=== PATIENT | male | born 1950 | race Caucasian/White ===

== ENCOUNTER 2021-10-12 12:24 | Emergency (ER) | payer OTHER ==
--- OUTSIDE RECORDS SUMMARY | 2021-10-12 12:36 | XMS REPORT | Continuity of Care Document ---
:1950 Author Organization [facility] t Address [address] [place] [address] Care Team Providers Name Role Phone FERGUSONRAFAEL Larson Primary Care Physician Unavailable SANG HASSAN Attending Clinician Unavailable CORETTA REDMAN Attending Clinician Unavailable JOSE BUTLER Attending Clinician Unavailable Bui_Q Attending Clinician Unavailable [email or web address] Attending Clinician Unavailable Nellie Enriquez MD Attending Clinician SANG HASSAN M.D. Attending Clinician Unavailable NAIMA NAPLOES M.D. Attending Clinician Unavailable PRAFUL BOWER Attending Clinician Unavailable MAIK REDDY Attending Clinician Unavailable BRITTANIE BARRERA Admitting Clinician Unavailable Bui_Q Admitting Clinician Unavailable [email or web address] Admitting Clinician Unavailable MARY TRAVIS Admitting Clinician Unavailable FRANSISCO GABRIEL Admitting Clinician Unavailable Payers Payer Name Policy Type Policy Number Effective Date Expiration Date Adri kaur WELLCARE/WELLCARE [id number] 2019 [employer] 00:00:00 [facility] [id number] 2019 00:00:00 [facility] NT [id number] 2021 00:00:00 WELLCARE [facility] [id number] 2019 [employer] (MEDICARE 00:00:00 REPLACEMENT/ADVANTA GE - HMO) TRANSACT RX (MOVED [id number]) WELLCARE [place] - [id number] 2019 [employer] 00:00:00 (MEDICARE REPLACEMENT HMO) Problems Condition Condition Condition Status Onset Resolution Last Treating Co mments Source Name Details Category Date Date Treatment Clinician Date Effusion Effusion Disease Active [facility] of knee of knee 6-22 Health joint, joint, 00:00: left left 00 Effusion Effusion Disease Active [facility] of knee of knee 6-22 Health joint joint 00:00: right right 00 Right hip Right hip Disease Active 2020-02 [facility] pain pain 2-10 Health 00:00: 00 Trochanter Trochanter Disease Active 2020-02 U T ic ic 2-10 Health bursitis bursitis 00:00: of right of right 00 hip hip Primary Primary Disease Active 2020-02 UT osteoarthr osteoarthr 2-10 He alth itis of itis of 00:00: right hip right hip 00 Class 1 Class 1 Disease Active 2020-02 UT obesity obesity 2-10 Health due to due to 00:00: excess excess 00 calories calories with with serious serious comorbidit comorbidit y and body y and body mass index mass index (BMI) of (BMI) of 34.0 to 34.0 to 34.9 in 34.9 in adult adult Primary Primary Disease Active 2020-02 UT osteoarthr osteoarthr 0-15 He alth itis of itis of 00:00: both knees both knees 00 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 0-15 Health deformity deformity 00:00: knee, knee, 00 right right 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 0-15 Health deformity deformity 00:00: knee, left knee, left 00 Limp Limp Disease Active 2020-02 UT 0-15 Health 00:00: 00 Acute pain Acute pain Disease Active 2020-02 U T of left of left 0-15 Health knee knee 00:00: 00 Dyslipidem Dyslipidem Problem Active [facility] 6-04 Family 00:00: Practic 00 e Morbid Morbid Problem Active [place] obesity Obesity 3-18 Family 00:00: Practic 00 e Diabetes Diabetes Problem Active 2021-0 [facility] mellitus Mellitus 3-03 Family 00:00: Practic 00 e Angina Angina Problem Active [facility] co-occurre Co-occurre 1-19 Fa bouchra nt and due nt and Due 00:00: Pr actic to to 00 e coronary Coronary arterioscl Arterioscl erosis erosis Chronic Chronic Problem Active [facility] kidney Kidney 9-12 Family disease Disease 00:00: Practic stage 3 Stage 3 00 e Acute Acute Disease Active [facility] 8 [facility] syndrome 00[facility] Medica l 00 Center 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 1-12 bouchra 00:00: Practic 00 e Peripheral Peripheral Problem Active 2018-02 [facility] vascular Vascular 1-12 Family disease Disease 00:00: Practic 00 e Type 2 Type 2 Problem Active 2018-02 [facility] diabetes Diabetes 1-01 Family mellitus Mellitus 00:00: Mackenzie hamilton with with 00 e peripheral Peripheral angiopathy Angiopathy Neuropathy Neuropathy Problem Active [facility] due to Due to 9-10 Family diabetes Diabetes 00:00: Pracavinash hamilton mellitus Mellitus 00 e Anemia Anemia Problem Active [facility] 9-10 Family 00:00: Practic 00 e Obstructiv Obstructiv Problem Active [facility] e sleep e Sleep 9-10 Family apnea Apnea 00:00: Practic syndrome Syndrome 00 e Hypertensi Hypertensi Problem Active [facility] ve ve 9-10 Family disorder Disorder 00:00: Pracavniash c 00 e Gastroesop Gastroesop Problem Active [facility] hageal hageal 9-10 Family reflux Reflux 00:00: Practic disease Disease 00 e without without esophagiti Esophagiti s s Lumbar Lumbar Problem Active [facility] radiculopa Radiculopa 9-10 bouchra thy thy 00:00: Practic 00 e History of History of Problem Active [facility] cerebrovas [facility]: Practic accident Accident 00 e Unstable Unstable Disease [facility] History of History of Problem Resolve [facility] hypertensi hypertensi d Ph ysici on on ans History of History of Problem Resolve UT diabetes diabetes d Physic i mellitus mellitus ans History of History of Problem Resolve UT heart heart d Physici attack attack ans Bilateral Bilateral Problem Active UT knee pain knee pain Phys ici ans Primary Primary Problem Active UT localized localized Phys ici osteoarthr osteoarthr an s itis of itis of knees, knees, bilateral bilateral Acquired 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 Ph ysici of both of both ans lower lower extremitie extremitie s s Acquired Acquired Problem Active UT genu genu Physici varum, varum, ans left left Abnormal Abnormal Problem Active UT accelerati accelerati Ph ysici ng of gait ng of gait an s Acute pain Acute pain Problem Active U T of left of left Physici knee knee ans Osteoarthr Osteoarthr Problem Active [facility] itis of itis of Family knee Knee Practic e Allergies, Adverse Reactions, Alerts Allergy Allergy Status Severity Reaction(s) Onset Inactive Treating Comm ents Source Name Type Date Date Clinician NO KNOWN Drug Active [facility] ALLERGIE Class [facility] NO KNOWN Allergy Active [facility] ALLERGIE S Family History Family Member Diagnosis Comments Start Date Stop Date Source Unknown Family Family history of Family History [facility] Member Heart trouble Unknown Family Family history of Family History [facility] Member diabetes mellitus Unknown Family Family history of Family History [facility] Member hypertension Social History Social Habit Start Date Stop Date Quantity Comments Source History [facility] Health Alcohol Std Drinks History [facility] Health Alcohol Binge History [facility] Health Alcohol Comment History of tobacco Cigarette Smoker [facility] use Exposure to 2021-08-04 2021-08-14 Not sure [place] [facility] SARS-CoV-2 (event) 00:00:00 09:55:00 Tobacco use and 2021-08-14 2021-08-14 Smokeless tobacco [facility] exposure 00:00:00 00:00:00 non-user Alcohol intake 2021-08-14 2021-08-14 Lifetime [facility] 00:00:00 00:00:00 non-drinker (finding) Cigarette 2021-08-14 2021-08-14 [facility] pack-years 00:00:00 00:00:00 History SDOH 2020-12-07 2020-12-07 1 [facility] Alcohol Frequency 00:00:00 00:00:00 Sex Ass[birth year] [place] [facility] 00:00:00 00:00:00 Smoking Status Start Date Stop Date Source Unknown if ever smoked [facility] Never smoked tobacco [place] [facility] Medications Ordered Filled Start Stop Current Ordering Indication Dosage Frequency Signature Comments Components Source Medication Medication Date Date Medication? Clinician (SIG) Name Name bupivacaine 2020-02- No [id number] 1mL [facility] (Marcaine) 04-04 Health 0.25 % 19:22: 19:22 injection 1 48 :00 mL lidocaine 2020-02- No [id number] 1mL UT (Xylocaine) 04-04 Health 1 % 19:22: 19:22 injection 1 48 :00 mL triamcinolo 2020-02- No [id number] 10mg UT ne 04-04 Health acetonide 19:22: 19:22 (Kenalog) 48 :00 10 MG/ML injection 10 mg triamcinolo 2020-02- No [id number] 10mg 10 mg, UT ne 04-04 [facility] acetonide 19:22: 19:22 cular, (Kenalog) 48 :00 Once PRN 10 MG/ML Procedure, injection Starting 10 mg on Thu02/01/21 at 1322, For 1 dose lidocaine 2020-02- No [id number] 1mL 1 mL, UT (Xylocaine) 04-04 Injection, H ealth 1 % 19:22: 19:22 Once PRN injection 1 48 :00 Procedure, mL Starting on Thu02/01/21 at 1322, For 1 dose bupivacaine 2020-02- No [id number] 1mL 1 mL, UT (Marcaine) 04-04 Injection, He alth 0.25 % 19:22: 19:22 Once PRN injection 1 48 :00 Procedure, mL Starting on Thu02/01/21 at 1322, For 1 dose Diclofenac 2020-02- No [id number] Apply UT Sodium 04-04 [id number] topically H ealth (Voltaren) 00:00: 05:59 3D 3 (three) 1 % 00 :00 times a external day if gel needed (pain). APPLY 4 GRAMS DONT EXCEED 16 QD Sodium 2020-02- No [id number] 20mg UT Hyaluronate 03-13 Health solution 15:38: 15:38 prefilled 48 :00 syringe 20 mg Sodium 2020-02- No [id number] 20mg UT Hyaluronate 03-13 Health solution 15:38: 15:38 prefilled 48 :00 syringe 20 mg Sodium 2020-02- No [id number] 20mg 20 mg, UT Hyaluronate 03-13 [facility] solution 15:38: 15:38 cular, prefilled 48 :00 Once PRN syringe 20 Procedure, mg Starting on Thu01/11/21 at 0938, For 1 dose Sodium 2020-02- No [id number] 20mg 20 mg, UT Hyaluronate 03-13 [facility] solution 15:38: 15:38 cular, prefilled 48 :00 Once PRN syringe 20 Procedure, mg Starting on Thu01/11/21 at 0938, For 1 dose Sodium 2020-02- No [id number] 20mg UT Hyaluronate 03-06 Health solution 15:15: 15:15 prefilled 27 :00 syringe 20 mg Sodium 2020-02- No [id number] 20mg UT Hyaluronate 03-06 Health solution 15:15: 15:15 prefilled 27 :00 syringe 20 mg Sodium 2020-02- No [id number] 20mg 20 mg, UT Hyaluronate 03-06 [facility] solution 15:15: 15:15 cular, prefilled 27 :00 Once PRN syringe 20 Procedure, mg Starting on Thu01/04/21 at 0915, For 1 dose Sodium 2020-02- No [id number] 20mg 20 mg, UT Hyaluronate 03-06 [facility] solution 15:15: 15:15 cular, prefilled 27 :00 Once PRN syringe 20 Procedure, mg Starting on Thu01/04/21 at 0915, For 1 dose Sodium 2020-02- No [id number] 20mg UT Hyaluronate 02-27 Health solution 14:39: 14:39 prefilled 41 :00 syringe 20 mg Sodium 2020-02- No [id number] 20mg UT Hyaluronate 02-27 Health solution 14:39: 14:39 prefilled 41 :00 syringe 20 mg Sodium 2020-02- No [id number] 20mg 20 mg, UT Hyaluronate 02-27 [facility] solution 14:39: 14:39 cular, prefilled 41 :00 Once PRN syringe 20 Procedure, mg Starting on Thu12/28/20 at 0939, For 1 dose Sodium 2020-02- No [id number] 20mg 20 mg, UT Hyaluronate 02-27 [facility] solution 14:39: 14:39 cular, prefilled 41 :00 Once PRN syringe 20 Procedure, mg Starting on Thu12/28/20 at 0939, For 1 dose pregabalin 2020-02 Yes pregabalin U T (Lyrica) 50 0-15 50 mg Health MG capsule 09:07: capsule TK 56 1 C PO QD. sAXagliptin 2020-02 Yes QD 1 (one) UT (Onglyza) 5 0-15 time each Hea lth MG tablet 09:07: day. 56 pregabalin 2020-02 Yes pregabalin U T (Lyrica) 50 0-15 50 mg Health MG capsule 09:07: capsule TK 56 1 C PO QD. sAXagliptin 2020-02 Yes QD 1 (one) UT (Onglyza) 5 0-15 time each Hea lth MG tablet 09:07: day. 56 pregabalin 2020-02 Yes pregabalin U T (Lyrica) 50 0-15 50 mg Health MG capsule 09:07: capsule TK 56 1 C PO QD. sAXagliptin 2020-02 Yes QD 1 (one) UT (Onglyza) 5 0-15 time each Hea lth MG tablet 09:07: day. 56 pregabalin 2020-02 Yes pregabalin U T (Lyrica) 50 0-15 50 mg Health MG capsule 09:07: capsule TK 56 1 C PO QD. sAXagliptin 2020-02 Yes QD 1 (one) UT (Onglyza) 5 0-15 time each Hea lth MG tablet 09:07: day. 56 pregabalin 2020-02 Yes pregabalin U T (Lyrica) 50 0-15 50 mg Health MG capsule 09:07: capsule TK 56 1 C PO QD. sAXagliptin 2020-02 Yes QD 1 (one) UT (Onglyza) 5 0-15 time each Hea lth MG tablet 09:07: day. 56 pregabalin 2020-02 Yes pregabalin U T (Lyrica) 50 0-15 50 mg Health MG capsule 09:07: capsule TK 56 1 C PO QD. sAXagliptin 2020-02 Yes QD 1 (one) UT (Onglyza) 5 0-15 time each Hea lth MG tablet 09:07: day. 56 pregabalin 2020-02 Yes pregabalin U T (Lyrica) 50 0-15 50 mg Health MG capsule 09:07: capsule TK 56 1 C PO QD. sAXagliptin 2020-02 Yes QD 1 (one) UT (Onglyza) 5 0-15 time each Hea lth MG tablet 09:07: day. 56 empaglifloz 2020-02 Yes QD 1 (one) UT in 0-15 time each Health (Jardiance) 09:07: day. 25 MG 55 glipiZIDE 2020-02 Yes glipizide UT XL 0-15 ER 10 mg Health (Glucotrol 09:07: tablet, XL) 10 MG 55 extended 24 hr release 24 tablet hr Take 1 tablet every day by oral route. insulin 2020-02 Yes Lantus UT glargine 0-15 [facility] (Lantus 09:07: U-100 SoloStar) 55 Insulin 100 UNIT/ML 100 injection unit/mL (3 mL) subcutaneo us pen per endo 50 units twice a day isosorbide 2020-02 Yes isosorbide U T mononitrate 0-15 mononitrat He alth ER (Imdur) 09:07: e ER 30 mg 30 MG 24 hr 55 tablet,ext tablet ended release 24 hr metFORMIN 2020-02 Yes metformin UT (Glucophage 0-15 1,000 mg th ) 1000 MG 09:07: tablet tablet 55 empaglifloz 2020-02 Yes QD 1 (one) UT in 0-15 time each Health (Jardiance) 09:07: day. 25 MG 55 glipiZIDE 2020-02 Yes glipizide UT XL 0-15 ER 10 mg Health (Glucotrol 09:07: tablet, XL) 10 MG 55 extended 24 hr release 24 tablet hr Take 1 tablet every day by oral route. insulin 2020-02 Yes Lantus [facility] glargine 0-15 [facility] (Lantus 09:07: U-100 SoloStar) 55 Insulin 100 UNIT/ML 100 injection unit/mL (3 mL) subcutaneo us pen per endo 50 units twice a day isosorbide 2020-02 Yes isosorbide U T mononitrate 0-15 mononitrat He alth ER (Imdur) 09:07: e ER 30 mg 30 MG 24 hr 55 tablet,ext tablet ended release 24 hr metFORMIN 2020-02 Yes metformin UT (Glucophage 0-15 1,000 mg th ) 1000 MG 09:07: tablet tablet 55 empaglifloz 2020-02 Yes QD 1 (one) UT in 0-15 time each Health (Jardiance) 09:07: day. 25 MG 55 glipiZIDE 2020-02 Yes glipizide UT XL 0-15 ER 10 mg Health (Glucotrol 09:07: tablet, XL) 10 MG 55 extended 24 hr release 24 tablet hr Take 1 tablet every day by oral route. insulin 2020-02 Yes Lantus [facility] glargine 0-15 [facility] (Lantus 09:07: U-100 SoloStar) 55 Insulin 100 UNIT/ML 100 injection unit/mL (3 mL) subcutaneo us pen per endo 50 units twice a day isosorbide 2020-02 Yes isosorbide U T mononitrate 0-15 mononitrat He alth ER (Imdur) 09:07: e ER 30 mg 30 MG 24 hr 55 tablet,ext tablet ended release 24 hr metFORMIN 2020-02 Yes metformin UT (Glucophage 0-15 1,000 mg th ) 1000 MG 09:07: tablet tablet 55 empaglifloz 2020-02 Yes QD 1 (one) UT in 0-15 time each Health (Jardiance) 09:07: day. 25 MG 55 glipiZIDE 2020-02 Yes glipizide UT XL 0-15 ER 10 mg Health (Glucotrol 09:07: tablet, XL) 10 MG 55 extended 24 hr release 24 tablet hr Take 1 tablet every day by oral route. insulin 2020-02 Yes Lantus UT glargine 0-15 [facility] (Lantus 09:07: U-100 SoloStar) 55 Insulin 100 UNIT/ML 100 injection unit/mL (3 mL) subcutaneo us pen per endo 50 units twice a day isosorbide 2020-02 Yes isosorbide U T mononitrate 0-15 mononitrat He alth ER (Imdur) 09:07: e ER 30 mg 30 MG 24 hr 55 tablet,ext tablet ended release 24 hr metFORMIN 2020-02 Yes metformin UT (Glucophage 0-15 1,000 mg Heal th ) 1000 MG 09:07: tablet tablet 55 empaglifloz 2020-02 Yes QD 1 (one) UT in 0-15 time each Health (Jardiance) 09:07: day. 25 MG 55 glipiZIDE 2020-02 Yes glipizide UT XL 0-15 ER 10 mg Health (Glucotrol 09:07: tablet, XL) 10 MG 55 extended 24 hr release 24 tablet hr Take 1 tablet every day by oral route. insulin 2020-02 Yes Lantus UT glargine 0-15 [facility] (Lantus 09:07: U-100 SoloStar) 55 Insulin 100 UNIT/ML 100 injection unit/mL (3 mL) subcutaneo us pen per endo 50 units twice a day isosorbide 2020-02 Yes isosorbide U T mononitrate 0-15 mononitrat He alth ER (Imdur) 09:07: e ER 30 mg 30 MG 24 hr 55 tablet,ext tablet ended release 24 hr metFORMIN 2020-02 Yes metformin UT (Glucophage 0-15 1,000 mg ) 1000 MG 09:07: tablet tablet 55 empaglifloz 2020-02 Yes QD 1 (one) UT in 0-15 time each Health (Jardiance) 09:07: day. 25 MG 55 glipiZIDE 2020-02 Yes glipizide UT XL 0-15 ER 10 mg Health (Glucotrol 09:07: tablet, XL) 10 MG 55 extended 24 hr release 24 tablet hr Take 1 tablet every day by oral route. insulin 2020-02 Yes Lantus UT glargine 0-15 [facility] (Lantus 09:07: U-100 SoloStar) 55 Insulin 100 UNIT/ML 100 injection unit/mL (3 mL) subcutaneo us pen per endo 50 units twice a day isosorbide 2020-02 Yes isosorbide U T mononitrate 0-15 mononitrat He alth ER (Imdur) 09:07: e ER 30 mg 30 MG 24 hr 55 tablet,ext tablet ended release 24 hr metFORMIN 2020-02 Yes metformin UT (Glucophage 0-15 1,000 mg Heal th ) 1000 MG 09:07: tablet tablet 55 empaglifloz 2020-02 Yes QD 1 (one) UT in 0-15 time each Health (Jardiance) 09:07: day. 25 MG 55 glipiZIDE 2020-02 Yes glipizide UT XL 0-15 ER 10 mg Health (Glucotrol 09:07: tablet, XL) 10 MG 55 extended 24 hr release 24 tablet hr Take 1 tablet every day by oral route. insulin 2020-02 Yes Lantus UT glargine 0-15 [facility] (Lantus 09:07: U-100 SoloStar) 55 Insulin 100 UNIT/ML 100 injection unit/mL (3 mL) subcutaneo us pen per endo 50 units twice a day isosorbide 2020-02 Yes isosorbide U T mononitrate 0-15 mononitrat He alth ER (Imdur) 09:07: e ER 30 mg 30 MG 24 hr 55 tablet,ext tablet ended release 24 hr metFORMIN 2020-02 Yes metformin UT (Glucophage 0-15 1,000 mg Heal th ) 1000 MG 09:07: tablet tablet 55 allopurinol 2020-02 Yes 1 (one) UT (Zyloprim) 0-15 time each Heal th 100 MG 09:07: day at the tablet 54 same time. atorvastati 2020-02 Yes atorvastat UT n (Lipitor) 0-15 in 80 mg Heal th 80 MG 09:07: tablet tablet 54 allopurinol 2020-02 Yes 1 (one) UT (Zyloprim) 0-15 time each Heal th 100 MG 09:07: day at the tablet 54 same time. atorvastati 2020-02 Yes atorvastat UT n (Lipitor) 0-15 in 80 mg Heal th 80 MG 09:07: tablet tablet 54 allopurinol 2020-02 Yes 1 (one) UT (Zyloprim) 0-15 time each Heal th 100 MG 09:07: day at the tablet 54 same time. atorvastati 2020-02 Yes atorvastat UT n (Lipitor) 0-15 in 80 mg Heal th 80 MG 09:07: tablet tablet 54 allopurinol 2020-02 Yes 1 (one) UT (Zyloprim) 0-15 time each Heal th 100 MG 09:07: day at the tablet 54 same time. atorvastati 2020-02 Yes atorvastat UT n (Lipitor) 0-15 in 80 mg Heal th 80 MG 09:07: tablet tablet 54 allopurinol 2020-02 Yes 1 (one) UT (Zyloprim) 0-15 time each Heal th 100 MG 09:07: day at the tablet 54 same time. atorvastati 2020-02 Yes atorvastat UT n (Lipitor) 0-15 in 80 mg Heal th 80 MG 09:07: tablet tablet 54 allopurinol 2020-02 Yes 1 (one) UT (Zyloprim) 0-15 time each Heal th 100 MG 09:07: day at the tablet 54 same time. atorvastati 2020-02 Yes atorvastat UT n (Lipitor) 0-15 in 80 mg Heal th 80 MG 09:07: tablet tablet 54 allopurinol 2020-02 Yes 1 (one) UT (Zyloprim) 0-15 time each Heal th 100 MG 09:07: day at the tablet 54 same time. atorvastati 2020-02 Yes atorvastat UT n (Lipitor) 0-15 in 80 mg Heal th 80 MG 09:07: tablet tablet 54 Diclofenac 2020-02- No [id number] Q.[id number] Apply UT Sodium 0-15 11-15 [id number] topically H ealth (Voltaren) 00:00: 05:59 3D 3 (three) 1 % 00 :00 times a external day if gel needed (pain). APPLY 4 GRAMS TO AFFECTED AREA NOT TO EXCEED 16 GRAMS QS Diclofenac 2020-02- No [id number] Q.[id number] Apply UT Sodium 0-15 11-15 [id number] topically H ealth (Voltaren) 00:00: 05:59 3D 3 (three) 1 % 00 :00 times a external day if gel needed (pain). APPLY 4 GRAMS TO AFFECTED AREA NOT TO EXCEED 16 GRAMS QS Diclofenac 2020-02- No [id number] Q.[id number] Apply UT Sodium 0-15 11-15 [id number] topically H ealth (Voltaren) 00:00: 05:59 3D 3 (three) 1 % 00 :00 times a external day if gel needed (pain). APPLY 4 GRAMS TO AFFECTED AREA NOT TO EXCEED 16 GRAMS QS hydrocortis 2020- No [id number] 4[drp] Place 4 [facility] one-acetic 4-08 14 [id number] Drops in it y of acid 1-2 % 00:00: 04:59 left ear 3 [place] otic drops 00 :00 (three) Medica l times Branch daily for 5 days. Diclofenac Diclofenac Yes SANG APPLY 4 UT Sodium 1 % Sodium 1 % 3-05 HASSAN M.D. GRAMS TO [facility] External External 00:00: AFFECTED a ns Gel Gel 00 AREA (LOWER EXTREMITIE S) FOUR TIMES A DAY. DO NOT APPLY MORE THAN 16 GRAMS DAILY cyclobenzap 2020-1 Yes UT rine 2-08 Health (Flexeril) 00:00: 10 MG 00 tablet cyclobenzap 2020-1 Yes UT rine 2-08 Health (Flexeril) 00:00: 10 MG 00 tablet cyclobenzap 2020-1 Yes UT rine 2-08 Health (Flexeril) 00:00: 10 MG 00 tablet cyclobenzap 2020-1 Yes UT rine 2-08 Health (Flexeril) 00:00: 10 MG 00 tablet cyclobenzap 2020-1 Yes UT rine 2-08 Health (Flexeril) 00:00: 10 MG 00 tablet cyclobenzap 2020-1 Yes UT rine 2-08 Health (Flexeril) 00:00: 10 MG 00 tablet cyclobenzap 2020-1 Yes UT rine 2-08 Health (Flexeril) 00:00: 10 MG 00 tablet aspirin 81 2019-0 Yes 81mg QD Take [address] [facility] EC 8-24 by mouth [facility] tablet 13:34: daily. [address] atorvastati 2019-0 Yes 80mg QD Take [address] [facility] n calcium 8-24 by mouth [facility] (ATORVASTAT 13:34: daily . Med ical IN ORAL) 11 Center CARVEDILOL 2020-0 Yes 25mg QD Take [address] ORAL 8-24 by mouth [facility] 13:34: daily . Medical 11 Center losartan 2020-0 Yes 100mg Take [address] [facility] potassium 8-24 mg by [facility] (LOSARTAN 13:34: mouth . Medic al ORAL) 11 Center pantoprazol 2020-0 Yes 40mg QD Take [address] [facility] e 8-24 by mouth [facility] (PROTONIX) 13:34: daily. Medic al 40 MG 11 Center tablet traMADol 2020-0 Yes 50mg Take [address] (ULTRAM) 50 8-24 by mouth [facility] mg tablet 13:34: every 6 Medic al 11 (six) Center hours as needed for Pain. duloxetine 2020-0 Yes 30mg QD Take [address] HCl 8-24 by mouth [facility] (DULOXETINE 13:34: daily . Med ical ORAL) 11 Center spironolact 2020-0 Yes 25mg QD Take [address] [address] one 8-24 by mouth [facility] (ALDACTONE) 13:34: daily. Medi yasir 25 MG 11 Center tablet omega-3 2020-0 Yes 2g Q.5D Take [address] [facility] fatty 8-24 by mouth 2 [facility] acids-fish 13:34: (two) Medica l oil 11 times Center 340-1,000 daily. mg Cap per capsule folic acid 2020-0 Yes 1mg QD Take [address] (FOLVITE) 1 8-24 by mouth [facility] MG tablet 13:34: daily. Medica l 11 Center nitroglycer 2020-[address] in 8-24 mg under [facility] (NITROSTAT) 13:34: the tongue Medical 0.4 MG SL 11 every 5 Center tablet (five) minutes as needed for Chest pain Put 1 pill under tongue every 5min as needed for chest pain.No more than 3 doses in 15min.Call 911 if pain is unrelieved 5min after 1st dose . ranolazine 2020-0 Yes 500mg Q.5D Take [address] (RANEXA) 8-24 mg by [facility] 500 MG 12 13:34: mouth 2 Medic al hr tablet 11 (two) Center times daily. ticagrelor 2020-0 Yes 90mg Q.5D Take [address] (BRILINTA) 8-24 by mouth 2 Anila es 90 mg Tab 13:34: (two) Medical tablet 11 times Center daily. traMADol 2020-0 Yes 50mg Take 50 mg UT (Ultram) 50 8-24 by mouth. Hea lth MG tablet 00:00: 00 carvedilol 2020-0 Yes 25mg QD Take 25 mg U T (Coreg) 1 8-24 by mouth 1 Heal th mg/mL 00:00: (one) time solution 00 each day. aspirin 81 2020-0 Yes QD 1 (one) UT MG EC 8-24 time each Health tablet 00:00: day. 00 insulin 2020-0 Yes 30U Q12H Inject 30 UT glargine 8-24 Units Health (Lantus) 00:00: under the 100 UNIT/ML 00 skin every injection 12 (twelve) hours. pantoprazol 2020-0 Yes 40mg QD Take 40 mg UT e 8-24 by mouth 1 Health (ProtoNix) 00:00: (one) time 40 MG EC 00 each day. tablet ticagrelor 2020-0 Yes 90mg Q12H Take 90 mg U T (Brilinta) 8-24 by mouth Healt h 90 MG 00:00: every 12 tablet 00 (twelve) hours. traMADol 2020-0 Yes 50mg Take 50 mg UT (Ultram) 50 8-24 by mouth. Hea lth MG tablet 00:00: 00 carvedilol 2020-0 Yes 25mg QD Take 25 mg U T (Coreg) 1 8-24 by mouth 1 Heal th mg/mL 00:00: (one) time solution 00 each day. aspirin 81 2020-0 Yes QD 1 (one) UT MG EC 8-24 time each Health tablet 00:00: day. 00 insulin 2020-0 Yes 30U Q12H Inject 30 UT glargine 8-24 Units Health (Lantus) 00:00: under the 100 UNIT/ML 00 skin every injection 12 (twelve) hours. pantoprazol 2020-0 Yes 40mg QD Take 40 mg UT e 8-24 by mouth 1 Health (ProtoNix) 00:00: (one) time 40 MG EC 00 each day. tablet ticagrelor 2020-0 Yes 90mg Q12H Take 90 mg U T (Brilinta) 8-24 by mouth Healt h 90 MG 00:00: every 12 tablet 00 (twelve) hours. traMADol 2020-0 Yes 50mg Take 50 mg UT (Ultram) 50 8-24 by mouth. Hea lth MG tablet 00:00: 00 carvedilol 2020-0 Yes 25mg QD Take 25 mg U T (Coreg) 1 8-24 by mouth 1 Heal th mg/mL 00:00: (one) time solution 00 each day. aspirin 81 2020-0 Yes QD 1 (one) UT MG EC 8-24 time each Health tablet 00:00: day. 00 insulin 2020-0 Yes 30U Q12H Inject 30 UT glargine 8-24 Units Health (Lantus) 00:00: under the 100 UNIT/ML 00 skin every injection 12 (twelve) hours. pantoprazol 2020-0 Yes 40mg QD Take 40 mg UT e 8-24 by mouth 1 Health (ProtoNix) 00:00: (one) time 40 MG EC 00 each day. tablet ticagrelor 2020-0 Yes 90mg Q12H Take 90 mg U T (Brilinta) 8-24 by mouth Healt h 90 MG 00:00: every 12 tablet 00 (twelve) hours. traMADol 2020-0 Yes 50mg Take 50 mg UT (Ultram) 50 8-24 by mouth. Hea lth MG tablet 00:00: 00 carvedilol 2020-0 Yes 25mg QD Take 25 mg U T (Coreg) 1 8-24 by mouth 1 Heal th mg/mL 00:00: (one) time solution 00 each day. aspirin 81 2020-0 Yes QD 1 (one) UT MG EC 8-24 time each Health tablet 00:00: day. 00 insulin 2020-0 Yes 30U Q12H Inject 30 UT glargine 8-24 Units Health (Lantus) 00:00: under the 100 UNIT/ML 00 skin every injection 12 (twelve) hours. pantoprazol 2020-0 Yes 40mg QD Take 40 mg UT e 8-24 by mouth 1 Health (ProtoNix) 00:00: (one) time 40 MG EC 00 each day. tablet ticagrelor 2020-0 Yes 90mg Q12H Take 90 mg U T (Brilinta) 8-24 by mouth Healt h 90 MG 00:00: every 12 tablet 00 (twelve) hours. traMADol 2020-0 Yes 50mg Take 50 mg UT (Ultram) 50 8-24 by mouth. Hea lth MG tablet 00:00: 00 carvedilol 2020-0 Yes 25mg QD Take 25 mg U T (Coreg) 1 8-24 by mouth 1 Heal th mg/mL 00:00: (one) time solution 00 each day. aspirin 81 2020-0 Yes QD 1 (one) UT MG EC 8-24 time each Health tablet 00:00: day. 00 insulin 2020-0 Yes 30U Q12H Inject 30 UT glargine 8-24 Units Health (Lantus) 00:00: under the 100 UNIT/ML 00 skin every injection 12 (twelve) hours. pantoprazol 2020-0 Yes 40mg QD Take 40 mg UT e 8-24 by mouth 1 Health (ProtoNix) 00:00: (one) time 40 MG EC 00 each day. tablet ticagrelor 2020-0 Yes 90mg Q12H Take 90 mg U T (Brilinta) 8-24 by mouth Healt h 90 MG 00:00: every 12 tablet 00 (twelve) hours. traMADol 2020-0 Yes 50mg Take 50 mg UT (Ultram) 50 8-24 by mouth. Hea lth MG tablet 00:00: 00 carvedilol 2020-0 Yes 25mg QD Take 25 mg U T (Coreg) 1 8-24 by mouth 1 Heal th mg/mL 00:00: (one) time solution 00 each day. aspirin 81 2020-0 Yes QD 1 (one) UT MG EC 8-24 time each Health tablet 00:00: day. 00 insulin 2020-0 Yes 30U Q12H Inject 30 UT glargine 8-24 Units Health (Lantus) 00:00: under the 100 UNIT/ML 00 skin every injection 12 (twelve) hours. pantoprazol 2020-0 Yes 40mg QD Take 40 mg UT e 8-24 by mouth 1 Health (ProtoNix) 00:00: (one) time 40 MG EC 00 each day. tablet ticagrelor 2020-0 Yes 90mg Q12H Take 90 mg U T (Brilinta) 8-24 by mouth Healt h 90 MG 00:00: every 12 tablet 00 (twelve) hours. traMADol 2020-0 Yes 50mg Take 50 mg UT (Ultram) 50 8-24 by mouth. Hea lth MG tablet 00:00: 00 carvedilol 2020-0 Yes 25mg QD Take 25 mg U T (Coreg) 1 8-24 by mouth 1 Heal th mg/mL 00:00: (one) time solution 00 each day. aspirin 81 2020-0 Yes QD 1 (one) UT MG EC 8-24 time each Health tablet 00:00: day. 00 insulin 2020-0 Yes 30U Q12H Inject 30 UT glargine 8-24 Units Health (Lantus) 00:00: under the 100 UNIT/ML 00 skin every injection 12 (twelve) hours. pantoprazol 2020-0 Yes 40mg QD Take 40 mg UT e 8-24 by mouth 1 Health (ProtoNix) 00:00: (one) time 40 MG EC 00 each day. tablet ticagrelor 2020-0 Yes 90mg Q12H Take 90 mg U T (Brilinta) 8-24 by mouth Healt h 90 MG 00:00: every 12 tablet 00 (twelve) hours. insulin 2020-0 Yes 30U Q.5D [facility] (LANTUS) 00:00: subcutaneo Med ical 100 unit/mL 00 usly 2 Center injection (two) times daily Use as directed . isosorbide 2020-0 Yes 60mg QD Take 1 [facility] mononitrate 1-23 tablet (60 Tamar kes (IMDUR) 60 00:00: mg total) Me dical MG 24 hr 00 by mouth Center tablet daily. metFORMIN 2019-0 2020- No 1000mg Q.5D Take [address] [facility] [address] (GLUCOPHAGE 1-23 -22 tablets Luke s ) 500 MG 00:00: 23:59 (1,000 mg Med ical tablet 00 :00 total) by Center mouth 2 (two) times daily Resume on 03/19. aspirin 81 aspirin 81 No 1 Q1D aspirin 81 [facility] mg mg mg Family tablet,roseann tablet,roseann tablet,del Practic yed release yed release ayed e Take 1 Take 1 release tablet tablet Take 1 every day every day tablet by oral by oral every day route. route. by oral route. atorvastati atorvastati No atorvastat [facility] n 80 mg n 80 mg in 80 mg Famil y tablet Take tablet Take tablet Practic 1 tablet 1 tablet Take 1 e every day every day tablet by oral by oral every day route. route. by oral route. carvedilol carvedilol No carvedilol [facility] 25 mg 25 mg 25 mg Family tablet Take tablet Take tablet Practic 1 tablet 1 tablet Take 1 e twice a day twice a day tablet by oral by oral twice a route. route. day by oral route. cyclobenzap cyclobenzap No cyclobenza [facility] rine 10 mg rine 10 mg sakshi 10 Family tablet 1 tablet 1 mg tablet Pr actic TABLET TABLET 1 TABLET e NEEDED FOR NEEDED FOR NEEDED PAIN EVERY PAIN EVERY FOR PAIN 8 HRS 8 HRS EVERY 8 ORALLY 30 ORALLY 30 HRS ORALLY DAY(S) DAY(S) 30 DAY(S) duloxetine duloxetine No duloxetine [facility] 30 mg 30 mg 30 mg Family capsule,del capsule,del capsule,de Practic ayed ayed layed e release release release Take 1 Take 1 Take 1 capsule capsule capsule every day every day every day by oral by oral by oral route. route. route. folic acid folic acid No 1 Q1D folic acid [facility] 1 mg tablet 1 mg tablet 1 mg F amily Take 1 Take 1 tablet Practic tablet tablet Take 1 e every day every day tablet by oral by oral every day route. route. by oral route. FreeStyle FreeStyle No FreeStyle [facility] Lite Strips Lite Strips Lite F amily Take 1 Take 1 Strips Practic strip 3 strip 3 Take 1 e times a day times a day strip 3 by miscell. by miscell. times a route. route. day by miscell. route. isosorbide isosorbide No isosorbide [facility] mononitrate mononitrate mononitrat Family ER 30 mg ER 30 mg e ER 30 mg P ractic tablet,exte tablet,exte tablet,ext e nded nded ended release 24 release 24 release 24 hr Take 1 hr Take 1 hr Take 1 tablet tablet tablet every day every day every day by oral by oral by oral route. route. route. Lantus Lantus No Lantus [facility] Solostar Solostar Solostar Fam bolivar U-100 U-100 U-100 Practic Insulin 100 Insulin 100 Insulin e unit/mL (3 unit/mL (3 100 mL) mL) unit/mL (3 subcutaneou subcutaneou mL) s pen per s pen per subcutaneo endo 50 endo 50 us pen per units twice units twice endo 50 a day a day units twice a day losartan losartan No losartan Daniel brittany 100 mg 100 mg 100 mg Family tablet Take tablet Take tablet Practic 1 tablet 1 tablet Take 1 e every day every day tablet by oral by oral every day route. route. by oral route. metformin metformin No metformin [facility] 1,000 mg 1,000 mg 1,000 mg Fam bolivar tablet Take tablet Take tablet Practic 1 tablet 1 tablet Take 1 e twice a day twice a day tablet by oral by oral twice a route. route. day by oral route. Novolog Novolog No Novolog [facility] Flexpen Flexpen Flexpen Family U-100 U-100 U-100 Practic Insulin per Insulin per Insulin e Endo 15 Endo 15 per Endo units units 15 units before before before meals meals meals pantoprazol pantoprazol No pantoprazo [facility] e 40 mg e 40 mg le 40 mg Famil y tablet,roseann tablet,roseann tablet,del Practic yed release yed release ayed e Take 1 Take 1 release tablet tablet Take 1 every day every day tablet by oral by oral every day route as route as by oral needed. needed. route as needed. ranolazine ranolazine No ranolazine [facility] ER 500 mg ER 500 mg ER 500 mg Family tablet,exte tablet,exte tablet,ext Practic nded nded ended e release,12 release,12 release,12 hr Take 1 hr Take 1 hr Take 1 tablet tablet tablet twice a day twice a day twice a by oral by oral day by route. route. oral route. sacubitril sacubitril No 1 BID sacubitril [facility] 97 97 97 Family mg-valsarta mg-valsarta mg-valsart Practic n 103 mg n 103 mg an 103 mg e tablet Take tablet Take tablet 1 tablet 1 tablet Take 1 twice a day twice a day tablet by oral by oral twice a route. route. day by oral route. spironolact spironolact No spironolac [facility] one 25 mg one 25 mg tone 25 mg Family tablet TAKE tablet TAKE tablet Practic 1 TABLET 1 TABLET TAKE 1 e DAILY DAILY TABLET DAILY ticagrelor ticagrelor No ticagrelor [facility] Per Card Per Card Per Card Fam bolivar Practic e tramadol 50 tramadol 50 No tramadol [facility] mg tablet mg tablet 50 mg Fami ly TAKE 1 TAKE 1 tablet Practic TABLET BY TABLET BY TAKE 1 e MOUTH EVERY MOUTH EVERY TABLET BY 6 HOURS 6 HOURS MOUTH NEEDED NEEDED EVERY 6 HOURS NEEDED Trulicity Trulicity No Trulicity [facility] Per [facility] Per [facility] Per [facility] Family Practic e Immunizations Ordered Immunization Filled Immunization Date Status Commen ts Source Name Name zoster recombinant zoster recombinant 2020-07-27 Completed [facility] 09:48:00 Practice SARS-COV-2 (COVID-19) SARS-COV-2 (COVID-19) 2020-04-16 Completed [facility] vaccine, UNSPECIFIED vaccine, UNSPECIFIED 00:00:00 Practice SARS-COV-2 (COVID-19) SARS-COV-2 (COVID-19) 2020-03-26 Completed [facility] vaccine, UNSPECIFIED vaccine, UNSPECIFIED 00:00:00 Practice zoster recombinant zoster recombinant 2020-01-31 Completed [facility] 10:45:00 Practice influenza, high-dose, influenza, high-dose, 2019-10-25 Completed [facility] quadrivalent quadrivalent 11:13:00 Practice influenza, high dose influenza, high dose 2018-11-02 Completed [facility] seasonal seasonal 10:00:00 Practice influenza, high dose influenza, high dose 2018-01-04 Completed [facility] seasonal seasonal 11:52:00 Practice pneumococcal pneumococcal 2018-01-[address] [facility] polysaccharide PPV23 polysaccharide PPV23 11:52:00 Practice pneumococcal pneumococcal 2016-10-24 [facility] conjugate PCV 13 conjugate PCV 13 00:00:00 Pr actice influenza, influenza, 2016-10-24 [facility] unspecified unspecified 00:00:00 Practice formulation formulation Tdap Tdap 2014-02-23 Completed [facility] 00:00:00 Practice Vital Signs Vital Name Observation Time Observation Value Comments Source WEIGHT 2021-10-08 06:00:00 104.418 kg WEIGHT 2021-10-07 05:36:00 103.148 kg WEIGHT 2021-10-06 06:00:00 103.148 kg WEIGHT 2021-10-05 06:00:00 102.876 kg WEIGHT 2021-10-04 06:00:00 101.969 kg WEIGHT 2021-10-03 06:00:00 102.649 kg WEIGHT 2021-10-02 06:00:00 102.83 kg WEIGHT 2021-10-01 06:00:00 102.558 kg WEIGHT 2021-09-30 06:00:00 99.791 kg WEIGHT 2021-09-29 06:00:00 99.791 kg WEIGHT 2021-09-28 06:00:00 100.744 kg HEIGHT 2021-09-23 23:38:00 182.9 cm WEIGHT 2021-09-23 23:38:00 99.882 kg HEIGHT 2021-09-23 18:23:00 182.9 cm WEIGHT 2021-09-23 18:23:00 102.513 kg WEIGHT 2021-10-08 06:00:00 104.418 kg WEIGHT 2021-10-07 05:36:00 103.148 kg WEIGHT 2021-10-06 06:00:00 103.148 kg WEIGHT 2021-10-05 06:00:00 102.876 kg WEIGHT 2021-10-04 06:00:00 101.969 kg WEIGHT 2021-10-03 06:00:00 102.649 kg WEIGHT 2021-10-02 06:00:00 102.83 kg WEIGHT 2021-10-01 06:00:00 102.558 kg WEIGHT 2021-09-30 06:00:00 99.791 kg WEIGHT 2021-09-29 06:00:00 99.791 kg WEIGHT 2021-09-28 06:00:00 100.744 kg HEIGHT 2021-09-23 23:38:00 182.9 cm WEIGHT 2021-09-23 23:38:00 99.882 kg HEIGHT 2021-09-23 18:23:00 182.9 cm WEIGHT 2021-09-23 18:23:00 102.513 kg Body height 2021-08-14 15:25:00 [facility]6 [facility] 2021-08-14 15:25:00 112.492 [facility] BMI 2021-08-14 15:25:00 34.11 kg/m2 [facility] Body height 2021-05-03 15:25:00 181.6 cm [facility] Body weight 2021-05-03 15:25:00 112.492 kg [facility] BMI 2021-05-03 15:25:00 34.11 kg/m2 [facility] Body height 2021-02-01 15:40:00 181.6 cm [facility] Body weight 2021-02-01 15:40:00 112.492 kg [facility] BMI 2021-02-01 15:40:00 34.11 kg/m2 [facility] Body height 2021-01-11 15:03:00 181.6 cm [facility] Body weight 2021-01-11 15:03:00 112.492 kg [facility] BMI 2021-01-11 15:03:00 34.11 kg/m2 [facility] Body height 2021-01-04 15:08:00 181.6 cm [facility] Body weight 2021-01-04 15:08:00 112.492 kg [facility] BMI 2021-01-04 15:08:00 34.11 kg/m2 [facility] Body height 2020-12-28 14:43:00 181.6 cm [facility] Body weight 2020-12-28 14:43:00 112.492 kg [facility] BMI 2020-12-28 14:43:00 34.11 kg/m2 [facility] Body height 2020-12-07 14:03:00 181.6 cm [facility] Body weight 2020-12-07 14:03:00 112.492 kg [facility] BMI 2020-12-07 14:03:00 34.11 kg/m2 [facility] BP Diastolic 2020-07-27 00:00:00 71 mm[Hg] [facility] Height 2020-07-27 00:00:00 70 [in_i] [facility] BMI (Body Mass 2020-07-27 00:00:00 36.6 kg/m2 [facility] Index) Practice BP Systolic 2020-07-27 00:00:00 123 mm[Hg] [facility] Body Weight 2020-07-27 00:00:00 255.2 [lb_av] [facility] Practice Systolic blood 2020-05-31 08:20:00 130 mm[Hg] Univer sity of pressure [facility] Diastolic blood 2020-05-31 08:20:00 65 mm[Hg] Unive rsity of pressure [facility] Heart rate 2020-05-31 08:20:00 80 /min [facility]i ty of [facility] Body temperature 2020-05-31 08:20:00 37.06 Xin [facility] Respiratory rate 2020-05-31 08:20:00 17 /min [facility] Body height 2020-05-31 08:20:00 182.9 cm Universi ty [facility] Body weight 2020-05-31 08:20:00 111.131 kg Universi ty [facility] BMI 2020-05-31 08:20:00 33.23 kg/m2 Universi [facility] Oxygen saturation in 2020-05-31 08:20:00 98 /min [facility] Arterial blood by [facility] Pulse oximetry Branch BP Diastolic 2020-04-25 00:00:00 68 mm[Hg] [facility] Height 2020-04-25 00:00:00 70 [in_i] [facility] BMI (Body Mass 2020-04-25 00:00:00 35.9 kg/m2 [facility] Practice BP Systolic 2020-04-25 00:00:00 149 mm[Hg] [facility] Body Weight 2020-04-25 00:00:00 250.4 [lb_av] [facility] BP Diastolic 2020-01-31 00:00:00 78 mm[Hg] [facility] Height 2020-01-31 00:00:00 70 [in_i] [facility] BMI (Body Mass 2020-01-31 00:00:00 33.4 kg/m2 [facility] BP Systolic 2020-01-31 00:00:00 120 mm[Hg] [facility] Body Weight 2020-01-31 00:00:00 232.8 [lb_av] [facility] BP Diastolic 2019-10-25 00:00:00 73 mm[Hg] [facility] Height 2019-10-25 00:00:00 70 [in_i] [facility] BMI (Body Mass 2019-10-25 00:00:00 35 kg/m2 [facility] BP Systolic 2019-10-25 00:00:00 123 mm[Hg] [facility] Body Weight 2019-10-25 00:00:00 244 [lb_av] [facility] HEIGHT 2019-10-13 00:00:00 182.9 cm WEIGHT 2019-10-13 00:00:00 105.9 kg HEIGHT 2019-10-13 00:00:00 182.9 cm WEIGHT 2019-10-13 00:00:00 105.9 kg BP Diastolic 2019-03-31 00:00:00 73 mm[Hg] [facility] Height 2019-03-31 00:00:00 70 [in_i] [facility] BMI (Body Mass 2019-03-31 00:00:00 34.8 kg/m2 [facility] BP Systolic 2019-03-31 00:00:00 153 mm[Hg] [facility] Body Weight 2019-03-31 00:00:00 242.6 [lb_av] [facility] BP Diastolic 2019-01-04 00:00:00 80 mm[Hg] [facility] Height 2019-01-04 00:00:00 70 [in_i] [facility] BMI (Body Mass 2019-01-04 00:00:00 35.2 kg/m2 [facility] BP Systolic 2019-01-04 00:00:00 128 mm[Hg] [facility] Body Weight 2019-01-04 00:00:00 245 [lb_av] [facility] BP Diastolic 2018-11-02 00:00:00 80 mm[Hg] [facility] Height 2018-11-02 00:00:00 70 [in_i] [facility] BMI (Body Mass 2018-11-02 00:00:00 35.1 kg/m2 [facility] BP Systolic 2018-11-02 00:00:00 140 mm[Hg] [facility] Body Weight 2018-11-02 00:00:00 244.4 [lb_av] [facility] BP Diastolic 2018-07-08 00:00:00 84 mm[Hg] [facility] Height 2018-07-08 00:00:00 70 [in_i] [facility] BMI (Body Mass 2018-07-08 00:00:00 34.9 kg/m2 [facility] Practice BP Systolic 2018-07-08 00:00:00 132 mm[Hg] [facility] Body Weight 2018-07-08 00:00:00 243.4 [lb_av] [facility] Practice BP Diastolic 2018-05-05 00:00:00 82 mm[Hg] [facility] Family Practice Height 2018-05-05 00:00:00 70 [in_i] [facility] Practice BMI (Body Mass 2018-05-05 00:00:00 33.9 kg/m2 [facility] Family Index) Practice BP Systolic 2018-05-05 00:00:00 142 mm[Hg] [facility] Practice Body Weight 2018-05-05 00:00:00 236.6 [lb_av] [facility] Practice BP Diastolic 2018-03-11 00:00:00 68 mm[Hg] [facility] Practice Height 2018-03-11 00:00:00 72 [in_i] [facility] Practice BMI (Body Mass 2018-03-11 00:00:00 32.1 kg/m2 [facility] Family Index) Practice BP Systolic 2018-03-11 00:00:00 122 mm[Hg] [facility] Practice Body Weight 2018-03-11 00:00:00 236.4 [lb_av] [facility] Practice Body mass index 2020-04-27 08:37:00 34.13 kg/m2 [place] [facility] (BMI) [Ratio] Body height 2020-04-27 08:37:00 71.5 [in_us] [facility] Weight 2020-04-27 08:37:00 248.2 [lb_av] [facility] Procedures Procedure Date / Time Performing Clinician Source Performed [place] ARTHROCENTESIS 2021-02-01 19:22:48 Sang [facility] [place] [facility] ASPIR&/INJ MAJOR JT/BURSA W/O US XR HIP 2 OR 3 VW RIGHT 2021-02-01 15:56:01 Sang Hassan [place] [facility] [place] ARTHROCENTESIS ASPIR&/INJ 2021-01-11 15:38:48 [place] [facility] MAJOR JT/BURSA W/O US BILATERAL ARTHROCENTESIS ASPIR&/INJ 2021-01-04 15:15:27 Sang Hassan [place] [facility] MAJOR JT/BURSA W/O US BILATERAL ARTHROCENTESIS ASPIR&/INJ 2020-12-28 14:39:41 Sang Hassan [place] [facility] MAJOR JT/BURSA W/O US BILATERAL [place] REMV EXT CANAL FOREIGN 2020-05-31 09:17:00 Zoe Leticiajohn Adri Stoddard [facility] BODY Medical Branch NOTICE OF PRIVACY 2020-05-31 08:24:18 Doctor Unassigned, [facility] PRACTICES [facility] CONSENT/REFUSAL FOR 2020-05-31 08:23:53 Doctor Unassigned, Yadira [facility] DIAGNOSIS AND TREATMENT [facility] Cardiac Catheterization 2019-10-14 00:00:00 [facility] Cardiac Catheterization 2019-03-15 00:00:00 [facility] Cardiac Catheterization 2018-09-30 00:00:00 [facility] X-RAY OF CHEST 2 VIEW 2018-05-05 00:00:00 [facility] Angioplasty 2017-09-04 00:00:00 [facility] Carmen jones [facility] Cardiac Catheterization 2017-08-29 00:00:00 [facility] Vascular Surgery 2017-02-23 00:00:00 [facility] Neurosurgery (Brain) 2011-02-23 00:00:00 [facility] Cardiac Surgery 2007-02-23 00:00:00 [facility] V[facility] Tooth Root Removal [facility] Famil y Practice Tonsilectomy/adenoids [facility] Spine [facility] Plan of Care Planned Activity Planned Date Details Comments Source Future Scheduled Test 2024-02-24 DTAP/TDAP/TD [facility] 00:00:00 VACCINES (2 - Td or Medical Center Tdap) [code = DTAP/TDAP/TD VACCINES (2 - Td or Tdap)] Future Scheduled Test 2020-10-[address] [facility] 00:00:00 (#1) [code = Medical Center INFLUENZA VACCINE (#1)] Diagnostic Test 2020-07-27 hemoglobin A1C, [facility] am[facility] Pending 00:00:00 fingerstick [code = Practice hemoglobin A1C, fingerstick] Future Scheduled Test 2020-02-[address] [facility] 00:00:00 (12+) [code = Medical Center DEPRESSION SCREENING (12+)] Future Scheduled Test 2020-02-24 FALLS RISK SCREENING [facility] 00:00:00 [code = FALLS RISK Medical C enter SCREENING] Future Scheduled Test 2018-08-[address] [facility] 00:00:00 WELLNESS (YEAR 2 or Medical Center FIRST YEAR if no IPPE) [code = MEDICARE ANNUAL WELLNESS (YEAR 2 or FIRST YEAR if no IPPE)] Future Scheduled Test 2002 SHINGLES VACCINES ([address] [facility] 00:00:00 of 2) [code = Medical Center SHINGLES VACCINES (1 of 2)] Future Scheduled Test [address] [facility] 00:00:00 SCREENING [code = Medical nter HEPATITIS C SCREENING] Future Scheduled Test 1964 COVID-19 VACCINE (1) [facility] 00:00:00 [code = COVID-[address] VACCINE (1)] Future Scheduled Test 1952 [facility] malignant neoplasm Medical C enter of colon (procedure) [code = 914713846] Instructions [facility] Encounters Start End Encounter Admission Attending Care Care Encounter Source Date/Time Date/Time Type Type Clinicians Facility Department ID 2021-08-27 Outpatient [facility] [id number] [place] 13:38:17 [id number] [facility] 2021-08-14 Outpatient [facility] [place] [id number] [place] 09:56:30 SANG [id number] [facility] 2021-08-07 Outpatient [facility] [place] [id number] [place] 14:42:50 SANG [id number] [facility] 2021-05-03 Outpatient [facility] [place] [id number] [place] [facility] Out[facility] [id number] [place] 09:46:01 [facility] 2021-01-11 [place]patient [facility] [place] [id number] [place] [facility] 2021-10-08 Inpatient ER ЮЛИЯ, SLE Emergency [id number] [facility] 18:13:00 13:23:00 [place] 2021-09-23 2021-09-23 Outpatient B[facility] BCYakov [id number] [address] [place] [address] 00:00:00 23:59:00 Justin 2021-08-14 2021-08-14 [facility] [id number] [place] 10:15:00 11:11:16 Visit Sang BLOOD [id number] [facility] MEDICAL [id number] [id number] 2021-05-03 2021-05-[address] [facility] [id number] [place] 09:45:00 10:01:58 Visit Sang BLOOD [id number] [facility] MEDICAL [id number] [id number] 2021-02-12 2021-02-12 Outpatient Bui_Q VFP VFP [id number] [facility] 03:46:00 03:46:00 [id number] Family Practic e 2021-02-12 2021-02-12 Outpatient Bui_Q VFP VFP [id number] [facility] 03:46:00 03:46:00 [id number] Family Practic e 2021-02-12 2021-02-12 Outpatient Bui_Q VFP VFP [id number] [facility] 03:46:00 03:46:00 [id number] Family Practic e 2021-02-01 2021-02-[address] [facility] [id number] [place] 09:45:00 10:51:22 Visit Sang BLOOD [id number] [facility] MEDICAL [id number] [id number] 2021-01-21 2021-01-21 Outpatient Bui_Q VFP VFP [id number] [facility] 11:28:00 11:28:00 [id number] Family Practic e 2021-01-21 2021-01-21 Outpatient Bui_Q_WAGDN VFP VFP [phone] [facility] 11:28:00 11:28:00 U [id number] Family Practic e 2021-01-21 2021-01-21 Outpatient Bui_Q_WAGDN VFP VFP [phone] [facility] 11:28:00 11:28:00 U [id number] Family Practic e 2021-01-21 2021-01-21 Outpatient Bui_Q_WAGDN VFP VFP [phone] [facility] 11:28:00 11:28:00 U [id number] Family Practic e 2021-01-11 2021-01-11 Office DANUTA Hassan [facility] [id number] [place] 08:47:07 09:23:11 Visit [place] BLOOD [id number] H ealt MEDICAL [id number] [id number] 2021-01-04 2021-01-04 Procedure [address] [facility] [id number] [place] 09:02:14 09:17:14 Visit [place] BLOOD [id number] H ealt MEDICAL [id number] [id number] 2020-12-28 2020-12-28 Office DANUTA Hassan [facility] [id number] [place] 09:35:28 10:11:06 Visit Sang BLOOD [id number] [facility] MEDICAL [id number] [id number] 2020-12-20 2020-12-20 Outpatient Bui_Q VFP VFP [id number] [facility] 12:52:00 12:52:00 [id number] Family Practic e 2020-12-20 2020-12-20 Outpatient Bui_Q_WAGDN VFP VFP [id number] [facility] 12:52:00 12:52:00 U [address] Family Practic e 2020-12-07 2020-12-[address] [facility] [id number] [place] 08:40:45 09:48:37 Visit Sang BLOOD [id number] H ealt MEDICAL [id number] PLAZA [id number] 2020-07-31 2020-07-31 Outpatient Bui_Q VFP VFP [id number] [place] 06:32:00 06:32:00 [id number] Family Practic e 2020-07-27 2020-07-27 Outpatient Bui_Q VFP VFP [id number] [facility] 09:47:00 09:47:00 [id number] Family Practic e 2020-07-27 2020-07-27 Rafael Cat VFP [place] - [id number] [place] 00:00:00 00:00:00 MD Jewel: [facility] Famil y 90416 Medical - Practi c Shadow VM_HOU_Shad e [facility], [address], [place] [address] , Ph. 2020-07-26 2020-07-26 Outpatient Bui_Q VFP VFP [id number] [facility] 10:50:00 10:50:00 [id number] Family Practic e 2020-05-31 2020-05-31 Emergency Yariny, [facility] [id number] Univers 03:34:00 04:24:00 Nellie [id number] [facility] [id number] [facility] [id number] [address] 2020-05-31 2020-05-[address] [facility] ERT [id number] Univers 03:21:00 03:21:00 ity [facility] 2020-05-15 2020-05-15 Outpatient Bui_Q_WAG VFP VFP [id number] [facility] 01:44:00 01:44:00 [id number] Family Practic e 2020-04-27 2020-04-27 Trinidad HASSAN [facility] Orthopedics [id number] [place] 09:00:00 09:00:00 t; SANG HASSAN M.D. [facility] Calixto roman HATFIELD M.D. 2020-04-27 2020-04-27 Outpatient Bui_Q VFP VFP [id number] [facility] 04:44:00 04:44:00 [id number] Family Practic e 2020-04-25 2020-04-25 Outpatient Bui_Q VFP VFP [id number] [facility] 05:54:00 05:54:00 [id number] Family Practic e 2020-04-25 2020-04-25 Rafael Cat P [place] - [id number] 3 [facility] 00:00:00 00:00:00 MD Jewel: [facility] Famil y 12053 Medical - Practi c Shadow VM_HOU_Shad e [facility], [address] [address] , Ph. 2020-02-22 2020-02-22 Outpatient Bui_Q_WAG VFP VFP [id number] [facility] 03:16:00 03:16:00 50343 Family Practic e 2020-02-22 2020-02-22 Outpatient Bui_Q_WAG VFP VFP [id number] [facility] 03:16:00 03:16:00 75719 Family Practic e 2020-02-08 2020-02-08 Outpatient Bui_Q VFP VFP [id number] [facility] 11:20:00 11:20:00 [id number] Family Practic e 2020-02-08 2020-02-08 Outpatient Bui_Q VFP VFP [id number] [facility] 11:20:00 11:20:00 13802 Family Practic e 2020-02-08 2020-02-08 Outpatient Bui_Q VFP VFP [id number] [facility] 11:20:00 11:20:00 [id number] Family Practic e 2020-02-08 2020-02-08 Outpatient Bui_Q_WAG VFP VFP [id number] [facility] 11:20:00 11:20:00 16978 Family Practic e 2020-02-02 2020-02-02 Outpatient Bui_Q_WAG VFP VFP [id number] [facility] 02:28:00 02:28:00 53170 Family Practic e 2020-01-31 2020-01-31 Outpatient Bui_Q_WAG VFP VFP [id number] [facility] 11:36:00 11:36:00 67958 Family Practic e 2020-01-31 2020-01-31 Rafael Cat VFP [place] - [id number] [place] [address] 00:00:00 00:00:00 MD Jewel: [facility] Famil y 6122 Medical [facility] [address], ([facility]) [place] [address] , Ph. 2020-01-30 2020-01-30 Outpatient Bui_Q_WAG VFP VFP [id number] [facility] 01:23:00 01:23:00 [id number] Family Practic e 2020-01-26 2020-01-26 Outpatient Bui_Q_WAG VFP VFP [id number] [facility] 10:19:00 10:19:00 33769 Family Practic e 2020-01-26 2020-01-26 Outpatient Bui_Q VFP VFP [id number] [facility] 10:19:00 10:19:00 [id number] Family Practic e 2020-01-15 2020-01-15 Outpatient Bui_Q VFP VFP [id number] [facility] 06:26:00 06:26:00 [id number] Family Practic e 2020-01-12 2020-01-12 Appointmen [facility] Orthopedics [id number] [place] 08:00:00 08:00:00 t; BETHANY DUGAN, - [facility] NAIMA DUGAN, KINSEY MCNAMARA M.D. M.D. 2020-01-09 2020-01-09 Outpatient Bui_Q_WAG VFP VFP [id number] [facility] 11:21:00 11:21:00 [id number] Family Practic e 2020-01-09 2020-01-09 Outpatient Bui_Q VFP VFP [id number] [facility] 11:21:00 11:21:00 [id number] Family Practic e 2019-11-10 2019-11-10 Outpatient Bui_Q_WAG VFP VFP [id number] [facility] 02:34:00 02:34:00 [id number] Family Practic e 2019-10-27 2019-10-27 Outpatient Bui_Q_WAG VFP VFP [id number] [facility] 06:48:00 06:48:00 [id number] Family Practic e 2019-10-25 2019-10-25 Outpatient Bui_Q VFP VFP [id number] [facility] 10:18:00 10:18:00 49982 Family Practic e 2019-10-25 2019-10-25 Rafael Cat VFP [place] - [id number] Village 00:00:00 00:00:00 MD Jewel: [facility] Famil y 6122 Medical [facility], [place] [address], ([facility]) [place] [address] , Ph. 2019-10-18 2019-10-18 [facility] UTP [id number] [place] 09:45:00 09:45:00 t; Marlen NAPOLES ANDREW, ans ANDREW, M.D. M.D. 2019-10-13 2019-10-13 Emergency ER SLE Emergency [id number] [facility] 21:37:00 21:37:00 2019-10-12 2019-10-12 Appointmen [facility]ANY [facility] [id number] [place] 09:45:00 09:45:00 t; Marlen NAPOLES ANDREW, ans ANDREW, M.D. M.D. 2019-10-04 2019-10-04 Outpatient Bui_Q VFP VFP [id number] [facility] 03:42:00 03:42:00 [id number] Family Practic e 2019-07-19 2019-07-19 Appointmen BETHANY [facility] Orthopedics [id number] [place] 09:45:00 09:45:00 t; BETHANY DUGAN, Belen [place] Barkley II ans ANDREW, M.D. M.D. 2019-07-11 2019-07-11 Appointmen [facility] Orthopedics [id number] [place] 09:45:00 09:45:00 t; Belen NAPOLES ANDREW, II ans ANDREW, M.D. M.D. 2019-07-04 2019-07-04 Appointmen [facility] Orthopedics [id number] [place] 09:45:00 09:45:00 t; BETHANY DUGAN, Belen [place] Barkley II ans ANDREW, M.D. M.D. 2019-06-08 2019-06-08 Outpatient Bui_Q_WAG VFP VFP [id number] [facility] 04:44:00 04:44:00 [id number] Family Practic e 2019-06-08 2019-06-08 Outpatient Bui_Q VFP VFP [id number] [facility] 04:44:00 04:44:00 [id number] Family Practic e 2019-06-08 2019-06-08 Outpatient Bui_Q VFP VFP [id number] [facility] 04:44:00 04:44:00 [id number] Family Practic e 2019-06-06 2019-06-06 Outpatient Bui_Q_WAG VFP VFP [id number] [facility] 02:00:00 02:00:00 [id number] Family Practic e 2019-06-06 2019-06-06 Rafael Cat VFP [place] - [id number] [facility] 00:00:00 00:00:00 MD Jewel: [facility] Famil y [address] ([place] [address] , Ph. 2019-06-01 2019-06-01 Outpatient Bui_Q_WAG VFP VFP [id number] [facility] 11:39:00 11:39:00 [id number] Family Practic e 2019-06-01 2019-06-01 Outpatient Bui_Q VFP VFP [id number] [facility] 11:39:00 11:39:00 [id number] Family Practic e 2019-04-21 2019-04-21 Outpatient Bui_Q VFP VFP [id number]- [id number] [facility] 10:59:00 10:59:00 [id number] Family Practic e 2019-04-06 2019-04-06 Outpatient Bui_Q VFP VFP [id number] [facility] 02:24:00 02:24:00 [id number] Family Practic e 2019-04-04 2019-04-04 Outpatient Bui_Q_WAG VFP VFP [id number] [facility] 10:21:00 10:21:00 [id number] Family Practic e 2019-03-31 2019-03-31 Outpatient Bui_Q_WAG VFP VFP [id number] [facility] 12:23:00 12:23:00 [id number] Family Practic e 2019-03-31 2019-03-31 Rafael Cat VFP [place] - [address] [place] [address] 00:00:00 00:00:00 MD Jewel: [facility] Famil y [address] ([place] [address] , Ph. 2019-03-29 2019-03-29 [facility] Orthopedics [id number] [place] 07:15:00 07:15:00 t; BETHANY DUGAN, - [place] NAIMA Zavala II ans ANDREW, M.D. M.D. 2019-03-24 2019-03-24 Outpatient Bui_Q VFP VFP [id number] [facility] 02:00:00 02:00:00 [id number] Family Practic e 2019-03-24 2019-03-24 Outpatient Bui_Q VFP VFP [id number] [facility] 02:00:00 02:00:00 [id number] Family Practic e 2019-03-22 2019-03-22 Outpatient Bui_Q_WAG VFP VFP [id number] 202 [facility] 03:19:00 03:19:00 [id number] Family Practic e 2019-03-17 2019-03-17 Outpatient Bui_Q VFP VFP [id number] [facility] 09:06:00 09:06:00 11078 Family Practic e 2019-03-15 2019-03-15 Outpatient Bui_Q_WAG VFP VFP [id number] [facility] 09:13:00 09:13:00 [id number] Family Practic e 2019-03-15 2019-03-15 Appointmen [facility]oped[facility] [id number] [place] 07:15:00 07:15:00 t; BETHANY DUGAN, - [place] NAIMA Zavala II ans ANDREW, M.D. M.D. 2019-03-09 2019-03-09 Appointmen [facility] [id number] [place] 07:00:00 07:00:00 t; BETHANY DUGAN, - [place] NAIMA Zavala II ans ANDREW, M.D. M.D. 2019-01-04 2019-01-04 Rafael Cat [facility] [place] - [id number] 2 [facility] 00:00:00 00:00:00 MD Jewel: [facility] y 9430 Medical - Practi alfonso Randle, _DELIAU_Pear e [address], [place] [address] , Ph. 2018-12-08 2018-12-08 Appointmen BETHANY TIPOTN UTP [id number] [place] 07:30:00 07:30:00 t; Marlen NAPOLES ANDREW, ans ANDREW, M.D. M.D. 2018-12-02 2018-12-02 [facility] [id number] [place] 15:00:00 15:00:00 t; Marlen NAPOLES ANDREW, ans ANDREW, M.D. M.D. 2018-11-23 2018-11-23 [facility] Orthopedics [id number] [place] 07:15:00 07:15:00 t; BETHANY DUGAN, [facility] NAIMA Zavala ans ANDREW, M.D. M.D. 2018-11-02 2018-11-02 Rafael Stephania [facility] [place] - [id number] 0 [place] 00:00:00 00:00:00 MD Jewel: [place] Famil y [address] [facility], Practice - e [address], [facility] [place] [address] , Ph. 2018-07-08 2018-07-08 Rafael Cat [facility] [place] - [id number] 6 Village 00:00:00 00:00:00 MD Jewel: [place] F[place] y [address] [facility], Practice - e [address], [facility] [address] , Ph. 2018-07-06 2018-07-06 [facility] Orth[facility]ics [id number] [place] 07:00:00 07:00:00 t; BETHANY DUGAN, at [place] NAIMA Zavala ans ANDREW, M.D. M.D. 2018-05-05 2018-05-05 [facility] [place] - [id number] [facility] 00:00:00 00:00:00 [facility] Family Adejumo, Family Practic MD: 9430 Practice - e [place], [facility] [address], [place] [address] , Ph. 2018-04-14 2018-04-14 [facility] [id number] [place] 07:00:00 07:00:00 t; Marlen NAPOLES ANDREW, ans ANDREW, M.D. M.D. 2018-04-12 2018-04-12 Appointmen [facility] [id number] [place] 07:00:00 07:00:00 t; Marlen NAPOLES ANDREW, ans ANDREW, M.D. M.D. 2018-04-06 2018-04-06 Appointmen [facility] Orthopedics [id number] [place] 07:15:00 07:15:00 t; [facility] ANDREW, M.D. M.D. 2018-03-11 2018-03-11 [facility] [place] - [id number] [address] [place] [address] 00:00:00 00:00:00 MD Jewel: [facility] y [address] [facility], [facility] - e [address], [facility] [place] [address] , Ph. 2018-01-06 2018-01-06 Appointmen [facility] [id number] [place] 07:00:00 07:00:00 t; Marlen NAPOLES ANDREW, ans ANDREW, M.D. M.D. 2017-12-30 2017-12-30 Appointmen [facility] [id number] [place] 07:45:00 07:45:00 t; Marlen NAPOLES ANDREW, ans ANDREW, M.D. M.D. 2017-12-23 2017-12-23 Appointmen [facility] Orth[facility] [id number] [place] 07:00:00 07:00:00 t; [facility] ANDREW, M.D. M.D. 2017-11-11 2017-11-11 Appointmen [facility] Orth[facility] [id number] [place] 08:45:00 08:45:00 t; [facility] ans ANDREW, M.D. M.D. 2017-10-14 2017-10-14 Appointmen B[facility]ANY [facility] [id number] [place] 08:45:00 08:45:00 t; [facility] NAMIA Sawyer, Orthopedics roman MCNAMARA M.D. M.D. Results Test Description Test Time Test Comments Results Result [facility] e Comments TISSUE EXAM 2021-10-11 Surgical Pathology Report 13:52:21 Case: [id number] Authorizing Provider: Brittanie Barrera MD Collected: 10/04/2021 04:39 PM Ordering Location: [address] Received: 10/04/2021 05:15 PM Service Pathologist: Missy Pozo MD Specimen: Retroperitoneum, CT Guided Retroperitoneal Mass Biopsy SOFT TISSUE, RETROPERITONEUM, BIOPSY:- DENSE FIBROSIS WITH FOCAL ATYPICAL LYMPHOID AGGREGATES (SEE COMMENT) Signing Pathologist Direct Phone Line: [phone] y signed by Missy Pozo MD on 10/11/2021 at 1:52 PMPreliminary result electronically signed by Chrissy Chandler MD on 10/05/2021 at 11:41 AMSections show dense fibrous tissue with focal areas containing a lymphoid infiltrate comprised of small mature lymphoid cells. Immunohistochemical studies highlight admixed T and B lymphoid cells. There is crush artifact and diminished tissue in deeper stained sections. No definitive feature of a hematolymphoid neoplasm is identified; however, the tissue is limited. Clinical correlation and close follow up are recommended. Further tissue sampling is recommended, if clinically indicated and if there is high suspicion for involvement by a hematolymphoid neoplasm, including tissue submission for flow cytometry and cytogenetics for complete assessment.The results of this case were discussed with Dr. Pisano on 10/11/2021 at 12:06 PM.71214; 83295; 84078 x 16; 96361; 49563Zjyjvoppdhdidry massRetroperitoneumA. Retroperitoneum.Received in formalin labeled with the patient's name, medical record number and "retroperitoneal mass" are multiple hernandez, threadlike soft tissue cores measuring up to 1.1 cm in greatest length, which are submitted in toto in A1.BALDO Orozco, HT (ASCP)Sections of the retroperitoneal biopsies show cores of tissue with marked dense fibrosis, with focal areas with an infiltrate of small mature lymphoid cells with scant cytoplasm and condensed nuclear chromatin. There is crush artifact in focal areas. Immunohistochemical and in situ hybridization studies are performed with appropriate controls. CD3 and CD20 highlight admixed T and B lymphocytes. CD10 appears focally positive in lymphoid cells. A subset of lymphoid cells stains positive for BCL2. PAX5 is weakly positive in focal B cells. MUM1, CD138, CD21, CD23, and Cyclin D1 stains are negative. Ki-67, kappa-CHRISTOPHER, and lambda-CHRISTOPHER are non-contributory. Cytokeratin Ae1/Ae3 is negative. CD34 highlights background vascular channels. Desmin and smooth muscle actin are positive in focal muscular tissue.The interpretation of this case included the use of immunohistochemistry or special stains.A1: CD3, CD20, PAX5, CD5, CD10, BCL6, BCL2, MUM1, CD138, CD21, CD23, Cyclin D1, Ki-67, [place]-CHRISTOPHER, Lambda-CHRISTOPHER, CD34, SMA, Desmin, Ae1/Cq4Bfeeqmy Slides Examined: In-house known positive controls were evaluated along with the test tissue. These control slides run alongside of the patients sample show appropriate staining. Internal positive and negative controls when available are evaluated Immunohistochemistry technical testing was performed at [facility], Pathology Laboratory where it was developed and its performance characteristics were determined. It has not been cleared or approved by the U.S. Food and Drug Administration. The FDA has determined that such clearance or approval is not necessary. The test is used for clinical purposes. It should not be regarded as investigational or for research. This laboratory is certified under the Clinical Laboratory Improvement Amendments of 1988 (CLIA-88) as qualified to perform high complexity clinical laboratory testing.[facility], Department of Pathology, [address] [place] [address], [facility], Department of Pathology, [address] [place] [address], [facility], Department of Pathology, [address] [place] [address] 265[address], POCT-GLUCOSE METER 2021-10-08 12:28:15 Test Item Value Reference Range Interpretation Comme nts POC-GLUCOSE METER (BEAKER) 247 mg/dL 70-110 H : TESTED AT [facility] 6720 DANGELO (test code = 1538) [facility] X, [address]: Display Designer Outside/Techni funmilayo ID = [id number] for Choco Morrow POCT-GLUCOSE [id number] 08:39:59 Test Item Value Reference Range Interpretation Comments POC-GLUCOSE METER 163 mg/dL 70-110 H : TESTED A T [facility] 6720 (BEAKER) (test code = [place], 1538) [address]: Display Designer Outside/Techni funmilayo ID = [id number] for Hilda Woods BASIC METABOLIC [id number] 04:47:06 Test Item Value Reference Range Interpretation Comments SODIUM (BEAKER) 138 meq/L 136-145 (test code = 381) POTASSIUM 5.2 meq/L 3.5-5.1 H (BEAKER) (test code = 379) CHLORIDE (BEAKER) 106 meq/L 98-107 (test code = 382) CO2 (BEAKER) 23 meq/L 22-29 (test code = 355) BLOOD UREA 39 mg/dL 7-21 H NITROGEN (BEAKER) (test code = 354) CREATININE 2.37 mg/dL 0.57-1.25 H (BEAKER) (test code = 358) GLUCOSE RANDOM 175 mg/dL 70-105 H (BEAKER) (test code = 652) CALCIUM (BEAKER) 8.3 mg/dL 8.4-10.2 L (test code = 697) EGFR (BEAKER) 29 Interpretatio n of eGFR (test code = mL/min/1.73 values Stage De scription 1092) sq m Result G1 Lexie l or high >=90 G2 Mildly decreased 60-89 G3a Mildl y to moderately 45-5 9 G3b Moderately to s everely 30-44 G4 Severl y decreased 15-29 G5 Kidney failure <15Reported eGF R is based on the CKD-EPI 2020 equation that d oes not use a race coefficientEsti mated GFR is not as accur ate as Creatinine Kaitlyn julien in predicting glom erular filtration rate . Estimated GFR is not appl icable for dialysis patien ts Display Designer Outside ID - JAIME YOUSIFBC (HEMOGRAM ONLY)2021-10-08 04:17:48 Test Item Value Reference Range Interpretation Comments WHITE BLOOD CELL COUNT (BEAKER) 15.4 K/ L 3.5-10.5 H (test code = 775) RED BLOOD CELL COUNT (BEAKER) 3.27 M/ L 4.63-6.08 L (test code = 761) HEMOGLOBIN (BEAKER) (test code = 8.7 GM/DL 13.7-17.5 L 410) HEMATOCRIT (BEAKER) (test code = 27.6 % 40.1-51.0 L 411) MEAN CORPUSCULAR VOLUME (BEAKER) 84.4 fL 79.0-92.2 (test code = 753) MEAN CORPUSCULAR HEMOGLOBIN 26.6 pg 25.7-32.2 (BEAKER) (test code = 751) MEAN CORPUSCULAR HEMOGLOBIN CONC 31.5 GM/DL 32.3-36.5 L (BEAKER) (test code = 752) RED CELL DISTRIBUTION WIDTH 14.5 % 11.6-14.4 H (BEAKER) (test code = 412) PLATELET COUNT (BEAKER) (test 230 K/CU MM 150-450 code = 756) MEAN PLATELET VOLUME (BEAKER) 9.8 fL 9.4-12.4 (test code = 754) NUCLEATED RED BLOOD CELLS 0 /100 WBC 0-0 (BEAKER) (test code = 413) POCT-GLUCOSE [id number] 21:15:36 Test Item Value Reference Range Interpretation Comments POC-GLUCOSE METER 365 mg/dL 70-110 H : TESTED A T [facility] 67 (IVAZELDA) (test code = [facility], 153) [address]: Display Designer Outside/Techni funmilayo ID = [id number] for YONNY BRANCH POCT-GLUCOSE [id number] 17:34:55 Test Item Value Reference Range Interpretation Comments POC-GLUCOSE METER 431 mg/dL 70-110 HH : Notified RN/MD: (EMILIE) (test code = TESTED AT [facility] 6720 1538) [facility], [address]: Display Designer Outside/Techni funmilayo ID = [id number] for KADE HERNANDEZ CT, BIOPSY, [id number] 16:04:00Reason for exam:->bilateral nephro ureteral tube placement - please discuss with urology Dr. herrera with any questions. Brilinta held starting 8/7 PM Reason for exam:->biopsy of retroperitoneal mass/lymphadenopathy/fibrosis [facility] CENTERName: AMELIA ALATORRE : 1950 Sex: MFINAL REPORT CT guided soft tissue mass biopsy History: bilateral nephro ureteral tube placement - please discuss with urology Dr. herrera with any questions. Brilinta held starting 8 PMbiopsy of retroperitoneal mass/lymphadenopathy/fibrosis Modality: CT, CT fluoroscopy Anesthesia: 1% lidocaine software database architect: Dr. Haseeb Pisano Approach: Right retroperitoneal percutaneous Consent: The risks, benefits, and alternatives to the procedure were discussed with the patient. The patient expressed understanding and informed written consent was obtained. Time out: A pre-procedure time out was p erformed in order to confirm the appropriate site of the procedure. Sedation: Moderate sedation was administered. 1 mg of Versed and 50 mcg of fentanyl IV was used for moderate sedation monitored undermy direction. Total intra-service time of sedation was 1 minutes. The patient's vital signs were monitored throughout the procedure and recorded in the patient's medical record by the nurse. Technique:Dose modulation, iterative reconstruction, and/or weight-based adjustment of the mA/kV was utilized to reduce the radiation dose to as low as reasonably achievable.The patient was placed prone in the CT scanner. Retroperitoneal mass was localized using CT and CT fluoroscopy. After the usual sterile preparation and application of local anesthesia, a 17-gauge coaxial guide needle was advanced into right retroperitoneum using CT guidance. Using an 18-gauge Temno needle via the coaxial guide needle a total of 4 core biopsy specimens were obtained and sent to pathology. The needle was removed and a sterile dressing was applied. Disposition: The patient tolerated the procedure well, without immediate complications. The patient left CT in stable condition. Impression: 1. Technically successful CT guidedretroperitoneal mass biopsy with conscious sedation. Signed: Haseeb Pisano Verified Date/Time: 10/07/2021 16:04:22 Reading Location: [facility] Radiology Reading Room POCT-GLUCOSE [id number] 12:12:30 Test Item Value Reference Range Interpretation Comments POC-GLUCOSE METER 212 mg/dL 70-110 H : TESTED A T [facility] 6720 (BEAKER) (test code = [facility] e[employer]elleron [facility], 1538) [address]: Display Designer Outside/Techni funmilayo ID = [id number] for FA KADE ACOSTA POCT-GLUCOSE [id number] 08:57:21 Test Item Value Reference Range Interpretation Comments POC-GLUCOSE METER 177 mg/dL 70-110 H : TESTED A T [facility] 6720 (BEAKER) (test code = indidebtME [employer] [facility], 1538) [address]: Display Designer Outside/Techni funmilayo ID = [id number] for FA DAVE KADE BASIC METABOLIC [id number] 06:46:29 Test Item Value Reference Range Interpretation Comments SODIUM (BEAKER) 136 meq/L 136-145 (test code = 381) POTASSIUM 4.6 meq/L 3.5-5.1 (BEAKER) (test code = 379) CHLORIDE (BEAKER) 105 meq/L 98-107 (test code = 382) CO2 (BEAKER) 23 meq/L 22-29 (test code = 355) BLOOD UREA 34 mg/dL 7-21 H NITROGEN (BEAKER) (test code = 354) CREATININE 2.20 mg/dL 0.57-1.25 H (BEAKER) (test code = 358) GLUCOSE RANDOM 215 mg/dL 70-105 H (BEAKER) (test code = 652) CALCIUM (BEAKER) 8.4 mg/dL 8.4-10.2 (test code = 697) EGFR (BEAKER) 32 Interpretatio n of eGFR (test code = mL/min/1.73 values Stage De scription 1092) sq m Result G1 Lexie l or high >=90 G2 Mildly decreased 60-89 G3a Mildl y to moderately 45-5 9 G3b Moderately to s everely 30-44 G4 Severl y decreased 15-29 G5 Kidney failure <15Reported eGF R is based on the CKD-EPI 2020 equation that d oes not use a race coefficientEsti mated GFR is not as accur ate as Creatinine Kaitlyn victoria in predicting glom erular filtration rate . Estimated GFR is not appl icable for dialysis patien ts Display Designer Outside ID - PIAYA LCBC (HEMOGRAM ONLY)2021-10-07 04:16:05 Test Item Value Reference Range Interpretation Comments WHITE BLOOD CELL COUNT (BEAKER) 14.2 K/ L 3.5-10.5 H (test code = 775) RED BLOOD CELL COUNT (BEAKER) 3.42 M/ L 4.63-6.08 L (test code = 761) HEMOGLOBIN (BEAKER) (test code = 9.4 GM/DL 13.7-17.5 L 410) HEMATOCRIT (BEAKER) (test code = 28.9 % 40.1-51.0 L 411) MEAN CORPUSCULAR VOLUME (BEAKER) 84.5 fL 79.0-92.2 (test code = 753) MEAN CORPUSCULAR HEMOGLOBIN 27.5 pg 25.7-32.2 (BEAKER) (test code = 751) MEAN CORPUSCULAR HEMOGLOBIN CONC 32.5 GM/DL 32.3-36.5 (BEAKER) (test code = 752) RED CELL DISTRIBUTION WIDTH 14.4 % 11.6-14.4 (BEAKER) (test code = 412) PLATELET COUNT (BEAKER) (test 230 K/CU MM 150-450 code = 756) MEAN PLATELET VOLUME (BEAKER) 10.1 fL 9.4-12.4 (test code = 754) NUCLEATED RED BLOOD CELLS 0 /100 WBC 0-0 (BEAKER) (test code = 413) POCT-GLUCOSE [id number] 21:25:45 Test Item Value Reference Range Interpretation Comments POC-GLUCOSE METER 358 mg/dL 70-110 H : [facility] (BEAKER) (test code = [place], 1538) [id number]: Display Designer Outside/Techni funmilayo ID = [id number] for JESSICA BOBBY POCT-GLUCOSE [id number] 17:24:21 Test Item Value Reference Range Interpretation Comments POC-GLUCOSE METER 334 mg/dL 70-110 H : Will Rep eat Test: (BEAKER) (test code = Notifi micah RN/MD: TESTED 1537) AT [facility] 67[address] [facility], 770 30: Display Designer Outside/Techni funmilayo ID = [id number] for KUSHAL DAS POCT-GLUCOSE [id number] 13:44:03 Test Item Value Reference Range Interpretation Comments POC-GLUCOSE METER 206 mg/dL 70-110 H : TESTED A T [facility] 6720 (BEAKER) (test code = [facility], 153) [id number]: Display Designer Outside/Techni funmilayo ID = [id number] for KUSHAL DAS POCT-GLUCOSE [id number] 13:43:23 Test Item Value Reference Range Interpretation Comments POC-GLUCOSE METER 176 mg/dL 70-110 H : TESTED A T [facility] 6720 (BEAKER) (test code = [facility], 153) [id number]: Display Designer Outside/Techni funmilayo ID = [id number] for KUSHAL DAS BASIC METABOLIC [id number] 08:57:05 Test Item Value Reference Range Interpretation Comments SODIUM (BEAKER) 139 meq/L 136-145 (test code = 381) POTASSIUM 4.3 meq/L 3.5-5.1 (BEAKER) (test code = 379) CHLORIDE (BEAKER) 108 meq/L 98-107 H (test code = 382) CO2 (BEAKER) 22 meq/L 22-29 (test code = 355) BLOOD UREA 33 mg/dL 7-21 H NITROGEN (BEAKER) (test code = 354) CREATININE 1.99 mg/dL 0.57-1.25 H (BEAKER) (test code = 358) GLUCOSE RANDOM 149 mg/dL 70-105 H (BEAKER) (test code = 652) CALCIUM (BEAKER) 8.3 mg/dL 8.4-10.2 L (test code = 697) EGFR (BEAKER) 36 Interpretatio n of eGFR (test code = mL/min/1.73 values Stage De scription 1092) sq m Result G1 Lexie l or high >=90 G2 Mildly decreased 60-89 G3a Mildl y to moderately 45-5 9 G3b Moderately to s everely 30-44 G4 Severl y decreased 15-29 G5 Kidney failure <15Reported eGF R is based on the CKD-EPI 2020 equation that d oes not use a race coefficientEsti mated GFR is not as accur ate as Creatinine Kaitlyn julien in predicting glom erular filtration rate . Estimated GFR is not appl icable for dialysis patien ts Display Designer Outside ID - PIAYA LCBC (HEMOGRAM ONLY)2021-10-06 06:21:41 Test Item Value Reference Range Interpretation Comments WHITE BLOOD CELL COUNT (BEAKER) 11.8 K/ L 3.5-10.5 H (test code = 775) RED BLOOD CELL COUNT (BEAKER) 3.28 M/ L 4.63-6.08 L (test code = 761) HEMOGLOBIN (BEAKER) (test code = 8.9 GM/DL 13.7-17.5 L 410) HEMATOCRIT (BEAKER) (test code = 26.5 % 40.1-51.0 L 411) MEAN CORPUSCULAR VOLUME (BEAKER) 80.8 fL 79.0-92.2 (test code = 753) MEAN CORPUSCULAR HEMOGLOBIN 27.1 pg 25.7-32.2 (BEAKER) (test code = 751) MEAN CORPUSCULAR HEMOGLOBIN CONC 33.6 GM/DL 32.3-36.5 (BEAKER) (test code = 752) RED CELL DISTRIBUTION WIDTH 14.3 % 11.6-14.4 (BEAKER) (test code = 412) PLATELET COUNT (BEAKER) (test 217 K/CU MM 150-450 code = 756) MEAN PLATELET VOLUME (BEAKER) 10.1 fL 9.4-12.4 (test code = 754) NUCLEATED RED BLOOD CELLS 0 /100 WBC 0-0 (BEAKER) (test code = 413) POCT-GLUCOSE [id number] 04:26:31 Test Item Value Reference Range Interpretation Comments POC-GLUCOSE METER 292 mg/dL 70-110 H : TESTED A T [facility] 6720 (BEAKER) (test code = [place], 1538) [address]: Display Designer Outside/Techni funmilayo ID = [id number] for SHAUNA JESSICA CT, [id number] 21:44:00Unlisted Reason for Exam - Click Yes and Enter Reason Below->YesUnlisted Reason for Exam->F.U size of RP mass s/p steroids. R PCN with minimal UOPIs this for enterography?->NoPlease specify:->RenalWill this procedure require oral contrast?->No [facility] WINTER : 1950 Sex: MFINAL REPORT CT, ABDOMEN \\T\\ PELVIS, WITHOUT IV CONTRAST CLINICAL STATEMENT: Right-sided nephrostomy. COMPARISON: CT abdomen pelvis dated 09/26/2021. Dose modulation, iterative reconstruction, and/or weight-based adjustment of the mA/kV was utilized to reduce the radiation dose to as low as reasonably achievable. FINDINGS: Visualized lung bases are within normal limits. Liver, spleen, pancreas, gallbladder, adrenal glands are within normal limits. No biliary dilatation. No significanthydronephrosis. Bilateral nephrostomy is in place. They are in appropriate position. No dilated loops of bowel to suggest obstruction. Mild amount of stool in the colon. The appendix is normal. No free fluid or free air. Moderate retroperitoneal and pelvic lymphadenopathy, similar to prior study. No free fluid or free air. Bladder is unremarkable. IMPRESSION: Bilateral nephrostomy in place with resolution of previously seen hydronephrosis. No ascites. Moderate retroperitoneal lymphadenopathy is stable in appearance. Signed: Kim Richardseport Verified Date/Time: 10/05/2021 21:44:26 Electronicallysigned by: KIM RICHARDS on 10/05/2021 09:44 PMPOCT- GLUCOSE [id number] 17:49:22 Test Item Value Reference Range Interpretation Comments POC-GLUCOSE METER 302 mg/dL 70-110 H : TESTED A T [facility] 6720 (BEAKER) (test code = [facility], 1538) 34876: Display Designer Outside/Techni funmilayo ID = [id number] for KUSHAL DAS POCT-GLUCOSE [id number] 15:09:04 Test Item Value Reference Range Interpretation Comments POC-GLUCOSE METER 224 mg/dL 70-110 H : TESTED A T [facility] 6720 (BEAKER) (test code = [facility], 1538) [id number]: Display Designer Outside/Techni funmilayo ID = [id number] for KUSHAL DAS POCT-GLUCOSE [id number] 08:54:24 Test Item Value Reference Range Interpretation Comments POC-GLUCOSE METER 187 mg/dL 70-110 H : TESTED A T [facility] 6720 (BEAKER) (test code = [facility], 1538) 56429: Display Designer Outside/Techni funmilayo ID = [id number] for KUSHAL DAS BASIC METABOLIC [id number] 06:18:58 Test Item Value Reference Range Interpretation Comments SODIUM (BEAKER) 134 meq/L 136-145 L (test code = 381) POTASSIUM 3.8 meq/L 3.5-5.1 (BEAKER) (test code = 379) CHLORIDE (BEAKER) 103 meq/L 98-107 (test code = 382) CO2 (BEAKER) 23 meq/L 22-29 (test code = 355) BLOOD UREA 37 mg/dL 7-21 H NITROGEN (BEAKER) (test code = 354) CREATININE 2.11 mg/dL 0.57-1.25 H (BEAKER) (test code = 358) GLUCOSE RANDOM 244 mg/dL 70-105 H (BEAKER) (test code = 652) CALCIUM (BEAKER) 8.0 mg/dL 8.4-10.2 L (test code = 697) EGFR (BEAKER) 34 Interpretatio n of eGFR (test code = mL/min/1.73 values Stage De scription 1092) sq m Result G1 Lexie l or high >=90 G2 Mildly decreased 60-89 G3a Mildl y to moderately 45-5 9 G3b Moderately to s everely 30-44 G4 Severl y decreased 15-29 G5 Kidney failure <15Reported eGF R is based on the CKD-EPI 2020 equation that d oes not use a race coefficientEsti mated GFR is not as accur ate as Creatinine Kaitlyn victoria in predicting glom erular filtration rate . Estimated GFR is not appl icable for dialysis patien ts Display Designer Outside ID - [facility] [place] [place] (HEMOGRAM ONLY)2021-10-05 05:35:16 Test Item Value Reference Range Interpretation Comments WHITE BLOOD CELL COUNT (BEAKER) 10.5 K/ L 3.5-10.5 (test code = 775) RED BLOOD CELL COUNT (BEAKER) 3.24 M/ L 4.63-6.08 L (test code = 761) HEMOGLOBIN (BEAKER) (test code = 8.7 GM/DL 13.7-17.5 L 410) HEMATOCRIT (BEAKER) (test code = 27.2 % 40.1-51.0 L 411) MEAN CORPUSCULAR VOLUME (BEAKER) 84.0 fL 79.0-92.2 (test code = 753) MEAN CORPUSCULAR HEMOGLOBIN 26.9 pg 25.7-32.2 (BEAKER) (test code = 751) MEAN CORPUSCULAR HEMOGLOBIN CONC 32.0 GM/DL 32.3-36.5 L (BEAKER) (test code = 752) RED CELL DISTRIBUTION WIDTH 14.6 % 11.6-14.4 H (BEAKER) (test code = 412) PLATELET COUNT (BEAKER) (test 186 K/CU MM 150-450 code = 756) MEAN PLATELET VOLUME (BEAKER) 10.0 fL 9.4-12.4 (test code = 754) NUCLEATED RED BLOOD CELLS 0 /100 WBC 0-0 (BEAKER) (test code = 413) POCT-GLUCOSE [id number] 21:15:58 Test Item Value Reference Range Interpretation Comments POC-GLUCOSE METER 352 mg/dL 70-110 H : TESTED A T [facility] 6720 (BEAKER) (test code = [place], 1538) 00468: Display Designer Outside/Techni funmilayo ID = [id number] for JESSICA BOBBY POCT-GLUCOSE [id number] 17:48:20 Test Item Value Reference Range Interpretation Comments POC-GLUCOSE METER 246 mg/dL 70-110 H : TESTED A T [facility] 6720 (BEAKER) (test code = CR[place], 1538) [address]: Display Designer Outside/Techni funmilayo ID = [id number] for KUSHAL DAS, NEPHROSTOGRAM, STENT, NEW [id number] 14:29:00Reason for exam:- >bilateral nephro ureteral tube placement - please discuss with urology Dr. herrera with any questions. Brilinta held starting 8/7 PM Reason for exam:- >biopsy of retroperitoneal mass/lymphadenopathy/fibrosis [facility] : 1950 Sex: MFINAL REPORT Bilateral percutaneous nephrostomy catheter placement Clinical History: Bilateral hydronephrosis. Modality: Sonography and fluoroscopy Plywood Scarfer Tender: Yoshi Dietz MD. Acid Purification Equipment Operator: None. Sedation: Moderate sedation was administered. 2 mg of Versed and 100 mcg of fentanylIV was used for moderate sedation monitored under my direction. Total intra-service time of sedationwas 60 minutes. The patient's vital signs were monitored throughout the procedure and recorded in the patient's medical record by the nurse. Estimated Blood Loss: Less than 5 cc. Specimen: None. Fluoroscopy Time: 1.4 min.Reference Air Kerma (Ka, r): 4.2 mGy. Technique: Informed written consent was obtained. Discussion of risks, benefits, and alternatives were made with the patient. The patient expressed understanding and agreed to proceed. A universal timeout was performed prior to starting the procedure. All elements maximal sterile barrier technique was utilized for this procedure, including utilization of sterile scrub solution for skin prep, a large sterile sheet to cover the areas of the patient that were not prepped, and hand hygiene, mask, head covering, and sterile gown for performing radiologist and scrub technologist. Initial ultrasound images demonstrate mild to moderate right-sided hydronephrosis. 2% lidocaine was used for local anesthesia. Using ultrasound guidance, a 21-gauge Chiba needle was advanced into an inferior pole calyx. Injection of contrast return of urine confirmed intraluminal positioning. A 0.018 inch wire was advanced through the needle a curled within the pelvis.The Accustick sheath was advanced over the wire and an Amplatz wire was advanced down the proximal ureter. After a small skin incision was made, the soft tissue tract was dilated and a 8.5 American drainage catheter was advanced over wire with pigtail formed within the right renal pelvis. Contrast injection confirmed appropriate positioning. The catheter was fixed to the skin with silk suture and attached to gravity drainage. A sterile dressing was applied. Initial ultrasound images demonstrate mild to moderate left-sided hydronephrosis. 2% lidocaine was used for local anesthesia. Using ultrasound guidance, a 21-gauge Chiba needle was advanced into an inferior pole calyx. Injection of contrast return of urine confirmed intraluminal positioning. A 0.018 inch wire was advanced through the needle a curled within the pelvis. The Accustick sheath was advanced over the wire and an Amplatz wire was advanced down the proximal ureter. After a small skin incision was made, the soft tissue tract was dilatedand a 8.5 American drainage catheter was advanced over wire with pigtail formed within the left renal pelvis. Contrast injection confirmed appropriate positioning. The catheter was fixed to the skin withsilk suture and attached to gravity drainage. A sterile dressing was applied. The patient tolerated the procedure well without immediate complication. Please note initial percutaneous nephrostomy catheter placement are requested. However, given recent anticoagulation will defer conversion to nephroureterostomy catheters after output from nephrostomy catheters are noted to be clear. This can be performed as an outpatient. Impression: Successful and uncomplicated ultrasound/fluoroscopic guided bilateral percutaneous nephrostomy catheter placement as above. Signed: Yoshi Dietzort Verified Date/Time: 10/04/2021 14:29:34 Reading Location: [facility] P048 Angio Body Reading Room POCT-GLUCOSE [id number] 12:41:19 Test Item Value Reference Range Interpretation Comments POC-GLUCOSE METER 152 mg/dL 70-110 H : TESTED A T [facility] 6720 (BEAKER) (test code = [place], 1538) 93158: Display Designer Outside/Techni funmilayo ID = [id number] for KUSHAL DAS POCT-GLUCOSE [id number] 07:40:19 Test Item Value Reference Range Interpretation Comments POC-GLUCOSE METER 149 mg/dL 70-110 H : TESTED A T [facility] 6720 (BEAKER) (test code = CRU[place], 1538) 36959: Display Designer Outside/Techni funmilayo ID = [id number] for KUSHAL DAS BASIC METABOLIC [id number] 04:18:36 Test Item Value Reference Range Interpretation Comments SODIUM (BEAKER) 137 meq/L 136-145 (test code = 381) POTASSIUM 4.3 meq/L 3.5-5.1 (BEAKER) (test code = 379) CHLORIDE (BEAKER) 106 meq/L 98-107 (test code = 382) CO2 (BEAKER) 24 meq/L 22-29 (test code = 355) BLOOD UREA 33 mg/dL 7-21 H NITROGEN (BEAKER) (test code = 354) CREATININE 2.18 mg/dL 0.57-1.25 H (BEAKER) (test code = 358) GLUCOSE RANDOM 241 mg/dL 70-105 H (BEAKER) (test code = 652) CALCIUM (BEAKER) 8.4 mg/dL 8.4-10.2 (test code = 697) EGFR (BEAKER) 32 Interpretatio n of eGFR (test code = mL/min/1.73 values Stage De scription 1092) sq m Result G1 Lexie l or high >=90 G2 Mildly decreased 60-89 G3a Mildl y to moderately 45-5 9 G3b Moderately to s everely 30-44 G4 Severl y decreased 15-29 G5 Kidne y failure <15Reported eGF R is based on the CKD-EPI 2021 equation that d oes not use a race coefficientEsti mated GFR is not as accur ate as Creatinine Kaitlyn victoria in predicting glom erular filtration rate . Estimated GFR is not appl icable for dialysis patien ts Display Designer Outside ID - [place] [id number] 04:05:10 Test Item Value Reference Range Interpretation Comments PARTIAL THROMBOPLASTIN TIME 29.6 seconds 22.5-36.0 (BEAKER) (test code = 760) CBC (HEMOGRAM ONLY)2021-10-04 03:54:48 Test Item Value Reference Range Interpretation Comments WHITE BLOOD CELL COUNT (BEAKER) 14.4 K/ L 3.5-10.5 H (test code = 775) RED BLOOD CELL COUNT (BEAKER) 3.55 M/ L 4.63-6.08 L (test code = 761) HEMOGLOBIN (BEAKER) (test code = 9.8 GM/DL 13.7-17.5 L 410) HEMATOCRIT (BEAKER) (test code = 29.1 % 40.1-51.0 L 411) MEAN CORPUSCULAR VOLUME (BEAKER) 82.0 fL 79.0-92.2 (test code = 753) MEAN CORPUSCULAR HEMOGLOBIN 27.6 pg 25.7-32.2 (BEAKER) (test code = 751) MEAN CORPUSCULAR HEMOGLOBIN CONC 33.7 GM/DL 32.3-36.5 (BEAKER) (test code = 752) RED CELL DISTRIBUTION WIDTH 14.6 % 11.6-14.4 H (BEAKER) (test code = 412) PLATELET COUNT (BEAKER) (test 232 K/CU MM 150-450 code = 756) MEAN PLATELET VOLUME (BEAKER) 10.5 fL 9.4-12.4 (test code = 754) NUCLEATED RED BLOOD CELLS 0 /100 WBC 0-0 (BEAKER) (test code = 413) POCT-GLUCOSE [id number] 21:29:41 Test Item Value Reference Range Interpretation Comments POC-GLUCOSE METER 315 mg/dL 70-110 H : TESTED A T [facility] 6720 (BEAKER) (test code = [facility] [employer] [facility], 1538) [address]38: Display Designer Outside/Techni funmilayo ID = [id number] for YONNY BRANCH POCT-GLUCOSE [id number] 17:17:55 Test Item Value Reference Range Interpretation Comments POC-GLUCOSE METER 277 mg/dL 70-110 H : TESTED A T [facility] 6720 (BEAKER) (test code = [facility] [employer] [facility], 1538) 50500: Display Designer Outside/Techni funmilayo ID = [id number] for Hilda Woods POCT-GLUCOSE [id number] 08:32:22 Test Item Value Reference Range Interpretation Comments POC-GLUCOSE METER 123 mg/dL 70-110 H : TESTED A T [facility] 6720 (BEAKER) (test code = [place], 1538) 19[address]: Display Designer Outside/Techni funmilayo ID = [id number] for Ch Jamia gudinoylynn BASIC METABOLIC [id number] 07:07:13 Test Item Value Reference Range Interpretation Comments SODIUM (BEAKER) 137 meq/L 136-145 (test code = 381) POTASSIUM 3.9 meq/L 3.5-5.1 (BEAKER) (test code = 379) CHLORIDE (BEAKER) 107 meq/L 98-107 (test code = 382) CO2 (BEAKER) 23 meq/L 22-29 (test code = 355) BLOOD UREA 34 mg/dL 7-21 H NITROGEN (BEAKER) (test code = 354) CREATININE 2.15 mg/dL 0.57-1.25 H (BEAKER) (test code = 358) GLUCOSE RANDOM 153 mg/dL 70-105 H (BEAKER) (test code = 652) CALCIUM (BEAKER) 8.6 mg/dL 8.4-10.2 (test code = 697) EGFR (BEAKER) 33 Interpretatio n of eGFR (test code = mL/min/1.73 values Stage De scription 1092) sq m Result G1 Lexie l or high >=90 G2 Mildly decreased 60-89 G3a Mildl y to moderately 45-5 9 G3b Moderately to s everely 30-44 G4 Severl y decreased 15-29 G5 Kidney failure <15Reported eGF R is based on the CKD-EPI 2020 equation that d oes not use a race coefficientEsti mated GFR is not as accur ate as Creatinine Kaitlyn victoria in predicting glom erular filtration rate . Estimated GFR is not appl icable for dialysis patien ts Display Designer Outside ID - JAIME [id number] 06:59:12 Test Item Value Reference Range Interpretation Comments PARTIAL THROMBOPLASTIN TIME 29.7 seconds 22.5-36.0 (BEAKER) (test code = 760) CBC (HEMOGRAM ONLY)2021-10-03 06:39:28 Test Item Value Reference Range Interpretation Comments WHITE BLOOD CELL COUNT (BEAKER) 12.3 K/ L 3.5-10.5 H (test code = 775) RED BLOOD CELL COUNT (BEAKER) 3.59 M/ L 4.63-6.08 L (test code = 761) HEMOGLOBIN (BEAKER) (test code = 9.6 GM/DL 13.7-17.5 L 410) HEMATOCRIT (BEAKER) (test code = 29.6 % 40.1-51.0 L 411) MEAN CORPUSCULAR VOLUME (BEAKER) 82.5 fL 79.0-92.2 (test code = 753) MEAN CORPUSCULAR HEMOGLOBIN 26.7 pg 25.7-32.2 (BEAKER) (test code = 751) MEAN CORPUSCULAR HEMOGLOBIN CONC 32.4 GM/DL 32.3-36.5 (BEAKER) (test code = 752) RED CELL DISTRIBUTION WIDTH 14.5 % 11.6-14.4 H (BEAKER) (test code = 412) PLATELET COUNT (BEAKER) (test 213 K/CU MM 150-450 code = 756) MEAN PLATELET VOLUME (BEAKER) 10.2 fL 9.4-12.4 (test code = 754) NUCLEATED RED BLOOD CELLS 0 /100 WBC 0-0 (BEAKER) (test code = 413) POCT-GLUCOSE [id number] 21:49:30 Test Item Value Reference Range Interpretation Comments POC-GLUCOSE METER 269 mg/dL 70-110 H : TESTED A T [facility] 6720 (BEAKER) (test code = [facility], 153) 78923: Display Designer Outside/Techni funmilayo ID = [id number] for UL LATTIL, YONNY POCT-GLUCOSE [id number] 17:30:11 Test Item Value Reference Range Interpretation Comments POC-GLUCOSE METER 288 mg/dL 70-110 H : TESTED A T [facility] 6720 (BEAKER) (test code = [facility], 153) 97181: Display Designer Outside/Techni funmilayo ID = [id number] for Jamia Woodsylynn RAD, CHEST, 1 VIEW, NON [id number] 16:43:00Reason for exam:->coughShould this be performed at the bedside?->Yes [facility] : 1950 Sex: MFINAL REPORT Exam: RAD, CHEST, 1 VIEW, NON DEPTDate: 10/02/2021 4:42 PM Indication: Cough Comparison: CXR of 09/23/2021 FINDINGS: Lines/Tubes:EKG leads overlie the chest. Lungs:The lungs are well inflated. No focal consolidation or pulmonary edema. Pleura:No pleural effusion. No pneumothorax. Heart/Mediastinum:The cardiomediastinal silhouette is normal in size and contour. Stable postoperative findings. Bones/Soft Tissues: No acute osseous injury. Unchanged sternotomy wires. Abdomen: No free air below the diaphragm. IMPRESSION:No focal pneumonia or pulmonary edema. Signed: Catrachita De LeonMDReport Verified Date/Time: 10/02/2021 16:43:43 POCT-GLUCOSE [id number] 12:27:27 Test Item Value Reference Range Interpretation Comments POC-GLUCOSE METER 292 mg/dL 70-110 H : [facility]) (test code = [facility], 1538) 51028: Display Designer Outside/Techni funmilayo ID = [id number] for Hilda Woods POCT-GLUCOSE [id number] 08:36:14 Test Item Value Reference Range Interpretation Comments POC-GLUCOSE METER 133 mg/dL 70-110 H : TESTED A T [facility] 6720 ([employer]) (test code = [facility], 1538) 34822: Display Designer Outside/Techni funmilayo ID = [id number] for Ch Hilda gudino BASIC METABOLIC [id number] 05:09:19 Test Item Value Reference Range Interpretation Comments SODIUM (BEAKER) 138 meq/L 136-145 (test code = 381) POTASSIUM 4.1 meq/L 3.5-5.1 (BEAKER) (test code = 379) CHLORIDE (BEAKER) 110 meq/L 98-107 H (test code = 382) CO2 (BEAKER) 21 meq/L 22-29 L (test code = 355) BLOOD UREA 36 mg/dL 7-21 H NITROGEN (BEAKER) (test code = 354) CREATININE 2.27 mg/dL 0.57-1.25 H (BEAKER) (test code = 358) GLUCOSE RANDOM 174 mg/dL 70-105 H (BEAKER) (test code = 652) CALCIUM (BEAKER) 8.4 mg/dL 8.4-10.2 (test code = 697) EGFR (BEAKER) 31 Interpretatio n of eGFR (test code = mL/min/1.73 values Stage De scription 1092) sq m Result G1 Lexie l or high >=90 G2 Mildly decreased 60-89 G3a Mildl y to moderately 45-5 9 G3b Moderately to s everely 30-44 G4 Severl y decreased 15-29 G5 Kidney failure <15Reported eGF R is based on the CKD-EPI 2020 equation that d oes not use a race coefficientEsti mated GFR is not as accur ate as Creatinine Kaitlyn julien in predicting glom erular filtration rate . Estimated GFR is not appl icable for dialysis patien ts Display Designer Outside ID - [facility] [place] [place] (HEMOGRAM ONLY)2021-10-02 04:48:05 Test Item Value Reference Range Interpretation Comments WHITE BLOOD CELL COUNT (BEAKER) 11.2 K/ L 3.5-10.5 H (test code = 775) RED BLOOD CELL COUNT (BEAKER) 3.43 M/ L 4.63-6.08 L (test code = 761) HEMOGLOBIN (BEAKER) (test code = 9.1 GM/DL 13.7-17.5 L 410) HEMATOCRIT (BEAKER) (test code = 28.4 % 40.1-51.0 L 411) MEAN CORPUSCULAR VOLUME (BEAKER) 82.8 fL 79.0-92.2 (test code = 753) MEAN CORPUSCULAR HEMOGLOBIN 26.5 pg 25.7-32.2 (BEAKER) (test code = 751) MEAN CORPUSCULAR HEMOGLOBIN CONC 32.0 GM/DL 32.3-36.5 L (AKER) (test code = 752) RED CELL DISTRIBUTION WIDTH 14.6 % 11.6-14.4 H (AKER) (test code = 412) PLATELET COUNT ([facility]) (test 204 K/CU MM 150-450 code = 756) MEAN PLATELET VOLUME (AKER) 10.6 fL 9.4-12.4 (test code = 754) NUCLEATED RED BLOOD CELLS 0 /100 WBC 0-0 (AKER) (test code = 413) POCT-GLUCOSE [id number] 21:34:49 Test Item Value Reference Range Interpretation Comments POC-GLUCOSE METER 311 mg/dL 70-110 H : [place]ED [place] [address] ([facility]) (test code = [facility], 1538) [address]: Display Designer Outside/Techni funmilayo ID = [id number] for SA JESSICA VILLATORO POCT-GLUCOSE [id number] 17:05:26 Test Item Value Reference Range Interpretation Comments POC-GLUCOSE METER 327 mg/dL 70-110 H : Notified RN/MD: ([facility]) (test code = TESTED AT [place] [address]) [facility] [place], [address]: Display Designer Outside/Techni funmilayo ID = [id number] for Sh Isatu vásquez POCT-GLUCOSE [id number] 12:53:23 Test Item Value Reference Range Interpretation Comments POC-GLUCOSE METER 177 mg/dL 70-110 H : Notified RN/MD: ([facility]) (test code = TESTED AT [place] [address] 153) [facility] [place], [id number]: Display Designer Outside/Techni funmilayo ID = [id number] for SA KUSHAL LOREDO SARS-COV2/RT-PCR ([facility])2021-10-01 10:00:17 Test Item Value Reference Range Interpretation Comments SARS-COV2/RT-PCR (test Negative Not Detected, Negative, code = 4565560) See external report for linked test SARS-COV-2 PERFORMING LAB [facility] (test code = 4700419) Negative result for this test determines that SARS-CoV-2 RNA was not present in the specimen above the Limit of Detection (LOD). However, Negative results do not preclude SARS-CoV-2 infection and should not be used as the sole basis for treatment or patient management decisions. Negative results must be combined with clinical observations, patient history, and epidemiological information. A false negative result may occur if a specimen is improperly collected, transported or handled. A false negative result should be considered if patient's recent exposures or clinical presentation indicate that COVID-19 (SARS-CoV-2) is likely and diagnostic tests for other causes of illness are negative. Re-testing should be considered in cases of suspected false negatives.The limit of detection for this assay is 800 copies/mL.This SARS CoV-2 test is a real-time RT-PCR test intended for the qualitative detection of nucleic acid from SARS-CoV-2 in a nasopharyngeal swab specimen collected from individuals suspected of COVID-19 by their healthcare provider.This test has not been Food and Drug Administration (FDA) cleared or approved. This is a modified version of an approved Emergency Use Authorization (EUA) and is in the process of review by the FDA. Once authorized by the FDA, the issued EUA will be effective until the declaration that circumstances exist justifying the authorization of the emergency use ofin vitro diagnostic tests for detection and/or diagnosis of COVID-19 is terminated under Section 564(b)(2) of the Act or the EUA is revoked under Section 564(g) of the Act.Fact Sheet for Healthcare Prov iders:https://www.[employer]/sites/default/files/product/documents/Fact_Sheet_HC _Sbwacjtaa_Fsnm_WZSX-CtJ-8.pdfFact Sheet for Healthcare Patients:https://www.[employer]/sites/default/files/product/docume nts/Gumk_Wtaex_Fgbmuwii_Erzn_UALF-VjG-6.pdfPerforming Laboratory:[facility], [place] [address]CRIX-VIUAKVY METER 2021-10-01 07:55:43 Test Item Value Reference Range Interpretation Comments POC-GLUCOSE METER 152 mg/dL 70-110 H : TESTED A T [facility] ([place]IL[place]) (test code = [place], 1538) [address]: Display Designer Outside/Techni funmilayo ID = [id number] for KUSHAL DAS [id number] 07:01:21 Test Item Value Reference Range Interpretation Comments PARTIAL THROMBOPLASTIN TIME 29.9 seconds 22.5-36.0 (BEAKER) (test code = 760) PROTHROMBIN [id number] 07:01:02 Test Item Value Reference Range Interpretation Comments PROTIME (BEAKER) 13.9 seconds 11.9-14.2 (test code = 759) INR (BEAKER) (test 1.14 See_Comment [Automat ed message] code = 370) The system inDplay generated this result transmitted ref erence range: <=5.90. The reference range was not used to int erpret this result as normal/abnormal . RECOMMENDED COUMADIN/WARFARIN INR THERAPY RANGESSTANDARD DOSE: 2.0 - 3.0 Includes: PROPHYLAXIS for venous thrombosis, systemic embolization; TREATMENT for venous thrombosis and/or pulmonary embolus.HIGH RISK: Target INR is 2.5-3.5 for patients with mechanical heart valves.BASIC METABOLIC [id number] 05:24:04 Test Item Value Reference Range Interpretation Comments SODIUM (BEAKER) 138 meq/L 136-145 (test code = 381) POTASSIUM 4.2 meq/L 3.5-5.1 (BEAKER) (test code = 379) CHLORIDE (BEAKER) 110 meq/L 98-107 H (test code = 382) CO2 (BEAKER) 19 meq/L 22-29 L (test code = 355) BLOOD UREA 40 mg/dL 7-21 H NITROGEN (BEAKER) (test code = 354) CREATININE 2.74 mg/dL 0.57-1.25 H (BEAKER) (test code = 358) GLUCOSE RANDOM 176 mg/dL 70-105 H (BEAKER) (test code = 652) CALCIUM (BEAKER) 8.8 mg/dL 8.4-10.2 (test code = 697) EGFR (BEAKER) 25 Interpretatio n of eGFR (test code = mL/min/1.73 values Stage De scription 1092) sq m Result G1 Lexie l or high >=90 G2 Mildly decreased 60-89 G3a Mildl y to moderately 45-5 9 G3b Moderately to s everely 30-44 G4 Severl y decreased 15-29 G5 Kidney failure <15Reported eGF R is based on the CKD-EPI 2020 equation that d oes not use a race coefficientEsti mated GFR is not as accur ate as Creatinine Kaitlyn julien in predicting glom erular filtration rate . Estimated GFR is not appl icable for dialysis patien filipe Display Designer Outside ID - PIAYA LCBC (HEMOGRAM ONLY)2021-10-01 04:29:49 Test Item Value Reference Range Interpretation Comments WHITE BLOOD CELL COUNT (BEAKER) 13.6 K/ L 3.5-10.5 H (test code = 775) RED BLOOD CELL COUNT (BEAKER) 3.42 M/ L 4.63-6.08 L (test code = 761) HEMOGLOBIN (BEAKER) (test code = 9.2 GM/DL 13.7-17.5 L 410) HEMATOCRIT (BEAKER) (test code = 27.9 % 40.1-51.0 L 411) MEAN CORPUSCULAR VOLUME (BEAKER) 81.6 fL 79.0-92.2 (test code = 753) MEAN CORPUSCULAR HEMOGLOBIN 26.9 pg 25.7-32.2 (BEAKER) (test code = 751) MEAN CORPUSCULAR HEMOGLOBIN CONC 33.0 GM/DL 32.3-36.5 (BEAKER) (test code = 752) RED CELL DISTRIBUTION WIDTH 14.6 % 11.6-14.4 H (BEAKER) (test code = 412) PLATELET COUNT (BEAKER) (test 200 K/CU MM 150-450 code = 756) MEAN PLATELET VOLUME (BEAKER) 10.2 fL 9.4-12.4 (test code = 754) NUCLEATED RED BLOOD CELLS 0 /100 WBC 0-0 (BEAKER) (test code = 413) POCT-GLUCOSE [id number] 21:33:46 Test Item Value Reference Range Interpretation Comments POC-GLUCOSE METER 272 mg/dL 70-110 H : TESTED A T [facility] 6720 (BEAKER) (test code = [place], 1538) [address]: Display Designer Outside/Techni funmilayo ID = [id number] for JESSICA BOBBY POCT-GLUCOSE [id number] 18:07:26 Test Item Value Reference Range Interpretation Comments POC-GLUCOSE METER 204 mg/dL 70-110 H : TESTED A T [facility] 6720 (BEAKER) (test code = [place] [facility], 1538) [address]: Display Designer Outside/Techni funmilayo ID = [id number] for SA KUSHAL LOREDO POCT-GLUCOSE [id number] 12:57:22 Test Item Value Reference Range Interpretation Comments POC-GLUCOSE METER 201 mg/dL 70-110 H : TESTED A T [facility] 6720 ([facility]) (test code = CRU[place] [facility], 1538) [address]: Display Designer Outside/Techni funmilayo ID = [id number] for SA LOREDO, KUSHAL PROTEIN ELECTROPHORESIS, SERUM WITH REFLEX TO [id number] 11:13:21 Test Item Value Reference Range Interpretation Comments ALBUMIN FRACTION 3.5 gm/dL 3.5-5.5 (AKER) (test code = 405) ALPHA 1 FRACTION 0.4 gm/dL 0.2-0.4 (BEAKER) (test code = 389) ALPHA 2 FRACTION 0.8 gm/dL 0.4-1.0 (BEAKER) (test code = 390) BETA FRACTION 0.7 gm/dL 0.5-1.1 (BEAKER) (test code = 392) GAMMA GLOBULIN 0.8 gm/dL 0.7-1.6 FRACTION (BEAKER) (test code = 391) INTERPRETATION-119 Normal electrophoretic ([facility]) (test code pattern. No abnormal peak = 2615) detected. [id number] Abigail Titus M.D 9 ([facility]) (test (electronic signature) code = 2616) PROTEIN TOTAL 6.1 gm/dL 6.0-8.3 SERUM, SPEP ([facility]) (test code = 2660) Display Designer Outside ID - MILTON M-Display Designer Outside ID - ADMOperator ID - ADMHEMOGLOBIN [id number] 10:39:25 Test Item Value Reference Range Interpretation Comments HEMOGLOBIN A1C 5.9 % See_Comment H [Automated m essage] ELECTROPHORESIS ([facility]) The system which (test code = 3811) generated this result transmitted ref erence range: <=5.6%. The reference range was not used to int erpret this result as normal/abnormal . "The A1c is measured using a [facility]-certified method. HbA1c value equal to or greater than 6.5% as thediagnosis cutoff for diabetes. An HbA1c value of 5.7- 6.4% indicates increased risk for diabetes (prediabetes)."Display Designer Outside ID - ADMBASIC METABOLIC [id number] 08:17:58 Test Item Value Reference Range Interpretation Comments SODIUM (BEAKER) 139 meq/L 136-145 (test code = 381) POTASSIUM 3.8 meq/L 3.5-5.1 (BEAKER) (test code = 379) CHLORIDE (BEAKER) 109 meq/L 98-107 H (test code = 382) CO2 (BEAKER) 22 meq/L 22-29 (test code = 355) BLOOD UREA 38 mg/dL 7-21 H NITROGEN (BEAKER) (test code = 354) CREATININE 2.98 mg/dL 0.57-1.25 H (BEAKER) (test code = 358) GLUCOSE RANDOM 154 mg/dL 70-105 H (BEAKER) (test code = 652) CALCIUM (BEAKER) 8.8 mg/dL 8.4-10.2 (test code = 697) EGFR (BEAKER) 22 Interpretatio n of eGFR (test code = mL/min/1.73 values Stage De scription 1092) sq m Result G1 Lexie l or high >=90 G2 Mildly decreased 60-89 G3a Mildl y to moderately 45-5 9 G3b Moderately to s everely 30-44 G4 Sever ly decreased 15-29 G5 Kidney failure <15Repo rted eGFR is based on the CKD-EPI 2020 equation t hat does not use a race coefficientEsti mated GFR is not as accur ate as Creatinine Kaitlyn victoria in predicting glom erular filtration rate . Estimated GFR is not appl icable for dialysis patien ts Display Designer Outside ID - MOPOCT-GLUCOSE [id number] 08:06:49 Test Item Value Reference Range Interpretation Comments POC-GLUCOSE METER 150 mg/dL 70-110 H : TESTED A T [facility] 6720 (BEAKER) (test code = [place], 1538) [address]: Display Designer Outside/Techni funmilayo ID = [id number] for KUSHAL DAS [id number] 08:04:57 Test Item Value Reference Range Interpretation Comments MAGNESIUM (BEAKER) (test code = 1.7 mg/dL 1.6-2.6 627) Display Designer Outside ID - MOCBC W/PLT COUNT & AUTO [id number] 07:46:01 Test Item Value Reference Range Interpretation Comments WHITE BLOOD CELL COUNT (BEAKER) 14.1 K/ L 3.5-10.5 H (test code = 775) RED BLOOD CELL COUNT (BEAKER) 3.23 M/ L 4.63-6.08 L (test code = 761) HEMOGLOBIN (BEAKER) (test code = 8.8 GM/DL 13.7-17.5 L 410) HEMATOCRIT (BEAKER) (test code = 27.1 % 40.1-51.0 L 411) MEAN CORPUSCULAR VOLUME (BEAKER) 83.9 fL 79.0-92.2 (test code = 753) MEAN CORPUSCULAR HEMOGLOBIN 27.2 pg 25.7-32.2 (BEAKER) (test code = 751) MEAN CORPUSCULAR HEMOGLOBIN CONC 32.5 GM/DL 32.3-36.5 (BEAKER) (test code = 752) RED CELL DISTRIBUTION WIDTH 14.5 % 11.6-14.4 H (BEAKER) (test code = 412) PLATELET COUNT (BEAKER) (test 193 K/CU MM 150-450 code = 756) MEAN PLATELET VOLUME (BEAKER) 10.2 fL 9.4-12.4 (test code = 754) NUCLEATED RED BLOOD CELLS 0 /100 WBC 0-0 (BEAKER) (test code = 413) NEUTROPHILS RELATIVE PERCENT 81 % (BEAKER) (test code = 429) LYMPHOCYTES RELATIVE PERCENT 8 % (BEAKER) (test code = 430) MONOCYTES RELATIVE PERCENT 10 % (BEAKER) (test code = 431) EOSINOPHILS RELATIVE PERCENT 0 % (BEAKER) (test code = 432) BASOPHILS RELATIVE PERCENT 0 % (BEAKER) (test code = 437) NEUTROPHILS ABSOLUTE COUNT 11.44 K/ L 1.78-5.38 H (BEAKER) (test code = 670) LYMPHOCYTES ABSOLUTE COUNT 1.14 K/ L 1.32-3.57 L (BEAKER) (test code = 414) MONOCYTES ABSOLUTE COUNT (BEAKER) 1.37 K/ L 0.30-0.82 H (test code = 415) EOSINOPHILS ABSOLUTE COUNT 0.06 K/ L 0.04-0.54 (BEAKER) (test code = 416) BASOPHILS ABSOLUTE COUNT (BEAKER) 0.03 K/ L 0.01-0.08 (test code = 417) IMMATURE GRANULOCYTES-RELATIVE 1 % 0-1 PERCENT (BEAKER) (test code = 2801) POCT-GLUCOSE [id number] 20:54:59 Test Item Value Reference Range Interpretation Comments POC-GLUCOSE METER 334 mg/dL 70-110 H : TESTED A T [facility] 6720 (BEAKER) (test code = [facility], [facility]8) [address]: Display Designer Outside/Techni funmilayo ID = [id number] for Isatu Barboza POCT-GLUCOSE [id number] 17:14:24 Test Item Value Reference Range Interpretation Comments POC-GLUCOSE METER 294 mg/dL 70-110 H : TESTED A T [facility] 6720 (BEAKER) (test code = [facility], 1538) [address]: Display Designer Outside/Techni funmilayo ID = [id number] for Hilda Woods POCT-GLUCOSE [id number] 12:35:15 Test Item Value Reference Range Interpretation Comments POC-GLUCOSE METER 284 mg/dL 70-110 H : TESTED A T [facility] 6720 (BEAKER) (test code = [facility], 1538) [address]: Display Designer Outside/Techni funmilayo ID = [id number] for Hilda Woods POCT-GLUCOSE [id number] 08:14:41 Test Item Value Reference Range Interpretation Comments POC-GLUCOSE METER 182 mg/dL 70-110 H : TESTED A T [facility] 6720 (BEAKER) (test code = [facility], [facility]8) [address]: Display Designer Outside/Techni funmilayo ID = [id number] for Hilda Woods CALCIUM, [id number] 08:08:36 Test Item Value Reference Range Interpretation Comments CALCIUM IONIZED (BEAKER) (test 1.18 mmol/L 1.12-1.27 code = 698) PH, BLOOD (BEAKER) (test code = 7.35 1810) BASIC METABOLIC [id number] 05:44:25 Test Item Value Reference Range Interpretation Comments SODIUM (BEAKER) 136 meq/L 136-145 (test code = 381) POTASSIUM 4.0 meq/L 3.5-5.1 (BEAKER) (test code = 379) CHLORIDE (BEAKER) 107 meq/L 98-107 (test code = 382) CO2 (BEAKER) 20 meq/L 22-29 L (test code = 355) BLOOD UREA 34 mg/dL 7-21 H NITROGEN (BEAKER) (test code = 354) CREATININE 3.37 mg/dL 0.57-1.25 H (BEAKER) (test code = 358) GLUCOSE RANDOM 190 mg/dL 70-105 H (BEAKER) (test code = 652) CALCIUM (BEAKER) 9.2 mg/dL 8.4-10.2 (test code = 697) EGFR (BEAKER) 19 Interpretati on of eGFR (test code = mL/min/1.73 values Stage De scription 1092) sq m Result G1 Lexie l or high >=90 G2 Mildly decreased 60-89 G3a Mildl y to moderately 45-5 9 G3b Moderately to s everely 30-44 G4 Severl y decreased 15-29 G5 Kidney failure <15Reported eGF R is based on the CKD-EPI 2020 equation that d oes not use a race coefficientEsti mated GFR is not as accur ate as Creatinine Kaitlyn julien in predicting glom erular filtration rate . Estimated GFR is not appl icable for dialysis patien ts Display Designer Outside ID - MILTON [id number] 05:37:49 Test Item Value Reference Range Interpretation Comments MAGNESIUM (BEAKER) (test code = 1.6 mg/dL 1.6-2.6 627) Display Designer Outside ID - MILTON MCBC W/PLT COUNT & AUTO [id number] 05:37:28 Test Item Value Reference Range Interpretation Comments WHITE BLOOD CELL COUNT (BEAKER) 9.4 K/ L 3.5-10.5 (test code = 775) RED BLOOD CELL COUNT (BEAKER) 3.38 M/ L 4.63-6.08 L (test code = 761) HEMOGLOBIN (BEAKER) (test code = 9.0 GM/DL 13.7-17.5 L 410) HEMATOCRIT (BEAKER) (test code = 28.1 % 40.1-51.0 L 411) MEAN CORPUSCULAR VOLUME (BEAKER) 83.1 fL 79.0-92.2 (test code = 753) MEAN CORPUSCULAR HEMOGLOBIN 26.6 pg 25.7-32.2 (BEAKER) (test code = 751) MEAN CORPUSCULAR HEMOGLOBIN CONC 32.0 GM/DL 32.3-36.5 L (BEAKER) (test code = 752) RED CELL DISTRIBUTION WIDTH 14.3 % 11.6-14.4 (BEAKER) (test code = 412) PLATELET COUNT (BEAKER) (test 160 K/CU MM 150-450 code = 756) MEAN PLATELET VOLUME (BEAKER) 10.0 fL 9.4-12.4 (test code = 754) NUCLEATED RED BLOOD CELLS 0 /100 WBC 0-0 (BEAKER) (test code = 413) NEUTROPHILS RELATIVE PERCENT 90 % (BEAKER) (test code = 429) LYMPHOCYTES RELATIVE PERCENT 6 % (BEAKER) (test code = 430) MONOCYTES RELATIVE PERCENT 3 % (BEAKER) (test code = 431) EOSINOPHILS RELATIVE PERCENT 1 % (BEAKER) (test code = 432) BASOPHILS RELATIVE PERCENT 0 % (BEAKER) (test code = 437) NEUTROPHILS ABSOLUTE COUNT 8.47 K/ L 1.78-5.38 H (BEAKER) (test code = 670) LYMPHOCYTES ABSOLUTE COUNT 0.56 K/ L 1.32-3.57 L (BEAKER) (test code = 414) MONOCYTES ABSOLUTE COUNT (BEAKER) 0.25 K/ L 0.30-0.82 L (test code = 415) EOSINOPHILS ABSOLUTE COUNT 0.05 K/ L 0.04-0.54 (BEAKER) (test code = 416) BASOPHILS ABSOLUTE COUNT (BEAKER) 0.01 K/ L 0.01-0.08 (test code = 417) IMMATURE GRANULOCYTES-RELATIVE 1 % 0-1 PERCENT (BEAKER) (test code = 2801) POCT-GLUCOSE [id number] 21:26:35 Test Item Value Reference Range Interpretation Comments POC-GLUCOSE METER 147 mg/dL 70-110 H : TESTED A T [facility] 6720 (BEAKER) (test code = [place], 1538) [address]: Display Designer Outside/Techni funmilayo ID = [id number] for VIRGINIE JAYDONANICETO PUJA POCT-GLUCOSE [id number] 17:14:12 Test Item Value Reference Range Interpretation Comments POC-GLUCOSE METER 137 mg/dL 70-110 H : TESTED A T [facility] 6720 (BEAKER) (test code = [facility], 1538) [address]: Display Designer Outside/Techni funmilayo ID = [id number] for Adri PICKENS POCT-GLUCOSE [id number] 12:22:48 Test Item Value Reference Range Interpretation Comments POC-GLUCOSE METER 150 mg/dL 70-110 H : TESTED A T [facility] 6720 (BEAKER) (test code = [facility], 1538) [address]: Display Designer Outside/Techni funmilayo ID = [id number] for Adri PICKENS POCT-GLUCOSE [id number] 08:05:57 Test Item Value Reference Range Interpretation Comments POC-GLUCOSE METER 135 mg/dL 70-110 H : TESTED A T [facility] 6720 (BEAKER) (test code = [facility], 1538) [address]: Display Designer Outside/Techni funmilayo ID = [id number] for Adri PICKENS BASIC METABOLIC [id number] 05:41:11 Test Item Value Reference Range Interpretation Comments SODIUM (BEAKER) 138 meq/L 136-145 (test code = 381) POTASSIUM 3.9 meq/L 3.5-5.1 (BEAKER) (test code = 379) CHLORIDE (BEAKER) 109 meq/L 98-107 H (test code = 382) CO2 (BEAKER) 19 meq/L 22-29 L (test code = 355) BLOOD UREA 36 mg/dL 7-21 H NITROGEN (BEAKER) (test code = 354) CREATININE 3.51 mg/dL 0.57-1.25 H (BEAKER) (test code = 358) GLUCOSE RANDOM 185 mg/dL 70-105 H (BEAKER) (test code = 652) CALCIUM (BEAKER) 9.3 mg/dL 8.4-10.2 (test code = 697) EGFR (BEAKER) 18 Interpretatio n of eGFR (test code = mL/min/1.73 values Stage De scription 1092) sq m Result G1 Lexie l or high >=90 G2 Mildly decreased 60-89 G3a Mildl y to moderately 45-5 9 G3b Moderately to s everely 30-44 G4 Sever ly decreased 15-29 G5 Kidney failure <15Repo rted eGFR is based on the CKD-EPI 2020 equation t hat does not use a race coefficientEsti mated GFR is not as accur ate as Creatinine Kaitlyn julien in predicting glom erular filtration rate . Estimated GFR is not appl icable for dialysis patien ts Display Designer Outside ID - MILTON MCBC (HEMOGRAM ONLY)2021-09-28 04:50:11 Test Item Value Reference Range Interpretation Comments WHITE BLOOD CELL COUNT (BEAKER) 7.8 K/ L 3.5-10.5 (test code = 775) RED BLOOD CELL COUNT (BEAKER) 3.30 M/ L 4.63-6.08 L (test code = 761) HEMOGLOBIN (BEAKER) (test code = 8.9 GM/DL 13.7-17.5 L 410) HEMATOCRIT (BEAKER) (test code = 27.1 % 40.1-51.0 L 411) MEAN CORPUSCULAR VOLUME (BEAKER) 82.1 fL 79.0-92.2 (test code = 753) MEAN CORPUSCULAR HEMOGLOBIN 27.0 pg 25.7-32.2 (BEAKER) (test code = 751) MEAN CORPUSCULAR HEMOGLOBIN CONC 32.8 GM/DL 32.3-36.5 (BEAKER) (test code = 752) RED CELL DISTRIBUTION WIDTH 14.5 % 11.6-14.4 H (BEAKER) (test code = 412) PLATELET COUNT (BEAKER) (test 165 K/CU MM 150-450 code = 756) MEAN PLATELET VOLUME (BEAKER) 10.0 fL 9.4-12.4 (test code = 754) NUCLEATED RED BLOOD CELLS 0 /100 WBC 0-0 (BEAKER) (test code = 413) U/S, RENAL, [id number] 01:52:00Reason for exam:->B hydronephrosis [facility], HOMER WINTER : 1950 Sex: MFINAL REPORT Renal ultrasound dated 09/27/2021 CLINICAL HISTORY: B hydronephrosis COMPARISON: 09/25/2021 Comment: Real-time transabdominal renal ultrasound was performed. Right kidney measures 11.5 x 6.5 x 4.9 cm. Left kidney measures 12.4 x 7.0 x 5.3 cm. Right renal cortex measures 2.2 cm. Left renal cortex measures 1.8 cm. Renal parenchymal echogenicity: Normal There is mild to moderate bilateral hydronephrosis, right greater than left. There is no nephrolithiasis identified on the images provided. No cyst is identified on either kidney. Doppler ultrasound demonstrates a patent main renal artery and vein bilaterally. A Khoury catheter decompresses the urinary bladder. Impression: Persistent but slightly improved bilateral hydronephrosis when compared to recent previous. Findings probably relate to ureteral obstruction from a retroperitoneal lesion described on CT abdomen pelvis dated 09/26/2021. Please refer to that report. Signed: Brad Saavedra MDReport Verified Date/Time: 09/28/2021 01:52:26 POCT-GLUCOSE [id number] 21:28:14 Test Item Value Reference Range Interpretation Comments POC-GLUCOSE METER 226 mg/dL 70-110 H : [facility] (test code = [facility], 1538) [address]: Display Designer Outside/Techni funmilayo ID = [id number] for YONNY BRANCH POCT-GLUCOSE [id number] 18:11:09 Test Item Value Reference Range Interpretation Comments POC-GLUCOSE METER 109 mg/dL 70-110 : TESTED A T [facility] 6720 ([employer]) (test code = [facility], 1538) [address]: Display Designer Outside/Techni funmilayo ID = [id number] for Justine Sheriff ANTI-NUCLEAR ANTIBODY (WILLIAN)2021-09-27 12:36:55 Test Item Value Reference Range Interpretation Comments ANTI-NUCLEAR ANTIBODY (WILLIAN) ([facility]) Negative Negative (test code = 418) Test performed by IFA method.POCT-GLUCOSE [id number] 12:17:08 Test Item Value Reference Range Interpretation Comments POC-GLUCOSE METER 137 mg/dL 70-110 H : TESTED A T [facility] 6720 (BEAKER) (test code = [facility], 1538) [address]: Display Designer Outside/Techni funmilayo ID = [id number] for Hilda Woods [id number] 09:55:04 Test Item Value Reference Range Interpretation Comments PARTIAL THROMBOPLASTIN TIME 117.3 seconds 22.5-36.0 H (BEAKER) (test code = 760) POCT-GLUCOSE [id number] 08:08:34 Test Item Value Reference Range Interpretation Comments POC-GLUCOSE METER 126 mg/dL 70-110 H : TESTED A T [facility] 6720 ([facility]) (test code = [facility], 1538) [address]: Display Designer Outside/Techni funmilayo ID = [id number] for Hilda Woods [id number] 05:29:45 Test Item Value Reference Range Interpretation Comments FERRITIN (BEAKER) (test code = 112.21 ng/mL 5.00-275.00 361) Display Designer Outside ID - MILTON Nagy-IRON, TIBC, % SAT. (WITHOUT FERRITIN)2021-09-27 05:23:21 Test Item Value Reference Range Interpretation Comments IRON (BEAKER) (test code = 547) 97.0 ug/dL 40.0-160.0 TOTAL IRON BINDING CAPACITY 263 ug/dL 250-450 (BEAKER) (test code = 769) IRON % SATURATION (2) (BEAKER) 37 % 20-55 (test code = 2590) Display Designer Outside ID - MILTON Nagy-BASIC METABOLIC [id number] 05:08:42 Test Item Value Reference Range Interpretation Comments SODIUM (BEAKER) 142 meq/L 136-145 (test code = 381) POTASSIUM 3.9 meq/L 3.5-5.1 (BEAKER) (test code = 379) CHLORIDE (BEAKER) 111 meq/L 98-107 H (test code = 382) CO2 (BEAKER) 22 meq/L 22-29 (test code = 355) BLOOD UREA 37 mg/dL 7-21 H NITROGEN (BEAKER) (test code = 354) CREATININE 3.57 mg/dL 0.57-1.25 H (BEAKER) (test code = 358) GLUCOSE RANDOM 127 mg/dL 70-105 H (BEAKER) (test code = 652) CALCIUM (BEAKER) 10.0 mg/dL 8.4-10.2 (test code = 697) EGFR (BEAKER) 18 Interpretatio n of eGFR (test code = mL/min/1.73 values Stage De scription 1092) sq m Result G1 Lexie l or high >=90 G2 Mildly decreased 60-89 G3a Mildl y to moderately 45-5 9 G3b Moderately to s everely 30-44 G4 Severl y decreased 15-29 G5 Kidney failure <15Reported eGF R is based on the CKD-EPI 2020 equation that d oes not use a race coefficientEsti mated GFR is not as accur ate as Creatinine Kaitlyn julien in predicting glom erular filtration rate . Estimated GFR is not appl icable for dialysis patien ts Display Designer Outside ID - MILTON [id number] 05:07:14 Test Item Value Reference Range Interpretation Comments MAGNESIUM ([email or web address]) (test code = 1.8 mg/dL 1.6-2.6 627) Display Designer Outside ID - MILTON [id number] 05:07:14 Test Item Value Reference Range Interpretation Comments C-REACTIVE PROTEIN (BEAKER) (test 0.54 mg/dL 0.00-0.50 H code = 676) Display Designer Outside ID - MILTON [id number] 22:39:06 Test Item Value Reference Range Interpretation Comments PARTIAL THROMBOPLASTIN TIME 34.0 seconds 22.5-36.0 ([employer]) (test code = 760) POCT-GLUCOSE [id number] 21:35:07 Test Item Value Reference Range Interpretation Comments POC-GLUCOSE METER 124 mg/dL 70-110 H : TESTED A T [facility] 6720 ([employer]) (test code = CRUZ Marino [facility], 1538) 968[address]: Display Designer Outside/Techni funmilayo ID = [id number] for PUJA SULLIVAN POCT-GLUCOSE [id number] 16:56:36 Test Item Value Reference Range Interpretation Comments POC-GLUCOSE METER 121 mg/dL 70-110 H : TESTED A T [facility] 6720 ([employer]) (test code = [place], 1538) 39525: Display Designer Outside/Techni funmilayo ID = [id number] for KUSHAL DAS [id number] 15:21:45 Test Item Value Reference Range Interpretation Comments PARTIAL THROMBOPLASTIN TIME 64.9 seconds 22.5-36.0 H (EMILIE) (test code = 760) POCT-GLUCOSE [id number] 12:38:30 Test Item Value Reference Range Interpretation Comments POC-GLUCOSE METER 135 mg/dL 70-110 H : TESTED A T [facility] 6720 (EMILIE) (test code = CRUZ Marino [facility], 1538) 19049: Display Designer Outside/Techni funmilayo ID = [id number] for KUSHAL DAS CT, [id number] 10:35:00Unlisted Reason for Exam - Click Yes and Enter Reason Below->NoIs this for enterography?->NoWill this procedure require oral contrast?->No [facility] : 1950 Sex: MFINAL REPORT ABDOMINAL AND PELVIS CT DATED 09/26/2021 CLINICAL INFORMATION: Hydronephrosis TECHNIQUE: Axial images of the abdomen and pelvis were obtained from diaphragm to the pubic symphysis without GI or intravenous contrast. This exam was performed according to our departmental dose- optimization program, which includes automated exposure control, adjustment of the mA and/or kV according to patient size and/or use of interactive reconstruction technique. COMMENT: Liver and spleen are normal in size without focal abnormality. Gallbladder is contracted. No gallstone or biliary dilatation is noted. Pancreas and adrenals are unremarkable. Both kidneys are normal in size. Bilateral hydronephrosis and proximal hydroureter are seen. No urolithiasis is seen. The small and large bowel are suboptimally evaluated secondary to lack of GI and intravenous contrast. No small large dilatation or wall thickening is apparent. Appendix is normal in caliber. Contiguous soft tissue mass/adenopathyis seen in the periaortic, aortocaval retroperitoneum extend to the bilateral common and right internal iliac iliac lymphatic chain. Prostate is normal in size. The urinary bladder is contracted. Vascular opacification is seen in the abdominal aorta, superior mesenteric, and bilateral iliac arteries. IMPRESSION: 1. Contiguous mass/adenopathy in the retroperitoneum extending to the pelvis suggestive of adenopathy or retroperitoneal fibrosis.2. Bilateral hydronephrosis and proximal hydroureter. Signed: Joe Sorenseneport Verified Date/Time: 09/26/2021 10:35:02 POCT-GLUCOSE [id number] 08:46:22 Test Item Value Reference Range Interpretation Comments POC-GLUCOSE METER 116 mg/dL 70-110 H : TESTED A T [facility] 6720 (BEAKER) (test code = CRUZ Marino [facility], 1538) 83004: Display Designer Outside/Techni funmilayo ID = [id number] for KUSHAL DAS [id number] 08:12:03 Test Item Value Reference Range Interpretation Comments PROTIME (BEAKER) (test 13.8 seconds 11.9-14.2 code = 759) INR (BEAKER) (test 1.13 See_Comment [Automat ed code = 370) message] The sy stem which generated this result transmitted reference range : <=5.90. The reference range was not used to interpret this result as normal/abnormal . PARTIAL THROMBOPLASTIN 88.8 seconds 22.5-36.0 H TIME (BEAKER) (test code = 760) RECOMMENDED COUMADIN/WARFARIN INR THERAPY RANGESSTANDARD DOSE: 2.0 - 3.0 Includes: PROPHYLAXIS for venous thrombosis, systemic embolization; TREATMENT for venous thrombosis and/or pulmonary embolus.HIGH RISK: Target INR is 2.5-3.5 for patients with mechanical heart valves.[id number] 07:15:37 Test Item Value Reference Range Interpretation Comments PARTIAL THROMBOPLASTIN TIME > seconds 22.5-36.0 HH (BEAKER) (test code = 760) BASIC METABOLIC [id number] 03:17:31 Test Item Value Reference Range Interpretation Comments SODIUM (BEAKER) 139 meq/L 136-145 (test code = 381) POTASSIUM 3.6 meq/L 3.5-5.1 (BEAKER) (test code = 379) CHLORIDE (BEAKER) 109 meq/L 98-107 H (test code = 382) CO2 (BEAKER) 20 meq/L 22-29 L (test code = 355) BLOOD UREA 39 mg/dL 7-21 H NITROGEN (BEAKER) (test code = 354) CREATININE 3.67 mg/dL 0.57-1.25 H (BEAKER) (test code = 358) GLUCOSE RANDOM 76 mg/dL 70-105 (BEAKER) (test code = 652) CALCIUM (BEAKER) 9.9 mg/dL 8.4-10.2 (test code = 697) EGFR (BEAKER) 17 Interpretatio n of eGFR (test code = mL/min/1.73 values Stage De scription 1092) sq m Result G1 Lexie l or high >=90 G2 Mildly decreased 60-89 G3a Mildl y to moderately 45-5 9 G3b Moderately to s everely 30-44 G4 Severl y decreased 15-29 G5 Kidney failure <15Reported eGF R is based on the CKD-EPI 2020 equation that d oes not use a race coefficientEsti mated GFR is not as accur ate as Creatinine Kaitlyn julien in predicting glom erular filtration rate . Estimated GFR is not appl icable for dialysis patien ts Display Designer Outside ID - JAIME [id number] 02:48:05 Test Item Value Reference Range Interpretation Comments MAGNESIUM (BEAKER) (test code = 1.9 mg/dL 1.6-2.6 627) Display Designer Outside ID - JAIME LHIGH SENSITIVITY TROPONIN [id number] 02:46:23 Test Item Value Reference Range Interpretation Comments HIGH SENSITIVITY 337 pg/ml See_Comment H [Automated message] TROPONIN I (test code The sy stem which = [id number]) generated this result transmitted ref erence range: <=35. Th e reference range was not used to int erpret this result as normal/abnormal . Display Designer Outside ID Belen Solitario RETENTION SPECIALIST STAT High Sensitivity Troponin-I results should be used in conjunction with other diagnostic information such as ECG, clinical observations and information, and patient symptoms to aid in the diagnosis of TX.POCT-GLUCOSE [id number] 22:04:13 Test Item Value Reference Range Interpretation Comments POC-GLUCOSE METER 139 mg/dL 70-110 H : [facility] T [facility] (test code = CRUZ Marino [facility], 1538) 26463: Display Designer Outside/Techni funmilayo ID = [id number] for JESSICA BOBBY [id number] 18:59:14 Test Item Value Reference Range Interpretation Comments PARTIAL THROMBOPLASTIN TIME 42.8 seconds 22.5-36.0 H ([facility]) (test code = 760) POCT-GLUCOSE [id number] 17:22:21 Test Item Value Reference Range Interpretation Comments POC-GLUCOSE METER 113 mg/dL 70-110 H : [facility] (test code = CRUZ Marino [facility], 1538) 83691: Display Designer Outside/Techni funmilayo ID = [id number] for KUSHAL DAS U/S, RENAL, [id number] 14:34:00Reason for exam:->JASON on CKD [facility] : 1950 Sex: MFINAL REPORT U/S, RENAL, COMPLETE CLINICAL HISTORY: JASON on CKD COMPARISON: None. TECHNIQUE: Real time grayscale and color Doppler imaging of the kidneys and pre and post void urinary bladder was performed. FINDINGS: Right kidney:Length = 10.8 cmCortical thickness: NormalEchogenicity: NormalCollecting system: Moderate hydronephrosisOther findings: None Left kidney:Length = 11.2 cmCortical thickness: NormalEchogenicity: NormalCollecting system: Mild to moderate hydronephrosisOther findings: None Urinary bladder: Normally distended prevoid with a volume of 491 mL. Post void residual urinary bladder volume 33 mL. Bilateral hydronephrosis persists post void. IMPRESSION: Moderate right and mild to moderate left hydronephrosis. Signed: Thony Marie Verified Date/Time: 09/25/2021 14:34:08 POCT-GLUCOSE [id number] 12:15:59 Test Item Value Reference Range Interpretation Comments POC-GLUCOSE METER 123 mg/dL 70-110 H : TESTED A T [facility] 6720 (BEAKER) (test code = [facility], 1538) 37899: Display Designer Outside/Techni funmilayo ID = [id number] for KUSHAL DAS [id number] 10:04:57 Test Item Value Reference Range Interpretation Comments PARTIAL THROMBOPLASTIN TIME 46.9 seconds 22.5-36.0 H (BEAKER) (test code = 760) POCT-GLUCOSE [id number] 08:39:00 Test Item Value Reference Range Interpretation Comments POC-GLUCOSE METER 116 mg/dL 70-110 H : TESTED A T [facility] 6720 (BEAKER) (test code = [facility], 1538) 29892: Display Designer Outside/Techni funmilayo ID = [id number] for KUSHAL DAS PROTEIN, RANDOM [id number] 07:06:23 Test Item Value Reference Range Interpretation Comments PROTEIN, URINE (BEAKER) (test code = < mg/dL 0-14 1569) Display Designer Outside ID - BSCREATININE, RANDOM [id number] 07:05:15 Test Item Value Reference Range Interpretation Comments CREATININE URINE (BEAKER) (test 43.5 mg/dL code = 375) Reference Range: No NormalsOperator ID - BSBASIC METABOLIC [id number] 04:19:40 Test Item Value Reference Range Interpretation Comments SODIUM (BEAKER) 140 meq/L 136-145 (test code = 381) POTASSIUM 3.9 meq/L 3.5-5.1 (BEAKER) (test code = 379) CHLORIDE (BEAKER) 109 meq/L 98-107 H (test code = 382) CO2 (BEAKER) 22 meq/L 22-29 (test code = 355) BLOOD UREA 44 mg/dL 7-21 H NITROGEN (BEAKER) (test code = 354) CREATININE 4.03 mg/dL 0.57-1.25 H (BEAKER) (test code = 358) GLUCOSE RANDOM 125 mg/dL 70-105 H (BEAKER) (test code = 652) CALCIUM (BEAKER) 10.5 mg/dL 8.4-10.2 H (test code = 697) EGFR (BEAKER) 15 Interpretatio n of eGFR (test code = mL/min/1.73 values Stage De scription 1092) sq m Result G1 Lexie l or high >=90 G2 Mildly decreased 60-89 G3a Mildl y to moderately 45-5 9 G3b Moderately to s everely 30-44 G4 Severl y decreased 15-29 G5 Kidney failure <15Reported eGF R is based on the CKD-EPI 2020 equation that d oes not use a race coefficientEsti mated GFR is not as accur ate as Creatinine Kaitlyn julien in predicting glom erular filtration rate . Estimated GFR is not appl icable for dialysis patien ts Display Designer Outside ID - PETERSON GLIPID [id number] 04:19:26 Test Item Value Reference Range Interpretation Comments TRIGLYCERIDES (BEAKER) (test code = 153 mg/dL 540) CHOLESTEROL (BEAKER) (test code = 115 mg/dL 631) HDL CHOLESTEROL (BEAKER) (test code 26 mg/dL = 976) LDL CHOLESTEROL CALCULATED (BEAKER) 58 mg/dL (test code = 633) Triglyceride Reference Range: Low Risk <150 Borderline 150-199 High Risk 200-499 Very High Risk >=500Cholesterol Reference Range: Low Risk <200 Borderline 200-239 High Risk >240HDL Cholesterol Reference Range: Low Risk >=60 High Risk <40LDL Cholesterol Reference Range: Optimal <100 Near Optimal 100-129 Borderline 130-159 High 160-189 Very High >=190 Display Designer Outside EMA WINKLER [id number] 04:19:25 Test Item Value Reference Range Interpretation Comments MAGNESIUM (BEAKER) (test code = 2.1 mg/dL 1.6-2.6 627) Display Designer Outside ID - PETERSON [id number] 04:19:25 Test Item Value Reference Range Interpretation Comments PHOSPHORUS (BEAKER) (test code = 4.8 mg/dL 2.3-4.7 H 604) Display Designer Outside ID - PETERSON [id number] 04:10:58 Test Item Value Reference Range Interpretation Comments PARTIAL THROMBOPLASTIN TIME 52.7 seconds 22.5-36.0 H (BEAKER) (test code = 760) HIGH SENSITIVITY TROPONIN [id number] 00:03:34 Test Item Value Reference Range Interpretation Comments HIGH SENSITIVITY 717 pg/ml See_Comment HH [Automated message] TROPONIN I (test code The sy stem which = [id number]) generated this result transmitted ref erence range: <=35. Th e reference range was not used to int erpret this result as normal/abnormal . Display Designer Outside ID - BSThe RETENTION SPECIALIST STAT High Sensitivity Troponin-I results should be used in conjunctionwith other diagnostic information such as ECG, clinical observations and information, and patient symptoms to aid in the diagnosis of TX.[id number] 23:10:05 Test Item Value Reference Range Interpretation Comments PARTIAL THROMBOPLASTIN TIME 48.3 seconds 22.5-36.0 H (BEAKER) (test code = 760) POCT-GLUCOSE [id number] 21:09:03 Test Item Value Reference Range Interpretation Comments POC-GLUCOSE METER 159 mg/dL 70-110 H : TESTED A T [facility] 6720 (BEAKER) (test code = [place], 1538) 57368: Display Designer Outside/Techni funmilayo ID = [id number] for ROBE LATTIL, YONNY CREATININE, RANDOM [id number] 18:38:16 Test Item Value Reference Range Interpretation Comments CREATININE URINE (BEAKER) (test 87.9 mg/dL code = 375) Reference Range: No NormalsOperator ID - BSSODIUM, RANDOM [id number] 18:38:16 Test Item Value Reference Range Interpretation Comments SODIUM URINE (BEAKER) (test code = 33 meq/L 243) Reference Range: No NormalsOperator ID - BSPOCT-GLUCOSE [id number] 17:19:46 Test Item Value Reference Range Interpretation Comments POC-GLUCOSE METER 110 mg/dL 70-110 : TESTED A T [facility] 6720 ([facility]) (test code = [facility] Ned [facility], 1538) 92836: Display Designer Outside/Techni funmilayo ID = [id number] for Hilda Woods HIGH SENSITIVITY TROPONIN [id number] 17:17:34 Test Item Value Reference Range Interpretation Comments HIGH SENSITIVITY 1265 pg/ml See_Comment HH [Automated message] TROPONIN I (test code The sy stem which = [id number]) generated this result transmitted ref erence range: <=35. Th e reference range was not used to int erpret this result as normal/abnormal . Display Designer Outside ID - BSThe RETENTION SPECIALIST STAT High Sensitivity Troponin-I results should be used in conjunctionwith other diagnostic information such as ECG, clinical observations and information, and patient symptoms to aid in the diagnosis of TX.[id number] 12:47:42 Test Item Value Reference Range Interpretation Comments PARTIAL THROMBOPLASTIN TIME 26.1 seconds 22.5-36.0 ([employer]) (test code = 760) POCT-GLUCOSE [id number] 12:17:30 Test Item Value Reference Range Interpretation Comments POC-GLUCOSE METER 155 mg/dL 70-110 H : TESTED A T [facility] 6720 ([facility]) (test code = [facility] Ned [facility], 1538) 72144: Display Designer Outside/Techni funmilayo ID = [id number] for Hilda Woods HIGH SENSITIVITY TROPONIN [id number] 08:48:28 Test Item Value Reference Range Interpretation Comments HIGH SENSITIVITY 778 pg/ml See_Comment HH [Automated message] TROPONIN I (test code The sy stem which = [id number]) generated this result transmitted ref erence range: <=35. Th e reference range was not used to int erpret this result as normal/abnormal . Display Designer Outside ID - PIAYA LThe RETENTION SPECIALIST STAT High Sensitivity Troponin-I results should be used in conjunction with other diagnostic information such as ECG, clinical observations and information, and patient symptoms to aid in the diagnosis of TX.HEMOGLOBIN [id number] 08:45:42 Test Item Value Reference Range Interpretation Comments HEMOGLOBIN A1C 5.8 % See_Comment H [Automated m essage] ELECTROPHORESIS ([employer]) The system which (test code = 3811) generated this result transmitted ref erence range: <=5.6%. The reference range was not used to int erpret this result as normal/abnormal . "The A1c is measured using a [facility]-certified method. HbA1c value equal to or greater than 6.5% as thediagnosis cutoff for diabetes. An HbA1c value of 5.7- 6.4% indicates increased risk for diabetes (prediabetes)."Display Designer Outside ID - ADMPOCT- GLUCOSE [id number] 08:25:32 Test Item Value Reference Range Interpretation Comments POC-GLUCOSE METER 105 mg/dL 70-110 : TESTED A T [facility] 6720 (BEAKER) (test code = [place], 1538) 68043: Display Designer Outside/Techni funmilayo ID = [id number] for Hilda Woods BASIC METABOLIC [id number] 06:24:38 Test Item Value Reference Range Interpretation Comments SODIUM (BEAKER) 141 meq/L 136-145 (test code = 381) POTASSIUM 3.8 meq/L 3.5-5.1 (BEAKER) (test code = 379) CHLORIDE (BEAKER) 110 meq/L 98-107 H (test code = 382) CO2 (BEAKER) 21 meq/L 22-29 L (test code = 355) BLOOD UREA 42 mg/dL 7-21 H NITROGEN (BEAKER) (test code = 354) CREATININE 4.20 mg/dL 0.57-1.25 H (BEAKER) (test code = 358) GLUCOSE RANDOM 96 mg/dL 70-105 (BEAKER) (test code = 652) CALCIUM (BEAKER) 10.0 mg/dL 8.4-10.2 (test code = 697) EGFR (BEAKER) 15 Interpretatio n of eGFR (test code = mL/min/1.73 values Stage De scription 1092) sq m Result G1 Lexie l or high >=90 G2 Mildly decreased 60-89 G3a Mildl y to moderately 45-5 9 G3b Moderately to s everely 30-44 G4 Severl y decreased 15-29 G5 Kidney failure <15Reported eGF R is based on the CKD-EPI 2020 equation that d oes not use a race coefficientEsti mated GFR is not as accur ate as Creatinine Kaitlyn victoria in predicting glom erular filtration rate . Estimated GFR is not appl icable for dialysis patien ts Display Designer Outside ID - JAIME LHEPATIC FUNCTION [id number] 06:18:53 Test Item Value Reference Range Interpretation Comments TOTAL PROTEIN (BEAKER) (test code = 6.6 gm/dL 6.0-8.3 770) ALBUMIN (BEAKER) (test code = 1145) 3.9 g/dL 3.5-5.0 BILIRUBIN TOTAL (BEAKER) (test code 0.3 mg/dL 0.2-1.2 = 377) BILIRUBIN DIRECT (BEAKER) (test 0.1 mg/dL 0.1-0.5 code = 706) ALKALINE PHOSPHATASE (BEAKER) (test 82 U/L 40-150 code = 346) AST (SGOT) (BEAKER) (test code = 14 U/L 5-34 353) ALT (SGPT) (BEAKER) (test code = 9 U/L 6-55 347) Display Designer Outside ID - CHAIBRITTNY [id number] 06:18:52 Test Item Value Reference Range Interpretation Comments MAGNESIUM (BEAKER) (test code = 1.5 mg/dL 1.6-2.6 L 627) Display Designer Outside ID - CHAIBRITTNY [id number] 06:18:52 Test Item Value Reference Range Interpretation Comments PHOSPHORUS (BEAKER) (test code = 4.7 mg/dL 2.3-4.7 604) Display Designer Outside ID - CHAIBRITTNY LHIGH SENSITIVITY TROPONIN [id number] 05:47:38 Test Item Value Reference Range Interpretation Comments HIGH SENSITIVITY 356 pg/ml See_Comment H [Automated message] TROPONIN I (test code The sy stem which = [id number]) generated this result transmitted ref erence range: <=35. Th e reference range was not used to int erpret this result as normal/abnormal . Display Designer Outside ID - JAIME LThe RETENTION SPECIALIST STAT High Sensitivity Troponin-I results should be used in conjunction with other diagnostic information such as ECG, clinical observations and information, and patient symptoms to aid in the diagnosis of TX.PROTHROMBIN [id number] 05:39:34 Test Item Value Reference Range Interpretation Comments PROTIME (BEAKER) 14.2 seconds 11.9-14.2 (test code = 759) INR (BEAKER) (test 1.17 See_Comment [Automat ed message] code = 370) The system [employer] generated this result transmitted ref erence range: <=5.90. The reference range was not used to int erpret this result as normal/abnormal . RECOMMENDED COUMADIN/WARFARIN INR THERAPY RANGESSTANDARD DOSE: 2.0 - 3.0 Includes: PROPHYLAXIS for venous thrombosis, systemic embolization; TREATMENT for venous thrombosis and/or pulmonary embolus.HIGH RISK: Target INR is 2.5-3.5 for patients with mechanical heart valves.CBC W/PLT COUNT & AUTO [id number] 05:21:01 Test Item Value Reference Range Interpretation Comments WHITE BLOOD CELL COUNT (BEAKER) 8.6 K/ L 3.5-10.5 (test code = 775) RED BLOOD CELL COUNT (BEAKER) 3.82 M/ L 4.63-6.08 L (test code = 761) HEMOGLOBIN (BEAKER) (test code = 10.4 GM/DL 13.7-17.5 L 410) HEMATOCRIT (BEAKER) (test code = 31.9 % 40.1-51.0 L 411) MEAN CORPUSCULAR VOLUME (BEAKER) 83.5 fL 79.0-92.2 (test code = 753) MEAN CORPUSCULAR HEMOGLOBIN 27.2 pg 25.7-32.2 (BEAKER) (test code = 751) MEAN CORPUSCULAR HEMOGLOBIN CONC 32.6 GM/DL 32.3-36.5 (BEAKER) (test code = 752) RED CELL DISTRIBUTION WIDTH 14.1 % 11.6-14.4 (BEAKER) (test code = 412) PLATELET COUNT (BEAKER) (test 187 K/CU MM 150-450 code = 756) MEAN PLATELET VOLUME (BEAKER) 10.1 fL 9.4-12.4 (test code = 754) NUCLEATED RED BLOOD CELLS 0 /100 WBC 0-0 (BEAKER) (test code = 413) NEUTROPHILS RELATIVE PERCENT 72 % (BEAKER) (test code = 429) LYMPHOCYTES RELATIVE PERCENT 14 % (BEAKER) (test code = 430) MONOCYTES RELATIVE PERCENT 9 % (BEAKER) (test code = 431) EOSINOPHILS RELATIVE PERCENT 4 % (BEAKER) (test code = 432) BASOPHILS RELATIVE PERCENT 1 % (BEAKER) (test code = 437) NEUTROPHILS ABSOLUTE COUNT 6.16 K/ L 1.78-5.38 H (BEAKER) (test code = 670) LYMPHOCYTES ABSOLUTE COUNT 1.22 K/ L 1.32-3.57 L (BEAKER) (test code = 414) MONOCYTES ABSOLUTE COUNT (BEAKER) 0.80 K/ L 0.30-0.82 (test code = 415) EOSINOPHILS ABSOLUTE COUNT 0.36 K/ L 0.04-0.54 (BEAKER) (test code = 416) BASOPHILS ABSOLUTE COUNT (BEAKER) 0.05 K/ L 0.01-0.08 (test code = 417) IMMATURE GRANULOCYTES-RELATIVE 0 % 0-1 PERCENT (BEAKER) (test code = 2801) POCT-GLUCOSE [id number] 00:06:35 Test Item Value Reference Range Interpretation Comments POC-GLUCOSE METER 138 mg/dL 70-110 H : TESTED A T [facility] (BEAKER) (test code = CRUZ Marino [facility], 1538) 80060: Display Designer Outside/Techni funmilayo ID = [id number] for YONNY BRANCH SARS-COV2/RT-PCR ([facility])2021-09-23 22:57:17 Test Item Value Reference Range Interpretation Comments SARS-COV2/RT-PCR Negative Negative The SARS-Co V-2 target (test code = nucleic acids a re not [id number]) detected in thi s specimen. Negative result s do not preclude SARS-C oV-2 infection and s hould not be used as the kaleigh e basis for patient managem ent decisions. Nega tive results must be combine d with clinical observ ations, patient history , and epidemiological information. A false negativ e result may occur if a spec imen is improperly marcellus ected, transported or handled. This SARS CoV-2 test is a rapid, real-time RT-PC R test intended for th e qualitative detection of nu cleic acid from SARS-CoV-2 in a nasopharyngeal swab specimen collected from individuals suspected of CO VID-19 by their healthcar e provider. This test has been authorized by FDA under an EUA for use by authorized laboratories. This test is only authorized for the duration of the declaration that circumstances exist justifying the authorization of emergency use of in vitro diagnostic tests for detection and/or diagnosis of COVID-19 under Section 564(b)(1) of the Federal Food, Drug and Cosmetic Act, 21 U.S.C. 360bbb-3(b)(1), unless the authorization is terminated or revoked sooner. Fact Sheet for Healthcare Providers: https://[employer]/Documents/Xpert%20Xpress%20SARS%20CoV-2/Fact%20Sheets/302-3802%91AVTX-JWO-3%20 HEALTHCARE%20PROVIDERS%20FACT%20SHEET.pdf Fact Sheet for Healthcare Patients: https://www.[employer]/Documents/Xpert%20Xp ress%20SARS%20CoV-2/Fact%20Sheets/302-3801%45XPMM-OWV-3%20PATIENT%20FACT%20SHEET .pdfURINALYSIS W/ REFLEX URINE [id number] 20:40:35 Test Item Value Reference Range Interpretation Comments COLOR (BEAKER) (test code = 470) Yellow CLARITY (BEAKER) (test code = 469) Clear SPECIFIC GRAVITY UA (BEAKER) (test 1.010 1.001-1.035 code = 468) PH UA (BEAKER) (test code = 467) 5.5 5.0-8.0 PROTEIN UA (BEAKER) (test code = Negative Negative 464) GLUCOSE UA (BEAKER) (test code = Negative Negative 365) KETONES UA (BEAKER) (test code = Negative Negative 371) BILIRUBIN UA (BEAKER) (test code = Negative Negative 462) BLOOD UA (BEAKER) (test code = 461) Negative Negative NITRITE UA (BEAKER) (test code = Negative Negative 465) LEUKOCYTE ESTERASE UA (BEAKER) Negative Negative (test code = 466) UROBILINOGEN UA (BEAKER) (test code 0.2 mg/dL 0.2-1.0 = 463) BACTERIA (BEAKER) (test code = 517) Few RBC UA-MANUAL (BEAKER) (test code = <5 /HPF 1659) WBC UA-MANUAL (BEAKER) (test code = <5 /HPF 1661) SQUAMOUS EPITHELIAL MANUAL (BEAKER) <5 /HPF (test code = 1663) SOURCE(BEAKER) (test code = 2795) RAD, CHEST, 2 [id number] 20:22:00Reason for exam:->HYPERTENSIONReason for exam:->DIZZINESSShould this be performed at the bedside?->No [facility] : 1950 Sex: MFINAL REPORT CLINICAL HISTORY: HYPERTENSIONDIZZINESS 3 upright images of the chest are submitted. COMPARISON:10/13/2019 The cardiac silhouette is within normal limits for size. The patient has undergone previous CABG. There is no focal consolidation, pleural effusion, pneumothorax or evidence of overt pulmonary edema. There is no acute bony abnormality. IMPRESSION: No acute abnormality. Signed: Brad Saavedra Verified Date/Time: 09/23/2021 20:22:26 D TROPONIN [id number] 19:05:22 Test Item Value Reference Range Interpretation Comments RAPID TROPONIN I (BEAKER) (test code < ng/mL <0.05 = 1483) BASIC METABOLIC [id number] 19:02:06 Test Item Value Reference Range Interpretation Comments SODIUM (BEAKER) 138 meq/L 135-148 (test code = 381) POTASSIUM 4.0 meq/L 3.6-5.5 (BEAKER) (test code = 379) CHLORIDE (BEAKER) 103 meq/L 98-106 (test code = 382) CO2 (BEAKER) 21 meq/L 24-32 L (test code = 355) BLOOD UREA 40 mg/dL 10-26 H NITROGEN (BEAKER) (test code = 354) CREATININE 4.26 mg/dL 0.50-1.20 H (BEAKER) (test code = 358) GLUCOSE RANDOM 89 mg/dL 70-110 (BEAKER) (test code = 652) CALCIUM (BEAKER) 9.7 mg/dL 8.5-10.5 (test code = 697) EGFR (BEAKER) 14 Interpretatio n of eGFR (test code = mL/min/1.73 values Stage De scription 1092) sq m Result G1 Lexie l or high >=90 G2 Mildly decreased 60-89 G3a Mildl y to moderately 45-5 9 G3b Moderately to s everely 30-44 G4 Severl y decreased 15-29 G5 Kidney failure <15Reported eGF R is based on the CKD-EPI 2020 equation that d oes not use a race coefficientEsti mated GFR is not as accur ate as Creatinine Kaitlyn julien in predicting glom erular filtration rate . Estimated GFR is not appl icable for dialysis patien ts CBC W/PLT COUNT & AUTO [id number] 18:53:52 Test Item Value Reference Range Interpretation Comments WHITE BLOOD CELL COUNT (BEAKER) 7.7 K/ L 4.0-10.0 (test code = 775) RED BLOOD CELL COUNT (BEAKER) 3.89 M/ L 4.20-5.80 L (test code = 761) HEMOGLOBIN (BEAKER) (test code = 10.4 GM/DL 13.0-16.8 L 410) HEMATOCRIT (BEAKER) (test code = 32.1 % 40.0-50.0 L 411) MEAN CORPUSCULAR VOLUME (BEAKER) 82.4 fL 82.0-98.0 (test code = 753) MEAN CORPUSCULAR HEMOGLOBIN 26.8 pg 27.0-33.0 L (BEAKER) (test code = 751) MEAN CORPUSCULAR HEMOGLOBIN CONC 32.5 GM/DL 32.0-36.0 (BEAKER) (test code = 752) RED CELL DISTRIBUTION WIDTH 14.3 % 10.3-14.2 H (BEAKER) (test code = 412) PLATELET COUNT (BEAKER) (test 195 K/CU MM 150-430 code = 756) MEAN PLATELET VOLUME (BEAKER) 8.1 fL 6.5-10.5 (test code = 754) NEUTROPHILS RELATIVE PERCENT 66 % (BEAKER) (test code = 429) LYMPHOCYTES RELATIVE PERCENT 17 % (BEAKER) (test code = 430) MONOCYTES RELATIVE PERCENT 10 % (BEAKER) (test code = 431) EOSINOPHILS RELATIVE PERCENT 6 % (BEAKER) (test code = 432) BASOPHILS RELATIVE PERCENT 1 % (BEAKER) (test code = 437) NEUTROPHILS ABSOLUTE COUNT 5.12 K/ L 1.80-8.00 (BEAKER) (test code = 670) LYMPHOCYTES ABSOLUTE COUNT 1.33 K/ L 1.48-4.50 L (BEAKER) (test code = 414) MONOCYTES ABSOLUTE COUNT (BEAKER) 0.80 K/ L 0.00-1.30 (test code = 415) EOSINOPHILS ABSOLUTE COUNT 0.45 K/ L 0.00-0.50 (BEAKER) (test code = 416) BASOPHILS ABSOLUTE COUNT (BEAKER) 0.04 K/ L 0.00-0.20 (test code = 417) FB Removal- [id number] 09:17:00Nellie Enriquez MD ? ? 05/31/2020 ?4:17 AMFB Removal- OrificePerformed by: Nellie Enriquez MDAuthorized by: Nellie Enriquez MD Consent: ?Consent obtained: ?Verbal ?Consent given by: ?Patient ?Risksdiscussed: ?Bleeding, damage to surrounding structures, incomplete removal, infection, need for surgical removal, pain, TM perforation and worsening of condition ?Alternatives discussed: ?No treatmentLocation: ?Location: ?Ear ?Ear location: ?L earPre-procedure details: ?Imaging: ?NoneAnesthesia (see MAR for exact dosages): ?Topical anesthetic: ?Lidocaine gelProcedure details: ?Localization method: ?Direct visualization ?Removal mechanism: ?Alligator forceps, suction and irrigation ?Procedure complexity: ?Complex ?Foreign bodies recovered: ?1 ?Description: ?[place] [facility] cover ?Intact foreign body removal: yes ?Post-procedure details: ?Confirmation: ?No additional foreign bodies on visualization ?Patient tolerance of procedure: ?Tolerated well, no immediate complicationsUnCuero Regional Hospital[U] XRAY KNEE 4 OR MORE VWS BILATERAL [id number] 08:23:00Images acquired, not reported on this accession number.FL PhysiciansPOCT-GLUCOSE [id number] 12:11:00 Test Item Value Reference Range Interpretation Comments POC-GLUCOSE METER 253 mg/dL 70-110 H : TESTED A T [facility] 6720 (BEAKER) (test code = [facility], 1538) [id number]: Display Designer Outside/Techni funmilayo ID = [id number] for MINOO NTER, GRACEWITHA POCT-GLUCOSE [id number] 07:40:00 Test Item Value Reference Range Interpretation Comments POC-GLUCOSE METER 160 mg/dL 70-110 H : TESTED A T [facility] 6720 (BEAKER) (test code = [facility], 1538) [id number]: Display Designer Outside/Techni funmilayo ID = [id number] for HU NTER, HIWITHA BASIC METABOLIC [id number] 06:13:00 Test Item Value Reference Range Interpretation Comments SODIUM (BEAKER) 139 meq/L 136-145 (test code = 381) POTASSIUM (BEAKER) 3.9 meq/L 3.5-5.1 (test code = 379) CHLORIDE (BEAKER) 109 meq/L 98-107 H (test code = 382) CO2 (BEAKER) (test 17 meq/L 22-29 L code = 355) BLOOD UREA NITROGEN 19 mg/dL 7-21 (BEAKER) (test code = 354) CREATININE (BEAKER) 1.57 mg/dL 0.57-1.25 H (test code = 358) GLUCOSE RANDOM 154 mg/dL 70-105 H (BEAKER) (test code = 652) CALCIUM (BEAKER) 8.9 mg/dL 8.4-10.2 (test code = 697) EGFR (BEAKER) (test 44 mL/min/1.73 ESTIMA ALANA GFR IS code = 1092) sq m NOT ACCURATE CREATININE CLEARANCE IN PREDICTING GLOMERULAR FILTRATION RATE . ESTIMATED GFR I S NOT APPLICABLE FOR DIALYSIS PATIEN TS. Display Designer Outside ID - MILTON [facility] (HEMOGRAM ONLY)2019-10-17 05:34:00 Test Item Value Reference Range Interpretation Comments WHITE BLOOD CELL COUNT (BEAKER) 10.0 K/ L 3.5-10.5 (test code = 775) RED BLOOD CELL COUNT (BEAKER) 4.43 M/ L 4.63-6.08 L (test code = 761) HEMOGLOBIN (BEAKER) (test code = 12.2 GM/DL 13.7-17.5 L 410) HEMATOCRIT (BEAKER) (test code = 38.8 % 40.1-51.0 L 411) MEAN CORPUSCULAR VOLUME (BEAKER) 87.6 fL 79.0-92.2 (test code = 753) MEAN CORPUSCULAR HEMOGLOBIN 27.5 pg 25.7-32.2 (BEAKER) (test code = 751) MEAN CORPUSCULAR HEMOGLOBIN CONC 31.4 GM/DL 32.3-36.5 L (BEAKER) (test code = 752) RED CELL DISTRIBUTION WIDTH 13.2 % 11.6-14.4 (BEAKER) (test code = 412) PLATELET COUNT (BEAKER) (test 172 K/CU MM 150-450 code = 756) MEAN PLATELET VOLUME (BEAKER) 10.4 fL 9.4-12.4 (test code = 754) NUCLEATED RED BLOOD CELLS 0 /100 WBC 0-0 (BEAKER) (test code = 413) POCT-GLUCOSE [id number] 21:23:00 Test Item Value Reference Range Interpretation Comments POC-GLUCOSE METER 227 mg/dL 70-110 H : TESTED A T [facility] 6720 (BEAKER) (test code = [facility], 153) [id number]: Display Designer Outside/Techni funmilayo ID = [id number] for COOPER BULL POCT-GLUCOSE [id number] 16:26:00 Test Item Value Reference Range Interpretation Comments POC-GLUCOSE METER 188 mg/dL 70-110 H : TESTED A T [facility] 6720 (BEAKER) (test code = [facility], 153) 60347: Display Designer Outside/Techni funmilayo ID = [id number] for [place] LLIAMS, TYNEKA POCT-GLUCOSE [id number] 11:59:00 Test Item Value Reference Range Interpretation Comments POC-GLUCOSE METER 172 mg/dL 70-110 H : TESTED A T [facility] 6720 (BEAKER) (test code = [facility], 153) 65688: Display Designer Outside/Techni funmilayo ID = [id number] for [place] LLIAMS, TYNEKA POCT-GLUCOSE [id number] 08:11:00 Test Item Value Reference Range Interpretation Comments POC-GLUCOSE METER 147 mg/dL 70-110 H : TESTED A T [facility] 6720 (BEAKER) (test code = [facility] [place], 1538) 47116: Display Designer Outside/Techni funmilayo ID = [id number] for NILE LOPEZ [id number] 04:10:00 Test Item Value Reference Range Interpretation Comments MAGNESIUM (BEAKER) (test code = 1.9 mg/dL 1.6-2.6 627) Display Designer Outside ID - MILTON MBASIC METABOLIC [id number] 04:10:00 Test Item Value Reference Range Interpretation Comments SODIUM (BEAKER) 139 meq/L 136-145 (test code = 381) POTASSIUM (BEAKER) 4.0 meq/L 3.5-5.1 (test code = 379) CHLORIDE (BEAKER) 108 meq/L 98-107 H (test code = 382) CO2 (BEAKER) (test 22 meq/L 22-29 code = 355) BLOOD UREA NITROGEN 18 mg/dL 7-21 (BEAKER) (test code = 354) CREATININE (BEAKER) 1.36 mg/dL 0.57-1.25 H (test code = 358) GLUCOSE RANDOM 126 mg/dL 70-105 H (BEAKER) (test code = 652) CALCIUM (BEAKER) 9.1 mg/dL 8.4-10.2 (test code = 697) EGFR (BEAKER) (test 52 mL/min/1.73 ESTIMA ALANA GFR IS code = 1092) sq m NOT ACCURATE CREATININE CLEARANCE IN PREDICTING GLOMERULAR FILTRATION RATE . ESTIMATED GFR I S NOT APPLICABLE FOR DIALYSIS PATIEN TS. Display Designer Outside ID - [facility] (HEMOGRAM ONLY)2019-10-16 03:46:00 Test Item Value Reference Range Interpretation Comments WHITE BLOOD CELL COUNT (BEAKER) 10.3 K/ L 3.5-10.5 (test code = 775) RED BLOOD CELL COUNT (BEAKER) 4.45 M/ L 4.63-6.08 L (test code = 761) HEMOGLOBIN (BEAKER) (test code = 12.3 GM/DL 13.7-17.5 L 410) HEMATOCRIT (BEAKER) (test code = 39.3 % 40.1-51.0 L 411) MEAN CORPUSCULAR VOLUME (BEAKER) 88.3 fL 79.0-92.2 (test code = 753) MEAN CORPUSCULAR HEMOGLOBIN 27.6 pg 25.7-32.2 (BEAKER) (test code = 751) MEAN CORPUSCULAR HEMOGLOBIN CONC 31.3 GM/DL 32.3-36.5 L (BEAKER) (test code = 752) RED CELL DISTRIBUTION WIDTH 13.2 % 11.6-14.4 (BEAKER) (test code = 412) PLATELET COUNT (BEAKER) (test 167 K/CU MM 150-450 code = 756) MEAN PLATELET VOLUME (BEAKER) 10.2 fL 9.4-12.4 (test code = 754) NUCLEATED RED BLOOD CELLS 0 /100 WBC 0-0 (BEAKER) (test code = 413) POCT-GLUCOSE [id number] 21:53:00 Test Item Value Reference Range Interpretation Comments POC-GLUCOSE METER 167 mg/dL 70-110 H : TESTED A T [facility] 6720 (BEAKER) (test code = [facility], [facility]8) 37367: Display Designer Outside/Techni funmilayo ID = [id number] for KE BE, SAUDATU POCT-GLUCOSE [id number] 16:06:00 Test Item Value Reference Range Interpretation Comments POC-GLUCOSE METER 135 mg/dL 70-110 H : TESTED A T [facility] 6720 (BEAKER) (test code = [facility], [facility]8) 77785: Display Designer Outside/Techni funmilayo ID = [id number] for BE RNABE, OSCAR POCT-GLUCOSE [id number] 12:15:00 Test Item Value Reference Range Interpretation Comments POC-GLUCOSE METER 211 mg/dL 70-110 H : TESTED A T [facility] 6720 (BEAKER) (test code = [facility], 1538) 77250: Display Designer Outside/Techni funmilayo ID = [id number] for BE RNABE, OSCAR POCT-GLUCOSE [id number] 08:25:00 Test Item Value Reference Range Interpretation Comments POC-GLUCOSE METER 102 mg/dL 70-110 : TESTED A T [facility] 6720 (BEAKER) (test code = [facility], 1538) 32179: Display Designer Outside/Techni funmilayo ID = [id number] for BE RNABE, OSCAR [id number] 06:07:00 Test Item Value Reference Range Interpretation Comments MAGNESIUM (BEAKER) (test code = 2.0 mg/dL 1.6-2.6 627) Display Designer Outside ID - MILTON MBASIC METABOLIC [id number] 06:07:00 Test Item Value Reference Range Interpretation Comments SODIUM (BEAKER) 140 meq/L 136-145 (test code = 381) POTASSIUM (BEAKER) 4.2 meq/L 3.5-5.1 (test code = 379) CHLORIDE (BEAKER) 111 meq/L 98-107 H (test code = 382) CO2 (BEAKER) (test 21 meq/L 22-29 L code = 355) BLOOD UREA NITROGEN 17 mg/dL 7-21 (BEAKER) (test code = 354) CREATININE (BEAKER) 1.20 mg/dL 0.57-1.25 (test code = 358) GLUCOSE RANDOM 98 mg/dL 70-105 (BEAKER) (test code = 652) CALCIUM (BEAKER) 9.1 mg/dL 8.4-10.2 (test code = 697) EGFR (BEAKER) (test 60 mL/min/1.73 ESTIMA ALANA GFR IS code = 1092) sq m NOT ACCURATE CREATININE CLEARANCE IN PREDICTING GLOMERULAR FILTRATION RATE . ESTIMATED GFR I S NOT APPLICABLE FOR DIALYSIS PATIEN TS. Display Designer Outside ID - MILTON [facility]BC W/PLT COUNT & AUTO [id number] 05:38:00 Test Item Value Reference Range Interpretation Comments WHITE BLOOD CELL COUNT (BEAKER) 10.1 K/ L 3.5-10.5 (test code = 775) RED BLOOD CELL COUNT (BEAKER) 4.39 M/ L 4.63-6.08 L (test code = 761) HEMOGLOBIN (BEAKER) (test code = 12.2 GM/DL 13.7-17.5 L 410) HEMATOCRIT (BEAKER) (test code = 38.8 % 40.1-51.0 L 411) MEAN CORPUSCULAR VOLUME (BEAKER) 88.4 fL 79.0-92.2 (test code = 753) MEAN CORPUSCULAR HEMOGLOBIN 27.8 pg 25.7-32.2 (BEAKER) (test code = 751) MEAN CORPUSCULAR HEMOGLOBIN CONC 31.4 GM/DL 32.3-36.5 L (BEAKER) (test code = 752) RED CELL DISTRIBUTION WIDTH 13.2 % 11.6-14.4 (BEAKER) (test code = 412) PLATELET COUNT (BEAKER) (test 177 K/CU MM 150-450 code = 756) MEAN PLATELET VOLUME (BEAKER) 10.5 fL 9.4-12.4 (test code = 754) NUCLEATED RED BLOOD CELLS 0 /100 WBC 0-0 (BEAKER) (test code = 413) NEUTROPHILS RELATIVE PERCENT 71 % (BEAKER) (test code = 429) LYMPHOCYTES RELATIVE PERCENT 15 % (BEAKER) (test code = 430) MONOCYTES RELATIVE PERCENT 8 % (BEAKER) (test code = 431) EOSINOPHILS RELATIVE PERCENT 5 % (BEAKER) (test code = 432) BASOPHILS RELATIVE PERCENT 1 % (BEAKER) (test code = 437) NEUTROPHILS ABSOLUTE COUNT 7.17 K/ L 1.78-5.38 H (BEAKER) (test code = 670) LYMPHOCYTES ABSOLUTE COUNT 1.51 K/ L 1.32-3.57 (BEAKER) (test code = 414) MONOCYTES ABSOLUTE COUNT (BEAKER) 0.85 K/ L 0.30-0.82 H (test code = 415) EOSINOPHILS ABSOLUTE COUNT 0.45 K/ L 0.04-0.54 (BEAKER) (test code = 416) BASOPHILS ABSOLUTE COUNT (BEAKER) 0.06 K/ L 0.01-0.08 (test code = 417) IMMATURE GRANULOCYTES-RELATIVE 0 % 0-1 PERCENT (BEAKER) (test code = 2801) [id number] 00:24:00 Test Item Value Reference Range Interpretation Comments ACTIVATED CLOTTING TIME 109 sec : 74 -137 seconds, (BEAKER) (test code = Baseli ne: TESTED AT 441) [facility] 67[address] [facility], 770 30: Display Designer Outside/Techni funmilayo ID = [id number] for MILADIS LEMA [place] POCT-GLUCOSE [id number] 20:30:00 Test Item Value Reference Range Interpretation Comments POC-GLUCOSE METER 187 mg/dL 70-110 H : TESTED A T [facility] 6720 (BEAKER) (test code = [facility], 1538) 15828: Display Designer Outside/Techni funmilayo ID = [id number] for SUSANNAH LARKINI [id number] 20:27:00 Test Item Value Reference Range Interpretation Comments ACTIVATED CLOTTING TIME 153 sec : 74 -137 seconds, (BEAKER) (test code = Baseli ne: TESTED AT 441) [address], [facility] 30: Display Designer Outside/Techni funmilayo ID = [id number] for MILADIS LEMA [id number] 19:10:00 Test Item Value Reference Range Interpretation Comments ACTIVATED CLOTTING TIME 175 sec : 74 -137 seconds, (BEAKER) (test code = Baseli ne: TESTED AT [facility]) [address], [facility] 30: Display Designer Outside/Techni funmilayo ID = [id number] for STEPHENIE ZUNIGA POCT-GLUCOSE [id number] 17:38:00 Test Item Value Reference Range Interpretation Comments POC-GLUCOSE METER 105 mg/dL 70-110 : TESTED A T [place] [address] (BEAKER) (test code = [facility], 1538) 658[address]: Display Designer Outside/Techni funmilayo ID = [id number] for BE RNABE, OSCAR [id number] 17:03:00 Test Item Value Reference Range Interpretation Comments ACTIVATED CLOTTING TIME 224 sec : 74 -137 seconds, (BEAKER) (test code = Baseli ne: TESTED AT [facility]) [address], [facility] 30: Display Designer Outside/Techni funmilayo ID = [id number] for DE NNIS, CONNOR [id number] 16:48:00 Test Item Value Reference Range Interpretation Comments ACTIVATED CLOTTING TIME 263 sec : 74 -137 seconds, (BEAKER) (test code = Baseli ne: TESTED AT [facility]) [address], [facility] 30: Display Designer Outside/Techni funmilayo ID = [id number] for At [place]ison, Rukhsana [id number] 16:06:00 Test Item Value Reference Range Interpretation Comments ACTIVATED CLOTTING TIME 230 sec : 74 -137 seconds, (BEAKER) (test code = Baseli ne: TESTED AT [facility]) [address], [facility] 30: Display Designer Outside/Techni funmilayo ID = [id number] for At chison, Rukhsana [id number] 15:54:00 Test Item Value Reference Range Interpretation Comments ACTIVATED CLOTTING TIME 219 sec : 74 -137 seconds, (BEAKER) (test code = Baseli ne: TESTED AT 441) [facility] [address] [facility], 770 30: Display Designer Outside/Techni funmilayo ID = [id number] for At Rukhsana collins POCT-GLUCOSE [id number] 14:00:00 Test Item Value Reference Range Interpretation Comments POC-GLUCOSE METER 127 mg/dL 70-110 H : TESTED A T [facility] 6720 (EMILIE) (test code = [facility] [place] [facility], 1538) [address]: Display Designer Outside/Techni funmilayo ID = [id number] for OSCAR COLVIN SARS-COV2/RT-PCR ([facility])2019-10-14 11:00:00 Test Item Value Reference Range Interpretation Comments SARS-COV2/RT-PCR (test Negative Not Detected, Negative, code = 0350159) See external report for linked test SARS-COV-2 PERFORMING LAB [facility] (test code = 0513592) Negative result for this test determines that SARS-CoV-2 RNA was not present in the specimen above the Limit of Detection (LOD). However, Negative results do not preclude SARS-CoV-2 infection and should not be used as the sole basis for treatment or patient management decisions. Negative results must be combined with clinical observations, patient history, and epidemiological information. A false negative result may occur if a specimen is improperly collected, transported or handled. A false negative result should be considered if patient's recent exposures or clinical presentation indicate that COVID-19 (SARS-CoV-2) is likely and diagnostic tests for other causes of illness are negative. Re-testing should be considered in cases of suspected false negatives.The limit of detection for this assay is 800 copies/mL.This SARS CoV-2 test is a real-time RT-PCR test intended for the qualitative detection of nucleic acid from SARS-CoV-2 in a nasopharyngeal swab specimen collected from individuals suspected of COVID-19 by their healthcare provider.This test has not been Food and Drug Administration (FDA) cleared or approved. This is a modified version of an approved Emergency Use Authorization (EUA) and is in the process of review by the FDA. Once authorized by the FDA, the issued EUA will be effective until the declaration that circumstances exist justifying the authorization of the emergency use ofin vitro diagnostic tests for detection and/or diagnosis of COVID-19 is terminated under Section 564(b)(2) of the Act or the EUA is revoked under Section 564(g) of the Act.Fact Sheet for Healthcare Prov iders:https://www.[employer]/sites/default/files/product/documents/Fact_Sheet_HC _Sazpmdfxz_Muxu_MJQO-IzD-2.pdfFact Sheet for Healthcare Patients:https://www.[employer]/sites/default/files/product/docume nts/Sdvk_Xrdyf_Wlphclht_Dsii_VJBR-BoE-5.pdfPerforming Laboratory:[facility] [place], [place] [id number] 07:22:00 Test Item Value Reference Range Interpretation Comments PARTIAL THROMBOPLASTIN TIME 49.7 seconds 22.5-36.0 H (BEAKER) (test code = 760) 6 hours after starting heparin infusion and as indicated per sliding scale TROPONIN [id number] 03:08:00 Test Item Value Reference Range Interpretation Comments TROPONIN I (BEAKER) (test code = 0.11 ng/mL 0.00-0.03 H 397) Troponin I (TnI) levels must be interpreted in the context of the presenting symptoms and the clinical findings. Elevated TnI levels indicate myocardial damage, but are not specific for ischemic heart disease. Elevated TnI levels are seen in patients with other cardiac conditions (including myocarditis and congestive heart failure), and slight TnI elevations occur in patients with other conditions, including sepsis, renal failure, acidosis, acute neurological disease, and persistent tachyarrhythmia.Display Designer Outside ID - JAIME LB-TYPE NATRIURETIC FACTOR (BNP)2019-10-14 03:03:00 Test Item Value Reference Range Interpretation Comments B-TYPE NATRIURETIC PEPTIDE (BEAKER) 114 pg/mL 0-100 H (test code = 700) Display Designer Outside ID - JAIME [id number] 03:00:00 Test Item Value Reference Range Interpretation Comments MAGNESIUM (BEAKER) (test code = 1.7 mg/dL 1.6-2.6 627) Display Designer Outside ID - JAIME LBASIC METABOLIC [id number] 03:00:00 Test Item Value Reference Range Interpretation Comments SODIUM (BEAKER) 137 meq/L 136-145 (test code = 381) POTASSIUM (BEAKER) 4.3 meq/L 3.5-5.1 (test code = 379) CHLORIDE (BEAKER) 109 meq/L 98-107 H (test code = 382) CO2 (BEAKER) (test 21 meq/L 22-29 L code = 355) BLOOD UREA NITROGEN 19 mg/dL 7-21 (BEAKER) (test code = 354) CREATININE (BEAKER) 1.62 mg/dL 0.57-1.25 H (test code = 358) GLUCOSE RANDOM 131 mg/dL 70-105 H (BEAKER) (test code = 652) CALCIUM (BEAKER) 9.0 mg/dL 8.4-10.2 (test code = 697) EGFR (BEAKER) (test 43 mL/min/1.73 ESTIMA ALANA GFR IS code = 1092) sq m NOT ACCURATE CREATININE CLEARANCE IN PREDICTING GLOMERULAR FILTRATION RATE . ESTIMATED GFR I S NOT APPLICABLE FOR DIALYSIS PATIEN TS. Display Designer Outside ID - PIAYA LCBC W/PLT COUNT & AUTO [id number] 02:34:00 Test Item Value Reference Range Interpretation Comments WHITE BLOOD CELL COUNT (BEAKER) 9.9 K/ L 3.5-10.5 (test code = 775) RED BLOOD CELL COUNT (BEAKER) 4.17 M/ L 4.63-6.08 L (test code = 761) HEMOGLOBIN (BEAKER) (test code = 11.6 GM/DL 13.7-17.5 L 410) HEMATOCRIT (BEAKER) (test code = 37.1 % 40.1-51.0 L 411) MEAN CORPUSCULAR VOLUME (BEAKER) 89.0 fL 79.0-92.2 (test code = 753) MEAN CORPUSCULAR HEMOGLOBIN 27.8 pg 25.7-32.2 (BEAKER) (test code = 751) MEAN CORPUSCULAR HEMOGLOBIN CONC 31.3 GM/DL 32.3-36.5 L (BEAKER) (test code = 752) RED CELL DISTRIBUTION WIDTH 13.2 % 11.6-14.4 (BEAKER) (test code = 412) PLATELET COUNT (BEAKER) (test 184 K/CU MM 150-450 code = 756) MEAN PLATELET VOLUME (BEAKER) 10.5 fL 9.4-12.4 (test code = 754) NUCLEATED RED BLOOD CELLS 0 /100 WBC 0-0 (BEAKER) (test code = 413) NEUTROPHILS RELATIVE PERCENT 65 % (BEAKER) (test code = 429) LYMPHOCYTES RELATIVE PERCENT 21 % (BEAKER) (test code = 430) MONOCYTES RELATIVE PERCENT 9 % (BEAKER) (test code = 431) EOSINOPHILS RELATIVE PERCENT 4 % (BEAKER) (test code = 432) BASOPHILS RELATIVE PERCENT 0 % (BEAKER) (test code = 437) NEUTROPHILS ABSOLUTE COUNT 6.37 K/ L 1.78-5.38 H (BEAKER) (test code = 670) LYMPHOCYTES ABSOLUTE COUNT 2.10 K/ L 1.32-3.57 (BEAKER) (test code = 414) MONOCYTES ABSOLUTE COUNT (BEAKER) 0.87 K/ L 0.30-0.82 H (test code = 415) EOSINOPHILS ABSOLUTE COUNT 0.42 K/ L 0.04-0.54 (BEAKER) (test code = 416) BASOPHILS ABSOLUTE COUNT (BEAKER) 0.04 K/ L 0.01-0.08 (test code = 417) IMMATURE GRANULOCYTES-RELATIVE 1 % 0-1 PERCENT (BEAKER) (test code = 2801) RAD, CHEST, 1 VIEW, NON [id number] 22:17:00Reason for exam:->CHEST PAINShould this be performed at the bedside?->YesFINAL REPORT Chest, 1 view. History: Chest pain Comparison: Plain radiograph the chest dated 03/15/2019.. IMPRESSION: Postsurgical changes of median sternotomy with fracture of the second most superior sternotomy wire, unchanged. Coronary artery stents.The cardiomediastinal silhouette and pulmonary vasculature are within normal limits for a portable exam. The lungs are clear without evidence of consolidation or effusion. No pneumothorax. No acute osseous abnormality. Signed: [facility] Verified Date/Time: 10/13/2019 22:17:33 CBC W/PLT COUNT & AUTO [id number] 22:12:00 Test Item Value Reference Range Interpretation Comments WHITE BLOOD CELL COUNT (BEAKER) 9.7 K/ L 4.0-10.0 (test code = 775) RED BLOOD CELL COUNT (BEAKER) 4.45 M/ L 4.20-5.80 (test code = 761) HEMOGLOBIN (BEAKER) (test code = 12.8 GM/DL 13.0-16.8 L 410) HEMATOCRIT (BEAKER) (test code = 38.1 % 40.0-50.0 L 411) MEAN CORPUSCULAR VOLUME (BEAKER) 85.6 fL 82.0-98.0 (test code = 753) MEAN CORPUSCULAR HEMOGLOBIN 28.8 pg 27.0-33.0 (BEAKER) (test code = 751) MEAN CORPUSCULAR HEMOGLOBIN CONC 33.6 GM/DL 32.0-36.0 (BEAKER) (test code = 752) RED CELL DISTRIBUTION WIDTH 14.2 % 10.3-14.2 (BEAKER) (test code = 412) PLATELET COUNT (BEAKER) (test 182 K/CU MM 150-430 code = 756) MEAN PLATELET VOLUME (BEAKER) 8.2 fL 6.5-10.5 (test code = 754) NEUTROPHILS RELATIVE PERCENT 68 % (BEAKER) (test code = 429) LYMPHOCYTES RELATIVE PERCENT 19 % (BEAKER) (test code = 430) MONOCYTES RELATIVE PERCENT 8 % (BEAKER) (test code = 431) EOSINOPHILS RELATIVE PERCENT 5 % (BEAKER) (test code = 432) BASOPHILS RELATIVE PERCENT 1 % (BEAKER) (test code = 437) NEUTROPHILS ABSOLUTE COUNT 6.64 K/ L 1.80-8.00 (BEAKER) (test code = 670) LYMPHOCYTES ABSOLUTE COUNT 1.81 K/ L 1.48-4.50 (BEAKER) (test code = 414) MONOCYTES ABSOLUTE COUNT (BEAKER) 0.73 K/ L 0.00-1.30 (test code = 415) EOSINOPHILS ABSOLUTE COUNT 0.51 K/ L 0.00-0.50 H (BEAKER) (test code = 416) BASOPHILS ABSOLUTE COUNT (BEAKER) 0.05 K/ L 0.00-0.20 (test code = 417) B-TYPE NATRIURETIC FACTOR (BNP)2019-10-13 22:11:00 Test Item Value Reference Range Interpretation Comments B-TYPE NATRIURETIC PEPTIDE (BEAKER) 78 pg/mL 0-100 (test code = 700) RAPID TROPONIN [id number] 22:09:00 Test Item Value Reference Range Interpretation Comments RAPID TROPONIN I (BEAKER) (test code < ng/mL <0.05 = 1483) [id number] 22:08:00 Test Item Value Reference Range Interpretation Comments PROTIME (BEAKER) (test code = 759) 10.0 sec 9.8-12.0 INR (BEAKER) (test code = 370) 0.95 - <=5.90 PARTIAL THROMBOPLASTIN TIME 22.2 sec 25.8-34.5 L (BEAKER) (test code = 760) RECOMMENDED COUMADIN/WARFARIN INR THERAPY RANGESSTANDARD DOSE: 2.0 - 3.0 Includes: PROPHYLAXIS for venous thrombosis, systemic embolization; TREATMENT for venous thrombosis and/or pulmonary embolus.HIGH RISK: Target INR is 2.5-3.5 for patients with mechanical heart valves.BASIC METABOLIC [id number] 22:07:00 Test Item Value Reference Range Interpretation Comments SODIUM (BEAKER) 139 meq/L 135-148 (test code = 381) POTASSIUM (BEAKER) 4.3 meq/L 3.6-5.5 (test code = 379) CHLORIDE (BEAKER) 105 meq/L 98-106 (test code = 382) CO2 (BEAKER) (test 26 meq/L 24-32 code = 355) BLOOD UREA NITROGEN 18 mg/dL 10-26 (BEAKER) (test code = 354) CREATININE (BEAKER) 1.69 mg/dL 0.50-1.20 H (test code = 358) GLUCOSE RANDOM 215 mg/dL 70-110 H (BEAKER) (test code = 652) CALCIUM (BEAKER) 8.8 mg/dL 8.5-10.5 (test code = 697) EGFR (BEAKER) (test 41 mL/min/1.73 ESTIMA ALANA GFR IS code = 1092) sq m NOT ACCURATE CREATININE CLEARANCE IN PREDICTING GLOMERULAR FILTRATION RATE . ESTIMATED GFR I S NOT APPLICABLE FOR DIALYSIS PATIEN TS. HEPATIC FUNCTION [id number] 22:07:00 Test Item Value Reference Range Interpretation Comments TOTAL PROTEIN (BEAKER) (test code = 7.0 gm/dL 6.0-8.5 770) ALBUMIN (BEAKER) (test code = 1145) 4.2 g/dL 3.5-5.0 BILIRUBIN TOTAL (BEAKER) (test code 0.2 mg/dL 0.1-1.2 = 377) BILIRUBIN DIRECT (BEAKER) (test 0.1 mg/dL 0.0-0.4 code = 706) ALKALINE PHOSPHATASE (BEAKER) (test 87 U/L 30-115 code = 346) AST (SGOT) (BEAKER) (test code = 24 U/L 5-40 353) ALT (SGPT) (BEAKER) (test code = 28 U/L 5-50 347) POCT-GLUCOSE [id number] 17:17:00 Test Item Value Reference Range Interpretation Comments POC-GLUCOSE METER 225 mg/dL 70-110 H : TESTED A T [facility] 6720 (BEAKER) (test code [facility], = 1538) [id number]: Display Designer Outside/Techni funmilayo ID = [id number] for LALA APONTE POCT-GLUCOSE [id number] 11:09:00 Test Item Value Reference Range Interpretation Comments POC-GLUCOSE METER 352 mg/dL 70-110 H : TESTED A T [facility] 6720 (BEAKER) (test code [facility], = 1538) [id number]: Display Designer Outside/Techni funmilayo ID = [id number] for LALA APONTE BASIC METABOLIC [id number] 10:21:00 Test Item Value Reference Range Interpretation Comments SODIUM (BEAKER) 132 meq/L 136-145 L (test code = 381) POTASSIUM (BEAKER) 4.4 meq/L 3.5-5.1 (test code = 379) CHLORIDE (BEAKER) 103 meq/L 98-107 (test code = 382) CO2 (BEAKER) (test 20 meq/L 22-29 L code = 355) BLOOD UREA NITROGEN 15 mg/dL 7-21 (BEAKER) (test code = 354) CREATININE (BEAKER) 1.24 mg/dL 0.57-1.25 (test code = 358) GLUCOSE RANDOM 322 mg/dL 70-105 H (BEAKER) (test code = 652) CALCIUM (BEAKER) 8.7 mg/dL 8.4-10.2 (test code = 697) EGFR (BEAKER) (test 58 mL/min/1.73 ESTIMA ALANA GFR IS code = 1092) sq m NOT ACCURATE CREATININE CLEARANCE IN PREDICTING GLOMERULAR FILTRATION RATE . ESTIMATED GFR I S NOT APPLICABLE FOR DIALYSIS PATIEN TS. Display Designer Outside ID - [id number] (HEMOGRAM ONLY)2019-03-17 05:04:00 Test Item Value Reference Range Interpretation Comments WHITE BLOOD CELL COUNT (BEAKER) 9.6 K/ L 3.5-10.5 (test code = 775) RED BLOOD CELL COUNT (BEAKER) 3.65 M/ L 4.63-6.08 L (test code = 761) HEMOGLOBIN (BEAKER) (test code = 10.4 GM/DL 13.7-17.5 L 410) HEMATOCRIT (BEAKER) (test code = 32.0 % 40.1-51.0 L 411) MEAN CORPUSCULAR VOLUME (BEAKER) 87.7 fL 79.0-92.2 (test code = 753) MEAN CORPUSCULAR HEMOGLOBIN 28.5 pg 25.7-32.2 (BEAKER) (test code = 751) MEAN CORPUSCULAR HEMOGLOBIN CONC 32.5 GM/DL 32.3-36.5 (BEAKER) (test code = 752) RED CELL DISTRIBUTION WIDTH 13.0 % 11.6-14.4 (BEAKER) (test code = 412) PLATELET COUNT (BEAKER) (test 168 K/CU MM 150-450 code = 756) MEAN PLATELET VOLUME (BEAKER) 10.4 fL 9.4-12.4 (test code = 754) NUCLEATED RED BLOOD CELLS 0 /100 WBC 0-0 (BEAKER) (test code = 413) POCT-GLUCOSE [id number] 22:08:00 Test Item Value Reference Range Interpretation Comments POC-GLUCOSE METER 295 mg/dL 70-110 H : TESTED A T [facility] 6720 (BEAKER) (test code = [place], 1538) [id number]: Display Designer Outside/Techni funmilayo ID = [id number] for TRUMAN BURRIS [id number] 17:12:00 Test Item Value Reference Range Interpretation Comments MAGNESIUM (BEAKER) (test code = 1.4 mg/dL 1.6-2.6 L 627) Display Designer Outside ID - [id number] 15:51:00 Test Item Value Reference Range Interpretation Comments ACTIVATED CLOTTING TIME 263 sec Refe rence Range: 74-137 (BEAKER) (test code = second s, 441) Baseline/TESTED AT [facility] [address] [facility] 7703 [id number] 15:39:00 Test Item Value Reference Range Interpretation Comments ACTIVATED CLOTTING TIME 246 sec Refe rence Range: 74-137 (BEAKER) (test code = second s, 441) Baseline/TESTED AT [facility] [address] [facility] [address]703 0 [id number] 15:16:00 Test Item Value Reference Range Interpretation Comments ACTIVATED CLOTTING TIME 213 sec Refe rence Range: 74-137 (BEAKER) (test code = second s, 441) Baseline/TESTED AT [facility] [address] [facility] 7703 0 PLATELET AGGREGATION: DRUG [id number] 14:48:00 Test Item Value Reference Range Interpretation Comments ARACHADONIC ACID 13 % 63-89 L RESULT(BEAKER) (test code = 2138) PLATELET AGG DRUG Decreased response to INTERPRETATION (BEAKER) arachidonic acid (test code = 2408) suggests aspirin-like effect. PLATELET AGG DRUG Decreased aggregation INTERPRETATION (BEAKER) with ADP which (test code = 689976) indicates platelet dysfunction that may be due to medication effect, uremia, or other platelet function disorders. Clinical correlation is required. [id number] Mary Miranda MD (BEAKER) (test code = (electronic 2621) signature) PLATELET COUNT AGG 174 K/CU MM 150-450 (BEAKER) (test code = 2656) PLATELET RICH 276 k/cu mm 200-300 PLASMA(BEAKER) (test code = 2134) Platelet function studies by aggregation methodology on samples with platelet count <75,000/CU MMare unreliable; platelet function assessment should not be based on a single test.Display Designer Outside ID - [id number] [id number] 14:47:00 Test Item Value Reference Range Interpretation Comments HEMOGLOBIN A1C (BEAKER) (test code = 9.1 % 4.3-6.1 H 368) LIPID [id number] 14:44:00 Test Item Value Reference Range Interpretation Comments TRIGLYCERIDES (BEAKER) (test code = 152 mg/dL 540) CHOLESTEROL (BEAKER) (test code = 115 mg/dL 631) HDL CHOLESTEROL (BEAKER) (test code 26 mg/dL = 976) LDL CHOLESTEROL CALCULATED (BEAKER) 59 mg/dL (test code = 633) Triglyceride Reference Range: Low Risk <150 Borderline 150-199 High Risk 200- 499 Very High Risk >=500Cholesterol Reference Range: Low Risk <200 Borderline 200-239 High Risk >240HDL Cholesterol Reference Range: Low Risk >=60 High Risk <40LDL Cholesterol Reference Range: Optimal <100 Near Optimal 100-129 Borderline 130-159 High 160-189 Very High >=190 Display Designer Outside ID - BSTROPONIN [id number] 10:57:00 Test Item Value Reference Range Interpretation Comments TROPONIN I (BEAKER) (test code = 0.07 ng/mL 0.00-0.03 H 397) Troponin I (TnI) levels must be interpreted in the context of the presenting symptoms and the clinical findings. Elevated TnI levels indicate myocardial damage, but are not specific for ischemic heart disease. Elevated TnI levels are seen in patients with other cardiac conditions (including myocarditis and congestive heart failure), and slight TnI elevations occur in patients with other conditions, including sepsis, renal failure, acidosis, acute neurological disease, and persistent tachyarrhythmia.Display Designer Outside ID - [place] CB-TYPE NATRIURETIC FACTOR (BNP)2019-03-16 10:56:00 Test Item Value Reference Range Interpretation Comments B-TYPE NATRIURETIC PEPTIDE (BEAKER) 73 pg/mL 0-100 (test code = 700) Display Designer Outside ID - [place] CCOMPREHENSIVE METABOLIC [id number] 10:50:00 Test Item Value Reference Range Interpretation Comments TOTAL PROTEIN 6.4 gm/dL 6.0-8.3 (BEAKER) (test code = 770) ALBUMIN (BEAKER) 4.0 g/dL 3.5-5.0 (test code = 1145) ALKALINE PHOSPHATASE 80 U/L 40-150 (BEAKER) (test code = 346) BILIRUBIN TOTAL 0.3 mg/dL 0.2-1.2 (BEAKER) (test code = 377) SODIUM (BEAKER) (test 139 meq/L 136-145 code = 381) POTASSIUM (BEAKER) 4.2 meq/L 3.5-5.1 (test code = 379) CHLORIDE (BEAKER) 108 meq/L 98-107 H (test code = 382) CO2 (BEAKER) (test 24 meq/L - code = 355) BLOOD UREA NITROGEN 19 mg/dL 7-21 (BEAKER) (test code = 354) CREATININE (BEAKER) 1.23 mg/dL 0.57-1.25 (test code = 358) GLUCOSE RANDOM 158 mg/dL 70-105 H (BEAKER) (test code = 652) CALCIUM (BEAKER) 8.9 mg/dL 8.4-10.2 (test code = 697) AST (SGOT) (BEAKER) 17 U/L 5-34 (test code = 353) ALT (SGPT) (BEAKER) 20 U/L 6-55 (test code = 347) EGFR (BEAKER) (test 59 mL/min/1.73 ESTIMA ALANA GFR IS code = 1092) sq m NOT ACCURATE CREATININE CLEARANCE IN PREDICTING GLOMERULAR FILTRATION RATE . ESTIMATED GFR I S NOT APPLICABLE FOR DIALYSIS PATIEN TS. Display Designer Outside ID - [place] [id number] 10:46:00 Test Item Value Reference Range Interpretation Comments PROTIME (BEAKER) (test code = 13.4 seconds 11.9-14.2 759) INR (BEAKER) (test code = 370) 1.1 <=5.9 PARTIAL THROMBOPLASTIN TIME 36.1 seconds 22.5-36.0 H (BEAKER) (test code = 760) Effective 07/21/2018: PT Reference Range ChangeNew: 11.9-14.2 Previous: 11.7- 14.7RECOMMENDED COUMADIN/WARFARIN INR THERAPY RANGESSTANDARD DOSE: 2.0-3.0 Includes: PROPHYLAXIS for venous thrombosis, systemic embolization; TREATMENT for venous thrombosis and/or pulmonary embolus.HIGH RISK: Target INR is 2.5-3.5 for patients wiht mechanical heart valves.PROTHROMBIN [id number] 10:45:00 Test Item Value Reference Range Interpretation Comments PROTIME (BEAKER) (test code = 13.4 seconds 11.9-14.2 759) INR (BEAKER) (test code = 370) 1.1 <=5.9 Effective 07/21/2018: PT Reference Range ChangeNew: 11.9-14.2 Previous: 11.7- 14.7RECOMMENDED COUMADIN/WARFARIN INR THERAPY RANGESSTANDARD DOSE: 2.0-3.0 Includes: PROPHYLAXIS for venous thrombosis, systemic embolization; TREATMENT for venous thrombosis and/or pulmonary embolus.HIGH RISK: Target INR is 2.5-3.5 for patients wiht mechanical heart valves.CBC W/PLT COUNT & AUTO [id number] 10:31:00 Test Item Value Reference Range Interpretation Comments WHITE BLOOD CELL COUNT (BEAKER) 8.9 K/ L 3.5-10.5 (test code = 775) RED BLOOD CELL COUNT (BEAKER) 3.95 M/ L 4.63-6.08 L (test code = 761) HEMOGLOBIN (BEAKER) (test code = 11.3 GM/DL 13.7-17.5 L 410) HEMATOCRIT (BEAKER) (test code = 34.4 % 40.1-51.0 L 411) MEAN CORPUSCULAR VOLUME (BEAKER) 87.1 fL 79.0-92.2 (test code = 753) MEAN CORPUSCULAR HEMOGLOBIN 28.6 pg 25.7-32.2 (BEAKER) (test code = 751) MEAN CORPUSCULAR HEMOGLOBIN CONC 32.8 GM/DL 32.3-36.5 (BEAKER) (test code = 752) RED CELL DISTRIBUTION WIDTH 13.2 % 11.6-14.4 (BEAKER) (test code = 412) PLATELET COUNT (BEAKER) (test 183 K/CU MM 150-450 code = 756) MEAN PLATELET VOLUME (BEAKER) 10.0 fL 9.4-12.4 (test code = 754) NUCLEATED RED BLOOD CELLS 0 /100 WBC 0-0 (BEAKER) (test code = 413) NEUTROPHILS RELATIVE PERCENT 67 % (BEAKER) (test code = 429) LYMPHOCYTES RELATIVE PERCENT 19 % (BEAKER) (test code = 430) MONOCYTES RELATIVE PERCENT 9 % (BEAKER) (test code = 431) EOSINOPHILS RELATIVE PERCENT 5 % (BEAKER) (test code = 432) BASOPHILS RELATIVE PERCENT 1 % (BEAKER) (test code = 437) NEUTROPHILS ABSOLUTE COUNT 5.97 K/ L 1.78-5.38 H (BEAKER) (test code = 670) LYMPHOCYTES ABSOLUTE COUNT 1.69 K/ L 1.32-3.57 (BEAKER) (test code = 414) MONOCYTES ABSOLUTE COUNT (BEAKER) 0.76 K/ L 0.30-0.82 (test code = 415) EOSINOPHILS ABSOLUTE COUNT 0.40 K/ L 0.04-0.54 (BEAKER) (test code = 416) BASOPHILS ABSOLUTE COUNT (BEAKER) 0.05 K/ L 0.01-0.08 (test code = 417) IMMATURE GRANULOCYTES-RELATIVE 1 % 0-1 PERCENT (BEAKER) (test code = 2801) RAPID TROPONIN [id number] 05:50:00 Test Item Value Reference Range Interpretation Comments RAPID TROPONIN I (BEAKER) (test code < ng/mL <0.05 = 1483) RAD, CHEST, 1 VIEW, NON [id number] 22:32:00Reason for exam:->CHEST PAINShould this be performed at the bedside?->NoFINAL REPORT Chest, 1 view. History: Chest pain Comparison: Plain radiograph the chest dated 08/28/2017.. 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 The Cardiomediastinal silhouette and pulmonary vasculature are within normal limits for a portable exam. The lungs are clear without evidence of consolidation or effusion. The soft tissues and osseous structures are intact. IMPRESSION: No acute cardiopulmonary abnormality. Signed: Erin Womack [facility] Verified Date/Time: 03/15/2019 22:32:48 RAPID TROPONIN [id number] 22:18:00 Test Item Value Reference Range Interpretation Comments RAPID TROPONIN I (BEAKER) (test code < ng/mL <0.05 = 1483) COMPREHENSIVE METABOLIC [id number] 22:17:00 Test Item Value Reference Range Interpretation Comments TOTAL PROTEIN 6.5 gm/dL 6.0-8.5 (BEAKER) (test code = 770) ALBUMIN (BEAKER) 4.0 g/dL 3.5-5.0 (test code = 1145) ALKALINE PHOSPHATASE 115 U/L 30-115 (BEAKER) (test code = 346) BILIRUBIN TOTAL 0.3 mg/dL 0.1-1.2 (BEAKER) (test code = 377) SODIUM (BEAKER) (test 137 meq/L 135-148 code = 381) POTASSIUM (BEAKER) 4.4 meq/L 3.6-5.5 (test code = 379) CHLORIDE (BEAKER) 104 meq/L 98-106 (test code = 382) CO2 (BEAKER) (test 24 meq/L 24-32 code = 355) BLOOD UREA NITROGEN 21 mg/dL 10-26 (BEAKER) (test code = 354) CREATININE (BEAKER) 1.29 mg/dL 0.50-1.20 H (test code = 358) GLUCOSE RANDOM 365 mg/dL 70-110 H (BEAKER) (test code = 652) CALCIUM (BEAKER) 8.8 mg/dL 8.5-10.5 (test code = 697) AST (SGOT) (BEAKER) 23 U/L 5-40 (test code = 353) ALT (SGPT) (BEAKER) 32 U/L 5-50 (test code = 347) EGFR (BEAKER) (test 56 mL/min/1.73 ESTIMA ALANA GFR IS code = 1092) sq m NOT ACCURATE CREATININE CLEARANCE IN PREDICTING GLOMERULAR FILTRATION RATE . ESTIMATED GFR I S NOT APPLICABLE FOR DIALYSIS PATIEN TS. CBC W/PLT COUNT & AUTO [id number] 21:59:00 Test Item Value Reference Range Interpretation Comments WHITE BLOOD CELL COUNT (BEAKER) 8.6 K/ L 4.0-10.0 (test code = 775) RED BLOOD CELL COUNT (BEAKER) 4.09 M/ L 4.20-5.80 L (test code = 761) HEMOGLOBIN (BEAKER) (test code = 11.8 GM/DL 13.0-16.8 L 410) HEMATOCRIT (BEAKER) (test code = 35.3 % 40.0-50.0 L 411) MEAN CORPUSCULAR VOLUME (BEAKER) 86.2 fL 82.0-98.0 (test code = 753) MEAN CORPUSCULAR HEMOGLOBIN 28.9 pg 27.0-33.0 (BEAKER) (test code = 751) MEAN CORPUSCULAR HEMOGLOBIN CONC 33.5 GM/DL 32.0-36.0 (BEAKER) (test code = 752) RED CELL DISTRIBUTION WIDTH 14.3 % 10.3-14.2 H (BEAKER) (test code = 412) PLATELET COUNT (BEAKER) (test 201 K/CU MM 150-430 code = 756) MEAN PLATELET VOLUME (BEAKER) 8.3 fL 6.5-10.5 (test code = 754) NEUTROPHILS RELATIVE PERCENT 67 % (BEAKER) (test code = 429) LYMPHOCYTES RELATIVE PERCENT 20 % (BEAKER) (test code = 430) MONOCYTES RELATIVE PERCENT 8 % (BEAKER) (test code = 431) EOSINOPHILS RELATIVE PERCENT 5 % (BEAKER) (test code = 432) BASOPHILS RELATIVE PERCENT 1 % (BEAKER) (test code = 437) NEUTROPHILS ABSOLUTE COUNT 5.74 K/ L 1.80-8.00 (BEAKER) (test code = 670) LYMPHOCYTES ABSOLUTE COUNT 1.69 K/ L 1.48-4.50 (BEAKER) (test code = 414) MONOCYTES ABSOLUTE COUNT (BEAKER) 0.68 K/ L 0.00-1.30 (test code = 415) EOSINOPHILS ABSOLUTE COUNT 0.42 K/ L 0.00-0.50 (BEAKER) (test code = 416) BASOPHILS ABSOLUTE COUNT (BEAKER) 0.05 K/ L 0.00-0.20 (test code = 417) Microalbumin/Creatinine [Mass Ratio] in [id number] 16:34:00 Test Item Value Reference Range Interpretation Comments microalbumin random urine 32 ug/mL (test code = microalbumin random urine) creatinine random urine (test 177.9 mg/dL 20.0-370.0 code = creatinine random urine) microalbumin/creatinine 18 mcg/mg creat (random urine) ratio calculated (test code = microalbumin/creatinine (random urine) ratio calculated) [facility] W Auto Differential panel - [id number] 02:11:00 Test Item Value Reference Range Interpretation Comments white blood cell count (test 8.0 thousand/uL 3.8-10.8 code = white blood cell count) red blood cell count (test 4.45 million/uL 4.20-5.80 code = red blood cell count) hemoglobin (test code = 12.4 g/dL 13.2-17.1 L hemoglobin) hematocrit (test code = 39.7 % 38.5-50.0 hematocrit) MCV (test code = MCV) 89.2 fL 80.0-100.0 MCH (test code = MCH) 27.9 pg 27.0-33.0 MCHC (test code = MCHC) 31.2 g/dL 32.0-36.0 L RDW (test code = RDW) 11.9 % 11.0-15.0 platelet count (test code = 265 thousand/uL 140-400 platelet count) MPV (test code = MPV) 11.0 fL 7.5-12.5 absolute neutrophils (test 4696 cells/uL 8704-0255 code = absolute neutrophils) absolute lymphocytes (test 1752 cells/uL 850-3900 code = absolute lymphocytes) absolute monocytes (test code 880 cells/uL 200-950 = absolute monocytes) absolute eosinophils (test 592 cells/uL 15-500 H code = absolute eosinophils) absolute basophils (test code 80 cells/uL 0-200 = absolute basophils) neutrophils (test code = 58.7 % neutrophils) lymphocytes (test code = 21.9 % lymphocytes) monocytes (test code = 11.0 % monocytes) eosinophils (test code = 7.4 % eosinophils) basophils (test code = 1.0 % basophils) [facility] 2000 [facility] - Serum or Plasma 2019-01-05 14:42:00 Test Item Value Reference Range Interpretation Comments ALT (test code = ALT) 22 U/L 0-55 AST (test code = AST) 18 U/L 5-34 BUN (test code = BUN) 20.3 mg/dL 8.4-25.0 alk phos (test code = alk 116 unit/L 40-150 phos) glucose (test code = 424 mg/dL 70-99 H glucose) albumin (test code = 3.8 g/dL 3.4-5.1 albumin) creatinine (test code = 1.75 mg/dL 0.72-1.25 H creatinine) eGFR non- 39 mL/min/1.73m2 A (test code = eGFR non-) total bilirubin (test code = 0.3 mg/dL 0.2-1.2 total bilirubin) eGFR - 47 mL/min/1.73m2 A (test code = eGFR - ) sodium (test code = sodium) 134 mEq/L 135-145 L potassium (test code = 5.4 mEq/L 3.5-5.1 H potassium) chloride (test code = 101 mmol/L 98-110 chloride) total protein (test code = 6.6 g/dL 6.1-8.2 total protein) calcium (test code = 9.5 mg/dL 9.0-10.2 calcium) CO2 (test code = CO2) 23.4 mmol/L 20.0-32.0 anion gap (test code = anion 10 calc gap) [facility] 1996 [facility] - Serum or [id number] 13:28:00 Test Item Value Reference Range Interpretation Comments HDL (test code = HDL) 25 mg/dL L triglyceride (test code = 455 mg/dL 0-150 H triglyceride) VLDL (calculated) (test code = 91 mg/dL VLDL (calculated)) cholesterol/HDL ratio (test code 5.3 mg/dL = cholesterol/HDL ratio) non-HDL cholesterol (calculated) 108 mg/dL 0-160 (test code = non-HDL cholesterol (calculated)) cholesterol (test code = 133 mg/dL 0-200 cholesterol) Cholesterol in LDL [Mass/volume] see comment 0-130 L in Serum or Plasma (test code = 2089-1) [facility] CenterThyrotropin [Units/volume] in Serum or [id number] 13:28:00 Test Item Value Reference Range Interpretation Comments TSH (test code = TSH) 3.019 uIU/mL 0.350-4.940 [facility] CenterPS[facility], serum or [id number] 13:28:00 Test Item Value Reference Range Interpretation Comments PSA, total (test code = PSA, 0.29 NG/mL 0.00-4.00 total) [facility] CenterHemoglobin A1c/Hemoglobin.total in [id number] 12:43:00 Test Item Value Reference Range Interpretation Comments Hemoglobin A1c/Hemoglobin.total in 8.6 % 1.0-5.7 H Blood (test code = 4548-4) average blood glucose (test code = 200 mg/dL average blood glucose) [facility][U] XRAY KNEE 3 VWS RIGHT [id number] 08:24:00Images acquired, not reported on this accession number.UT PhysiciansPLATELET AGGREGATION: FUNCTION [id number] 16:37:00 Test Item Value Reference Range Interpretation Comments WEAK ADP 54 % 60-91 L RESULT(BEAKER) (test code = 8827) PLATELET FUNCTION 50-59% indicates mild SCREEN INTERP platelet dysfunction (BEAKER) (test code = 2173) [id number] Virgilio Rodriguez MD (BEAKER) (test code = (electronic signature) 0817) PLATELET COUNT AGG 176 K/CU MM 150-450 (BEAKER) (test code = 5804) [id number] 05:57:00 Test Item Value Reference Range Interpretation Comments MAGNESIUM (BEAKER) (test code = 1.6 mg/dL 1.6-2.6 627) BASIC METABOLIC [id number] 05:57:00 Test Item Value Reference Range Interpretation Comments SODIUM (BEAKER) 137 meq/L 136-145 (test code = 381) POTASSIUM (BEAKER) 4.3 meq/L 3.5-5.1 (test code = 379) CHLORIDE (BEAKER) 107 meq/L 98-107 (test code = 382) CO2 (BEAKER) (test 21 meq/L 22-29 L code = 355) BLOOD UREA NITROGEN 13 mg/dL 7-21 (BEAKER) (test code = 354) CREATININE (BEAKER) 0.92 mg/dL 0.57-1.25 (test code = 358) GLUCOSE RANDOM 183 mg/dL 70-105 H (BEAKER) (test code = 652) CALCIUM (BEAKER) 9.3 mg/dL 8.4-10.2 (test code = 697) EGFR (BEAKER) (test 83 mL/min/1.73 ESTIMA ALANA GFR IS code = 1092) sq m NOT ACCURATE CREATININE CLEARANCE IN PREDICTING GLOMERULAR FILTRATION RATE . ESTIMATED GFR I S NOT APPLICABLE FOR DIALYSIS PATIEN TS. CBC W/PLT COUNT & AUTO [id number] 05:43:00 Test Item Value Reference Range Interpretation Comments WHITE BLOOD CELL COUNT (BEAKER) 9.9 K/ L 3.5-10.5 (test code = 775) RED BLOOD CELL COUNT (BEAKER) 4.18 M/ L 4.63-6.08 L (test code = 761) HEMOGLOBIN (BEAKER) (test code = 11.5 GM/DL 13.7-17.5 L 410) HEMATOCRIT (BEAKER) (test code = 34.9 % 40.1-51.0 L 411) MEAN CORPUSCULAR VOLUME (BEAKER) 83.5 fL 79.0-92.2 (test code = 753) MEAN CORPUSCULAR HEMOGLOBIN 27.5 pg 25.7-32.2 (BEAKER) (test code = 751) MEAN CORPUSCULAR HEMOGLOBIN CONC 33.0 GM/DL 32.3-36.5 (BEAKER) (test code = 752) RED CELL DISTRIBUTION WIDTH 12.6 % 11.6-14.4 (BEAKER) (test code = 412) PLATELET COUNT (BEAKER) (test 169 K/CU MM 150-450 code = 756) MEAN PLATELET VOLUME (BEAKER) 10.7 fL 9.4-12.4 (test code = 754) NUCLEATED RED BLOOD CELLS 0 /100 WBC 0-0 (BEAKER) (test code = 413) NEUTROPHILS RELATIVE PERCENT 74 % (BEAKER) (test code = 429) LYMPHOCYTES RELATIVE PERCENT 14 % (BEAKER) (test code = 430) MONOCYTES RELATIVE PERCENT 8 % (BEAKER) (test code = 431) EOSINOPHILS RELATIVE PERCENT 4 % (BEAKER) (test code = 432) BASOPHILS RELATIVE PERCENT 1 % (BEAKER) (test code = 437) NEUTROPHILS ABSOLUTE COUNT 7.25 K/ L 1.78-5.38 H (BEAKER) (test code = 670) LYMPHOCYTES ABSOLUTE COUNT 1.35 K/ L 1.32-3.57 (BEAKER) (test code = 414) MONOCYTES ABSOLUTE COUNT (BEAKER) 0.74 K/ L 0.30-0.82 (test code = 415) EOSINOPHILS ABSOLUTE COUNT 0.39 K/ L 0.04-0.54 (BEAKER) (test code = 416) BASOPHILS ABSOLUTE COUNT (BEAKER) 0.07 K/ L 0.01-0.08 (test code = 417) IMMATURE GRANULOCYTES-RELATIVE 1 % 0-1 PERCENT (BEAKER) (test code = 2801) POCT-GLUCOSE [id number] 23:00:00 Test Item Value Reference Range Interpretation Comments POC-GLUCOSE METER 159 mg/dL 70-110 H TESTED AT [facility] (test code = CRUZ ORTEZ 1538) [id number] POCT-GLUCOSE [id number] 14:18:00 Test Item Value Reference Range Interpretation Comments POC-GLUCOSE METER 178 mg/dL 70-110 H TESTED AT [place] [id number] ([facility]) (test code = CRUZ Marino [facility] 1538) [id number] 12:13:00 Test Item Value Reference Range Interpretation Comments ACTIVATED CLOTTING TIME 235 sec TEST ED AT [place] [address] ([facility]) (test code = CRUZ Marino [facility] 441) [id number] 12:02:00 Test Item Value Reference Range Interpretation Comments ACTIVATED CLOTTING TIME 186 sec TEST ED AT [place] [address] ([facility]) (test code = CRUZ Marino [facility] 441) [id number] TROPONIN [id number] 09:02:00 Test Item Value Reference Range Interpretation Comments TROPONIN I ([facility]) (test code = 0.01 ng/mL 0.00-0.03 397) Troponin I (TnI) levels must be interpreted in the context of the presenting symptoms and the clinical findings. Elevated TnI levels indicate myocardial damage, but are not specific for ischemic heart disease. Elevated TnI levels are seen in patients with other cardiac conditions (including myocarditis and congestive heart failure), and slight TnI elevations occur in patients with other conditions, including sepsis, renal failure, acidosis, acute neurological disease, and persistent tachyarrhythmia.POCT-GLUCOSE [id number] 08:30:00 Test Item Value Reference Range Interpretation Comments POC-GLUCOSE METER 186 mg/dL 70-110 H TESTED AT [place] [address] ([facility]) (test code = MARIBELLME Ned [facility] 1538) [id number] TROPONIN [id number] 05:06:00 Test Item Value Reference Range Interpretation Comments TROPONIN I ([facility]) (test code = 0.01 ng/mL 0.00-0.03 397) Troponin I (TnI) levels must be interpreted in the context of the presenting symptoms and the clinical findings. Elevated TnI levels indicate myocardial damage, but are not specific for ischemic heart disease. Elevated TnI levels are seen in patients with other cardiac conditions (including myocarditis and congestive heart failure), and slight TnI elevations occur in patients with other conditions, including sepsis, renal failure, acidosis, acute neurological disease, and persistent tachyarrhythmia.[id number] 05:03:00 Test Item Value Reference Range Interpretation Comments MAGNESIUM ([facility]) (test code = 1.7 mg/dL 1.6-2.6 627) BASIC METABOLIC [id number] 05:03:00 Test Item Value Reference Range Interpretation Comments SODIUM (BEAKER) 137 meq/L 136-145 (test code = 381) POTASSIUM (BEAKER) 3.8 meq/L 3.5-5.1 (test code = 379) CHLORIDE (BEAKER) 107 meq/L 98-107 (test code = 382) CO2 (BEAKER) (test 21 meq/L 22-29 L code = 355) BLOOD UREA NITROGEN 21 mg/dL 7-21 (BEAKER) (test code = 354) CREATININE (BEAKER) 0.99 mg/dL 0.57-1.25 (test code = 358) GLUCOSE RANDOM 124 mg/dL 70-105 H (BEAKER) (test code = 652) CALCIUM (BEAKER) 9.0 mg/dL 8.4-10.2 (test code = 697) EGFR (BEAKER) (test 76 mL/min/1.73 ESTIMA ALANA GFR IS code = 1092) sq m NOT ACCURATE CREATININE CLEARANCE IN PREDICTING GLOMERULAR FILTRATION RATE . ESTIMATED GFR I S NOT APPLICABLE FOR DIALYSIS PATIEN TS. [id number] 04:17:00 Test Item Value Reference Range Interpretation Comments PARTIAL THROMBOPLASTIN TIME 41.7 seconds 22.5-36.0 H (BEAKER) (test code = 760) PROTHROMBIN [id number] 04:16:00 Test Item Value Reference Range Interpretation Comments PROTIME (BEAKER) (test code = 14.7 seconds 11.7-14.7 759) INR (BEAKER) (test code = 370) 1.1 <=5.9 RECOMMENDED COUMADIN/WARFARIN INR THERAPY RANGESSTANDARD DOSE: 2.0 - 3.0 Includes: PROPHYLAXIS for venous thrombosis, systemic embolization; TREATMENT for venous thrombosis and/or pulmonary embolus.HIGH RISK: Target INR is 2.5-3.5 for patients with mechanical heart valves.CBC W/PLT COUNT & AUTO [id number] 04:11:00 Test Item Value Reference Range Interpretation Comments WHITE BLOOD CELL COUNT 9.1 K/ L 3.5-10.5 (BEAKER) (test code = 775) RED BLOOD CELL COUNT 3.62 M/ L 4.63-6.08 L (BEAKER) (test code = 761) HEMOGLOBIN (BEAKER) 9.9 GM/DL 13.7-17.5 L (test code = 410) HEMATOCRIT (BEAKER) 30.6 % 40.1-51.0 L (test code = 411) MEAN CORPUSCULAR 84.5 fL 79.0-92.2 VOLUME (BEAKER) (test code = 753) MEAN CORPUSCULAR 27.3 pg 25.7-32.2 HEMOGLOBIN (BEAKER) (test code = 751) MEAN CORPUSCULAR 32.4 GM/DL 32.3-36.5 HEMOGLOBIN CONC (BEAKER) (test code = 752) RED CELL DISTRIBUTION 12.6 % 11.6-14.4 WIDTH (BEAKER) (test code = 412) PLATELET COUNT 159 K/CU MM 150-[address] T (BEAKER) (test code = result s compared to 756) previous result s; clinical correl ation required. MEAN PLATELET VOLUME 10.6 fL 9.4-12.4 (BEAKER) (test code = 754) NUCLEATED RED BLOOD 0 /100 WBC 0-0 CELLS (BEAKER) (test code = 413) NEUTROPHILS RELATIVE 61 % PERCENT (BEAKER) (test code = 429) LYMPHOCYTES RELATIVE 26 % PERCENT (BEAKER) (test code = 430) MONOCYTES RELATIVE 8 % PERCENT (BEAKER) (test code = 431) EOSINOPHILS RELATIVE 5 % PERCENT (BEAKER) (test code = 432) BASOPHILS RELATIVE 1 % PERCENT (BEAKER) (test code = 437) NEUTROPHILS ABSOLUTE 5.50 K/ L 1.78-5.38 H COUNT (BEAKER) (test code = 670) LYMPHOCYTES ABSOLUTE 2.33 K/ L 1.32-3.57 COUNT (BEAKER) (test code = 414) MONOCYTES ABSOLUTE 0.68 K/ L 0.30-0.82 COUNT (BEAKER) (test code = 415) EOSINOPHILS ABSOLUTE 0.43 K/ L 0.04-0.54 COUNT (BEAKER) (test code = 416) BASOPHILS ABSOLUTE 0.06 K/ L 0.01-0.08 COUNT (BEAKER) (test code = 417) IMMATURE 1 % 0-1 GRANULOCYTES-RELATIVE PERCENT (BEAKER) (test code = 2801) RAD, CHEST, 2 [id number] 20:28:00Reason for exam:->CHEST PAINFINAL REPORT History: Chest pain. FINDINGS: Chest, two views: PA and lateral views of the chest show a normal appearing heart and mediastinum. Multiple sternal wires, some of whichare broken, are present and indicate prior median sternotomy. Lungs are clear, free of edema, focal consolidation or visible effusions. No pneumothorax. Bones are unremarkable. IMPRESSION: 1. Negative for acute cardiopulmonary disease. Signed: Jacey Butt Verified Date/Time: 08/28/2017 20:28:31 Reading Location: [facility] Diagnostic Imaging Reading Room - [place] [address] [id number] 20:23:00 Test Item Value Reference Range Interpretation Comments MAGNESIUM (BEAKER) (test code = 1.0 mg/dL 1.5-3.0 LL 627) RAPID [id number] 20:18:00 Test Item Value Reference Range Interpretation Comments RAPID CKMB (BEAKER) (test code = 1.5 ng/mL 0.0-4.3 1482) RAPID [id number] 20:18:00 Test Item Value Reference Range Interpretation Comments RAPID MYOGLOBIN (BEAKER) (test code 94 ng/mL <107 = 2237) RAPID TROPONIN [id number] 20:17:00 Test Item Value Reference Range Interpretation Comments RAPID TROPONIN I (BEAKER) (test code < ng/mL <0.05 = 1483) B-TYPE NATRIURETIC FACTOR (BNP)[id number] 20:16:00 Test Item Value Reference Range Interpretation Comments B-TYPE NATRIURETIC PEPTIDE (BEAKER) 48 pg/mL 0-100 (test code = 700) PROTHROMBIN [id number] 20:12:00 Test Item Value Reference Range Interpretation Comments PROTIME (BEAKER) (test code = 10.5 seconds 9.8-12.0 759) INR (BEAKER) (test code = 370) 1.0 <=5.9 RECOMMENDED COUMADIN/WARFARIN INR THERAPY RANGESSTANDARD DOSE: 2.0 - 3.0 Includes: PROPHYLAXIS for venous thrombosis, systemic embolization; TREATMENT for venous thrombosis and/or pulmonary embolus.HIGH RISK: Target INR is 2.5-3.5 for patients with mechanical heart valves.BASIC METABOLIC [id number] 20:12:00 Test Item Value Reference Range Interpretation Comments SODIUM (BEAKER) 142 meq/L 135-148 (test code = 381) POTASSIUM (BEAKER) 4.6 meq/L 3.6-5.5 (test code = 379) CHLORIDE (BEAKER) 106 meq/L 98-106 (test code = 382) CO2 (BEAKER) (test 22 meq/L 24-32 L code = 355) BLOOD UREA NITROGEN 22 mg/dL 10-26 (BEAKER) (test code = 354) CREATININE (BEAKER) 1.19 mg/dL 0.50-1.20 (test code = 358) GLUCOSE RANDOM 194 mg/dL 70-110 H (BEAKER) (test code = 652) CALCIUM (BEAKER) 9.6 mg/dL 8.5-10.5 (test code = 697) EGFR (BEAKER) (test mL/min/1.73 INSUFFIC IENT CLINICAL code = 1092) sq m DATA TO CALCULA TE ESTIMATED GFR. CBC W/PLT COUNT & AUTO [id number] 20:04:00 Test Item Value Reference Range Interpretation Comments WHITE BLOOD CELL COUNT 11.3 10e3/i? L 4.0-10.0 H (BEAKER) (test code = 775) RED BLOOD CELL COUNT (BEAKER) 4.14 10e6/i? L 4.20-5.80 L (test code = 761) HEMOGLOBIN (BEAKER) (test code 11.6 g/dL 13.0-16.8 L = 410) HEMATOCRIT (BEAKER) (test code 35.1 % 40.0-50.0 L = 411) MEAN CORPUSCULAR VOLUME 84.9 fL 82.0-98.0 (BEAKER) (test code = 753) MEAN CORPUSCULAR HEMOGLOBIN 27.9 pg 27.0-33.0 (BEAKER) (test code = 751) MEAN CORPUSCULAR HEMOGLOBIN 32.9 g/dL 32.0-36.0 CONC (BEAKER) (test code = 752) RED CELL DISTRIBUTION WIDTH 12.3 % 10.3-14.2 (BEAKER) (test code = 412) PLATELET COUNT (BEAKER) (test 216 10e3/i? L 150-430 code = 756) MEAN PLATELET VOLUME (BEAKER) 8.1 fL 6.5-10.5 (test code = 754) NEUTROPHILS RELATIVE PERCENT 67 % (BEAKER) (test code = 429) LYMPHOCYTES RELATIVE PERCENT 19 % (BEAKER) (test code = 430) MONOCYTES RELATIVE PERCENT 9 % (BEAKER) (test code = 431) EOSINOPHILS RELATIVE PERCENT 5 % (BEAKER) (test code = 432) BASOPHILS RELATIVE PERCENT 1 % (BEAKER) (test code = 437) NEUTROPHILS ABSOLUTE COUNT 7.54 10e3/i? L 1.80-8.00 (BEAKER) (test code = 670) LYMPHOCYTES ABSOLUTE COUNT 2.16 10e3/i? L 1.48-4.50 (BEAKER) (test code = 414) MONOCYTES ABSOLUTE COUNT 0.96 10e3/i? L 0.00-1.30 (BEAKER) (test code = 415) EOSINOPHILS ABSOLUTE COUNT 0.57 10e3/i? L 0.00-0.50 H (BEAKER) (test code = 416) BASOPHILS ABSOLUTE COUNT 0.08 10e3/i? L 0.00-0.20 (BEAKER) (test code = 417)
[2021-10-12 13:24] LABS: Urine Blood 3+ (Negative); Urine Glucose Negative (Negative); Urine Protein 2+ (Negative)
[2021-10-12 13:43] LABS: Absolute Lymphocytes (CBC) 0.8 K/uL (0.7-4.9); Lymphocytes % 5.4 % (15.3-44.8); MCV 83.4 fL (80-100); MPV 7.6 fL (7.6-11.3); RBC Red Blood Cell Count 2.99 M/uL (4.33-5.43)
--- NOTE | 2021-10-12 13:44 | RAD REPORT ---
EXAM DESCRIPTION: RAD - Chest Single View - 10/12/2021 1:29 pm CLINICAL HISTORY: syncope, hypotension COMPARISON: None TECHNIQUE: AP portable chest image was obtained 10/12/2021 1:29 pm . FINDINGS: Lungs are clear. Heart and vasculature are normal. CABG surgical changes are noted. Severa l coronary artery stents are visible. No measurable pleural effusion and no pneumothorax. No acute [place] abnormality seen. No acute aortic findings suspected. IMPRESSION: No acute cardiopulmonary process.
[2021-10-12 13:49] LABS: Protime INR 1.09
[2021-10-12 14:28] LABS: Albumin 2.4 g/dL (3.4-5.0); Bilirubin Direct 0.1 mg/dL (0-0.2); Bilirubin Total 0.4 mg/dL (0.2-1.0); Potassium 5.4 mmol/L (3.5-5.1); Protein, Total 5.6 g/dL (6.4-8.2); Troponin High Sensitivity 11.6 pg/mL (<58.9)
[2021-10-12 14:31] LABS: Urine Bacteria <20 /HPF (<20); Urine RBC >50 /HPF (None Seen)
--- NOTE | 2021-10-12 17:50 | EDPHYS ---
Physician Documentation [facility] Torres Name: Nine[place] Allyn Age: 71 yrs Sex: Male : 1950 Arrival Date: 10/12/2021 Time: 12:33 Bed 8 Private MD: ED Physician Eula Chapman HPI: 10/12 12:56 This 71 yrs old Male presents to ER via EMS with complaints of Blood Pressure Problem. sd2 12:56 71-year-old male with extensive past medical history including CAD, diabetes, sd2 hypertension and recent abdominal mass with placement of bilateral nephrostomy tubes presents via EMS with chief complaint of hypotension and near syncopal episode. Patient reports that he had an episode of feeling as if he was going to pass out and that normally when this happens, he can lean over and take some deep breaths and will past but this time it did not. They report his blood pressure was in the 70s upon their initial arrival and he was given 800 mL of fluids prior to arrival with improvement of his blood pressure. The patient reports he was recently discharged from [facility] approximately 2 weeks ago when they discovered the abdominal mass with kidney failure and he had placement of the nephrostomy tubes. He reports his blood pressure was significantly elevated when he first went into the hospital which they treated and did adjust some of his blood pressure medications at that time. He has taken all of his blood pressure medications today and does not check his blood pressure at home regularly. He reports his symptoms worsen when he stands up. EMS also reports his blood pressure worsened when he stood up at home.. Historical: - Allergies: 12:42 No Known Allergies; jl7 - PMHx: 12:42 Myocardial infarction; CABG; Cardic stent x19; Diabetes mellitus; GERD; Gout; jl7 - PSHx: 12:42 Nephrostomy tube; jl7 - Immunization history:: Adult Immunizations up to date. - Social history:: Smoking status: Patient denies any tobacco usage or history of. ROS: 12:57 Constitutional: Negative for fever, chills, and weight loss, Eyes: Negative for injury, sd2 pain, redness, and discharge, Cardiovascular: Negative for chest pain, palpitations, and edema. Positive for near syncope and hypotension. Respiratory: Negative for shortness of breath, cough, wheezing. Abdomen/GI: Negative for abdominal pain, nausea, vomiting, diarrhea. MS/Extremity: Negative for injury and deformity, Skin: Negative for injury, rash, and discoloration, Neuro: Negative for headache, numbness and tingling. Exam: 12:57 Constitutional: This is a well developed, well nourished patient who is awake, alert, sd2 and in no acute distress. Head/Face: Normocephalic, atraumatic. Eyes: EOMI, normal conjunctiva bilaterally Chest/axilla: Normal chest wall appearance and motion. Nontender with no deformity. Cardiovascular: Regular rate and rhythm with a normal S1 and S2. No gallops, murmurs, or rubs. 2+ distal pulses. Respiratory: Lungs have equal breath sounds bilaterally, clear to auscultation and percussion. No rales, rhonchi or wheezes noted. No increased work of breathing, no retractions or nasal flaring. Abdomen/GI: Soft, non-tender, with normal bowel sounds. No guarding or rebound. No evidence of tenderness throughout. Bilateral nephrostomy tubes in place. Skin: Warm, dry with normal turgor. Normal color with no rashes, no lesions, and no evidence of cellulitis. MS/ Extremity: Pulses equal, no cyanosis. Neurovascular intact. Full, normal range of motion. Ambulatory without difficulty. 12:57 ECG was reviewed by the Attending Physician. NSR, rate 64, no STEMI criteria, T wave inversions noted in I and aVL Vital Signs: 12:39 BP 98 / 58; Pulse 67; Resp 15; Temp 97.1; Pulse Ox 97% ; jl7 13:00 BP 100 / 53; Pulse 63; Resp 15; Pulse Ox 98% ; jl7 14:00 BP 110 / 55; Pulse 60; Resp 15; Pulse Ox 99% ; jl7 14:30 BP 109 / 55 Supine; Pulse 61; jl7 14:31 BP 108 / 52 Sitting; Pulse 60; jl7 14:32 BP 102 / 53 Standing; Pulse 63; jl7 15:31 BP 121 / 59; Pulse 59; Resp 15; Pulse Ox 97% ; jl7 17:00 BP 118 / 54; Pulse 64; Resp 15; Pulse Ox 99% ; hb MDM: 12:45 Patient medically screened. sd2 12:57 Differential Diagnosis Differential diagnosis includes but is not limited to: sd2 Vasovagal, cardiogenic, arrhythmia, anemia, electrolyte abnormality, ACS, orthostasis, dehydration among others. Data reviewed: vital signs, nurses notes, EKG. 17:43 Data reviewed: lab test result(s), radiologic studies. Counseling: I had a detailed sd2 discussion with the patient and/or guardian regarding: the historical points, exam findings, and any diagnostic results supporting the discharge/admit diagnosis, lab results, radiology results, the need for outpatient follow up, to return to the emergency department if symptoms worsen or persist or if there are any questions or concerns that arise at home. Medical screen evaluation completed. [facility] emergency medical condition absent. ED course: Labs and imaging reviewed. Labs with elevation of creatinine but improving from prior levels by patient's report. BNP is elevated but with recent hypotension and no SOB, I do not see an indication to treat this further at this time. Delta trop is neg. EKG with no new ischemic changes. CXR with no acute process. UA not consistent with infection. Doubt sepsis or bacterial infection as procal is not consistent with this. Pt feeling much improved. Orthostatics negative. Pt comfortable with plan for discharge and outpatient follow up with his PCP and specialists this upcoming week as scheduled. Verbalizes understanding of discharge plan and strict return precautions and will monitor blood pressure closely at home daily prior to taking his BP medications and discuss his medications with his doctors.. 10/12 13:07 Order name: Basic Metabolic Panel; Complete Time: 14:45 sd2 10/12 13:07 Order name: CBC with Diff; Complete Time: 13:56 sd2 10/12 13:07 Order name: LFT's; Complete Time: 14:45 sd2 10/12 13:07 Order name: Magnesium; Complete Time: 14:45 sd2 10/12 13:07 Order name: NT PRO-BNP; Complete Time: 14:45 sd2 10/12 13:07 Order name: PT-INR; Complete Time: 13:56 sd2 10/12 13:07 Order name: Troponin HS; Complete Time: 14:45 sd2 10/12 13:07 Order name: XRAY Chest (1 view); Complete Time: 13:56 sd2 10/12 13:07 Order name: EKG; Complete Time: 13:08 sd2 10/12 13:07 Order name: Procalcitonin; Complete Time: 15:16 sd2 10/12 13:07 Order name: Lactate; Complete Time: 13:56 sd2 10/12 13:07 Order name: Urine Microscopic Only; Complete Time: 14:45 sd2 10/12 13:25 Order name: Urine Dipstick-Ancillary; Complete Time: 13:56 EDMS 10/12 15:25 Order name: Troponin High Sensitivity: Repeat to be sent at 1636; Complete Time: 17:38 sd2 10/12 13:07 Order name: Cardiac monitoring; Complete Time: 13:38 sd2 10/12 13:07 Order name: EKG - Nurse/Tech; Complete Time: 13:38 sd2 10/12 13:07 Order name: IV Saline Lock; Complete Time: 13:38 sd2 10/12 13:07 Order name: Labs collected and sent; Complete Time: 13:38 sd2 10/12 13:07 Order name: O2 Per Protocol; Complete Time: 13:38 sd2 10/12 13:07 Order name: O2 Sat Monitoring; Complete Time: 15:28 sd2 10/12 13:07 Order name: Orthostatics; Complete Time: 14:41 sd2 10/12 13:07 Order name: Urine Dipstick-Ancillary (obtain specimen); Complete Time: 13:38 sd2 Administered Medications: No medications were administered Disposition Summary: 10/12/21 17:49 Discharge Ordered Location: Home sd2 Problem: an acute exacerbation sd2 Symptoms: have improved sd2 Condition: Stable sd2 Diagnosis - Transient hypotension sd2 - Elevated creatinine sd2 - Mild hyperkalemia sd2 - Near Syncope sd2 Followup: sd2 - With: Private Physician - When: 2 - 3 days - Reason: Recheck today's complaints, Continuance of care, Re-evaluation by your physician Followup: sd2 - With: Emergency Department - When: As needed - Reason: Discharge Instructions: - Discharge Summary Sheet sd2 - Hyperkalemia sd2 - Hypotension sd2 - Near-Syncope sd2 Forms: - Medication Reconciliation Form sd2 - Thank You Letter sd2 - Antibiotic Education sd2 - Prescription Opioid Use sd2 Signatures: Dispatcher [employer] EDMS Stella Richmond RN RN hb Leal, Jahala, RN RN jl7 Eula Chapman MD MD sd2 Corrections: (The following items were deleted from the chart) 12:44 12:42 PMHx: Hypertensive disorder; jl7 jl7
--- NOTE | 2021-10-12 17:50 | ER ---
Nurse's Notes [facility] Torres Name: [place] Allyn Age: 71 yrs Sex: Male : 1950 Arrival Date: 10/12/2021 Time: 12:33 Bed 8 Private MD: Diagnosis: Transient hypotension;Elevated creatinine;Mild hyperkalemia;Near Syncope Presentation: 10/12 12:39 Chief complaint: EMS states: Toned out for low blood pressure, 72/40 on EMS arrival, jl7 800 mL NS given in route to ED. Pt recently discharged from [facility], has abdominal mass and bilateral nephrostomy tunes. Coronavirus screen: At this time, the client does not indicate any symptoms associated with coronavirus-19. Ebola Screen: No symptoms or risks identified at this time. Initial Sepsis Screen: Does the patient meet any 2 criteria? No. Patient's initial sepsis screen is negative. Does the patient have a suspected source of infection? No. Patient's initial sepsis screen is negative. Risk Assessment: Do you want to hurt yourself or someone else? Patient reports no desire to harm self or others. Onset of symptoms was October 12, 2021. Care prior to arrival: Medication(s) given: Normal saline infusion, 800 mL IV initiated. 18 GA, in the right antecubital area. 12:39 Method Of Arrival: EMS[facility] jl7 12:39 Acuity: KERI 2 jl7 Triage Assessment: 12:42 General: Appears in no apparent distress. uncomfortable, Behavior is calm, cooperative, jl7 appropriate for age. Pain: Denies pain. Neuro: Level of Consciousness is awake, alert, obeys commands, Oriented to person, place, time, situation. Cardiovascular: Patient's skin is warm and dry. Respiratory: Airway is patent Respiratory effort is even, unlabored, Respiratory pattern is regular, symmetrical. Derm: Skin is pink, warm \T\ dry. Historical: - Allergies: 12:42 No Known Allergies; jl7 - PMHx: 12:42 Myocardial infarction; CABG; Cardic stent x19; Diabetes mellitus; GERD; Gout; jl7 - PSHx: 12:42 Nephrostomy tube; jl7 - Immunization history:: Adult Immunizations up to date. - Social history:: Smoking status: Patient denies any tobacco usage or history of. Screenin:39 Abuse screen: Denies threats or abuse. Denies injuries from another. Nutritional hb screening: No deficits noted. Tuberculosis screening: No symptoms or risk factors identified. Fall Risk Total Carranza Fall Scale indicates Low Risk Score (25-44 pts). Fall prevention measures have been instituted. Side Rails Up X 2 Frequent Obs/Assesments occuring Family Present and informed to notify staff if they need to leave bedside As available Patient and Family Educated on Fall Prevention Program and strategies. Assessment: 14:44 Reassessment: Patient appears in no apparent distress at this time. Patient and/or hb family updated on plan of care and expected duration. Pain level reassessed. Patient is alert, oriented x 3, equal unlabored respirations, skin warm/dry/pink. 15:46 Reassessment: Patient appears in no apparent distress at this time. Patient and/or hb family updated on plan of care and expected duration. Pain level reassessed. Patient is alert, oriented x 3, equal unlabored respirations, skin warm/dry/pink. 17:00 Reassessment: Patient appears in no apparent distress at this time. Patient and/or jl7 family updated on plan of care and expected duration. Pain level reassessed. Patient is alert, oriented x 3, equal unlabored respirations, skin warm/dry/pink. Patient states feeling better. Patient states symptoms have improved. Vital Signs: 12:39 BP 98 / 58; Pulse 67; Resp 15; Temp 97.1; Pulse Ox 97% ; jl7 13:00 BP 100 / 53; Pulse 63; Resp 15; Pulse Ox 98% ; jl7 14:00 BP 110 / 55; Pulse 60; Resp 15; Pulse Ox 99% ; jl7 14:30 BP 109 / 55 Supine; Pulse 61; jl7 14:31 BP 108 / 52 Sitting; Pulse 60; jl7 14:32 BP 102 / 53 Standing; Pulse 63; jl7 15:31 BP 121 / 59; Pulse 59; Resp 15; Pulse Ox 97% ; jl7 17:00 BP 118 / 54; Pulse 64; Resp 15; Pulse Ox 99% ; hb ED Course: 12:30 Client placed on continuous cardiac and pulse oximetry monitoring. NIBP monitoring jl7 applied. 12:30 Maintain EMS IV. Dressing intact. Good blood return noted. Site clean \T\ dry. Gauge \T\ jl 7 site: 18 right AC. 12:33 Patient arrived in ED. hb 12:39 Magui Escalona, RN is Primary Nurse. jl7 12:39 Patient has correct armband on for positive identification. hb 12:42 Triage completed. jl7 12:42 Arm band placed on right wrist. jl7 12:45 Eula Chapman MD is Attending Physician. sd2 12:45 EKG done, by ED staff, reviewed by Eula Chapman MD. jl7 13:31 XRAY Chest (1 view) In Process Unspecified. EDMS 18:21 No provider procedures requiring assistance completed. IV discontinued, intact, jl7 bleeding controlled, No redness/swelling at site. Pressure dressing applied. Administered Medications: No medications were administered Medication: 12:39 VIS not applicable for this client. hb Outcome: 17:49 Discharge ordered by . sd2 18:22 Discharged to home ambulatory. jl7 18:22 Condition: stable 18:22 Discharge instructions given to patient, Instructed on discharge instructions, follow up and referral plans. Demonstrated understanding of instructions, follow-up care. 18:22 Patient left the ED. jl7 Signatures: Dispatcher [employer] EDNY Stella Richmond RN RN Magui Escalona, KAREN RN jl7 Eula Chapman MD MD sd2 Corrections: (The following items were deleted from the chart) 12:44 12:42 PMHx: Hypertensive disorder; jl7 jl7
[2021-10-12 19:27] VITALS: TEMP 97.1
[2021-10-12 19:43] VITALS: BP 118/54; O2SAT 99
--- NOTE | 2021-10-14 08:13 | EKG ---
Test Date: 2021-10-12 Test Time: 12:32:02 Caterers Helper: PHUONG MEASUREMENT RESULTS: Intervals: Rate: 64 CT: 206 QRSD: 96 QT: 394 QTc: 406 [place]: P: 69 CT: 206 QRS: -10 T: 102 INTERPRETIVE STATEMENTS: Sinus rhythm with premature atrial complexes ST & T wave abnormality, consider lateral ischemia Abnormal ECG No previous ECG available for comparison Electronically Signed On 10-14-21 08:06:55 CDT by Braydon Dempsey
== END 2021-10-12 18:22 | disposition home or self-care (01) ==
LOC: ER 12:24
DX: I95.89 Other hypotension (principal); E87.5 Hyperkalemia; R79.89 Other specified abnormal findings of blood chemistry; R55 Syncope and collapse; E11.9 Type 2 diabetes mellitus without complications; I10 Essential (primary) hypertension; Z95.1 Presence of aortocoronary bypass graft; Z95.5 Presence of coronary angioplasty implant and graft; Z98.890 Other specified postprocedural states
CPT/HCPCS: 36415; 71045; 80048; 80076; 81003; 81015; 83605; 83735; 83880; 84145; 84484; 85025; 85610; 93005; 99284

== ENCOUNTER 2021-10-17 15:18 | Emergency (ER) | payer OTHER ==
--- OUTSIDE RECORDS SUMMARY | 2021-10-17 15:27 | XMS REPORT | Continuity of Care Document ---
:1950 [facility] t Address [address] [place] [address] Care Team Providers Name Role Phone FERGUSONRAFAEL LarsonG Primary Care Physician Unavailable SANG HASSAN Attending Clinician Unavailable CORETTA REDMAN Attending Clinician Unavailable JOSE BUTLER Attending Clinician Unavailable Bui_Q Attending Clinician Unavailable Bui_Q_WAMICHAU Attending Clinician Unavailable Nellie Enriquez MD Attending Clinician SANG HASSAN M.D. Attending Clinician Unavailable NAIMA NAPOLES M.D. Attending Clinician Unavailable PRAFUL BOWER Attending Clinician Unavailable MAIK REDDY Attending Clinician Unavailable BRITTANIE BARRERA Admitting Clinician Unavailable Bui_Q Admitting Clinician Unavailable Bui_Q_WAGDNU Admitting Clinician Unavailable MARY TRAVIS Admitting Clinician Unavailable FRANSISCO GABRIEL Admitting Clinician Unavailable Payers Payer Name Policy Type Policy Number Effective Date Expiration Date Adri kaur WELLCARE/WELLCARE [id number] 2019 [employer] 00:00:00 WELLCARE [facility] [id number] 2019 00:00:00 S [facility] NT [id number] 2021 00:00:00 WELLCARE [facility] [id number] [employer] (MEDICARE 00:00:00 REPLACEMENT/ADVANTA GE - HMO) TRANSACT RX (MOVED [id number]) [place]ARE [place] - [id number] 2019 [employer] 00:00:00 (MEDICARE REPLACEMENT HMO) [...] Practic 00 e Diabetes Diabetes Problem Active [facility] mellitus Mellitus 3-03 Family 00:00: Practic 00 e Angina Angina Problem Active [facility] co-occurre Co-occurre 1-19 Fa bouchra nt and due nt and Due 00:00: Pr actic to to 00 e coronary Coronary arterioscl Arterioscl erosis erosis Chronic Chronic Problem Active [facility] kidney Kidney 9-12 Family disease Disease 00:00: Practic stage 3 Stage 3 00 e Acute Acute Disease Active [facility] syndrome 00:00: Medica l 00 Center 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 1-12 bouchra 00:00: Practic 00 e Peripheral Peripheral Problem Active 2018-02 [facility] vascular Vascular 1-12 Family disease Disease 00:00: Practic 00 e Type 2 Type 2 Problem Active 2018-02 [facility] diabetes Diabetes 1-01 Family mellitus Mellitus 00:00: Mackenzie hamilton with with 00 e peripheral Peripheral angiopathy Angiopathy Neuropathy Neuropathy Problem Active [facility] due to Due to 9-10 Family diabetes Diabetes 00:00: Pracavinash c mellitus Mellitus 00 e Anemia Anemia Problem Active [facility] 9-10 Family 00:00: Practic 00 e Obstructiv Obstructiv Problem Active [facility] e sleep e Sleep 9-10 Family apnea Apnea 00:00: Practic syndrome Syndrome 00 e Hypertensi Hypertensi Problem Active [facility] ve ve 9-10 Family disorder Disorder 00:00: Practi c 00 e Gastroesop Gastroesop Problem Active [facility] hageal hageal 9-10 Family reflux Reflux 00:00: Practic disease Disease 00 e without without esophagiti Esophagiti s s Lumbar Lumbar Problem Active [facility] radiculopa Radiculopa 9-10 bouchra thy thy 00:00: Practic 00 e History of History of Problem Active [facility]: Practic accident Accident 00 [...] Drug Active [facility] ALLERGIE Class [facility] NO KNOWN Allergy Active [facility] ALLERGIE S [...] Date Stop Date Quantity Comments [facility] Std Drinks [facility] Alcohol Binge [facility] Alcohol Comment History of tobacco Cigarette Smoker [facility] use Exposure to 2021-08-04 2021-08-14 Not sure [facility] SARS-CoV-2 (event) 00:00:00 09:55:00 Tobacco use and 2021-08-14 2021-08-14 Smokeless tobacco [facility] exposure 00:00:00 00:00:00 non-user Alcohol intake 2021-08-14 2021-08-14 Lifetime [facility] 00:00:00 00:00:00 non-drinker (finding) Cigarette 2021-08-14 2021-08-14 [facility] pack-years 00:00:00 00:00:00 History SDOH 2020-12-07 2020-12-07 1 [facility] Alcohol Frequency 00:00:00 00:00:00 Sex Assigned At [birth year] [facility] 00:00:00 00:00:00 Smoking Status Start Date Stop Date Source Unknown if ever smoked [facility] Never smoked tobacco [facility] Medications Ordered Filled Start Stop Current Ordering Indication Dosage Frequency Signature Comments Components Source Medication Medication Date Date Medication? Clinician (SIG) Name Name bupivacaine 2020-02- No [id number] 1mL [facility] (Marcaine) 04-04 Health 0.25 % 19:22: 19:22 injection 1 48 :00 mL lidocaine 2020-02- No [id number] 1mL [facility] (Xylocaine) 04-04 Health 1 % 19:22: 19:22 injection 1 48 :00 mL triamcinolo 2020-02- No [id number] 10mg [facility] ne 04-04 Health acetonide 19:22: 19:22 (Kenalog) 48 :00 10 MG/ML injection 10 mg triamcinolo 2020-02- No [id number] 10mg 10 mg, UT ne 04-04 [facility] acetonide 19:22: 19:22 cular, (Kenalog) 48 :00 Once PRN 10 MG/ML Procedure, injection Starting 10 mg on Thu02/01/21 at 1322, For 1 dose lidocaine 2020-02- No [id number] 1mL 1 mL, [facility] (Xylocaine) 04-04 Injection, H ealth 1 % 19:22: 19:22 Once PRN injection 1 48 :00 Procedure, mL Starting on Thu02/01/21 at 1322, For 1 dose bupivacaine 2020-02- No [id number] 1mL 1 mL, [facility] (Marcaine) 04-04 Injection, He alth 0.25 % 19:22: 19:22 Once PRN injection 1 48 :00 Procedure, mL Starting on Thu02/01/21 at 1322, For 1 dose Diclofenac 2020-02- No [id number] Apply [facility] Sodium 04-04 [id number] topically H ealth (Voltaren) 00:00: 05:59 3D 3 (three) 1 % 00 :00 times a external day if gel needed (pain). APPLY 4 GRAMS DONT EXCEED 16 QD Sodium 2020-02- No [id number] 20mg [facility] Hyaluronate 03-13 Health solution 15:38: 15:38 prefilled 48 :00 syringe 20 mg Sodium 2020-02- No [id number] 20mg [facility] Hyaluronate 03-13 Health solution 15:38: 15:38 prefilled 48 :00 syringe 20 mg Sodium 2020-02- No [id number] 20mg 20 mg, [facility] Hyaluronate 03-13 [facility] ealth solution 15:38: 15:38 cular, prefilled 48 :00 Once PRN syringe 20 Procedure, mg Starting on Thu01/11/21 at 0938, For 1 dose Sodium 2020-02- No [id number] 20mg 20 mg, [facility] Hyaluronate 03-13 [facility] ealth solution 15:38: 15:38 cular, prefilled 48 :00 Once PRN syringe 20 Procedure, mg Starting on Thu01/11/21 at 0938, For 1 dose Sodium 2020-02- No [id number] 20mg [facility] Hyaluronate 03-06 Health solution 15:15: 15:15 prefilled 27 :00 syringe 20 mg Sodium 2020-02- No [id number] 20mg [facility] Hyaluronate 03-06 Health solution 15:15: 15:15 prefilled 27 :00 syringe 20 mg Sodium 2020-02- No [id number] 20mg 20 mg, [facility] Hyaluronate 03-06 [facility] H ealth solution 15:15: 15:15 cular, prefilled 27 :00 Once PRN syringe 20 Procedure, mg Starting on Thu01/04/21 at 0915, For 1 dose Sodium 2020-02- No [id number] 20mg 20 mg, [facility] Hyaluronate 03-06 [facility] ealth solution 15:15: 15:15 cular, prefilled 27 :00 Once PRN syringe 20 Procedure, mg Starting on Thu01/04/21 at 0915, For 1 dose Sodium 2020-02- No [id number] 20mg [facility] Hyaluronate 02-27 Health solution 14:39: 14:39 prefilled 41 :00 syringe 20 mg Sodium 2020-02- No [id number] 20mg [facility] Hyaluronate 02-27 Health solution 14:39: 14:39 prefilled 41 :00 syringe 20 mg Sodium 2020-02- No [id number] 20mg 20 mg, [facility] Hyaluronate 02-27 [facility] H ealth solution 14:39: 14:39 cular, prefilled 41 :00 Once PRN syringe 20 Procedure, mg Starting on Thu12/28/20 at 0939, For 1 dose Sodium 2020-02- No [id number] 20mg 20 mg, [facility] Hyaluronate 02-27 Intra-afia [...] 09:07: tablet tablet 54 Diclofenac 2020-02- No [id number] Apply [facility] Sodium 0-15 11-15 [id number] topically H ealth (Voltaren) 00:00: 05:59 3D 3 (three) 1 % 00 :00 times a external day if gel needed (pain). APPLY 4 GRAMS TO AFFECTED AREA NOT TO EXCEED 16 GRAMS QS Diclofenac 2020-02- No [id number] Q.[id number] Apply [facility] Sodium 0-15 11-15 [id number] topically H ealth (Voltaren) 00:00: 05:59 3D 3 (three) 1 % 00 :00 times a external day if gel needed (pain). APPLY 4 GRAMS TO AFFECTED AREA NOT TO EXCEED 16 GRAMS QS Diclofenac 2020-02- No [id number] Q.[id number] Apply [facility] Sodium 0-15 11-15 [id number] topically H ealth (Voltaren) 00:00: 05:59 3D 3 (three) 1 % 00 :00 times a external day if gel needed (pain). APPLY 4 GRAMS TO AFFECTED AREA NOT TO EXCEED 16 GRAMS QS hydrocortis 2020- No [id number] 4[drp] Place 4 [facility] one-acetic 4-08 14 [id number] Drops in it y of acid 1-2 [...] 00:00: 10 MG 00 tablet aspirin 81 2020-0 Yes 81mg QD Take [address] [facility] EC 8-24 [facility] tablet 13:34: daily. [address] atorvastati 2019-0 Yes 80mg QD Take [...] Q.5D Take [address] [facility] (GLUCOPHAGE 1-23 01-22 tablets Luke s ) 500 MG 00:00: [...] oral route. carvedilol carvedilol No carvedilol [facility] 25 mg 25 mg 25 mg Family tablet Take tablet Take tablet Practic 1 tablet 1 tablet Take 1 e twice a day twice a day tablet by oral by oral twice a route. route. day by oral route. cyclobenzap cyclobenzap No cyclobenza [facility] rine 10 mg rine 10 mg sakshi 10 Family tablet 1 tablet 1 mg tablet Pr actic TABLET TABLET 1 TABLET e NEEDED FOR NEEDED FOR NEEDED PAIN EVERY PAIN EVERY FOR PAIN 8 HRS 8 HRS EVERY 8 ORALLY 30 ORALLY 30 HRS ORALLY DAY(S) DAY(S) 30 DAY(S) duloxetine duloxetine No duloxetine [facility] 30 mg 30 mg 30 mg Family capsule,del capsule,del capsule,de Practic ayed ayed layed e release release release Take 1 Take 1 Take 1 capsule capsule capsule every day every day every day by oral by oral by oral route. route. route. folic acid folic acid No 1 Q1D folic acid [facility] 1 mg tablet 1 mg tablet 1 mg F amily Take 1 Take 1 tablet Practic tablet tablet Take 1 e every day every day tablet by oral by oral every day route. route. by oral route. FreeStyle FreeStyle No FreeStyle [facility] Lite Strips Lite Strips Lite F amily Take 1 Take 1 Strips Practic strip 3 strip 3 Take 1 e times a day times a day strip 3 by miscell. by miscell. times a route. route. day by miscell. route. isosorbide isosorbide No isosorbide [facility] mononitrate mononitrate mononitrat Family ER 30 mg ER 30 mg e ER 30 mg P ractic tablet,exte tablet,exte tablet,ext e nded nded ended release 24 release 24 release 24 hr Take 1 hr Take 1 hr Take 1 tablet tablet tablet every day every day every day by oral by oral by oral route. route. route. Lantus Lantus No Lantus [facility] Solostar Solostar Solostar Fam bolivar U-100 [...] route. route. by oral route. metformin metformin metformin [facility] 1,000 mg 1,000 mg 1,000 [...] as needed. ranolazine ranolazine No ranolazine [facility] ER 500 mg ER 500 mg ER 500 mg Family tablet,exte tablet,exte tablet,ext Practic nded nded ended e release,12 release,12 release,12 hr Take 1 hr Take 1 hr Take 1 tablet tablet tablet twice a day twice a day twice a by oral by oral day by route. route. oral route. sacubitril sacubitril No 1 BID sacubitril [facility] 97 97 97 Family mg-valsarta mg-valsarta mg-valsart Practic n 103 mg n 103 mg an 103 mg e tablet Take tablet Take tablet 1 tablet 1 tablet Take 1 twice a day twice a day tablet by oral by oral twice a route. route. day by oral route. spironolact spironolact No spironolac [facility] one 25 mg one 25 mg [...] HOURS NEEDED Trulicity Trulicity No Trulicity [facility] e Immunizations Ordered Immunization Filled Immunization Date Status Commen ts Source Name Name zoster recombinant zoster recombinant 2020-07-[address] [facility] 09:48:00 Practice SARS-COV-2 (COVID-19) SARS-COV-2 (COVID-19) 2020-04-[address] [facility] vaccine, UNSPECIFIED vaccine, UNSPECIFIED 00:00:00 Practice SARS-COV-2 (COVID-19) SARS-COV-2 (COVID-19) 2020-03-[address] [facility] vaccine, UNSPECIFIED vaccine, UNSPECIFIED 00:00:00 Practice zoster recombinant zoster recombinant 2020-01-[address] [facility] 10:45:00 Practice influenza, high-dose, influenza, high-dose, 2019-10-[address] [facility] quadrivalent quadrivalent 11:13:00 Practice influenza, high dose influenza, high dose 2018-11-[address] [facility] seasonal seasonal 10:00:00 Practice influenza, high dose influenza, high dose 2018-01-[address] [facility] seasonal seasonal 11:52:00 Practice pneumococcal pneumococcal 2018-01-04 Completed [facility] polysaccharide PPV23 polysaccharide PPV23 11:52:00 Practice pneumococcal pneumococcal 2016-10-24 [facility] conjugate PCV 13 conjugate PCV 13 00:00:00 Pr actice influenza, influenza, 2016-10-[address] [facility] unspecified unspecified 00:00:00 Practice formulation formulation Tdap Tdap 2014-02-[address] [facility] 00:00:00 Practice Vital Signs Vital Name [...] Practice Height 2020-07-27 00:00:00 70 [in_i] [facility] Family Practice BMI (Body Mass 2020-07-27 00:00:00 36.6 kg/m2 [facility] Index) Practice BP Systolic 2020-07-27 00:00:00 123 mm[Hg] [facility] Body Weight 2020-07-27 00:00:00 255.2 [lb_av] [facility] Family Practice Systolic blood 2020-05-31 08:20:00 130 mm[Hg] Univer sity of pressure [facility] Diastolic blood 2020-05-31 08:20:00 65 mm[Hg] Unive rsity of pressure [facility] Heart rate 2020-05-31 08:20:00 80 /min [facility] Body temperature 2020-05-31 08:20:00 37.06 Xin [facility] Respiratory rate 2020-05-31 08:20:00 17 /min [facility] Body height 2020-05-31 08:20:00 182.9 cm [facility] Body weight 2020-05-31 08:20:00 111.131 kg [facility] BMI 2020-05-31 08:20:00 33.23 kg/m2 [facility] Oxygen saturation in 2020-05-31 08:20:00 98 /min [facility] Arterial blood by [facility] Pulse oximetry Branch BP Diastolic 2020-04-25 00:00:00 [...] Practice Body Weight 2018-07-08 00:00:00 243.4 [lb_av] [facility] Practice BP Diastolic 2018-05-05 00:00:00 82 mm[Hg] [facility] Practice Height 2018-05-05 00:00:00 70 [in_i] [facility] Practice BMI (Body Mass 2018-05-05 00:00:00 33.9 kg/m2 [facility] Family Index) Practice BP Systolic 2018-05-05 00:00:00 142 mm[Hg] [facility] Practice Body Weight 2018-05-05 00:00:00 236.6 [lb_av] [facility] Practice BP Diastolic 2018-03-11 00:00:00 68 mm[Hg] [facility] Practice Height 2018-03-11 00:00:00 72 [in_i] [facility] Practice BMI (Body Mass 2018-03-11 00:00:00 32.1 kg/m2 [facility] Family Index) Practice BP Systolic 2018-03-11 00:00:00 122 mm[Hg] [facility] Practice Body Weight 2018-03-11 00:00:00 236.4 [lb_av] [facility] Practice Body mass index 2020-04-27 08:37:00 34.13 kg/m2 [facility] (BMI) [Ratio] Body height 2020-04-27 08:37:00 71.5 [in_us] [facility] Weight 2020-04-27 08:37:00 248.2 [lb_av] [facility] Procedures Procedure Date / Time Performing Clinician Source Performed [place] ARTHROCENTESIS 2021-02-01 19:22:48 Sang Hassan [facility] ASPIR&/INJ MAJOR JT/BURSA W/O US XR HIP 2 OR 3 VW RIGHT 2021-02-01 15:56:01 [facility] ARTHROCENTESIS ASPIR&/INJ 2021-01-11 15:38:48 Sang [facility] MAJOR JT/BURSA W/O US BILATERAL ARTHROCENTESIS ASPIR&/INJ 2021-01-04 15:15:27 Sang Hassan [facility] MAJOR JT/BURSA W/O US BILATERAL ARTHROCENTESIS ASPIR&/INJ 2020-12-28 14:39:41 Sang Hassan [facility] MAJOR JT/BURSA W/O US BILATERAL [place] REMV EXT CANAL FOREIGN 2020-05-31 09:17:00 Zoe Leticiajohn Adri Stoddard [facility] BODY Medical Branch NOTICE OF PRIVACY 2020-05-31 08:24:18 Doctor Unassigned, [facility] PRACTICES [facility] CONSENT/REFUSAL FOR 2020-05-31 08:23:53 Doctor Unassigned, Yadira [facility] DIAGNOSIS AND TREATMENT [facility] Cardiac Catheterization 2019-10-14 00:00:00 [facility] Family [facility] Cardiac Catheterization 2019-03-15 00:00:00 [facility] Cardiac Catheterization 2018-09-30 00:00:00 [facility] X-RAY OF CHEST 2 VIEW 2018-05-05 00:00[facility]00 [facility] Angioplasty 2017-09-04 00:00:00 [facility] Carmen jones [facility] Cardiac Catheterization 2017-08-29 00:00:00 [facility] Vascular Surgery 2017-02-23 00:00:00 [facility] Neurosurgery (Brain) 2011-02-23 00:00:00 [facility] Cardiac Surgery 2007-02-23 00:00[facility] Tooth Root Removal [facility] Famil y Practice Tonsilectomy/adenoids [facility] Procedure on Spine [facility] Famil y Practice Plan of Care [...] C enter of colon (procedure) [code = [id number]] [facility] Encounters Start End Encounter Admission Attending Care Care Encounter Source Date/Time Date/Time Type Type Clinicians Facility Department ID 2021-08-27 Outpatient [facility] [id number] [place] 13:38:17 [id number] [facility] 2021-08-14 Outpatient [facility] [id number] [place] 09:56:30 SANG [id number] [facility] 2021-08-07 Outpatient [facility] [id number] [place] 14:42:50 SANG [id number] [facility] 2021-05-03 Outpatient [facility] [id number] [place] 10:01[facility]01 [facility] [id number] [place] 09:46:01 [facility] 2021-01-11 Outpatient [facility] [id number] [place] [facility] 2021-10-08 Inpatient ER ЮЛИЯ, [facility] Emergency [id number] [facility] 18:13:00 13:23:00 CORETTA 2021-09-23 2021-09-23 Outpatient BCM BCYakov [id number] [facility] 00:00:00 23:59:00 Justin 2021-08-14 2021-08-14 [facility] [id number] [place] 10:15:00 11:11:16 Visit Sang GOLDSMITH [id number] [facility] MEDICAL [id number] PLA[address] [id number] 2021-05-03 2021-05-03 Office Hassan [facility] [id number] [place] 09:45:00 10:01:58 Visit Sang GOLDSMITH [id number] [facility] MEDICAL [id number] PLA[address] 8 [id number] 2021-02-12 2021-02-12 Outpatient Bui_Q VFP VFP [id number] [place] 03:46:00 03:46:00 [id number] Family Practic e 2021-02-12 2021-02-12 Outpatient Bui_Q VFP VFP [id number] [facility] 03:46:00 03:46:00 [id number] Family Practic e 2021-02-12 2021-02-12 Outpatient Bui_Q VFP VFP [id number] [facility] 03:46:00 03:46:00 [id number] Family Practic e 2021-02-01 2021-02-01 Office Hassan [facility] [id number] [place] 09:45:00 10:51:22 Visit Sang GOLDSMITH [id number] [facility] MEDICAL [id number] PLA[address] 7 [id number] 2021-01-21 2021-01-21 Outpatient Bui_Q VFP VFP [id number] [facility] 11:28:00 11:28:00 [id number] Family Practic e 2021-01-21 2021-01-21 Outpatient Bui_Q_WAGDN VFP VFP [id number] [place] 11:28:00 11:28:00 U [id number] Family Practic e 2021-01-21 2021-01-21 Outpatient Bui_Q_WAGDN VFP VFP [id number] [place] 11:28:00 11:28:00 U [id number] Family Practic e 2021-01-21 2021-01-21 Outpatient Bui_Q_WAGDN VFP VFP [id number] [place] 11:28:00 11:28:00 U [id number] Family Practic e 2021-01-11 2021-01-11 Office Mo [facility] [id number] [place] 08:47:07 09:23:11 Visit Sangloreto GOLDSMITH [id number] [facility] MEDICAL [id number] [address] 2 [id number] 2021-01-04 2021-01-04 Procedure MO [facility] [id number] [place] 09:02:14 09:17:14 Visit SANGLORETO GOLDSMITH [id number] [facility] MEDICAL [id number] [address] 7 [id number] 2020-12-28 2020-12-28 Office Mo [facility] [id number] [place] 09:35:28 10:11:06 Visit Sang GOLDSMITH [id number] [facility] MEDICAL [id number] PLA[place] 1 [id number] 2020-12-20 2020-12-20 Outpatient Bui_Q VFP VFP [id number] [facility] 12:52:00 12:52:00 [id number] Family Practic e 2020-12-20 2020-12-20 Outpatient Bui_Q_WAGDN VFP VFP [id number] [facility] 12:52:00 12:52:00 U [id number] Family Practic e 2020-12-07 2020-12-07 Office Mo [facility] [id number] [place] 08:40:45 09:48:37 Visit Sang GOLDSMITH [id number] [facility] MEDICAL [id number] PLA[place] 1 [id number] 2020-07-31 2020-07-31 Outpatient Bui_Q VFP VFP [id number] Village 06:32:00 06:32:00 [id number] Family Practic e 2020-07-27 2020-07-27 Outpatient Bui_Q VFP VFP [id number] [facility] 09:47:00 09:47:00 [id number] Family Practic e 2020-07-27 2020-07-27 Rafael Velasco VFP [place] - [id number] [address] [place] [address] 00:00:00 00:00:00 MD Jewel: [facility] Famil y [id number] Medical - Practi c Shadow VM_HOU_Shad e [facility], [address], [place] [address] , Ph. 2020-07-26 2020-07-26 Outpatient Bui_Q VFP VFP [id number] [facility] 10:50:00 10:50:00 [id number] Family Practic e 2020-05-31 2020-05-31 Emergency Yarifl, [facility] [id number] [facility] 03:34:00 04:24:00 Nellie [place] [id number] [id number] [address] 2020-05-31 2020-05-31 Emergency X [facility] ERT [id number] [facility] 03:21:00 03:21:00 [facility] 2020-05-15 2020-05-15 Outpatient Bui_Q_WAG VFP VFP [id number] [facility] 01:44:00 01:44:00 [id number] Family Practic e 2020-04-27 2020-04-27 Trinidad HASSAN [facility] Orthopedics [id number] [place] 09:00:00 09:00:00 t; SANG HASSAN M.D. [facility] Calixto roman HATFIELD M.D. 2020-04-27 2020-04-27 Outpatient Bui_Q VFP VFP [id number] [facility] 04:44:00 04:44:00 [id number] Family Practic e 2020-04-25 2020-04-25 Outpatient Bui_Q VFP VFP [id number] [facility] 05:54:00 05:54:00 [id number] Family Practic e 2020-04-25 2020-04-25 Rafael Velasco P [place] - [id number] [facility] 00:00:00 00:00:00 MD Jewel: [facility] Famil y [id number] Medical - Practi c Shadow VM_HOU_Shad e Story [facility], [address], [place] [address] , Ph. 2020-02-22 2020-02-22 Outpatient Bui_Q_WAG VFP VFP [id number] [facility] 03:16:00 03:16:00 [id number] Family Practic e 2020-02-22 2020-02-22 Outpatient Bui_Q_WAG VFP VFP [id number] [facility] 03:16:00 03:16:00 [id number] Family Practic e 2020-02-08 2020-02-08 Outpatient Bui_Q VFP VFP [id number] [facility] 11:20:00 11:20:00 [id number] Family Practic e 2020-02-08 2020-02-08 Outpatient Bui_Q VFP VFP [id number] [facility] 11:20:00 11:20:00 [id number] Family Practic e 2020-02-08 2020-02-08 Outpatient Bui_Q VFP VFP [id number] [facility] 11:20:00 11:20:00 [id number] Family Practic e 2020-02-08 2020-02-08 Outpatient Bui_Q_WAG VFP VFP [id number] [facility] 11:20:00 11:20:00 [id number] Family Practic e 2020-02-02 2020-02-02 Outpatient Bui_Q_WAG VFP VFP [id number] [facility] 02:28:00 02:28:00 [id number] Family Practic e 2020-01-31 2020-01-31 Outpatient Bui_Q_WAG VFP VFP [id number] [place] 11:36:00 11:36:00 [id number] Family Practic e 2020-01-31 2020-01-31 Rafael Velasco VFP [place] - [id number] [facility] 00:00:00 00:00:00 MD Jewel: [facility] Famil y 6122 Medical [facility] 100, ([facility]) [place] [address] , Ph. 2020-01-30 2020-01-30 Outpatient Bui_Q_WAG VFP VFP [id number] [facility] 01:23:00 01:23:00 [id number] Family Practic e 2020-01-26 2020-01-26 Outpatient Bui_Q_WAG VFP VFP [id number] [facility] 10:19:00 10:19:00 [id number] Family Practic e 2020-01-26 2020-01-26 Outpatient Bui_Q VFP VFP [id number] [facility] 10:19:00 10:19:00 [id number] Family Practic e 2020-01-15 2020-01-15 Outpatient Bui_Q VFP VFP [id number] [facility] 06:26:00 06:26:00 [id number] Family Practic e 2020-01-12 2020-01-12 [facility] Orthopedics [id number] [place] 08:00:00 08:00:00 t; BETHANY DUGAN, - [facility] NAIMA DUGAN, KINSEY MCNAMARA M.D. M.D. 2020-01-09 2020-01-09 Outpatient Bui_Q_WAG VFP VFP [id number] [facility] 11:21:00 11:21:00 [id number] Family Practic e 2020-01-09 2020-01-09 Outpatient Bui_Q VFP VFP [id number] [facility] 11:21:00 11:21:00 [id number] Family Practic e 2019-11-10 2019-11-10 Outpatient Bui_Q_WAG VFP VFP [id number] [facility] 02:34:00 02:34:00 22406 Family Practic e 2019-10-27 2019-10-27 Outpatient Bui_Q_WAG VFP VFP [id number] [facility] 06:48:00 06:48:00 [id number] Family Practic e 2019-10-25 2019-10-25 Outpatient Bui_Q VFP VFP [id number] [facility] 10:18:00 10:18:00 [id number] Family Practic e 2019-10-25 2019-10-25 Rafael Velasco VFP [place] - [id number] 1 [place] 00:00:00 00:00:00 MD Jewel: [facility] Famil y 6122 Medical [facility], [place] [address], ([facility]) [place] [address] , Ph. 2019-10-18 2019-10-18 [facility] TIPTON UTP [id number] [place] 09:45:00 09:45:00 t; Marlen NAPOLES ANDREW, ans ANDREW, M.D. M.D. 2019-10-13 2019-10-13 Emergency ER SLE Emergency [id number] [facility] 21:37:00 21:37:00 2019-10-12 2019-10-12 Appointmen BETHANY [facility] [id number] [place] 09:45:00 09:45:00 t; Marlen NAPOLES ANDREW, ans ANDREW, M.D. M.D. 2019-10-04 2019-10-04 Outpatient Bui_Q VFP VFP [id number] [facility] 03:42:00 03:42:00 [id number] Family Practic e 2019-07-19 2019-07-19 Appointmen BETHANY [facility] Orthopedics [id number] [place] 09:45:00 09:45:00 t; B[place] DUGAN, [place] ans ANDREW, M.D. M.D. 2019-07-11 2019-07-11 Appointmen JOHNKYLERNICOLASA [facility] Orthopedics [id number] [place] 09:45:00 09:45:00 t; BETHANY DUGAN, NAIMA Eagle II ans ANDREW, M.D. M.D. 2019-07-04 2019-07-04 Appointmen JOHNBRANDON [facility] Orthopedics [id number] [place] 09:45:00 09:45:00 t; BETHANY DUGAN, [place] Barkley II ans ANDREW, M.D. M.D. 2019-06-08 2019-06-08 Outpatient Bui_Q_WAG VFP VFP [id number] [facility] 04:44:00 04:44:00 [id number] Family Practic e 2019-06-08 2019-06-08 Outpatient Bui_Q VFP VFP [id number] [facility] 04:44:00 04:44:00 [id number] Family Practic e 2019-06-08 2019-06-08 Outpatient Bui_Q VFP VFP [id number] [facility] 04:44:00 04:44:00 [id number] Family Practic e 2019-06-06 2019-06-06 Outpatient Bui_Q_WAG VFP VFP [id number] [facility] 02:00:00 02:00:00 [id number] Family Practic e 2019-06-06 2019-06-06 Rafael Velasco VFP [place] - [id number] [facility] 00:00:00 00:00:00 MD Jewel: [facility] Famil y [address] [address] , Ph. 2019-06-01 2019-06-01 Outpatient Bui_Q_WAG VFP VFP [id number] [facility] 11:39:00 11:39:00 [id number] Family Practic e 2019-06-01 2019-06-01 Outpatient Bui_Q VFP VFP [id number] [facility] 11:39:00 11:39:00 [id number] Family Practic e 2019-04-21 2019-04-21 Outpatient Bui_Q VFP VFP [id number] [facility] 10:59:00 10:59:00 [id number] Family Practic e 2019-04-06 2019-04-06 Outpatient Bui_Q VFP VFP [id number] [facility] 02:24:00 02:24:00 [id number] Family Practic e 2019-04-04 2019-04-04 Outpatient Bui_Q_WAG VFP VFP [id number] [facility] 10:21:00 10:21:00 [id number] Family Practic e 2019-03-31 2019-03-31 Outpatient Bui_Q_WAG VFP VFP [id number] 202 [facility] 12:23:00 12:23:00 [id number] Family Practic e 2019-03-31 2019-03-31 Rafael Velasco VFP [place] - [address] [place] [address] 00:00:00 00:00:00 MD Jewel: [facility] Famil y [address] ([place] [address] , Ph. 2019-03-29 2019-03-29 [facility] JOHNNICOLASA [facility] Orthopedics [id number] [place] 07:15:00 07:15:00 t; BETHANY DUGAN, - [place] NAIMA Zavala II ans ANDREW, M.D. M.D. 2019-03-24 2019-03-24 Outpatient Bui_Q VFP VFP [id number] [facility] 02:00:00 02:00:00 [id number] Family Practic e 2019-03-24 2019-03-24 Outpatient Bui_Q VFP VFP [id number] [facility] 02:00:00 02:00:00 [id number] Family Practic e 2019-03-22 2019-03-22 Outpatient Bui_Q_WAG VFP VFP [id number] 202 [facility] 03:19:00 03:19:00 [id number] Family Practic e 2019-03-17 2019-03-17 Outpatient Bui_Q VFP VFP [id number] [facility] 09:06:00 09:06:00 [id number] Family Practic e 2019-03-15 2019-03-15 Outpatient Bui_Q_WAG VFP VFP [id number] [facility] 09:13:00 09:13:00 [id number] Family Practic e 2019-03-15 2019-03-15 Appointmen [facility]ANY TIPTON Orthopedics [id number] [place] 07:15:00 07:15:00 t; BETHANY DUGAN, - [place] NAIMA Zavala II ans ANDREW, M.D. M.D. 2019-03-09 2019-03-09 Appointmen [facility]ANY [facility]IP[facility] Orthopedics [id number] [place] 07:00:00 07:00:00 t; BETHANY DUGAN, - [place] NAIMA Zavala II ans ANDREW, M.D. M.D. 2019-01-04 2019-01-04 Rafael Conwayg [facility] [place] - [id number] [facility] 00:00:00 00:00:00 MD Jewel: [facility] y 9430 Medical - Practi alfonso Randle, _DELIAU_[facility] e [address], [facility] [place] [address] , Ph. 2018-12-08 2018-12-08 Appointmen BETHANY TIPTON UTP [id number] [place] 07:30:00 07:30:00 t; Marlen NAPOLES ANDREW, ans ANDREW, M.D. M.D. 2018-12-02 2018-12-02 [facility] BETHANY [facility] [id number] [place] 15:00:00 15:00:00 t; Marlen NAPOLES ANDREW, ans ANDREW, M.D. M.D. 2018-11-23 2018-11-23 [facility] VIDHING [facility] Orthopedics [id number] [place] 07:15:00 07:15:00 t; BETHANY DUGAN, [facility] NAIMA Zavala ans ANDREW, M.D. M.D. 2018-11-02 2018-11-02 Rafael Velasco [facility] [place] - [id number] 0 [place] 00:00:00 00:00:00 MD Jewel: [place] F[facility] y 94[address] [facility], Practice - e [address], [facility] [place] [address] , Ph. 2018-07-08 2018-07-08 Rafael Velasco [facility] [place] - [id number] 6 [place] 00:00:00 00:00:00 MD Jewel: [place] F[facility] 9430 [facility], Practice - e [address], [facility] [place] [address] , Ph. 2018-07-06 2018-07-06 [facility] BETHANY [facility] Orthopedics [id number] [place] 07:00:00 07:00:00 t; BETHANY DUGAN, at [place] NAIMA Zavala ans ANDREW, M.D. M.D. 2018-05-05 2018-05-05 [facility] [place] - [id number] [facility] 00:00:00 00:00:00 [facility] Family Adejumo, Family Practic MD: 9430 Practice - e [place], [facility] [address], d [place] [address] , Ph. 2018-04-14 2018-04-14 [facility] BETHANY [facility] [id number] [place] 07:00:00 07:00:00 t; Marlen NAPOLES ANDREW, ans ANDREW, M.D. M.D. 2018-04-12 2018-04-12 Appointmen BETHANY [facility] [id number] [place] 07:00:00 07:00:00 t; Marlen NAPOLES ANDREW, ans ANDREW, M.D. M.D. 2018-04-06 2018-04-06 Appointmen VIDHING [facility] Orthopedics [id number] [place] 07:15:00 07:15:00 t; [facility] ANDREW, M.D. M.D. 2018-03-11 2018-03-11 Rafael Velasco [facility] [place] - [id number] [address] [place] [address] 00:00:00 00:00:00 MD Jewel: [facility] y 9430 [facility], [facility] - e [address], [facility] [place] [address] , Ph. 2018-01-06 2018-01-06 Appointmen BETHANY [facility] [id number] [place] 07:00:00 07:00:00 t; Marlen NAPOLES ANDREW, ans ANDREW, M.D. M.D. 2017-12-30 2017-12-30 Appointmen [facility] [id number] [place] 07:45:00 07:45:00 t; Marlen NAPOLES ANDREW, ans ANDREW, M.D. M.D. 2017-12-23 2017-12-23 Appointmen [facility] Orthopedics [id number] [place] 07:00:00 07:00:00 t; [facility] ANDREW, M.D. M.D. 2017-11-11 2017-11-11 Appointmen [facility]ICOLASA [facility] Orthopedics [id number] [place] 08:45:00 08:45:00 t; BETHANY DUGAN at [facility] NAIMA DUGAN ans ANDREW, M.D. M.D. 2017-10-14 2017-10-14 Appointmen BETHANY [facility] [id number] [place] 08:45:00 08:45:00 t; [facility] Sawyer, Orthopedics roman MCNAMARA M.D. M.D. Results Test Description Test Time Test Comments Results Result [facility] e Comments TISSUE EXAM 2021-10-11 Surgical Pathology Report 13:52:21 Case: [id number] Authorizing Provider: Brittanie Barrera MD Collected: 10/04/2021 04:39 PM Ordering Location: [address] Received: 10/04/2021 05:15 PM Service Pathologist: Missy Pozo MD Specimen: Retroperitoneum, CT Guided Retroperitoneal Mass Biopsy SOFT TISSUE, RETROPERITONEUM, BIOPSY:- DENSE FIBROSIS WITH FOCAL ATYPICAL LYMPHOID AGGREGATES (SEE COMMENT) Signing Pathologist Direct Phone Line: [phone] y signed by Missy Pozo MD on [...] with Dr. Pisano on 10/11/2021 at 12:06 PM.52759; 31562; 54172 x 16; 11197; 82400Dgcaikybvrmwxrr massRetroperitoneumA. Retroperitoneum.Received in formalin labeled with the [...] MUM1, CD138, CD21, CD23, Cyclin D1, Ki-67, [place]-CHRISTOPHER, Lambda-CHRISTOPHER, CD34, SMA, Desmin, Ae1/Qs3Rpvxvgx Slides Examined: In-house known positive controls were evaluated along with the test tissue. These control slides run alongside of the patients sample show appropriate staining. Internal positive and negative controls when available are evaluated Immunohistochemistry technical testing was performed at [facility], Pathology Laboratory where it was [...] qualified to perform high complexity clinical laboratory testing.[facility], Department of Pathology, [address] [place] [address]38, [facility], Department of Pathology, [address] [place] [address], [facility], Department of Pathology, [address] [place] [address], POCT-GLUCOSE METER 2021-10-08 12:28:15 Test Item Value Reference Range Interpretation Comme nts POC-GLUCOSE METER (BEAKER) 247 mg/dL 70-110 H : TESTED AT [facility] 6720 DANGELO (test code = 1538) [facility] X, [address]: Transportation Security Officer/Techni funmilayo ID = [id number] for Choco Morrow POCT-GLUCOSE [id number] 08:39:59 Test Item Value Reference Range Interpretation Comments POC-GLUCOSE METER 163 mg/dL 70-110 H : TESTED A T [facility] 6720 (BEAKER) (test code = CRUZ [place], 1538) [address]: Transportation Security Officer/Techni funmilayo ID = [id number] for Hilda Woods BASIC METABOLIC [id number] 04:47:06 Test Item Value Reference Range Interpretation [...] not appl icable for dialysis patien ts Transportation Security Officer ID - JAIME YOUSIFBC (HEMOGRAM ONLY)2021-10-08 04:17:48 [...] 0-0 (BEAKER) (test code = 413) POCT-GLUCOSE [id number] 21:15:36 Test Item Value Reference Range Interpretation Comments POC-GLUCOSE METER 365 mg/dL 70-110 H : TESTED A T [facility] 67 (IVAZELDA) (test code = [facility], 153) 137[address]: Transportation Security Officer/Techni funmilayo ID = [id number] for YONNY BRANCH POCT-GLUCOSE [id number] 17:34:55 Test Item Value Reference Range Interpretation Comments POC-GLUCOSE METER 431 mg/dL 70-110 HH : Notified RN/MD: (EMILIE) (test code = TESTED AT [facility] 6720 1538) [facility], [address]: Transportation Security Officer/Techni funmilayo ID = [id number] for KADE HERNANDEZ CT, BIOPSY, [id number] 16:04:00Reason for exam:->bilateral nephro ureteral tube placement - please discuss with urology Dr. herrera with any questions. Brilinta held starting 8/7 PM Reason for exam:->biopsy of retroperitoneal mass/lymphadenopathy/fibrosis [facility] ALATORRE : 1950 Sex: MFINAL REPORT CT guided soft tissue mass biopsy History: bilateral nephro ureteral tube placement - please discuss with urology Dr. herrera with any questions. Brilinta held starting 87PMbiopsy of retroperitoneal mass/lymphadenopathy/fibrosis Modality: CT, CT fluoroscopy Anesthesia: 1% lidocaine refuse collector: Dr. Haseeb Pisano Approach: Right retroperitoneal percutaneous Consent: Therisks, benefits, and alternatives to the procedure were discussed with the patient. The patient expressed understanding and informed written consent was obtained. Time out: A pre-procedure time out wasperformed in order to confirm the appropriate site of the procedure. Sedation: Moderate sedation wasadministered. 1 mg of Versed and 50 mcg of fentanyl IV was used for moderate sedation monitored under my direction. Total intra-service time of sedation was 1 minutes. The patient's vital signs were monitored throughout the procedure and recorded in the patient's medical record by the nurse. Technique: Dose modulation, iterative reconstruction, and/or weight-based adjustment of the mA/kV was utilizedto reduce the radiation dose to as low [...] stable condition. Impression: 1. Technically successful CT guided retroperitoneal mass biopsy with conscious sedation. Signed: Haseeb Pisano Verified Date/Time: 10/07/2021 16:04:22 Reading Location: [facility] Radiology Reading Room POCT-GLUCOSE [id number] 12:12:30 Test Item Value Reference Range Interpretation Comments POC-GLUCOSE METER 212 mg/dL 70-110 H : TESTED A T [facility] 6720 (BEAKER) (test code = [facility] Language [employer] [facility], 1538) 629[address]: Transportation Security Officer/Techni funmilayo ID = [id number] for FA KADE ACOSTA POCT-GLUCOSE [id number] 08:57:21 Test Item Value Reference Range Interpretation Comments POC-GLUCOSE METER 177 mg/dL 70-110 H : TESTED A T [facility] 6720 (BEAKER) (test code = [employer] [facility], 1538) [address]: Transportation Security Officer/Techni funmilayo ID = [id number] for FA DAVE KADE BASIC METABOLIC [id number] 06:46:29 Test Item Value Reference Range Interpretation [...] glom erular filtration rate . Estimated GFR i s not applicable for dialysis patients Transportation Security Officer ID - PIAYA LCBC (HEMOGRAM ONLY)2021-10-07 04:16:05 [...] 0-0 (BEAKER) (test code = 413) POCT-GLUCOSE [id number] 21:25:45 Test Item Value Reference Range Interpretation Comments POC-GLUCOSE METER 358 mg/dL 70-110 H : TESTED A T [facility] 6720 (BEAKER) (test code = [place], 1538) [address]: Transportation Security Officer/Techni funmilayo ID = [id number] for JESSICA BOBBY POCT-GLUCOSE [id number] 17:24:21 Test Item Value Reference Range Interpretation Comments POC-GLUCOSE METER 334 mg/dL 70-110 H : Will Rep eat Test: (BEAKER) (test code = Martinez obrien RN/MD: TESTED 1537) AT [facility] 6720 B [facility], 770 30: Transportation Security Officer/Techni funmilayo ID = [id number] for KUSHAL DAS POCT-GLUCOSE [id number] 13:44:03 Test Item Value Reference Range Interpretation Comments POC-GLUCOSE METER 206 mg/dL 70-110 H : TESTED A T [facility] 6720 (BEAKER) (test code = [facility], 1538) 28947: Transportation Security Officer/Techni funmilayo ID = [id number] for KUSHAL DAS POCT-GLUCOSE [id number] 13:43:23 Test Item Value Reference Range Interpretation Comments POC-GLUCOSE METER 176 mg/dL 70-110 H : TESTED A T [facility] 6720 (BEAKER) (test code = [facility], 153) 19209: Transportation Security Officer/Techni funmilayo ID = [id number] for KUSHAL DAS BASIC METABOLIC [id number] 08:57:05 Test Item Value Reference Range Interpretation [...] not appl icable for dialysis patien ts Transportation Security Officer ID - PIAYA LCBC (HEMOGRAM ONLY)2021-10-06 06:21:41 [...] 0-0 (BEAKER) (test code = 413) POCT-GLUCOSE [id number] 04:26:31 Test Item Value Reference Range Interpretation Comments POC-GLUCOSE METER 292 mg/dL 70-110 H : TESTED A T [facility] 6720 (BEAKER) (test code = [place], 1538) [address]: Transportation Security Officer/Techni funmilayo ID = [id number] for SA SHAUNA JESSICA CT, [id number] 21:44:00Unlisted Reason for Exam - Click Yes and Enter Reason Below->YesUnlisted Reason for Exam->F.U size of RP mass s/p steroids. R PCN with minimal UOPIs this for enterography?->NoPlease specify:->RenalWill this procedure require oral contrast?->No [facility]ATORRER WINTER : 1950 Sex: MFINAL [...] KIM RICHARDS on 10/05/2021 09:44 PMPOCT- GLUCOSE [id number] 17:49:22 Test Item Value Reference Range Interpretation Comments POC-GLUCOSE METER 302 mg/dL 70-110 H : TESTED A T [facility] 6720 (BEAKER) (test code = [facility], 1538) 73954: Transportation Security Officer/Techni funmilayo ID = [id number] for KUSHAL DAS POCT-GLUCOSE [id number] 15:09:04 Test Item Value Reference Range Interpretation Comments POC-GLUCOSE METER 224 mg/dL 70-110 H : TESTED A T [facility] 6720 (BEAKER) (test code = [facility], 1538) 76241: Transportation Security Officer/Techni funmilayo ID = [id number] for KUSHAL DAS POCT-GLUCOSE [id number] 08:54:24 Test Item Value Reference Range Interpretation Comments POC-GLUCOSE METER 187 mg/dL 70-110 H : TESTED A T [facility] 6720 (BEAKER) (test code = [facility], 1538) 79040: Transportation Security Officer/Techni funmilayo ID = [id number] for KUSHAL DAS BASIC METABOLIC [id number] 06:18:58 Test Item Value Reference Range Interpretation [...] eGFR (test code = mL/min/1.73 values Stage D escription 1092) sq m Result G1 Lexie l [...] not appl icable for dialysis patien ts Transportation Security Officer ID - [facility] (HEMOGRAM ONLY)2021-10-05 05:35:16 [...] 0-0 (BEAKER) (test code = 413) POCT-GLUCOSE [id number] 21:15:58 Test Item Value Reference Range Interpretation Comments POC-GLUCOSE METER 352 mg/dL 70-110 H : TESTED A T [facility] 6720 (BEAKER) (test code = [place], 1538) 52522: Transportation Security Officer/Techni funmilayo ID = [id number] for JESSICA BOBBY POCT-GLUCOSE [id number] 17:48:20 Test Item Value Reference Range Interpretation Comments POC-GLUCOSE METER 246 mg/dL 70-110 H : TESTED A T [facility] 6720 (BEAKER) (test code = CRUZ [place], 1538) 46360: Transportation Security Officer/Techni funmilayo ID = [id number] for KUSHAL DAS, NEPHROSTOGRAM, STENT, NEW [id number] 14:29:00Reason for exam:- >bilateral nephro ureteral tube placement - please discuss with urology Dr. herrera with any questions. Brilinta held starting 8/7 PM Reason for exam:- >biopsy of retroperitoneal mass/lymphadenopathy/fibrosis [facility] : 1950 Sex: MFINAL REPORT Bilateral percutaneous nephrostomy catheter placement Clinical History: Bilateral hydronephrosis. Modality: Sonography and fluoroscopy Nuclear Medical Tech: Yoshi Dietz MD.Sole Cementer: None. Sedation: Moderate sedation was administered. 2 mg of Versed and 100 mcg of fentanyl IV was used for moderate sedation monitored under my direction. Total intra-service time of sedation was 60 minutes. The patient's vital signs were [...] Amplatz wire was advanced down the proximal u reter. After a small skin incision was made, the soft tissue tract was dilated and a 8.5 Divehi drainage catheter was advanced over wire with [...] tissue tract was dilated and a 8.5 Divehi drainage catheter was advanced over wire with pigtail formed within the left renalpelvis. Contrast injection confirmed appropriate positioning. The catheter was fixed to the skin with silk suture and attached to gravity drainage. A sterile dressing was applied. The patient toleratedthe procedure well without immediate complication. Please note initial percutaneous nephrostomy catheter placement are requested. However, given recent anticoagulation will defer conversion to nephroureterostomy catheters after output from nephrostomy catheters are noted to be clear. This can be performed as an outpatient. Impression: Successful and uncomplicated ultrasound/fluoroscopic guided bilater al percutaneous nephrostomy catheter placement as above. Signed: Yoshi Dietz MDReport Verified Date/Time: 10/04/2021 14:29:34 Reading Location: [facility] P048 Angio Body Reading Room POCT-GLUCOSE [id number] 12:41:19 Test Item Value Reference Range Interpretation Comments POC-GLUCOSE METER 152 mg/dL 70-110 H : TESTED A T [facility] 6720 (BEAKER) (test code = CRUZ [place], 1538) 15363: Transportation Security Officer/Techni funmilayo ID = [id number] for KUSHAL DAS POCT-GLUCOSE [id number] 07:40:19 Test Item Value Reference Range Interpretation Comments POC-GLUCOSE METER 149 mg/dL 70-110 H : TESTED A T [facility] 6720 (BEAKER) (test code = CRUZ [place], 1538) 15273: Transportation Security Officer/Techni funmilayo ID = [id number] for KUSHAL DAS BASIC METABOLIC [id number] 04:18:36 Test Item Value Reference Range Interpretation [...] not appl icable for dialysis patien ts Transportation Security Officer ID - [place] [id number] 04:05:10 Test Item Value Reference Range Interpretation [...] 0-0 (BEAKER) (test code = 413) POCT-GLUCOSE [id number] 21:29:41 Test Item Value Reference Range Interpretation Comments POC-GLUCOSE METER 315 mg/dL 70-110 H : TESTED A T [facility] 6720 (BEAKER) (test code = [facility] [employer] [facility], 1538) 50087: Transportation Security Officer/Techni funmilayo ID = [id number] for UL YONNY KAYE POCT-GLUCOSE [id number] 17:17:55 Test Item Value Reference Range Interpretation Comments POC-GLUCOSE METER 277 mg/dL 70-110 H : TESTED A T [facility] 6720 (BEAKER) (test code = [facility] Language [employer] [facility], 1538) 68510: Transportation Security Officer/Techni funmilayo ID = [id number] for Hilda Woods POCT-GLUCOSE [id number] 08:32:22 Test Item Value Reference Range Interpretation Comments POC-GLUCOSE METER 123 mg/dL 70-110 H : TESTED A T [facility] 6720 (BEAKER) (test code = [place], 1538) [address]: Transportation Security Officer/Techni funmilayo ID = [id number] for Hilda Woods BASIC METABOLIC [id number] 07:07:13 Test Item Value Reference Range Interpretation [...] not appl icable for dialysis patien ts Transportation Security Officer ID - JAIME [id number] 06:59:12 Test Item Value Reference Range Interpretation [...] 0-0 (BEAKER) (test code = 413) POCT-GLUCOSE [id number] 21:49:30 Test Item Value Reference Range Interpretation Comments POC-GLUCOSE METER 269 mg/dL 70-110 H : TESTED A T [facility] 6720 (BEAKER) (test code = [facility], 153) 16307: Transportation Security Officer/Techni funmilayo ID = [id number] for UL LATTHOMAS YONNY POCT-GLUCOSE [id number] 17:30:11 Test Item Value Reference Range Interpretation Comments POC-GLUCOSE METER 288 mg/dL 70-110 H : TESTED A T [facility] 6720 (BEAKER) (test code = [facility], 153) 66651: Transportation Security Officer/Techni funmilayo ID = [id number] for Guido gudino Hilda RAD, CHEST, 1 VIEW, NON [id number] 16:43:00Reason for exam:->coughShould this be performed at the bedside?->Yes [facility] : 1950 Sex: MFINAL REPORT [...] De LeonMDReport Verified Date/Time: 10/02/2021 16:43:43 POCT-GLUCOSE [id number] 12:27:27 Test Item Value Reference Range Interpretation Comments POC-GLUCOSE METER 292 mg/dL 70-110 H : [facility] (IDOMOTICS) (test code = [facility], 1538) 92946: Transportation Security Officer/Techni funmilayo ID = [id number] for Ch Hilda gudino POCT-GLUCOSE [id number] 08:36:14 Test Item Value Reference Range Interpretation Comments POC-GLUCOSE METER 133 mg/dL 70-110 H : TESTED A T [facility] 6720 (IDOMOTICS) (test code = [facility], 1538) 70344: Transportation Security Officer/Techni funmilayo ID = [id number] for Ch ristian, Hilda BASIC METABOLIC [id number] 05:09:19 Test Item Value Reference Range Interpretation [...] not appl icable for dialysis patien ts Transportation Security Officer ID - MILTON MCBC (HEMOGRAM ONLY)2021-10-02 04:48:05 Test Item Value Reference [...] (AKER) (test code = 412) PLATELET COUNT ([facility]) (test 204 K/CU MM 150-450 code = 756) MEAN PLATELET VOLUME (AKER) 10.6 fL 9.4-12.4 (test code = 754) NUCLEATED RED BLOOD CELLS 0 /100 WBC 0-0 ([facility]) (test code = 413) POCT-GLUCOSE [id number] 21:34:49 Test Item Value Reference Range Interpretation Comments POC-GLUCOSE METER 311 mg/dL 70-110 H : TESTED A T [place] [address] ([facility]) (test code = [facility], 1538) 25666: Transportation Security Officer/Techni funmilayo ID = [id number] for SA JESSICA VILLATORO POCT-GLUCOSE [id number] 17:05:26 Test Item Value Reference Range Interpretation Comments POC-GLUCOSE METER 327 mg/dL 70-110 H : Notified RN/MD: ([facility]) (test code = TESTED AT [place] [address]) [facility], [address]: Transportation Security Officer/Techni funmilayo ID = [id number] for Sh Isatu vásquez POCT-GLUCOSE [id number] 12:53:23 Test Item Value Reference Range Interpretation Comments POC-GLUCOSE METER 177 mg/dL 70-110 H : Notified RN/MD: ([facility]) (test code = TESTED AT [place] [address] 153) [facility], [address]: Transportation Security Officer/Techni funmilayo ID = [id number] for SA KUSHAL LOREDO SARS-COV2/RT-PCR ([facility])2021-10-01 10:00:17 Test Item Value Reference Range Interpretation Comments SARS-COV2/RT-PCR (test Negative Not Detected, Negative, code = 1653561) See external report for linked test SARS-COV-2 PERFORMING LAB [facility] VALERI (test code = 3517129) Negative result for this test determines that [...] of the Act.Fact Sheet for Healthcare Prov iders:https://www.[employer]/sites/default/files/product/documents/Fact_Sheet_HC _Loninolfq_Omwb_UIEV-DlE-5.pdfFact Sheet for Healthcare Patients:https://www.[employer]/sites/default/files/product/docume nts/Fsjp_Luanz_Xdsyiqvo_Cjbj_FXQW-IrK-5.pdfPerforming Laboratory:[facility] [place], [place] [id number] METER 2021-10-01 07:55:43 Test Item Value Reference Range Interpretation Comments POC-GLUCOSE METER 152 mg/dL 70-110 H : TESTED A T [facility] 6720 (EMILIE) (test code = [place], 1538) [address]: Transportation Security Officer/Techni funmilayo ID = [id number] for KUSHAL DAS [id number] 07:01:21 Test Item Value Reference Range Interpretation Comments PARTIAL THROMBOPLASTIN TIME 29.9 seconds 22.5-36.0 (BEAKER) (test code = 760) PROTHROMBIN TIME/[id number] 07:01:02 Test Item Value Reference Range Interpretation Comments PROTIME (BEAKER) 13.9 seconds 11.9-14.2 (test code = 759) INR (BEAKER) (test 1.14 See_Comment [Automat ed message] code = 370) The system [employer] generated this result transmitted ref erence range: <=5.90. The reference range was not used to int erpret this result as normal/abnormal . RECOMMENDED COUMADIN/WARFARIN INR THERAPY RANGESSTANDARD DOSE: 2.0 - 3.0 Includes: PROPHYLAXIS for venous thrombosis, systemic embolization; TREATMENT for venous thrombosis and/or pulmonary embolus.HIGH RISK: Target INR is 2.5-3.5 for patients with mechanical heart valves.BASIC METABOLIC [id number] 05:24:04 Test Item Value Reference Range Interpretation [...] not appl icable for dialysis patien filipe Transportation Security Officer ID - PIAYA LCBC (HEMOGRAM ONLY)2021-10-01 04:29:49 [...] 0-0 (BEAKER) (test code = 413) POCT-GLUCOSE [id number] 21:33:46 Test Item Value Reference Range Interpretation Comments POC-GLUCOSE METER 272 mg/dL 70-110 H : TESTED A T [facility] 6720 (BEAKER) (test code = [place] [place], 1538) 29812: Transportation Security Officer/Techni funmilayo ID = [id number] for JESSICA BOBBY POCT-GLUCOSE [id number] 18:07:26 Test Item Value Reference Range Interpretation Comments POC-GLUCOSE METER 204 mg/dL 70-110 H : TESTED A T [facility] 6720 (BEAKER) (test code = [facility], 1538) 02013: Transportation Security Officer/Techni funmilayo ID = [id number] for KUSHAL DAS POCT-GLUCOSE [id number] 12:57:22 Test Item Value Reference Range Interpretation Comments POC-GLUCOSE METER 201 mg/dL 70-110 H : [facility] (test code = [facility], 1538) 7[address]: Transportation Security Officer/Techni funmilayo ID = [id number] for KUSHAL DAS PROTEIN ELECTROPHORESIS, SERUM WITH REFLEX TO [id number] 11:13:21 Test Item Value Reference Range Interpretation Comments ALBUMIN FRACTION 3.5 gm/dL 3.5-5.5 (BEAKER) (test code = 405) ALPHA 1 FRACTION 0.4 gm/dL 0.2-0.4 (BEAKER) (test code = 389) ALPHA 2 FRACTION 0.8 gm/dL 0.4-1.0 (BEAKER) (test code = 390) BETA FRACTION 0.7 gm/dL 0.5-1.1 (BEAKER) (test code = 392) GAMMA GLOBULIN 0.8 gm/dL 0.7-1.6 FRACTION (BEAKER) (test code = 391) INTERPRETATION-119 Normal electrophoretic (AKER) (test code pattern. No abnormal peak = 2615) detected. [id number] Abigail Titus M.D 9 ([facility]) (test (electronic signature) code = 2616) PROTEIN TOTAL 6.1 gm/dL 6.0-8.3 SERUM, SPEP (AKER) (test code = 2660) Transportation Security Officer ID - MILTON M-Transportation Security Officer ID - ADMOperator ID - ADMHEMOGLOBIN [id number] 10:39:25 Test Item Value Reference Range Interpretation Comments HEMOGLOBIN A1C 5.9 % See_Comment H [Automated m essage] ELECTROPHORESIS ([facility]) The system which (test code = 3811) generated this result transmitted ref erence range: <=5.6%. The reference range was not used to int erpret this result as normal/abnormal . "The A1c is measured using a NGSP-certified method. HbA1c value equal to or greater than 6.5% as thediagnosis cutoff for diabetes. An HbA1c value of 5.7- 6.4% indicates increased risk for diabetes (prediabetes)."Transportation Security Officer ID - ADMBASIC METABOLIC [id number] 08:17:58 Test Item Value Reference Range Interpretation [...] not appl icable for dialysis patien ts Transportation Security Officer ID - MOPOCT-GLUCOSE [id number] 08:06:49 Test Item Value Reference Range Interpretation Comments POC-GLUCOSE METER 150 mg/dL 70-110 H : TESTED A T [facility] 6720 (BEAKER) (test code = [place], 1538) [address]: Transportation Security Officer/Techni funmilayo ID = [id number] for KUSHAL DAS [id number] 08:04:57 Test Item Value Reference Range Interpretation Comments MAGNESIUM (BEAKER) (test code = 1.7 mg/dL 1.6-2.6 627) Transportation Security Officer ID - MOCBC W/PLT COUNT & AUTO [id number] 07:46:01 Test Item Value Reference Range Interpretation [...] PERCENT (BEAKER) (test code = 2801) POCT-GLUCOSE [id number] 20:54:59 Test Item Value Reference Range Interpretation Comments POC-GLUCOSE METER 334 mg/dL 70-110 H : TESTED A T [facility] 6720 (BEAKER) (test code = [facility], 1538) 01771: Transportation Security Officer/Techni funmilayo ID = [id number] for Isatu Barboza POCT-GLUCOSE [id number] 17:14:24 Test Item Value Reference Range Interpretation Comments POC-GLUCOSE METER 294 mg/dL 70-110 H : TESTED A T [facility] 6720 (BEAKER) (test code = [facility], 1538) 26065: Transportation Security Officer/Techni funmilayo ID = [id number] for Hilda Woods POCT-GLUCOSE [id number] 12:35:15 Test Item Value Reference Range Interpretation Comments POC-GLUCOSE METER 284 mg/dL 70-110 H : TESTED A T [facility] 6720 (BEAKER) (test code = [facility], 1538) 43217: Transportation Security Officer/Techni funmilayo ID = [id number] for Hilda Woods POCT-GLUCOSE [id number] 08:14:41 Test Item Value Reference Range Interpretation Comments POC-GLUCOSE METER 182 mg/dL 70-110 H : TESTED A T [facility] 6720 (BEAKER) (test code = [facility], 1538) 86255: Transportation Security Officer/Techni funmilayo ID = [id number] for Ch Jamia gudinoylynn CALCIUM, [id number] 08:08:36 Test Item Value Reference Range Interpretation Comments CALCIUM IONIZED (BEAKER) (test 1.18 mmol/L 1.12-1.27 code = 698) PH, BLOOD (BEAKER) (test code = 7.35 1810) BASIC METABOLIC [id number] 05:44:25 Test Item Value Reference Range Interpretation [...] not appl icable for dialysis patien ts Transportation Security Officer ID - MILTON [id number] 05:37:49 Test Item Value Reference Range Interpretation Comments MAGNESIUM (BEAKER) (test code = 1.6 mg/dL 1.6-2.6 627) Transportation Security Officer ID - MILTON MCBC W/PLT COUNT & AUTO [id number] 05:37:28 Test Item Value Reference Range Interpretation [...] PERCENT (BEAKER) (test code = 2801) POCT-GLUCOSE [id number] 21:26:35 Test Item Value Reference Range Interpretation Comments POC-GLUCOSE METER 147 mg/dL 70-110 H : TESTED A T [facility] 6720 (BEAKER) (test code = [place], 1538) [address]: Transportation Security Officer/Techni funmilayo ID = [id number] for VIRGINIE JAYDONPUJA MORELAND POCT-GLUCOSE [id number] 17:14:12 Test Item Value Reference Range Interpretation Comments POC-GLUCOSE METER 137 mg/dL 70-110 H : TESTED A T [facility] 6720 (BEAKER) (test code = [place], 1538) 18094: Transportation Security Officer/Techni funmilayo ID = [id number] for Adri PICKENS POCT-GLUCOSE [id number] 12:22:48 Test Item Value Reference Range Interpretation Comments POC-GLUCOSE METER 150 mg/dL 70-110 H : TESTED A T [facility] 6720 (BEAKER) ([facility] = [facility], 1538) 61673: Transportation Security Officer/Techni funmilayo ID = [id number] for Adri PICKENSA POCT-GLUCOSE [id number] 08:05:57 Test Item Value Reference Range Interpretation Comments POC-GLUCOSE METER 135 mg/dL 70-110 H : TESTED A T [facility] 6720 (BEAKER) (test code = [facility] Ned [facility], 1538) 03843: Transportation Security Officer/Techni funmilayo ID = [id number] for Adri PICKENS BASIC METABOLIC [id number] 05:41:11 Test Item Value Reference Range Interpretation [...] not appl icable for dialysis patien ts Transportation Security Officer ID - MILTON [facility] (HEMOGRAM ONLY)2021-09-28 04:50:11 Test Item Value Reference [...] (BEAKER) (test code = 413) U/S, RENAL, [id number] 01:52:00Reason for exam:->B hydronephrosis [facility] : 1950 Sex: MFINAL REPORT Renal ultrasound [...] Saavedra MDReport Verified Date/Time: 09/28/2021 01:52:26 POCT-GLUCOSE [id number] 21:28:14 Test Item Value Reference Range Interpretation Comments POC-GLUCOSE METER 226 mg/dL 70-110 H : [facility] (IDOMOTICS) (test code = [facility], 153) 02318: Transportation Security Officer/Techni funmilayo ID = [id number] for YONNY BRANCH POCT-GLUCOSE [id number] 18:11:09 Test Item Value Reference Range Interpretation Comments POC-GLUCOSE METER 109 mg/dL 70-110 : TESTED A T [facility] 6720 (IDOMOTICS) (test code = [facility], 1538) 10573: Transportation Security Officer/Techni funmilayo ID = [id number] for Justine Sheriff ANTI-NUCLEAR ANTIBODY (WILLIAN)2021-09-27 12:36:55 Test Item Value Reference Range Interpretation Comments ANTI-NUCLEAR ANTIBODY (WILLIAN) ([facility]) Negative Negative (test code = 418) Test performed by IFA method.POCT-GLUCOSE [id number] 12:17:08 Test Item Value Reference Range Interpretation Comments POC-GLUCOSE METER 137 mg/dL 70-110 H : TESTED A T [facility] 6720 (BEAKER) (test code = [facility], 1538) 26434: Transportation Security Officer/Techni funmilayo ID = [id number] for Hilda Woods [id number] 09:55:04 Test Item Value Reference Range Interpretation Comments PARTIAL THROMBOPLASTIN TIME 117.3 seconds 22.5-36.0 H (BEAKER) (test code = 760) POCT-GLUCOSE [id number] 08:08:34 Test Item Value Reference Range Interpretation Comments POC-GLUCOSE METER 126 mg/dL 70-110 H : TESTED A T [facility] 6720 (BEAKER) (test code = [facility], 1538) 28302: Transportation Security Officer/Techni funmilayo ID = [id number] for Hilda Woods [id number] 05:29:45 Test Item Value Reference Range Interpretation Comments FERRITIN (BEAKER) (test code = 112.21 ng/mL 5.00-275.00 361) Transportation Security Officer ID - MILTON Nagy-IRON, TIBC, % SAT. (WITHOUT FERRITIN)2021-09-27 05:23:21 Test Item Value Reference Range Interpretation Comments IRON (BEAKER) (test code = 547) 97.0 ug/dL 40.0-160.0 TOTAL IRON BINDING CAPACITY 263 ug/dL 250-450 (BEAKER) (test code = 769) IRON % SATURATION (2) (BEAKER) 37 % 20-55 (test code = 2590) Transportation Security Officer ID - MILTON Nagy-BASIC METABOLIC [id number] 05:08:42 Test Item Value Reference Range Interpretation [...] not appl icable for dialysis patien ts Transportation Security Officer ID - MILTON O-[id number] 05:07:14 Test Item Value Reference Range Interpretation Comments MAGNESIUM (BEAKER) (test code = 1.8 mg/dL 1.6-2.6 627) Transportation Security Officer ID - MILTON R-R-YSKCWFGI [id number] 05:07:14 Test Item Value Reference Range Interpretation Comments C-REACTIVE PROTEIN (BEAKER) (test 0.54 mg/dL 0.00-0.50 H code = 676) Transportation Security Officer ID - MILTON [id number] 22:39:06 Test Item Value Reference Range Interpretation Comments PARTIAL THROMBOPLASTIN TIME 34.0 seconds 22.5-36.0 (BEAKER) (test code = 760) POCT-GLUCOSE [id number] 21:35:07 Test Item Value Reference Range Interpretation Comments POC-GLUCOSE METER 124 mg/dL 70-110 H : TESTED A T [facility] 6720 (IDOMOTICS) (test code = [place], 1538) 55921: Transportation Security Officer/Techni funmilayo ID = [id number] for VIRGINIE JAYDONANICETO PUJA POCT-GLUCOSE [id number] 16:56:36 Test Item Value Reference Range Interpretation Comments POC-GLUCOSE METER 121 mg/dL 70-110 H : TESTED A T [facility] 6720 (EMILIE) (test code = [facility], 1538) 54538: Transportation Security Officer/Techni funmilayo ID = [id number] for KUSHAL DAS [id number] 15:21:45 Test Item Value Reference Range Interpretation Comments PARTIAL THROMBOPLASTIN TIME 64.9 seconds 22.5-36.0 H (EMILIE) (test code = 760) POCT-GLUCOSE [id number] 12:38:30 Test Item Value Reference Range Interpretation Comments POC-GLUCOSE METER 135 mg/dL 70-110 H : TESTED A T [facility] 6720 (EMILIE) (test code = [facility], 1538) 56026: Transportation Security Officer/Techni funmilayo ID = [id number] for KUSHAL DAS CT, [id number] 10:35:00Unlisted Reason for Exam - Click Yes and Enter Reason Below->NoIs this for enterography?->NoWill this procedure require oral contrast?->No [facility] : 1950 Sex: MFINAL REPORT [...] GI and intravenous contrast. No small large dilatationor wall thickening is apparent. Appendix is normal in caliber. Contiguous soft tissue mass/adenopathy is seen in the periaortic, aortocaval retroperitoneum extend to the bilateral common and right internal iliac iliac lymphatic chain. Prostate is normal in size. The urinary bladder is contracted. Vascular opacification is seen in the abdominal aorta, superior mesenteric, and bilateral iliac arteries.IMPRESSION: 1. Contiguous mass/adenopathy in the retroperitoneum extending to the pelvis suggestive of adenopathy or retroperitoneal fibrosis.2. Bilateral hydronephrosis and proximal hydroureter. Signed: Joe Sorensen MDReport Verified Date/Time: 09/26/2021 10:35:02 POCT-GLUCOSE [id number] 08:46:22 Test Item Value Reference Range Interpretation Comments POC-GLUCOSE METER 116 mg/dL 70-110 H : TESTED A T [facility] 6720 (BEAKER) (test code = [facility], 1538) 70748: Transportation Security Officer/Techni funmilayo ID = [id number] for KUSHAL DAS PT/[id number] 08:12:03 Test Item Value Reference Range Interpretation [...] is 2.5-3.5 for patients with mechanical heart valves.[id number] 07:15:37 Test Item Value Reference Range Interpretation Comments PARTIAL THROMBOPLASTIN TIME > seconds 22.5-36.0 HH (BEAKER) (test code = 760) BASIC METABOLIC [id number] 03:17:31 Test Item Value Reference Range Interpretation [...] not appl icable for dialysis patien ts Transportation Security Officer ID - JAIME [id number] 02:48:05 Test Item Value Reference Range Interpretation Comments MAGNESIUM (BEAKER) (test code = 1.9 mg/dL 1.6-2.6 627) Transportation Security Officer ID - JAIME LHIGH SENSITIVITY TROPONIN [id number] 02:46:23 Test Item Value Reference Range Interpretation Comments HIGH SENSITIVITY 337 pg/ml See_Comment H [Automated message] TROPONIN I (test code The sy stem which = 6117043) generated this result transmitted ref erence range: <=35. Th e reference range was not used to int erpret this result as normal/abnormal . Transportation Security Officer ID - MILTON MThe PROCESS IMPROVEMENT ENGINEER STAT High Sensitivity Troponin-I results should be used in conjunction with other diagnostic information such as ECG, clinical observations and information, and patient symptoms to aid in the diagnosis of [place].POCT-GLUCOSE [id number] 22:04:13 Test Item Value Reference Range Interpretation Comments POC-GLUCOSE METER 139 mg/dL 70-110 H : [facility] ([facility] (test code = [facility], 1538) 27011: Transportation Security Officer/Techni funmilayo ID = [id number] for JESSICA BOBBY [id number] 18:59:14 Test Item Value Reference Range Interpretation Comments PARTIAL THROMBOPLASTIN TIME 42.8 seconds 22.5-36.0 H ([facility]) (test code = 760) POCT-GLUCOSE [id number] 17:22:21 Test Item Value Reference Range Interpretation Comments POC-GLUCOSE METER 113 mg/dL 70-110 H : [facility] (test code = [facility], 1538) 94185: Transportation Security Officer/Techni funmilayo ID = [id number] for KUSHAL DAS U/S, RENAL, [id number] 14:34:00Reason for exam:->JASON on CKD [facility] : 1950 Sex: MFINAL REPORT [...] Thony Marie Verified Date/Time: 09/25/2021 14:34:08 POCT-GLUCOSE [id number] 12:15:59 Test Item Value Reference Range Interpretation Comments POC-GLUCOSE METER 123 mg/dL 70-110 H : [facility] A T [facility] 6720 [facility] (test code = [facility], 1538) 45547: Transportation Security Officer/Techni funmilayo ID = [id number] for KUSHAL DAS [id number] 10:04:57 Test Item Value Reference Range Interpretation Comments PARTIAL THROMBOPLASTIN TIME 46.9 seconds 22.5-36.0 H (BEAKER) (test code = 760) POCT-GLUCOSE [id number] 08:39:00 Test Item Value Reference Range Interpretation Comments POC-GLUCOSE METER 116 mg/dL 70-110 H : [facility] A T [facility] 6720 [facility] (test code = [facility], 1538) 09847: Transportation Security Officer/Techni funmilayo ID = [id number] for KUSHAL DAS PROTEIN, RANDOM [id number] 07:06:23 Test Item Value Reference Range Interpretation Comments PROTEIN, URINE (BEAKER) (test code = < mg/dL 0-14 1569) Transportation Security Officer ID - BSCREATININE, RANDOM [id number] 07:05:15 Test Item Value Reference Range Interpretation Comments CREATININE URINE (BEAKER) (test 43.5 mg/dL code = 375) Reference Range: No NormalsOperator ID - BSBASIC METABOLIC [id number] 04:19:40 Test Item Value Reference Range Interpretation [...] not appl icable for dialysis patien ts Transportation Security Officer ID - PETERSON GLIPID [id number] 04:19:26 Test Item Value Reference Range Interpretation [...] Borderline 130-159 High 160-189 Very High >=190 Transportation Security Officer ID Belen WINKLER [id number] 04:19:25 Test Item Value Reference Range Interpretation Comments MAGNESIUM (BEAKER) (test code = 2.1 mg/dL 1.6-2.6 627) Transportation Security Officer ID - PETERSON [id number] 04:19:25 Test Item Value Reference Range Interpretation Comments PHOSPHORUS (BEAKER) (test code = 4.8 mg/dL 2.3-4.7 H 604) Transportation Security Officer ID - PETERSON [id number] 04:10:58 Test Item Value Reference Range Interpretation Comments PARTIAL THROMBOPLASTIN TIME 52.7 seconds 22.5-36.0 H (BEAKER) (test code = 760) HIGH SENSITIVITY TROPONIN [id number] 00:03:34 Test Item Value Reference Range Interpretation Comments HIGH SENSITIVITY 717 pg/ml See_Comment HH [Automated message] TROPONIN I (test code The sy stem which = [id number]) generated this result transmitted ref erence range: <=35. Th e reference range was not used to int erpret this result as normal/abnormal . Transportation Security Officer ID - BSThe PROCESS IMPROVEMENT ENGINEER STAT High Sensitivity Troponin-I results should be used in conjunctionwith other diagnostic information such as ECG, clinical observations and information, and patient symptoms to aid in the diagnosis of UT.[id number] 23:10:05 Test Item Value Reference Range Interpretation Comments PARTIAL THROMBOPLASTIN TIME 48.3 seconds 22.5-36.0 H (BEAKER) (test code = 760) POCT-GLUCOSE [id number] 21:09:03 Test Item Value Reference Range Interpretation Comments POC-GLUCOSE METER 159 mg/dL 70-110 H : TESTED A T [facility] 6720 (BEAKER) (test code = [facility], 1538) 93363: Transportation Security Officer/Techni funmilayo ID = [id number] for BERNADETTE BRANCHAK CREATININE, RANDOM [id number] 18:38:16 Test Item Value Reference Range Interpretation Comments CREATININE URINE (BEAKER) (test 87.9 mg/dL code = 375) Reference Range: No NormalsOperator ID - BSSODIUM, RANDOM [id number] 18:38:16 Test Item Value Reference Range Interpretation Comments SODIUM URINE (BEAKER) (test code = 33 meq/L 243) Reference Range: No NormalsOperator ID - BSPOCT-GLUCOSE [id number] 17:19:46 Test Item Value Reference Range Interpretation Comments POC-GLUCOSE METER 110 mg/dL 70-110 : TESTED A T [facility] 6720 ([facility]) (test code = [facility], 1538) 72287: Transportation Security Officer/Techni funmilayo ID = [id number] for Hilda Woods HIGH SENSITIVITY TROPONIN [id number] 17:17:34 Test Item Value Reference Range Interpretation Comments HIGH SENSITIVITY 1265 pg/ml See_Comment HH [Automated message] TROPONIN I (test code The sy stem which = [id number]) generated this result transmitted ref erence range: <=35. Th e reference range was not used to int erpret this result as normal/abnormal . Transportation Security Officer ID - BSTreji PROCESS IMPROVEMENT ENGINEER STAT High Sensitivity Troponin-I results should be used in conjunctionwith other diagnostic information such as ECG, clinical observations and information, and patient symptoms to aid in the diagnosis of UT.[id number] 12:47:42 Test Item Value Reference Range Interpretation Comments PARTIAL THROMBOPLASTIN TIME 26.1 seconds 22.5-36.0 ([facility]) (test code = 760) POCT-GLUCOSE [id number] 12:17:30 Test Item Value Reference Range Interpretation Comments POC-GLUCOSE METER 155 mg/dL 70-110 H : TESTED A T [facility] 6720 ([facility]) (test code = [facility], 1538) 630[address]: Transportation Security Officer/Techni funmilayo ID = [id number] for Hilda Woods HIGH SENSITIVITY TROPONIN [id number] 08:48:28 Test Item Value Reference Range Interpretation Comments HIGH SENSITIVITY 778 pg/ml See_Comment HH [Automated message] TROPONIN I (test code The sy stem which = [id number]) generated this result transmitted ref erence range: <=35. Th e reference range was not used to int erpret this result as normal/abnormal . Transportation Security Officer ID - CHAIAYA LThe PROCESS IMPROVEMENT ENGINEER STAT High Sensitivity Troponin-I results should be used in conjunction with other diagnostic information such as ECG, clinical observations and information, and patient symptoms to aid in the diagnosis of UT.HEMOGLOBIN [id number] 08:45:42 Test Item Value Reference Range Interpretation Comments HEMOGLOBIN A1C 5.8 % See_Comment H [Automated m essage] ELECTROPHORESIS (BEAKER) The system which (test code = 3811) generated this result transmitted ref erence range: <=5.6%. The reference range was not used to int erpret this result as normal/abnormal . "The A1c is measured using a [employer] [facility]-certified method. HbA1c value equal to or greater than 6.5% as thediagnosis cutoff for diabetes. An HbA1c value of 5.7- 6.4% indicates increased risk for diabetes (prediabetes)."Transportation Security Officer ID - ADMPOCT- GLUCOSE [id number] 08:25:32 Test Item Value Reference Range Interpretation Comments POC-GLUCOSE METER 105 mg/dL 70-110 : TESTED A T [facility] 6720 (BEAKER) (test code = [place], 1538) [address]: Transportation Security Officer/Techni funmilayo ID = [id number] for Hilda Woods BASIC METABOLIC [id number] 06:24:38 Test Item Value Reference Range Interpretation [...] eGF R is based on the CKD-EPI 1 equation that d oes not use a race coefficientEsti mated GFR is not as accur ate as Creatinine Kaitlyn julien in predicting glom erular filtration rate . Estimated GFR is not appl icable for dialysis patien ts Transportation Security Officer ID - JAIME LHEPATIC FUNCTION [id number] 06:18:53 Test Item Value Reference Range Interpretation [...] (test code = 9 U/L 6-55 347) Transportation Security Officer ID - JAIME [id number] 06:18:52 Test Item Value Reference Range Interpretation Comments MAGNESIUM (BEAKER) (test code = 1.5 mg/dL 1.6-2.6 L 627) Transportation Security Officer ID - CHAIBRITTNY [id number] 06:18:52 Test Item Value Reference Range Interpretation Comments PHOSPHORUS (BEAKER) (test code = 4.7 mg/dL 2.3-4.7 604) Transportation Security Officer ID - JAIME LHIGH SENSITIVITY TROPONIN [id number] 05:47:38 Test Item Value Reference Range Interpretation Comments HIGH SENSITIVITY 356 pg/ml See_Comment H [Automated message] TROPONIN I (test code The sy stem which = [id number]) generated this result transmitted ref erence range: <=35. Th e reference range was not used to int erpret this result as normal/abnormal . Transportation Security Officer ID - CHAIBRITTNY LThe PROCESS IMPROVEMENT ENGINEER STAT High Sensitivity Troponin-I results should be used in conjunction with other diagnostic information such as ECG, clinical observations and information, and patient symptoms to aid in the diagnosis of UT.PROTHROMBIN TIME/[id number] 05:39:34 Test Item Value Reference Range Interpretation Comments PROTIME (BEAKER) 14.2 seconds 11.9-14.2 (test code = 759) INR (BEAKER) (test 1.17 See_Comment [Automat ed message] code = 370) The system [employer] generated this result transmitted ref erence range: <=5.90. The reference range was not used to int erpret this result as normal/abnormal . RECOMMENDED COUMADIN/WARFARIN INR THERAPY RANGESSTANDARD DOSE: 2.0 - 3.0 Includes: PROPHYLAXIS for venous thrombosis, systemic embolization; TREATMENT for venous thrombosis and/or pulmonary embolus.HIGH RISK: Target INR is 2.5-3.5 for patients with mechanical heart valves.CBC W/PLT COUNT & AUTO [id number] 05:21:01 Test Item Value Reference Range Interpretation [...] PERCENT (BEAKER) (test code = 2801) POCT-GLUCOSE [id number] 00:06:35 Test Item Value Reference Range Interpretation Comments POC-GLUCOSE METER 138 mg/dL 70-110 H : TESTED A T [facility] (BEAKER) (test code = CRUZ Marino [facility], 1538) 33997: Transportation Security Officer/Techni funmilayo ID = [id number] for YONNY BRANCH SARS-COV2/RT-PCR ([facility])2021-09-23 22:57:17 Test Item Value Reference Range Interpretation Comments SARS-COV2/RT-PCR Negative Negative The SARS-Co V-2 target (test code = nucleic acids a re not [id number]) detected in thi s specimen. Negative result [...] revoked sooner. Fact Sheet for Healthcare Providers: https://www.[employer] m/Documents/Xpert%20Xpress%20SARS%20CoV-2/Fact%20Sheets/302-3802%51AGGS-PRB-5%20 HEALTHCARE%20PROVIDERS%20FACT%20SHEET.pdf Fact Sheet for Healthcare Patients: https://www.[employer]/Documents/Xpert%20Xp ress%20SARS%20CoV-2/Fact%20Sheets/302-3801%71IJMO-VHU-0%20PATIENT%20FACT%20SHEET .pdfURINALYSIS W/ REFLEX URINE [id number] 20:40:35 Test Item Value Reference Range Interpretation [...] (test code = 2795) RAD, CHEST, 2 [id number] 20:22:00Reason for exam:->HYPERTENSIONReason for exam:->DIZZINESSShould this be performed at the bedside?->No [facility] : 1950 Sex: MFINAL REPORT [...] Saavedra Verified Date/Time: 09/23/2021 20:22:26 D TROPONIN [id number] 19:05:22 Test Item Value Reference Range Interpretation Comments RAPID TROPONIN I (BEAKER) (test code < ng/mL <0.05 = 1483) BASIC METABOLIC [id number] 19:02:06 Test Item Value Reference Range Interpretation [...] high >=90 G2 Mildly decreased 60-89 G3a Mild ly to moderately 45-5 9 G3b Moderately to [...] patien ts CBC W/PLT COUNT & AUTO [id number] 18:53:52 Test Item Value Reference Range Interpretation [...] 0.00-0.20 (test code = 417) FB Removal- [id number] 09:17:00Nellie Enriquez MD ? ? 05/31/2020 ?4:17 [...] tolerance of procedure: ?Tolerated well, no immediate complicationsUnTexas Health Hospital [facility][U] XRAY KNEE 4 OR MORE VWS BILATERAL [id number] 08:23:00Images acquired, not reported on this accession number.LA PhysiciansPOCT-GLUCOSE [id number] 12:11:00 Test Item Value Reference Range Interpretation Comments POC-GLUCOSE METER 253 mg/dL 70-110 H : TESTED A T [facility] 6720 (BEAKER) (test code = [facility] Ned [facility], 1538) 46297: Transportation Security Officer/Techni funmilayo ID = [id number] for MINOO NTER, GRACEWITHA POCT-GLUCOSE [id number] 07:40:00 Test Item Value Reference Range Interpretation Comments POC-GLUCOSE METER 160 mg/dL 70-110 H : TESTED A T [facility] 6720 (BEAKER) (test code = [facility] Ned [facility], 1538) 54607: Transportation Security Officer/Techni funmilayo ID = [id number] for HU NTER, HIWITHA BASIC METABOLIC [id number] 06:13:00 Test Item Value Reference Range Interpretation [...] S NOT APPLICABLE FOR DIALYSIS PATIEN TS. Transportation Security Officer ID - MILTON MCBC (HEMOGRAM ONLY)2019-10-17 05:34:00 [...] 0-0 (BEAKER) (test code = 413) POCT-GLUCOSE [id number] 21:23:00 Test Item Value Reference Range Interpretation Comments POC-GLUCOSE METER 227 mg/dL 70-110 H : TESTED A T [facility] 6720 (AKER) (test code = [facility], 153) 59480: Transportation Security Officer/Techni funmilayo ID = [id number] for COOPER BULL POCT-GLUCOSE [id number] 16:26:00 Test Item Value Reference Range Interpretation Comments POC-GLUCOSE METER 188 mg/dL 70-110 H : TESTED A T [facility] 6720 (BEAKER) (test code = [facility], 153) 20797: Transportation Security Officer/Techni funmilayo ID = [id number] for [place] LLIAMS, TYNEKA POCT-GLUCOSE [id number] 11:59:00 Test Item Value Reference Range Interpretation Comments POC-GLUCOSE METER 172 mg/dL 70-110 H : TESTED A T [facility] 6720 (BEAKER) (test code = [facility], 153) 54341: Transportation Security Officer/Techni funmilayo ID = [id number] for [place] LLIAMS, TYNEKA POCT-GLUCOSE [id number] 08:11:00 Test Item Value Reference Range Interpretation Comments POC-GLUCOSE METER 147 mg/dL 70-110 H : TESTED A T [facility] 6720 (BEAKER) (test code = [place], 1538) 65[address]: Transportation Security Officer/Techni funmilayo ID = [id number] for NILE LOPEZ [id number] 04:10:00 Test Item Value Reference Range Interpretation Comments MAGNESIUM (BEAKER) (test code = 1.9 mg/dL 1.6-2.6 627) Transportation Security Officer EMA ROSE MBASIC METABOLIC [id number] 04:10:00 Test Item Value Reference Range Interpretation [...] S NOT APPLICABLE FOR DIALYSIS PATIEN TS. Transportation Security Officer ID Belen ROSE MCBC (HEMOGRAM ONLY)2019-10-16 03:46:00 Test Item Value [...] 0-0 (BEAKER) (test code = 413) POCT-GLUCOSE [id number] 21:53:00 Test Item Value Reference Range Interpretation Comments POC-GLUCOSE METER 167 mg/dL 70-110 H : TESTED A T [facility] 6720 (BEAKER) (test code = [facility], [facility]8) 61059: Transportation Security Officer/Techni funmilayo ID = [id number] for KE BE, SAUDATU POCT-GLUCOSE [id number] 16:06:00 Test Item Value Reference Range Interpretation Comments POC-GLUCOSE METER 135 mg/dL 70-110 H : TESTED A T [facility] 6720 (BEAKER) (test code = [facility], 1538) 59450: Transportation Security Officer/Techni funmilayo ID = [id number] for BE RNABE, OSCAR POCT-GLUCOSE [id number] 12:15:00 Test Item Value Reference Range Interpretation Comments POC-GLUCOSE METER 211 mg/dL 70-110 H : TESTED A T [facility] 6720 (BEAKER) (test code = [facility], 1538) 43964: Transportation Security Officer/Techni funmilayo ID = [id number] for BE RNABE, OSCAR POCT-GLUCOSE [id number] 08:25:00 Test Item Value Reference Range Interpretation Comments POC-GLUCOSE METER 102 mg/dL 70-110 : TESTED A T [facility] 6720 (BEAKER) (test code = [facility], 1538) 79926: Transportation Security Officer/Techni funmilayo ID = [id number] for BE RNABE, OSCAR [id number] 06:07:00 Test Item Value Reference Range Interpretation Comments MAGNESIUM (BEAKER) (test code = 2.0 mg/dL 1.6-2.6 627) Transportation Security Officer ID - MILTON MBASIC METABOLIC [id number] 06:07:00 Test Item Value Reference Range Interpretation [...] S NOT APPLICABLE FOR DIALYSIS PATIEN TS. Transportation Security Officer ID - MILTON MCBC W/PLT COUNT & AUTO [id number] 05:38:00 Test Item Value Reference Range Interpretation [...] 0-1 PERCENT (BEAKER) (test code = 2801) [id number] 00:24:00 Test Item Value Reference Range Interpretation Comments ACTIVATED CLOTTING TIME 109 sec : 74 -137 seconds, (BEAKER) (test code = Baseljoseph ne: TESTED AT 441) [facility] 6720 [facility], 770 30: Transportation Security Officer/Techni funmilayo ID = [id number] for MILADIS LEMA [place] POCT-GLUCOSE [id number] 20:30:00 Test Item Value Reference Range Interpretation Comments POC-GLUCOSE METER 187 mg/dL 70-110 H : TESTED A T [facility] 6720 (BEAKER) (test code = [facility], 1538) 82202: Transportation Security Officer/Techni funmilayo ID = [id number] for SUSANNAH LARKINI [id number] 20:27:00 Test Item Value Reference Range Interpretation Comments ACTIVATED CLOTTING TIME 153 sec : 74 -137 seconds, (BEAKER) (test code = Baseli ne: TESTED AT [facility]) [address], [facility] 30: Transportation Security Officer/Techni funmilayo ID = [id number] for MILADIS LEMA [id number] 19:10:00 Test Item Value Reference Range Interpretation Comments ACTIVATED CLOTTING TIME 175 sec : 74 -137 seconds, (BEAKER) (test code = Baseli ne: TESTED AT [facility]) [address], [facility] 30: Transportation Security Officer/Techni funmilayo ID = [id number] for STEPHENIE ZUNIGA POCT-GLUCOSE [id number] 17:38:00 Test Item Value Reference Range Interpretation Comments POC-GLUCOSE METER 105 mg/dL 70-110 : TESTED A T [place] [address] (BEAKER) (test code = [facility], 1538) 25662: Transportation Security Officer/Techni funmilayo ID = [id number] for BE RNABE, OSCAR [id number] 17:03:00 Test Item Value Reference Range Interpretation Comments ACTIVATED CLOTTING TIME 224 sec : 74 -137 seconds, (BEAKER) (test code = Baseli ne: TESTED AT [facility]) [address], [facility] 30: Transportation Security Officer/Techni funmilayo ID = [id number] for DE NNIS, CONNOR [id number] 16:48:00 Test Item Value Reference Range Interpretation Comments ACTIVATED CLOTTING TIME 263 sec : 74 -137 seconds, (BEAKER) (test code = Baseli ne: TESTED AT [facility]) [address], [facility] 30: Transportation Security Officer/Techni funmilayo ID = [id number] for At chison, Rukhsana [id number] 16:06:00 Test Item Value Reference Range Interpretation Comments ACTIVATED CLOTTING TIME 230 sec : 74 -137 seconds, (BEAKER) (test code = Baseli ne: TESTED AT [facility]) [address], [facility] 30: Transportation Security Officer/Techni funmilayo ID = [id number] for At chison, Rukhsana [id number] 15:54:00 Test Item Value Reference Range Interpretation Comments ACTIVATED CLOTTING TIME 219 sec : 74 -137 seconds, (BEAKER) (test code = Baseli ne: TESTED AT 441) [facility] 6720 MARIBELL SANDOVAL [facility], 770 30: Transportation Security Officer/Techni funmilayo ID = [id number] for At Rukhsana collins POCT-GLUCOSE [id number] 14:00:00 Test Item Value Reference Range Interpretation Comments POC-GLUCOSE METER 127 mg/dL 70-110 H : TESTED A T [facility] 6720 (EMILIE) (test code = CRUZ Marino [facility], 1538) 47784: Transportation Security Officer/Techni funmilayo ID = [id number] for OSCAR COLVIN SARS-COV2/RT-PCR ([facility])2019-10-14 11:00:00 Test Item Value Reference Range Interpretation Comments SARS-COV2/RT-PCR (test Negative Not Detected, Negative, code = 3601638) See external report for linked test SARS-COV-2 PERFORMING LAB [facility] (test code = 4403492) Negative result for this test determines that [...] of the Act.Fact Sheet for Healthcare Prov iders:https://www.[employer]/sites/default/files/product/documents/Fact_Sheet_HC _Bwwoqtfoi_Jxfh_ZJDN-MyL-3.pdfFact Sheet for Healthcare Patients:https://www.[employer]/sites/default/files/product/docume nts/Cwou_Pjnrf_Ujcopeco_Qfsu_SKRF-LpK-6.pdfPerforming Laboratory:[facility] [place], [place] [address]douglas [place], [place] [id number] 07:22:00 Test Item Value Reference Range Interpretation Comments PARTIAL THROMBOPLASTIN TIME 49.7 seconds 22.5-36.0 H (BEAKER) (test code = 760) 6 hours after starting heparin infusion and as indicated per sliding scale TROPONIN [id number] 03:08:00 Test Item Value Reference Range Interpretation [...] failure, acidosis, acute neurological disease, and persistent tachyarrhythmia.Transportation Security Officer ID Belen SANDOVAL LB-TYPE NATRIURETIC FACTOR (BNP)2019-10-14 03:03:00 Test Item Value Reference Range Interpretation Comments B-TYPE NATRIURETIC PEPTIDE (BEAKER) 114 pg/mL 0-100 H (test code = 700) Transportation Security Officer ID - JAIME [id number] 03:00:00 Test Item Value Reference Range Interpretation Comments MAGNESIUM (BEAKER) (test code = 1.7 mg/dL 1.6-2.6 627) Transportation Security Officer ID - JAIME LBASIC METABOLIC [id number] 03:00:00 Test Item Value Reference Range Interpretation [...] S NOT APPLICABLE FOR DIALYSIS PATIEN TS. Transportation Security Officer ID - PIAYA LCBC W/PLT COUNT & AUTO [id number] 02:34:00 Test Item Value Reference Range Interpretation [...] = 2801) RAD, CHEST, 1 VIEW, NON [id number] 22:17:00Reason for exam:->CHEST PAINShould this be performed [...] pneumothorax. No acute osseous abnormality. Signed: [facility] Verified Date/Time: 10/13/2019 22:17:33 CBC W/PLT COUNT & AUTO [id number] 22:12:00 Test Item Value Reference Range Interpretation [...] 0-100 (test code = 700) RAPID TROPONIN [id number] 22:09:00 Test Item Value Reference Range Interpretation Comments RAPID TROPONIN I (BEAKER) (test code < ng/mL <0.05 = 1483) [id number] 22:08:00 Test Item Value Reference Range Interpretation [...] for patients with mechanical heart valves.BASIC METABOLIC [id number] 22:07:00 Test Item Value Reference Range Interpretation [...] APPLICABLE FOR DIALYSIS PATIEN TS. HEPATIC FUNCTION [id number] 22:07:00 Test Item Value Reference Range Interpretation [...] code = 28 U/L 5-50 347) POCT-GLUCOSE [id number] 17:17:00 Test Item Value Reference Range Interpretation Comments POC-GLUCOSE METER 225 mg/dL 70-110 H : TESTED A T [facility] 6720 (BEAKER) (test code [facility], = 1538) 11612: Transportation Security Officer/Techni funmilayo ID = [id number] for LALA APONTE POCT-GLUCOSE [id number] 11:09:00 Test Item Value Reference Range Interpretation Comments POC-GLUCOSE METER 352 mg/dL 70-110 H : TESTED A T [facility] 6720 (BEAKER) (test code [facility], = 1538) 00929: Transportation Security Officer/Techni funmilayo ID = [id number] for LALA APONTE BASIC METABOLIC [id number] 10:21:00 Test Item Value Reference Range Interpretation [...] S NOT APPLICABLE FOR DIALYSIS PATIEN TS. Transportation Security Officer ID - BSCBC (HEMOGRAM ONLY)2019-03-17 05:04:00 Test [...] 0-0 (BEAKER) (test code = 413) POCT-GLUCOSE [id number] 22:08:00 Test Item Value Reference Range Interpretation Comments POC-GLUCOSE METER 295 mg/dL 70-110 H : TESTED A T [facility] 6720 (BEAKER) (test code = [place], 1538) [address]: Transportation Security Officer/Techni funmilayo ID = [id number] for TRUMAN BURRIS [id number] 17:12:00 Test Item Value Reference Range Interpretation Comments MAGNESIUM (BEAKER) (test code = 1.4 mg/dL 1.6-2.6 L 627) Transportation Security Officer ID - [id number]-[id number] 15:51:00 Test Item Value Reference Range Interpretation Comments ACTIVATED CLOTTING TIME 263 sec Refe rence Range: 74-137 (BEAKER) (test code = second s, 441) Baseline/TESTED AT [facility] 6720 [facility] 7703 0 [id number] 15:39:00 Test Item Value Reference Range Interpretation Comments ACTIVATED CLOTTING TIME 246 sec Refe rence Range: 74-137 (BEAKER) (test code = second s, 441) Baseline/TESTED AT [facility] 6720 [facility] [place] [address] 0 [id number] 15:16:00 Test Item Value Reference Range Interpretation Comments ACTIVATED CLOTTING TIME 213 sec Refe rence Range: 74-137 (BEAKER) (test code = second s, 441) Baseline/TESTED AT [facility] 6720 [facility] [place] [address] 0 PLATELET AGGREGATION: DRUG [id number] 14:48:00 Test Item Value Reference Range Interpretation Comments ARACHADONIC ACID 13 % 63-89 L RESULT(BEAKER) (test code = 2138) PLATELET AGG DRUG Decreased response to INTERPRETATION (BEAKER) arachidonic acid (test code = 2408) suggests aspirin-like effect. PLATELET AGG DRUG Decreased aggregation INTERPRETATION (BEAKER) with ADP which (test code = 112688) indicates platelet dysfunction that may be due to medication effect, uremia, or other platelet function disorders. Clinical correlation is required. [id number] Mary Miranda MD (BEAKER) (test code = (electronic 2621) signature) PLATELET COUNT AGG 174 K/CU MM 150-450 (BEAKER) (test code = 2656) PLATELET RICH 276 k/cu mm 200-300 PLASMA(BEAKER) (test code = 2134) Platelet function studies by aggregation methodology on samples with platelet count <75,000/CU MMare unreliable; platelet function assessment should not be based on a single test.Transportation Security Officer ID - [id number] [id number] 14:47:00 Test Item Value Reference Range Interpretation Comments HEMOGLOBIN A1C (BEAKER) (test code = 9.1 % 4.3-6.1 H 368) LIPID [id number] 14:44:00 Test Item Value Reference Range Interpretation [...] Borderline 130-159 High 160-189 Very High >=190 Transportation Security Officer ID - BSTROPONIN [id number] 10:57:00 Test Item Value Reference Range Interpretation [...] failure, acidosis, acute neurological disease, and persistent tachyarrhythmia.Transportation Security Officer ID - PALMIRA CB-TYPE NATRIURETIC FACTOR (BNP)2019-03-16 10:56:00 Test Item Value Reference Range Interpretation Comments B-TYPE NATRIURETIC PEPTIDE (BEAKER) 73 pg/mL 0-100 (test code = 700) Transportation Security Officer ID - PALMIRA CCOMPREHENSIVE METABOLIC [id number] 10:50:00 Test Item Value Reference Range Interpretation [...] = 382) CO2 (BEAKER) (test 24 meq/L 22-29 code = 355) BLOOD UREA NITROGEN 19 [...] S NOT APPLICABLE FOR DIALYSIS PATIEN TS. Transportation Security Officer ID - PALMIRA CPT/[id number] 10:46:00 Test Item Value Reference Range Interpretation [...] 2.5-3.5 for patients wiht mechanical heart valves.PROTHROMBIN TIME/[id number] 10:45:00 Test Item Value Reference Range Interpretation [...] mechanical heart valves.CBC W/PLT COUNT & AUTO [id number] 10:31:00 Test Item Value Reference Range Interpretation [...] (BEAKER) (test code = 2801) RAPID TROPONIN [id number] 05:50:00 Test Item Value Reference Range Interpretation Comments RAPID TROPONIN I (BEAKER) (test code < ng/mL <0.05 = 1483) RAD, CHEST, 1 VIEW, NON [id number] 22:32:00Reason for exam:->CHEST PAINShould this be performed [...] No acute cardiopulmonary abnormality. Signed: Erin Womack [facility] Verified Date/Time: 03/15/2019 22:32:48 RAPID TROPONIN [id number] 22:18:00 Test Item Value Reference Range Interpretation Comments RAPID TROPONIN I (BEAKER) (test code < ng/mL <0.05 = 1483) COMPREHENSIVE METABOLIC [id number] 22:17:00 Test Item Value Reference Range Interpretation [...] PATIEN TS. CBC W/PLT COUNT & AUTO [id number] 21:59:00 Test Item Value Reference Range Interpretation [...] code = 417) Microalbumin/Creatinine [Mass Ratio] in [id number] 16:34:00 Test Item Value Reference Range Interpretation Comments microalbumin random urine 32 ug/mL (test code = microalbumin random urine) creatinine random urine (test 177.9 mg/dL 20.0-370.0 code = creatinine random urine) microalbumin/creatinine 18 mcg/mg creat (random urine) ratio calculated (test code = microalbumin/creatinine (random urine) ratio calculated) [facility] W Auto Differential panel - [id number] 02:11:00 Test Item Value Reference Range Interpretation [...] fL 7.5-12.5 absolute neutrophils (test 4696 cells/uL 4381-7158 code = absolute neutrophils) absolute lymphocytes (test [...] basophils (test code = 1.0 % basophils) [facility] - Serum or Plasma [...] (test code = anion 10 calc gap) [facility] - Serum or [id number] 13:28:00 Test Item Value Reference Range Interpretation [...] Serum or Plasma (test code = 2089-1) [facility] [Units/volume] in Serum or [id number] 13:28:00 Test Item Value Reference Range Interpretation Comments TSH (test code = TSH) 3.019 uIU/mL 0.350-4.940 [facility]PSA, serum or [id number] 13:28:00 Test Item Value Reference Range Interpretation Comments PSA, total (test code = PSA, 0.29 NG/mL 0.00-4.00 total) [facility]ensionHemoglobin A1c/Hemoglobin.total in [id number] 12:43:00 Test Item Value Reference Range Interpretation Comments Hemoglobin A1c/Hemoglobin.total in 8.6 % 1.0-5.7 H Blood (test code = 4548-4) average blood glucose (test code = 200 mg/dL average blood glucose) [facility][U] XRAY KNEE 3 VWS RIGHT [id number] 08:24:00Images acquired, not reported on this accession number.UT PhysiciansPLATELET AGGREGATION: FUNCTION [id number] 16:37:00 Test Item Value Reference Range Interpretation Comments WEAK ADP 54 % 60-91 L RESULT(BEAKER) (test code = 2135) PLATELET FUNCTION 50-59% indicates mild SCREEN INTERP platelet dysfunction (BEAKER) (test code = 2173) [id number] Virgilio Rodriguez MD (BEAKER) (test code = (electronic signature) 1456) PLATELET COUNT AGG 176 K/CU MM 150-450 (BEAKER) (test code = 5468) [id number] 05:57:00 Test Item Value Reference Range Interpretation Comments MAGNESIUM (BEAKER) (test code = 1.6 mg/dL 1.6-2.6 627) BASIC METABOLIC [id number] 05:57:00 Test Item Value Reference Range Interpretation [...] PATIEN TS. CBC W/PLT COUNT & AUTO [id number] 05:43:00 Test Item Value Reference Range Interpretation [...] PERCENT (BEAKER) (test code = 2801) POCT-GLUCOSE [id number] 23:00:00 Test Item Value Reference Range Interpretation Comments POC-GLUCOSE METER 159 mg/dL 70-110 H TESTED AT [facility] (test code = CRUZ ORTEZ 1538) [address] POCT-GLUCOSE [id number] 14:18:00 Test Item Value Reference Range Interpretation Comments POC-GLUCOSE METER 178 mg/dL 70-110 H TESTED AT [place] [address] ([facility]) (test code = CRUZ Marino [facility] 1538) [id number] 12:13:00 Test Item Value Reference Range Interpretation Comments ACTIVATED CLOTTING TIME 235 sec TEST ED AT [place] [address] ([facility]) (test code = CRUZ Marino [facility] 441) [id number] 12:02:00 Test Item Value Reference Range Interpretation Comments ACTIVATED CLOTTING TIME 186 sec TEST ED AT [place] [address] ([facility]) (test code = CRUZ Marino [facility] 441) [id number] TROPONIN [id number] 09:02:00 Test Item Value Reference Range Interpretation Comments TROPONIN I ([facility]) (test code = 0.01 ng/mL [...] acidosis, acute neurological disease, and persistent tachyarrhythmia.POCT-GLUCOSE [id number] 08:30:00 Test Item Value Reference Range Interpretation Comments POC-GLUCOSE METER 186 mg/dL 70-110 H TESTED AT [place] [address] ([facility]) (test code = CRUZ Marino [facility] 1538) [id number] TROPONIN [id number] 05:06:00 Test Item Value Reference Range Interpretation Comments TROPONIN I ([facility]) (test code = 0.01 ng/mL [...] failure, acidosis, acute neurological disease, and persistent tachyarrhythmia.[id number] 05:03:00 Test Item Value Reference Range Interpretation Comments MAGNESIUM ([facility]) (test code = 1.7 mg/dL 1.6-2.6 627) BASIC METABOLIC [id number] 05:03:00 Test Item Value Reference Range Interpretation [...] S NOT APPLICABLE FOR DIALYSIS PATIEN TS. [id number] 04:17:00 Test Item Value Reference Range Interpretation Comments PARTIAL THROMBOPLASTIN TIME 41.7 seconds 22.5-36.0 H (BEAKER) (test code = 760) PROTHROMBIN [id number] 04:16:00 Test Item Value Reference Range Interpretation Comments PROTIME (BEAKER) (test code = 14.7 seconds 11.7-14.7 759) INR (BEAKER) (test code = 370) 1.1 <=5.9 RECOMMENDED COUMADIN/WARFARIN INR THERAPY RANGESSTANDARD DOSE: 2.0 - 3.0 Includes: PROPHYLAXIS for venous thrombosis, systemic embolization; TREATMENT for venous thrombosis and/or pulmonary embolus.HIGH RISK: Target INR is 2.5-3.5 for patients with mechanical heart valves.CBC W/PLT COUNT & AUTO [id number] 04:11:00 Test Item Value Reference Range Interpretation [...] (test code = 2801) RAD, CHEST, 2 [id number] 20:28:00Reason for exam:->CHEST PAINFINAL REPORT History: Chest [...] Butt Verified Date/Time: 08/28/2017 20:28:31 Reading Location: [facility] Diagnostic Imaging Reading Room - [place] [address] [id number] 20:23:00 Test Item Value Reference Range Interpretation Comments MAGNESIUM (BEAKER) (test code = 1.0 mg/dL 1.5-3.0 LL 627) RAPID [id number] 20:18:00 Test Item Value Reference Range Interpretation Comments RAPID CKMB (BEAKER) (test code = 1.5 ng/mL 0.0-4.3 1482) RAPID [id number] 20:18:00 Test Item Value Reference Range Interpretation Comments RAPID MYOGLOBIN (BEAKER) (test code 94 ng/mL <107 = 2237) RAPID TROPONIN [id number] 20:17:00 Test Item Value Reference Range Interpretation Comments RAPID TROPONIN I (BEAKER) (test code < ng/mL <0.05 = 1483) B-TYPE NATRIURETIC FACTOR (BNP)2017-08-28 20:16:00 Test Item Value Reference Range Interpretation Comments B-TYPE NATRIURETIC PEPTIDE (BEAKER) 48 pg/mL 0-100 (test code = 700) PROTHROMBIN [id number] 20:12:00 Test Item Value Reference Range Interpretation Comments PROTIME (BEAKER) (test code = 10.5 seconds 9.8-12.0 759) INR (BEAKER) (test code = 370) 1.0 <=5.9 RECOMMENDED COUMADIN/WARFARIN INR THERAPY RANGESSTANDARD DOSE: 2.0 - 3.0 Includes: PROPHYLAXIS for venous thrombosis, systemic embolization; TREATMENT for venous thrombosis and/or pulmonary embolus.HIGH RISK: Target INR is 2.5-3.5 for patients with mechanical heart valves.BASIC METABOLIC [id number] 20:12:00 Test Item Value Reference Range Interpretation [...] ESTIMATED GFR. CBC W/PLT COUNT & AUTO [id number] 20:04:00 Test Item Value Reference Range Interpretation [...]
[2021-10-17 16:33] LABS: Absolute Lymphocytes (CBC) 1.4 K/uL (0.7-4.9); Hematocrit 27.6 % (39.6-49.0); Lymphocytes % 16.3 % (15.3-44.8); MCV 82.5 fL (80-100); RBC Red Blood Cell Count 3.34 M/uL (4.33-5.43)
--- NOTE | 2021-10-17 16:37 | RAD REPORT ---
EXAM DESCRIPTION: Av Single View10/17/2021 3:58 pm CLINICAL HISTORY: Hypotension COMPARISON: none FINDINGS: The lungs appear clear of acute infiltrate. The heart is normal size Postsurgical changes involve the chest IMPRESSION: No acute abnormalities displayed
[2021-10-17 16:44] LABS: SARS-CoV-2 Antigen Rapid Res Negative (Negative)
[2021-10-17 16:54] LABS: ALT/SGPT 25 U/L (12-78); AST/SGOT 10 U/L (15-37); Alkaline Phosphatase 81 U/L (45-117); BUN Blood Urea Nitrogen 32 mg/dL (7-18); Bicarbonate 24 mmol/L (21-32); Bilirubin Total 0.2 mg/dL (0.2-1.0); Glomerular Filtration Rate 24 ml/min (=/>90); Glucose Level 147 mg/dL (74-106); Potassium 5.1 mmol/L (3.5-5.1); Protein, Total 6.4 g/dL (6.4-8.2); Sodium Level 137 mmol/L (136-145)
[2021-10-17 16:55] LABS: Albumin 2.8 g/dL (3.4-5.0); Magnesium 1.8 mg/dL (1.8-2.4); Troponin High Sensitivity 13.5 pg/mL (<58.9)
[2021-10-17 16:57] LABS: Bilirubin Direct < 0.1 mg/dL (0-0.2)
[2021-10-17] MEDS ORDERED: NA CHLORIDE 0.9% 500 ML ONE (17:26)
--- NOTE | 2021-10-17 20:34 | ER ---
Nurse's Notes [facility] Name: Lazaro Gruber Age: 71 yrs Sex: Male : 1950 Arrival Date: 10/17/2021 Time: 15:25 Bed 5 Private MD: Diagnosis: Orthostatic hypotension Presentation: 10/17 15:27 Chief complaint: Patient states: "I went [place] the [place] to [place] pressure checked and aa5 they said to come here because my blood pressure was too low when I stood up". Pt reports orthostatics of 124/64 supine, 100/60 sitting, and 81/55 standing with dizziness/feeling lightheaded. Pt reports he was admitted at [facility] in [place] and his creatinine was high. Coronavirus screen: At this time, the client does not indicate any symptoms associated with coronavirus-19. Ebola Screen: Patient denies travel to an Ebola-affected area in the 21 days before illness onset. Initial Sepsis Screen: Does the patient meet any 2 criteria? No. Patient's initial sepsis screen is negative. Does the patient have a suspected source of infection? No. Patient's initial sepsis screen is negative. Risk Assessment: Do you want to hurt yourself or someone else? Patient reports no desire to harm self or others. Onset of symptoms was October 17, 2021. 15:27 Acuity: KERI 2 aa5 15:27 Method Of Arrival: Wheelchair aa5 Triage Assessment: 15:43 General: Appears in no apparent distress. Behavior is calm, cooperative, appropriate bp for age. Pain: Denies pain. EENT: No deficits noted. Neuro: Reports dizziness, WHEN STANDING. Cardiovascular: No deficits noted. Respiratory: No deficits noted. GI: No signs and/or symptoms were reported involving the gastrointestinal system. : No signs and/or symptoms were reported regarding the genitourinary system. Derm: No deficits noted. Musculoskeletal: No deficits noted. Historical: - Allergies: 15:30 No Known Allergies; aa5 - PMHx: 15:30 CABG; diabetes mellitus; GERD; Gout; Myocardial infarction; aa5 - PSHx: 15:30 Nephrostomy tube; Cardia Stents x 19; aa5 - Immunization history:: Adult Immunizations unknown. - Social history:: Smoking status: Patient denies any tobacco usage or history of. Screenin:44 Abuse screen: Denies threats or abuse. Denies injuries from another. Nutritional bp screening: No deficits noted. Tuberculosis screening: No symptoms or risk factors identified. Fall Risk None identified. Assessment: 15:44 General: SEE TRIAGE NOTE. bp 16:48 Reassessment: No changes from previously documented assessment. Patient and/or family bp updated on plan of care and expected duration. Pain level reassessed. 18:25 Reassessment: PT ORTHOSTATIC POSITIVE. bp 19:59 Reassessment: Patient appears in no apparent distress at this time. Patient and/or kl family updated on plan of care and expected duration. Pain level reassessed. Patient is alert, oriented x 3, equal unlabored respirations, skin warm/dry/pink. Patient states feeling better. Patient states symptoms have improved. 20:56 Reassessment: No changes from previously documented assessment. Patient is alert, kl oriented x 3, equal unlabored respirations, skin warm/dry/pink. Vital Signs: 15:28 BP 102 / 64; Pulse 90; Resp 16 S; Temp 97.1(TE); Pulse Ox 100% on R/A; Weight 105.69 kg aa5 (R); Height 6 ft. 0 in. (182.88 cm) (R); 16:48 BP 104 / 60; Pulse 73; Resp 14; Pulse Ox 99% ; bp 17:07 BP 112 / 60; Pulse 70; Resp 12; Pulse Ox 99% on R/A; bp 18:16 BP 128 / 66 Supine; Pulse 83; bp 18:18 BP 107 / 61 Sitting; Pulse 76; bp 18:20 BP 99 / 57 Standing; Pulse 70; bp 19:51 BP 135 / 71; Pulse 67; Resp 18; Pulse Ox 99% on R/A; kl 20:57 BP 151 / 74; Pulse 68; Resp 17; Pulse Ox 99% on R/A; kl 21:20 BP 133 / 68 Supine; Pulse 68 RA; kl 21:20 BP 132 / 65 Sitting; Pulse 78; kl 21:20 BP 106 / 70 Standing; Pulse 87; kl 15:28 Body Mass Index 31.60 (105.69 kg, 182.88 cm) aa5 ED Course: 15:25 Patient arrived in ED. am2 15:27 Arm band placed on. aa5 15:30 Triage completed. aa5 15:31 [facility] Lopez [facility]C [facility] snw 15:31 Alan Car DO is Attending Physician. snw 15:42 Phu You, RN is Primary Nurse. bp 15:44 Patient has correct armband on for positive identification. Bed in low position. Call bp light in reach. Side rails up X2. 16:00 XRAY Chest (1 view) In Process Unspecified. EDMS 16:20 Inserted saline lock: 20 gauge in right forearm, using aseptic technique. Blood bp collected. 21:30 No provider procedures requiring assistance completed. IV discontinued, intact, kl bleeding controlled, No redness/swelling at site. Pressure dressing applied. Administered Medications: 17:00 Drug: NS 0.9% 500 ml Route: IV; Rate: bolus; Site: right forearm; bp 19:20 Drug: NS 0.9% 500 ml Route: IV; Rate: bolus; Site: right antecubital; kl 20:56 Follow up: IV Status: Completed infusion; IV Intake: 500ml kl Medication: 15:44 VIS not applicable for this client. bp Intake: 20:56 IV: 500ml; Total: 500ml. kl 21:30 PO: 320ml (Water); IV: 1000ml; Total: 1820ml. kl Output: 21:30 Urine: 850ml (Khoury); Total: 850ml. kl Outcome: 20:33 Discharge ordered by . snw 21:31 Discharged to home ambulatory. kl 21:31 Condition: improved 21:31 Discharge instructions given to patient, Instructed on discharge instructions, follow up and referral plans. Demonstrated understanding of instructions, follow-up care. 21:31 Patient left the ED. kl Signatures: Dispatcher [employer] EDBrittnee Serrano, RN RN Dorothea Isaac FNP-C QUALITY COORDINATOR-Csnw Stacy Chong, RN RN aa5 Patience Talbert Brian, RN RN bp
--- NOTE | 2021-10-17 20:34 | EDPHYS ---
Physician Documentation [facility] Name: [place] Al[place] Age: 71 yrs Sex: Male : 1950 Arrival Date: 10/17/2021 Time: 15:25 Bed 5 Private MD: ED Physician Alan Car HPI: 10/17 16:07 This 71 yrs old Male presents to ER via Wheelchair with complaints of Blood Pressure snw Problem - low. 16:07 Onset: The symptoms/episode began/occurred gradually. Associated signs and symptoms: snw Pertinent positives: The patient does not have any pertinent positive signs or symptoms associated with pediatric illness. Modifying factors: The patient symptoms are alleviated by nothing, the patient symptoms are aggravated by standing. The patient has experienced similar episodes in the past, several times. The patient has been recently seen by a physician: the patient's primary care provider, earlier today, with similar presenting complaints, and was sent to the [facility] Emergency Department for further evaluation. Historical: - Allergies: 15:30 No Known Allergies; aa5 - PMHx: 15:30 CABG; diabetes mellitus; GERD; Gout; Myocardial infarction; aa5 - PSHx: 15:30 Nephrostomy tube; Cardia Stents x 19; aa5 - Immunization history:: Adult Immunizations unknown. - Social history:: Smoking status: Patient denies any tobacco usage or history of. ROS: 16:04 Constitutional: Negative for fever, chills, and weight loss, pt states both nephrostomy snw tubes are patent and draining, right does not drain much and is bloody, left drains "a full bag" about every 2-3 hours. Pt states the [facility] increased his Cardura from 12.5mg BID to 25mg BID. As pt has orthostatic hypotension, he has not taken his Cardura at all x 2 days. [facility] and his blood pressure upon standing was 66/35 Eyes: Negative for injury, pain, redness, and discharge, ENT: Negative for injury, pain, and discharge, Neck: Negative for injury, pain, and swelling, Cardiovascular: Negative for chest pain, palpitations, and edema, Respiratory: Negative for shortness of breath, cough, wheezing, and pleuritic chest pain, Abdomen/GI: Negative for abdominal pain, nausea, vomiting, diarrhea, and constipation, Back: Negative for injury and pain, : Negative for injury, bleeding, discharge, and swelling, MS/Extremity: Negative for injury and deformity, Skin: Negative for injury, rash, and discoloration, Neuro: Negative for headache, weakness, numbness, tingling, and seizure, Psych: Negative for depression, anxiety, suicide ideation, homicidal ideation, and hallucinations. Exam: 16:04 Constitutional: This is a well developed, well nourished patient who is awake, alert, snw and in no acute distress. Head/Face: Normocephalic, atraumatic. Eyes: Pupils equal round and reactive to light, extra-ocular motions intact. Lids and lashes normal. Conjunctiva and sclera are non-icteric and not injected. Cornea within normal limits. Periorbital areas with no swelling, redness, or edema. ENT: Nares patent. No nasal discharge, no septal abnormalities noted. Tympanic membranes are normal and external auditory canals are clear. Oropharynx with no redness, swelling, or masses, exudates, or evidence of obstruction, uvula midline. Mucous membranes moist. Neck: Trachea midline, no thyromegaly or masses palpated, and no cervical lymphadenopathy. Supple, full range of motion without nuchal rigidity, or vertebral point tenderness. No Meningismus. Chest/axilla: Normal chest wall appearance and motion. Nontender with no deformity. No lesions are appreciated. Cardiovascular: Regular rate and rhythm with a normal S1 and S2. No gallops, murmurs, or rubs. Normal PMI, no JVD. No pulse deficits. Respiratory: Lungs have equal breath sounds bilaterally, clear to auscultation and percussion. No rales, rhonchi or wheezes noted. No increased work of breathing, no retractions or nasal flaring. Abdomen/GI: Soft, non-tender, with normal bowel sounds. No distension or tympany. No guarding or rebound. No evidence of tenderness throughout. Back: No spinal tenderness. No costovertebral tenderness. Full range of motion. Skin: Warm, dry with normal turgor. Normal color with no rashes, no lesions, and no evidence of cellulitis. MS/ Extremity: Pulses equal, no cyanosis. Neurovascular intact. Full, normal range of motion. Neuro: Awake and alert, GCS 15, oriented to person, place, time, and situation. Cranial nerves II-XII grossly intact. Motor strength 5/5 in all extremities. Sensory grossly intact. Cerebellar exam normal. Normal gait. Psych: Awake, alert, with orientation to person, place and time. Behavior, mood, and affect are within normal limits. Vital Signs: 15:28 BP 102 / 64; Pulse 90; Resp 16 S; Temp 97.1(TE); Pulse Ox 100% on R/A; Weight 105.69 kg aa5 (R); Height 6 ft. 0 in. (182.88 cm) (R); 16:48 BP 104 / 60; Pulse 73; Resp 14; Pulse Ox 99% ; bp 17:07 BP 112 / 60; Pulse 70; Resp 12; Pulse Ox 99% on R/A; bp 18:16 BP 128 / 66 Supine; Pulse 83; bp 18:18 BP 107 / 61 Sitting; Pulse 76; bp 18:20 BP 99 / 57 Standing; Pulse 70; bp 19:51 BP 135 / 71; Pulse 67; Resp 18; Pulse Ox 99% on R/A; kl 20:57 BP 151 / 74; Pulse 68; Resp 17; Pulse Ox 99% on R/A; kl 21:20 BP 133 / 68 Supine; Pulse 68 RA; kl 21:20 BP 132 / 65 Sitting; Pulse 78; kl 21:20 BP 106 / 70 Standing; Pulse 87; kl 15:28 Body Mass Index 31.60 (105.69 kg, 182.88 cm) aa5 MDM: 15:42 Patient medically screened. snw 19:36 Data reviewed: vital signs, nurses notes. Data interpreted: Pulse oximetry: on room air snw is 99 %. Interpretation: normal. Response to treatment: the patient's symptoms have mildly improved after treatment. ED course: Pt had 500ml bolus but continued with hypotension on standing. Will repeat bolus. Pt stopped carvedilol on Thursday. Will have appt with Endocrinology at the ID tomorrow. . 20:31 Special discussion: I have referred the patient to see his PCP for further evaluation snw of high blood pressure. Based on the history and exam findings, there is no indication for further emergent testing or inpatient evaluation. I discussed with the patient/guardian the need to see the primary care provider for further evaluation of the symptoms. 10/17 15:32 Order name: Basic Metabolic Panel; Complete Time: 17:01 snw 10/17 15:32 Order name: CBC with Diff; Complete Time: 16:34 snw 10/17 15:32 Order name: LFT's; Complete Time: 17: snw 10/17 15:32 Order name: Magnesium; Complete Time: 17: snw 10/17 15:32 Order name: Troponin HS; Complete Time: 17: snw 10/17 15:33 Order name: SARS RAPID; Complete Time: 16:50 snw 10/17 15:32 Order name: XRAY Chest (1 view); Complete Time: 16:50 snw 10/17 15:32 Order name: EKG; Complete Time: 15:33 snw 10/17 15:32 Order name: Cardiac monitoring; Complete Time: 16: snw 10/17 15:32 Order name: EKG - Nurse/Tech; Complete Time: 16:23 snw 10/17 15:32 Order name: IV Saline Lock; Complete Time: 16:w 10/17 15:32 Order name: Labs collected and sent; Complete Time: 16:w 10/17 15:32 Order name: O2 Per Protocol; Complete Time: 16: snw 10/17 15:32 Order name: O2 Sat Monitoring; Complete Time: 16:w 10/17 17:43 Order name: Orthostatics; Complete Time: 18: snw 10/17 20:31 Order name: Orthostatics snw EC:20 Rate is 77 beats/min. Rhythm is regular. QRS [place] is Normal. [place] interval is normal. QRS snw interval is normal. QT interval is normal. Clinical impression: NSR w/ Non-specific ST/T Changes. Administered Medications: 17:00 Drug: NS 0.9% 500 ml Route: IV; Rate: bolus; Site: right forearm; bp 19:20 Drug: NS 0.9% 500 ml Route: IV; Rate: bolus; Site: right antecubital; kl 20:56 Follow up: IV Status: Completed infusion; IV Intake: 500ml kl Disposition: 10/18 11:28 Co-signature as Attending Physician, Alan MUNGUIA was immediately available on-site ms3 in the Emergency Department for consultation in the care of the patient. . Disposition Summary: 10/17/21 20:33 Discharge Ordered Location: Home snw Condition: Stable snw Diagnosis - Orthostatic hypotension snw Followup: snw - With: Emergency Department - When: As needed - Reason: Worsening of condition Followup: snw - With: Private Physician - When: Tomorrow - Reason: as scheduled Discharge Instructions: - Discharge Summary Sheet snw - Hypotension snw - Orthostatic Hypotension snw Forms: - Medication Reconciliation Form snw - Thank You Letter snw - Antibiotic Education snw - Prescription Opioid Use snw Signatures: Dispatcher [employer] EDMS Brittnee Celestin, RN RN Dorothea Isaac, DONOR SERVICES COORDINATOR-C DONOR SERVICES COORDINATOR-Csnw Stacy Chong RN RN aa5 Phu You RN RN Alan Tamez DO DO ms3
[2021-10-18 00:47] VITALS: TEMP 97.1
[2021-10-18 00:50] VITALS: O2SAT 99
[2021-10-18 01:29] VITALS: BP 133/68
--- NOTE | 2021-10-19 15:23 | EKG ---
Test Date: 2021-10-17 Test Time: 16:20:22 Weather Algorithm Scientist: BP MEASUREMENT RESULTS: Intervals: Rate: 77 IA: 202 QRSD: 96 QT: 372 QTc: 420 [place]: P: 74 IA: 202 QRS: -4 T: 111 INTERPRETIVE STATEMENTS: Normal sinus rhythm ST & T wave abnormality, consider lateral ischemia Abnormal ECG Compared to ECG 10/12/2021 12:32:02 Atrial premature complex(es) no longer present ST (T wave) deviation still present Possible ischemia still present Electronically Signed On 10-19-21 15:20:01 CDT by Tim Emerson
== END 2021-10-17 21:31 | disposition home or self-care (01) ==
LOC: ER 15:18
DX: I95.1 Orthostatic hypotension (principal); E11.9 Type 2 diabetes mellitus without complications; Z95.1 Presence of aortocoronary bypass graft; Z95.818 Presence of other cardiac implants and grafts; Z20.822 Contact with and (suspected) exposure to COVID-19
CPT/HCPCS: 96361; 93005; 85025; 80048; 36415; 83735; 80076; 84484; 71045; 96360; 99284; 87811; J7040

== ENCOUNTER 2024-03-28 21:22 | Emergency (ER) | payer OTHER ==
--- OUTSIDE RECORDS SUMMARY | 2024-03-28 21:25 | XMS REPORT | Clinical Summary ---
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
--- NOTE | 2024-03-28 21:53 | RAD REPORT ---
EXAM: Chest Single View HISTORY: CHEST PAIN COMPARISON: 10/17/2021 FINDINGS: LUNGS/PLEURA: The lungs are clear. No pleural effusions or pneumothorax. No pulmonary edema. MEDIASTINUM: The mediastinal silhouette is within normal limits. CARDIAC: Mild cardiomegaly UPPER ABDOMEN: No significant abnormality. BONES: Sternotomy. No acute abnormality. LINES/TUBES/OTHER: N/A IMPRESSION: No evidence of acute cardiopulmonary disease.
[2024-03-28 21:54] LABS: Absolute Lymphocytes (CBC) 0.6 K/uL (0.7-4.9); Absolute Monocytes 0.2 K/uL (0.1-1.3); Absolute Neutrophil 10.1 K/uL (1.8-8.0); Basophils % 0.3 % (0-1.3); Hematocrit 39.6 % (39.6-49.0); Hemoglobin 12.9 g/dL (13.6-17.9); Lymphocytes % 5.5 % (15.3-44.8); MCH 27.9 pg (27.0-35.0); MCHC 32.6 g/dL (32.0-36.0); MCV 85.6 fL (80-100); MPV 7.7 fL (7.6-11.3); Monocytes % 1.5 % (3.3-12.3); Neutrophils % 92.7 % (41.7-73.7); Nucleated Red Blood Cells % 0.2 % (0-0); Platelets 204 thou/uL (152-406); RBC Red Blood Cell Count 4.63 M/uL (4.33-5.43)
[2024-03-28] MEDS ORDERED: HYDRALAZINE HCL 20 MG/ML VIAL ONE (21:57)
[2024-03-28] MEDS ORDERED: ONDANSETRON 4 MG/2 ML VIAL ONE (21:57)
[2024-03-28] MEDS ORDERED: NA CHLORIDE 0.9% 1,000 ML ONE (21:58)
[2024-03-28] MEDS ORDERED: MORPHINE 4 MG/ML SYR ONE ×2 (21:58→22:33)
[2024-03-28 22:09] LABS: D-Dimer 0.802 FEUug/mL (0-0.500); PT Prothrombin Time 11.3 SECONDS (9.4-12.5); Protime INR 1.08
[2024-03-28 22:15] LABS: ALT/SGPT 37 U/L (16-61); AST/SGOT 24 U/L (15-37); Albumin 3.4 g/dL (3.4-5.0); Albumin/Globulin Ratio 0.9 (1.1-1.8); Alkaline Phosphatase 173 U/L (45-117); Anion Gap 15.8 mEq/L (5.0-15.0); BUN Blood Urea Nitrogen 30 mg/dL (7-18); Bicarbonate 19 mEq/L (21-32); Bilirubin Total 0.3 mg/dL (0.2-1.0); Globulin 3.8 g/dL (2.3-3.5); Glomerular Filtration Rate 25 ml/min (=/>90); Magnesium 1.8 mg/dL (1.6-2.4); NT PRO-BNP 341 pg/mL (<125); Potassium 4.8 mEq/L (3.5-5.1); Protein, Total 7.2 g/dL (6.4-8.2); Sodium Level 134 mEq/L (136-145); Troponin High Sensitivity 250.4 pg/mL (<58.9)
[2024-03-28 22:16] LABS: Bilirubin Direct < 0.2 mg/dL (0-0.2); Bilirubin Indirect, Calculated 0.1 mg/dL (0.2-0.8)
[2024-03-28 22:17] LABS: Glucose Level 586 mg/dL (74-106)
[2024-03-28] MEDS ORDERED: HYDROCORTISONE SUC 100 MG INJ ONE (22:19)
[2024-03-28] MEDS ORDERED: HEPARIN 5000 UNIT/ML 1 ML VIAL ONE (22:27)
[2024-03-28] MEDS ORDERED: HEPARIN/D5W 25,000 UNIT/500 ML BAG IV ONE (22:27)
--- NOTE | 2024-03-28 22:50 | ER ---
Nurse's Notes [facility] Name: Wendel Allyn Age: 73 yrs Sex: Male : 1950 Arrival Date: 03/28/2024 Time: 21:22 Bed 2 Private MD: Diagnosis: NSTEMI, ACS Presentation: 03/28 21:29 Chief complaint: EMS states: pt c/o chest pain pressure since 1630. pt took 3 sl Nitro bm8 prior to transport and we gave 1 sl nitro, also 324 mg aspirin. started 20g rac. Coronavirus screen: At this time, the client does not indicate any symptoms associated with coronavirus-19. Ebola Screen: Patient negative for fever greater than or equal to 101.5 degrees Fahrenheit, and additional compatible Ebola Virus Disease symptoms Patient denies exposure to infectious person. Patient denies travel to an Ebola-affected area in the 21 days before illness onset. No symptoms or risks identified at this time. Initial Sepsis Screen: Does the patient meet any 2 criteria? No. Patient's initial sepsis screen is negative. Does the patient have a suspected source of infection? No. Patient's initial sepsis screen is negative. Risk Assessment: Do you want to hurt yourself or someone else? Patient reports no desire to harm self or others. Onset of symptoms was March 28, 2024 at 16:30. Care prior to arrival: Medication(s) given: ASA, 81 mg, x 4, nitro SL x4 IV initiated. 20 GA, in the right antecubital area. 21:29 Method Of Arrival: EMS: [facility] bm8 21:29 Acuity: KERI 2 bm8 Triage Assessment: 21:32 General: Appears in no apparent distress. uncomfortable, Behavior is calm, cooperative, bm8 appropriate for age. Pain: Complains of pain in chest Pain currently is 9.5 out of 10 on a pain scale. Quality of pain is described as heavy, pressure, Pain began \T\1630. EENT: No deficits noted. Neuro: No deficits noted. Level of Consciousness is awake, alert, obeys commands, Oriented to person, place, time, situation. Cardiovascular: Reports chest pain, Heart tones S1 S2 present Capillary refill < 3 seconds in bilateral fingers Patient's skin is warm and dry. Rhythm is sinus tachycardia Chest pain is described as diffuse, severe, Pain is 9.5 out of 10 on a pain scale. quality is heaviness, pressure, is located in substernal area. Respiratory: Airway is patent Respiratory effort is even, unlabored, Respiratory pattern is regular, symmetrical, Breath sounds are clear bilaterally. GI: No signs and/or symptoms were reported involving the gastrointestinal system. : No signs and/or symptoms were reported regarding the genitourinary system. Derm: No signs and/or symptoms reported regarding the dermatologic system. Musculoskeletal: No signs and/or symptoms reported regarding the musculoskeletal system. Historical: - Home Meds: 22:07 Dulcolax (bisacodyl) 5 mg Oral tablet, delayed release (enteric coated) 1 tab daily bm8 [Active]; melatonin 10 mg Oral tablet 1 tab daily [Active]; isosorbide mononitrate 30 mg Oral Tablet, Extended Release 24 hr 1 tab daily [Active]; tamsulosin 0.4 mg oral capsule 1 cap daily [Active]; cyanocobalamin (vitamin B-12) 1,000 mcg oral tablet 1 tab daily [Active]; pantoprazole 40 mg oral tablet, delayed release (enteric coated) 1 tab daily [Active]; ergocalciferol (vitamin D2) 1,250 mcg (50,000 unit) oral capsule 1 cap every week [Active]; aspirin 81 mg Oral tablet,chewable 1 tab daily [Active]; fludrocortisone 0.1 mg oral tablet 1 tab daily [Active]; duloxetine 30 mg oral capsule,delayed release (e.c.) 1 cap daily [Active]; ranolazine 500 mg oral Tablet, Extended Release 12 hr 1 tab 2 times per day [Active]; carvedilol 6.25 mg oral tablet 1 tab 2 times per day [Active]; acetaminophen-codeine 300-15 mg Oral tablet 1 tab every 8 hours for pain [Active]; nifedipine 60 mg Oral tablet, extended release 1 tab daily [Active]; folic acid 1 mg Oral tablet 1 tab daily [Active]; clopidogrel 75 mg oral tablet 1 tab daily [Active]; allopurinol 100 mg Oral tablet 1 tabs daily [Active]; atorvastatin 80 mg oral tablet 1 tab daily [Active]; - PMHx: 21:32 CABG; Cardic stent x19; diabetes mellitus; GERD; Gout; Myocardial infarction; bm8 22:17 Hypercholesterolemia; bm8 - PSHx: 21:32 Cardia Stents x 19; Nephrostomy tube; bm8 - Immunization history:: Adult Immunizations up to date. - Infectious Disease History:: Denies. - Social history:: Smoking status: Patient denies any tobacco usage or history of. - Family history:: not pertinent. Screenin:59 [facility] ED Fall Risk Assessment (Adult) History of falling in the last 3 months, bm8 including since admission No falls in past 3 months (0 pts) Confusion or Disorientation No (0 pts) Intoxicated or Sedated No (0 pts) Impaired Gait No (0 pts) Mobility Assist Device Used No (0 pt) Altered Elimination No (0 pt) Score/Fall Risk Level 0 - 2 = Low Risk Oriented to surroundings, Maintained a safe environment, Educated pt \T\ family on fall prevention, incl call for assistance when getting out of bed, Assessed \T\ reinforced patient's understanding of fall precautions, Hourly rounding (assess needs \T\ fall precautionary measures) done, Used ambulatory aids as needed (educated on \T\ assisted with), Used gait belt as appropriate. Abuse screen: Denies threats or abuse. Nutritional screening: No deficits noted. Tuberculosis screening: No symptoms or risk factors identified. Assessment: 22:59 Reassessment: Patient and/or family updated on plan of care and expected duration. Pain bm8 level reassessed. Patient is alert, oriented x 3, equal unlabored respirations, skin warm/dry/pink. General: Appears in no apparent distress. comfortable, Behavior is calm, cooperative, appropriate for age. Pain: Complains of pain in chest Pain does not radiate. Pain currently is 8 out of 10 on a pain scale. Quality of pain is described as pressure, sharp. Neuro: No deficits noted. Level of Consciousness is awake, alert, obeys commands, Oriented to person, place, time, situation, Appropriate for age. Cardiovascular: Reports chest pain, lightheadedness, Capillary refill < 3 seconds in bilateral fingers Patient's skin is warm and dry. Rhythm is sinus tachycardia. Respiratory: Airway is patent Respiratory effort is even, unlabored, Respiratory pattern is regular, symmetrical, Breath sounds are clear bilaterally. 03/29 02:58 Reassessment: Patient appears in no apparent distress at this time. Patient and/or bm8 family updated on plan of care and expected duration. Pain level reassessed. Patient is alert, oriented x 3, equal unlabored respirations, skin warm/dry/pink. Patient states feeling better. Patient states symptoms have improved. Pain: Complains of pain in chest Pain currently is 6 out of 10 on a pain scale. 03:28 Reassessment: report to KAREN mae at [facility]. 8 03:48 Reassessment: Patient appears in no apparent distress at this time. No changes from bm8 previously documented assessment. Patient and/or family updated on plan of care and expected duration. Pain level reassessed. Patient is alert, oriented x 3, equal unlabored respirations, skin warm/dry/pink. Patient states feeling better. Patient states symptoms have improved. Pain:. Pain: Complains of pain in chest Pain currently is 2 out of 10 on a pain scale. Cardiovascular: Reports chest pain, lightheadedness, Rhythm is sinus tachycardia with 1st degree heart block. Respiratory: Airway is patent Respiratory effort is even, unlabored, Respiratory pattern is regular, symmetrical. Vital Signs: 03/28 21:29 BP 188 / 93; Pulse 117; Resp 20; Temp 98.8; Pulse Ox 99% ; Weight 123.83 kg; Height 6 bm8 ft. 0 in. ; Pain 9/10; 22:59 BP 196 / 62; Pulse 119; Resp 20; Temp 98.8; Pulse Ox 99% ; Pain 8/10; 8 03/29 02:58 BP 174 / 69; Pulse 109; Resp 21; Temp 98.8; Pulse Ox 99% ; Pain 6/10; bm8 03:48 BP 107 / 73; Pulse 105; Resp 20; Temp 98.7; Pulse Ox 99% ; Pain 2/10; 8 03/28 21:29 Body Mass Index 37.03 (123.83 kg, 182.88 cm) 8 03/28 21:29 Pain Scale: Adult bm8 22:59 Pain Scale: Adult bm8 03/29 02:58 Pain Scale: Adult bm8 03:48 Pain Scale: Adult bm8 [place] Coma Score: 03/28 22:43 Eye Response: spontaneous(4). Motor Response: obeys commands(6). Verbal Response: sp4 oriented(5). Total: 15. 22:59 Eye Response: spontaneous(4). Motor Response: obeys commands(6). Verbal Response: bm8 oriented(5). Total: 15. 03/29 03:48 Eye Response: spontaneous(4). Motor Response: obeys commands(6). Verbal Response: bm8 oriented(5). Total: 15. ED Course: 03/28 21:25 Patient arrived in ED. rv1 21:28 Reese Kerr, RN is Primary Nurse. bm8 21:32 Triage completed. bm8 21:32 Arm band placed on right wrist. bm8 21:44 Dakota Vang MD is Attending Physician. sp4 21:45 XRAY Chest (1 view) In Process Unspecified. EDMS 22:27 Inserted saline lock: 20 gauge in left forearm, using aseptic technique. Blood vk collected. Flushed with 10 mL NS. 22:38 Initiated transfer with Isael at [facility]. rv1 22:59 Patient has correct armband on for positive identification. Bed in low position. Call bm8 light in reach. Side rails up X 1. Adult w/ patient. Provided Education on: need for transfer. Client placed on continuous cardiac and pulse oximetry monitoring. NIBP monitoring applied. classroom monitor on. Pulse ox on. NIBP on. Door closed. Noise minimized. Warm blanket given. Pillow given. Verbal reassurance given. Head of bed. 22:59 No provider procedures requiring assistance completed. Initial lab(s) drawn, by me, bm8 sent to lab. Inserted saline lock: Maintain EMS IV. Dressing intact. Good blood return noted. Site clean \T\ dry. Gauge \T\ site: 20rac. Flushed with 10 mL NS. Patient maintains SpO2 saturation greater than 95% on room air. 23:11 Doc to Doc with finishing technician at [facility]. rv1 23:20 Doc to Doc with second finishing technician at [facility]. rv1 03/29 01:18 Called for update on transfer, Isael stated they are still waiting for bed to be rv1 cleaned. Gave updated Trop for finishing technician. 02:35 Transfer delayed due to waiting for bed assignment at [facility]. Isael stated they are rv still waiting for a bed. 02:[address] Hameed to [place] [id number] bed 2. Report #[id number]. rv1 03:13 Dorothea with [facility] gave 15-20 min ETA. rv1 03:48 Patient transferred, IV remains in place. bm8 Administered Medications: 03/28 22:06 Drug: morphine IVP or IV 4 mg IVP once over 4 mins Route: IVP; Infused Over: 4 mins; bm8 Site: right antecubital; 03/29 00:12 Follow up: Response: No adverse reaction [facility] 03/28 22:06 Drug: Ondansetron IVP 4 mg IVP once; over 2 minutes Route: IVP; Site: right antecubital;[facility] 03/29 00:12 Follow up: Response: No adverse reaction [facility] 03/28 22:06 Drug: hydrALAZINE IVP 10 mg IVP once Route: IVP; Site: right antecubital; 8 03/29 00:12 Follow up: Response: No adverse reaction [facility] 03/28 22:06 Drug: NS 0.9% IV 1000 ml IV at 100 ml/hr Per protocol; to be given as a bolus over 60 bm8 minutes Route: IV; Rate: 100 ml/hr; Site: right antecubital; 03/29 03:50 Follow up: Response: No adverse reaction; IV Status: Infusion continued upon transfer [facility] 03/28 22:21 Drug: Solu-CORTEF IVP 100 mg IVP once Route: IVP; Site: right antecubital; 8 03/29 00:12 Follow up: Response: No adverse reaction [facility] 03/28 22:46 Drug: Heparin (OH Drip) 12 units/kg/[place] - ([place] [address] units, D5W IV 500 ml) IV at [facility] calculated rate Per protocol; Max initial rate 1000 units/hr {Co-Signature: al5 (Patience Claire RN).} Route: IV; Rate: calculated rate; Site: right antecubital; 03/29 03:50 Follow up: Response: No adverse reaction; IV Status: Infusion continued upon transfer [facility] 03/28 22:46 Drug: morphine IVP or IV 4 mg IVP once over 4 mins Route: IVP; Infused Over: 4 mins; 8 Site: right antecubital; 22:55 Follow up: Response: No adverse reaction [facility] 22:48 Drug: Heparin (OH-Bolus No thrombolytic) - HEParin IVP 60 units/kg IVP once; Max 5000 bm8 units {Co-Signature: ha1 (Yara Segovia RN).} Route: IVP; Site: right antecubital; 03/29 00:13 Follow up: Response: No adverse reaction bm8 03/28 22:55 Drug: Insulin Regular Human IVP 10 units IVP once {Co-Signature: al5 (Patience Claire bm8 RN).} Route: IVP; Site: left forearm; 03/29 00:13 Follow up: Response: No adverse reaction bm8 00:08 Drug: morphine IVP or IV 4 mg IVP once over 4 mins Route: IVP; Infused Over: 4 mins; bm8 Site: left forearm; 00:13 Follow up: Response: No adverse reaction bm8 00:08 Drug: Ondansetron IVP 4 mg IVP once; over 2 minutes Route: IVP; Site: right antecubital;bm8 00:13 Follow up: Response: No adverse reaction bm8 02:59 Drug: morphine 4 mg IVP once over 4 mins Route: IVP; Infused Over: 4 mins; Site: left bm8 forearm; 03:50 Follow up: Response: No adverse reaction bm8 02:59 Drug: Zofran (Ondansetron) 4 mg IVP once; over 2 minutes Route: IVP; Site: left forearm;bm8 03:49 Follow up: Response: No adverse reaction bm8 03:50 Follow up: Response: No adverse reaction bm8 03:37 Drug: Nitroglycerin Transdermal Ointment 2 % 0.5 inches Transdermal once Route: bm8 Transdermal; Site: anterior chest wall; 03:49 Follow up: Response: No adverse reaction bm8 Medication: 03/28 22:59 VIS not applicable for this client. bm8 Point of Care Testing: Blood Glucose: 21:32 Blood Glucose: High (>450 mg/dL); bm8 21:32 >500 , Read HIGH bm8 Ranges: Outcome: 22:49 ER care complete, transfer ordered by MD. briggs 03/29 03:48 Transferred by ground EMS to [facility], Transfer form completed. bm8 X-rays sent w/ patient. Condition: stable Instructed on follow up and referral plans. the need for transfer, Demonstrated understanding of follow-up care, medications, 03:51 Patient left the ED. bm8 Signatures: Dispatcher [employer] EDMS [place] Clara rv1 Dakota Vang MD MD sp4 [place] Brad, RN RN bm8 Yara Segovia RN ha1 Patience Claire RN al5 Corrections: (The following items were deleted from the chart) 03/28 22:16 21:32 Home Meds: Unable to obtain; bm8 bm8 22:43 21:29 BP 188 / 93; Pulse 117bpm; Resp 20bpm; Pulse Ox 99%; Temp 98.8F; 113.4 kg; Height bm8 6 ft. 0 in.; BMI: 33.9; Pain 9/10, Adult; bm8 23:24 22:38 Initiated transfer with Isael at [facility] rv1 rv1
--- NOTE | 2024-03-28 22:50 | EDPHYS ---
Physician Documentation [facility] Name: [place] Age: 73 yrs Sex: Male : 1950 Arrival Date: 03/28/2024 Time: 21:22 Bed 2 Private MD: ED Physician Dakota Vang HPI: 03/28 21:45 This 73 yrs old Male presents to ER via EMS with complaints of Chest Pain > sp4 32 y/o. 22:40 73-year-old male presents with moderate to severe midsternal chest pain by EMS. Patient sp4 states midsternal pain worsening today starting at 4:30 PM. Patient took his Plavix at home and EMS administered aspirin 384 mg. Patient has history of 22 stents done mostly at the [place]. Last stent approximately 1 year ago. History of CABG as well. Patient is on multiple medications including Plavix and fludrocortisone.. Historical: - Home Meds: 22:07 Dulcolax (bisacodyl) 5 mg Oral tablet, delayed release (enteric coated) 1 tab daily bm8 [Active]; melatonin 10 mg Oral tablet 1 tab daily [Active]; isosorbide mononitrate 30 mg Oral Tablet, Extended Release 24 hr 1 tab daily [Active]; tamsulosin 0.4 mg oral capsule 1 cap daily [Active]; cyanocobalamin (vitamin B-12) 1,000 mcg oral tablet 1 tab daily [Active]; pantoprazole 40 mg oral tablet, delayed release (enteric coated) 1 tab daily [Active]; ergocalciferol (vitamin D2) 1,250 mcg (50,000 unit) oral capsule 1 cap every week [Active]; aspirin 81 mg Oral tablet,chewable 1 tab daily [Active]; fludrocortisone 0.1 mg oral tablet 1 tab daily [Active]; duloxetine 30 mg oral capsule,delayed release (e.c.) 1 cap daily [Active]; ranolazine 500 mg oral Tablet, Extended Release 12 hr 1 tab 2 times per day [Active]; carvedilol 6.25 mg oral tablet 1 tab 2 times per day [Active]; acetaminophen-codeine 300-15 mg Oral tablet 1 tab every 8 hours for pain [Active]; nifedipine 60 mg Oral tablet, extended release 1 tab daily [Active]; folic acid 1 mg Oral tablet 1 tab daily [Active]; clopidogrel 75 mg oral tablet 1 tab daily [Active]; allopurinol 100 mg Oral tablet 1 tabs daily [Active]; atorvastatin 80 mg oral tablet 1 tab daily [Active]; - PMHx: 21:32 CABG; Cardic stent x19; diabetes mellitus; GERD; Gout; Myocardial infarction; bm8 22:17 Hypercholesterolemia; bm8 - PSHx: 21:32 Cardia Stents x 19; Nephrostomy tube; bm8 - Immunization history:: Adult Immunizations up to date. - Infectious Disease History:: Denies. - Social history:: Smoking status: Patient denies any tobacco usage or history of. - Family history:: not pertinent. ROS: 22:43 Constitutional: Negative for fever, chills, and weight loss, positive midsternal sp4 chest pain positive shortness of breath 22:43 All other systems are negative, Exam: 22:43 Constitutional: This is a well developed, well nourished patient who is awake, alert, sp4 and in no acute distress. Head/Face: Normocephalic, atraumatic. Eyes: Pupils equal round and reactive to light, extra-ocular motions intact. Lids and lashes normal. Conjunctiva and sclera are not injected. Cornea within normal limits. Periorbital areas with no swelling, redness, or edema. ENT: Nares patent. No nasal discharge, no septal abnormalities noted. Tympanic membranes are normal and external auditory canals are clear. Oropharynx with no redness, swelling, or masses, exudates, or evidence of obstruction, uvula midline. Mucous membranes moist. Neck: Trachea midline, no thyromegaly or masses palpated, and no cervical lymphadenopathy. Supple, full range of motion without nuchal rigidity, or vertebral point tenderness. Chest/axilla: Normal chest wall appearance and motion. Nontender with no deformity. No lesions are appreciated. Cardiovascular: Regular rate and rhythm with a normal S1 and S2. No gallops, murmurs, or rubs. Normal PMI, no JVD. No pulse deficits. Respiratory: Lungs have equal breath sounds bilaterally, clear to auscultation and percussion. No rales, rhonchi or wheezes noted. No increased work of breathing, no retractions or nasal flaring. Abdomen/GI: Soft, with normal bowel sounds. No distension or tympany. No guarding or rebound. No evidence of tenderness throughout. Back: No spinal tenderness. No costovertebral tenderness. Skin: Warm, dry with normal turgor. Normal color with no rashes, no lesions, and no evidence of cellulitis. MS/ Extremity: Pulses equal, no cyanosis. Neurovascular intact. Full, normal range of motion. Neuro: Awake and alert, GCS 15, oriented to person, place, time, and situation. Cranial nerves II-XII grossly intact. Motor strength 5/5 in all extremities. Sensory grossly intact. Psych: Awake, alert, with orientation to person, place and time. Behavior, mood, and affect are within normal limits 22:43 ECG was reviewed by the Attending Physician. EKG today at 21 24 acute tachycardia rate 116, 03/30 02:11 Repeat EKG 0037 EKG reveals sinus tachycardia rate 110 first-degree AV block, no ST sp4 elevations, no ST depressions, otherwise normal intervals, no ectopy. Sinus tachycardia rate 110 Vital Signs: 03/28 21:29 BP 188 / 93; Pulse 117; Resp 20; Temp 98.8; Pulse Ox 99% ; Weight 123.83 kg; Height 6 bm8 ft. 0 in. ; Pain 9/10; 22:59 BP 196 / 62; Pulse 119; Resp 20; Temp 98.8; Pulse Ox 99% ; Pain 8/10; 8 03/29 02:58 BP 174 / 69; Pulse 109; Resp 21; Temp 98.8; Pulse Ox 99% ; Pain 6/10; bm8 03:48 BP 107 / 73; Pulse 105; Resp 20; Temp 98.7; Pulse Ox 99% ; Pain 2/10; bm8 03/28 21:29 Body Mass Index 37.03 (123.83 kg, 182.88 cm) 8 03/28 21:29 Pain Scale: Adult bm8 22:59 Pain Scale: Adult bm8 03/29 02:58 Pain Scale: Adult bm8 03:48 Pain Scale: Adult bm8 Prasad Coma Score: 03/28 22:43 Eye Response: spontaneous(4). Motor Response: obeys commands(6). Verbal Response: sp4 oriented(5). Total: 15. 22:59 Eye Response: spontaneous(4). Motor Response: obeys commands(6). Verbal Response: bm8 oriented(5). Total: 15. 03/29 03:48 Eye Response: spontaneous(4). Motor Response: obeys commands(6). Verbal Response: bm8 oriented(5). Total: 15. MDM: 03/28 22:20 Medical Screening Exam initiated sp4 22:47 Differential diagnosis: acute pericarditis, anxiety, coronary artery disease chest wall sp4 pain, congestive heart failure Cholelithiasis. HEART Score: History: Highly Suspicious (2), ECG: Non specific repolarization disturbance / LBTB / PM (1), Age: > or = 65 years (2), Risk Factors: > or = 3 Risk factors for atherosclerotic disease (2), Troponin: > or = 3 x Normal Limit (2), Total Score = 9. The patient was not given aspirin in the Emergency Department. Administered by EMS. Data reviewed: vital signs, nurses notes, EMS record, old medical records, lab test result(s), EKG, radiologic studies, plain films. ED course: EXAM: Chest Single View HISTORY: CHEST PAIN COMPARISON: 10/17/2021 FINDINGS: LUNGS/PLEURA: The lungs are clear. No pleural effusions or pneumothorax. No pulmonary edema. MEDIASTINUM: The mediastinal silhouette is within normal limits. CARDIAC: Mild cardiomegaly UPPER ABDOMEN: No significant abnormality. BONES: Sternotomy. No acute abnormality. LINES/TUBES/OTHER: N/A IMPRESSION: No evidence of acute cardiopulmonary disease. . 03/29 01:42 ED course: Repeat troponin almost 4000 and patient has been accepted however is sp4 awaiting for bed assignment. Will consider aeromedical transport.. 03/28 21:29 Order name: Basic Metabolic Panel; Complete Time: 22:34 8 03/28 21:29 Order name: CBC with Diff; Complete Time: 02:54 bm8 03/28 21:29 Order name: D-Dimer; Complete Time: 22:34 8 03/28 21:29 Order name: LFT's; Complete Time: 22:34 8 03/28 21:29 Order name: Magnesium; Complete Time: 22:34 8 03/28 21:29 Order name: NT PRO-BNP; Complete Time: 22:34 8 03/28 21:29 Order name: PT-INR; Complete Time: 22:34 bm8 03/28 21:29 Order name: Troponin HS; Complete Time: 22:34 bm8 03/28 21:50 Order name: Glucose, Ancillary Testing; Complete Time: 21:56 EDMS 04 00:10 Order name: Troponin High Sensitivity; Complete Time: 01:41 sp4 03/29 00:23 Order name: Glucose, Ancillary Testing; Complete Time: 01:16 EDMS 03/29 00:51 Order name: Manual Differential; Complete Time: 02:54 EDMS 03/28 21:29 Order name: XRAY Chest (1 view); Complete Time: 21:56 bm8 03/28 21:29 Order name: Cardiac monitoring; Complete Time: 21:29 bm8 03/28 21:29 Order name: EKG - Nurse/Tech; Complete Time: 21:29 bm8 03/28 21:29 Order name: IV Saline Lock; Complete Time: 21:29 bm8 03/28 21:29 Order name: Labs collected and sent; Complete Time: 21:29 bm8 03/28 21:29 Order name: O2 Per Protocol; Complete Time: 21:29 bm8 03/28 21:29 Order name: O2 Sat Monitoring; Complete Time: 21:29 bm8 EC/03 21:24 Rate is 116 beats/min. Rhythm is regular, Sinus tachycardia. QRS [place] is Normal. [place] sp4 interval is normal. QRS interval is normal. QT interval is normal. No Q waves. T waves are Normal. No ST changes noted. Clinical impression: No evidence of ischemia. Interpreted by me. Reviewed by me. Administered Medications: 22:06 Drug: morphine IVP or IV 4 mg IVP once over 4 mins Route: IVP; Infused Over: 4 mins; 8 Site: right antecubital; 03/29 00:12 Follow up: Response: No adverse reaction [facility] 03/28 22:06 Drug: Ondansetron IVP 4 mg IVP once; over 2 minutes Route: IVP; Site: right antecubital;bm8 03/29 00:12 Follow up: Response: No adverse reaction [facility] 03/28 22:06 Drug: hydrALAZINE IVP 10 mg IVP once Route: IVP; Site: right antecubital; 8 03/29 00:12 Follow up: Response: No adverse reaction [facility] 03/28 22:06 Drug: NS 0.9% IV 1000 ml IV at 100 ml/hr Per protocol; to be given as a bolus over 60 bm8 minutes Route: IV; Rate: 100 ml/hr; Site: right antecubital; 03/29 03:50 Follow up: Response: No adverse reaction; IV Status: Infusion continued upon transfer [facility] 03/28 22:21 Drug: Solu-CORTEF IVP 100 mg IVP once Route: IVP; Site: right antecubital; 8 03/29 00:12 Follow up: Response: No adverse reaction [facility] 03/28 22:46 Drug: Heparin (OK Drip) 12 units/kg/hr - ([place] [address] units, D5W IV 500 ml) IV at bm8 calculated rate Per protocol; Max initial rate 1000 units/hr {Co-Signature: javier (Patience Claire RN).} Route: IV; Rate: calculated rate; Site: right antecubital; 03/29 03:50 Follow up: Response: No adverse reaction; IV Status: Infusion continued upon transfer [facility] 03/28 22:46 Drug: morphine IVP or IV 4 mg IVP once over 4 mins Route: IVP; Infused Over: 4 mins; 8 Site: right antecubital; 22:55 Follow up: Response: No adverse reaction [facility] 22:48 Drug: Heparin (OK-Bolus No thrombolytic) - HEParin IVP 60 units/kg IVP once; Max 5000 bm8 units {Co-Signature: jose (Yara Segovia RN).} Route: IVP; Site: right antecubital; 03/29 00:13 Follow up: Response: No adverse reaction [facility] 03/28 22:55 Drug: Insulin Regular Human IVP 10 units IVP once {Co-Signature: javier (Patience Claire RN).} Route: IVP; Site: left forearm; 03/29 00:13 Follow up: Response: No adverse reaction 8 00:08 Drug: morphine IVP or IV 4 mg IVP once over 4 mins Route: IVP; Infused Over: 4 mins; 8 Site: left forearm; 00:13 Follow up: Response: No adverse reaction 8 00:08 Drug: Ondansetron IVP 4 mg IVP once; over 2 minutes Route: IVP; Site: right antecubital;bm8 00:13 Follow up: Response: No adverse reaction bm8 02:59 Drug: morphine 4 mg IVP once over 4 mins Route: IVP; Infused Over: 4 mins; Site: left bm8 forearm; 03:50 Follow up: Response: No adverse reaction bm8 02:59 Drug: Zofran (Ondansetron) 4 mg IVP once; over 2 minutes Route: IVP; Site: left forearm;bm8 03:49 Follow up: Response: No adverse reaction bm8 03:50 Follow up: Response: No adverse reaction bm8 03:37 Drug: Nitroglycerin Transdermal Ointment 2 % 0.5 inches Transdermal once Route: bm8 Transdermal; Site: anterior chest wall; 03:49 Follow up: Response: No adverse reaction bm8 Point of Care Testing: Blood Glucose: 03/28 21:32 Blood Glucose: High (>450 mg/dL); bm8 21:32 >500 , Read HIGH bm8 Ranges: Critical Glucose Levels:Adult <50 mg/dl or >400 mg/dl <40 mg/dl or >180 mg/dl Disposition: 22:50 Critical Care:. sp4 Disposition Summary: 03/28/24 22:49 Transfer Ordered Notes: Transfer Location: [facility] sp4 Reason: Higher level of care sp4 Condition: Stable sp4 Problem: new sp4 Symptoms: are unchanged sp4 Accepting Physician: [facility]'s attending MD(03/29/24 03:51) bm8 Diagnosis - NSTEMI, ACS sp4 Forms: - Medication Reconciliation Form sp4 - SBAR form sp4 Critical care time excluding procedures: 22:50 Critical care time: Bedside Care: 36 minutes, Consultation: 12 minutes, Family sp4 Intervention: 12 minutes. Total time: 60 minutes Signatures: Dispatcher [employer] Dakota Johnson MD MD sp4 Reese Kerr, RN RN bm8 Yara Segovia RN ha1 Patience Claire RN al5 Corrections: (The following items were deleted from the chart) 21:30 21:30 BASIC METABOLIC PANEL+C.LAB.BRZ ordered. EDMS EDMS 21:30 21:30 CBC+H.LAB.BRZ ordered. EDMS EDMS 21:30 21:30 D-DIMER+COAG.LAB.BRZ ordered. EDMS EDMS 21:30 21:30 HEPATIC FUNCTION+C.LAB.BRZ ordered. EDMS EDMS 21: 21:30 MAGNESIUM+C.LAB.BRZ ordered. EDMS EDMS 21:30 21:30 PROBNP+C.LAB.BRZ ordered. EDMS EDMS 21:30 21:30 PROTIME (+INR)+COAG.LAB.BRZ ordered. EDMS EDMS 21:30 21:30 Troponin High Sensitivity+C.LAB.BRZ ordered. EDMS EDMS 21:30 21:30 Chest Single View+RAD.RAD.BRZ ordered. EDMS EDMS 22:16 21:32 Home Meds: Unable to obtain; bmMoses bm8 03/29 00:10 00:10 Troponin High Sensitivity+C.LAB.BRZ ordered. EDMS EDMS 03:51 03/28 22:49 [facility]'s attending sp4 bm8
[2024-03-28] MEDS ORDERED: INSULIN REGULAR (HUMAN) 100 UNIT/ML ONE (22:51)
[2024-03-29] MEDS ORDERED: ONDANSETRON 4 MG/2 ML VIAL ONE ×2 (00:03→02:46)
[2024-03-29] MEDS ORDERED: MORPHINE 4 MG/ML SYR ONE ×2 (00:04→02:46)
[2024-03-29 02:27] LABS: Band Neutrophils 4 % (0-1); Differential Total Cells Count 100; Lymphocytes 5 % (15-42); Monocytes 2 % (0-10); Segmented Neutrophils 89 % (40-80)
[2024-03-29 02:28] LABS: Blood Morphology Comment NOT SEEN (NOT SEEN); Platelet Estimate ADEQ
[2024-03-29] MEDS ORDERED: NITROGLYCERIN 1 GM PKT TD ONE (03:33)
[2024-03-29 04:18] VITALS: O2SAT 99
[2024-03-29 04:27] VITALS: BP 107/73; TEMP 98.7
--- NOTE | 2024-03-29 12:10 | EKG ---
Test Date: 2024-03-29 Test Time: 00:37:53 Thread Checker: NATI MEASUREMENT RESULTS: Intervals: Rate: 110 OR: 256 QRSD: 100 QT: 302 QTc: 408 [place]: P: OR: 256 QRS: 10 T: 118 INTERPRETIVE STATEMENTS: Sinus tachycardia with 1st degree AV block with premature atrial complexes ST & T wave abnormality, consider lateral ischemia Abnormal ECG Compared to ECG 03/28/2024 21:24:58 Atrial premature complex(es) now present First degree AV block now present ST (T wave) deviation still present Possible ischemia still present Electronically Signed On 03-29-24 12:09:25 SOFTWARE TEST ANALYST by Marty Perez
--- NOTE | 2024-03-29 12:10 | EKG ---
Test Date: 2024-03-28 Test Time: 21:24:58 Engine Buildup Mechanic: NATI MEASUREMENT RESULTS: Intervals: Rate: 116 NE: 160 QRSD: 108 QT: 358 QTc: 497 [place]: P: 113 NE: 160 QRS: -11 T: 93 INTERPRETIVE STATEMENTS: Sinus tachycardia ST & T wave abnormality, consider lateral ischemia Abnormal ECG Compared to ECG 10/17/2021 16:20:22 Sinus rhythm no longer present ST (T wave) deviation still present Possible ischemia still present Electronically Signed On 03-29-24 12:09:43 CREPING MACHINE OPERATOR by Marty Perez
== END 2024-03-29 03:51 | disposition short-term general hospital (02) ==
LOC: ER 21:22
DX: I21.4 Non-ST elevation (NSTEMI) myocardial infarction (principal); I24.9 Acute ischemic heart disease, unspecified; I25.2 Old myocardial infarction; E78.00 Pure hypercholesterolemia, unspecified; E11.9 Type 2 diabetes mellitus without complications; Z95.1 Presence of aortocoronary bypass graft; Z95.818 Presence of other cardiac implants and grafts; Z79.82 Long term (current) use of aspirin
CPT/HCPCS: 93005 ×2; 85025; 80048; 36415; 83735; 85610; 82947 ×2; 85379; 80076; 84484 ×2; 83880; 71045; J1644; J0360; J1720; J2405 ×3; J7030